=== PATIENT | female | born 1950 | race Caucasian/White ===

== ENCOUNTER 2020-11-16 12:50 | Inpatient (IN) | payer MEDICARE ==
[2020-11-16] MEDS ORDERED: ACETAMINOPHEN TAB 325 MG TAB PO STA (13:09)
[2020-11-16] MEDS ORDERED: IBUPROFEN 600 MG TAB PO STA (13:09)
--- NOTE | 2020-11-16 13:10 | ED ---
SOB HPI - General Chief Complaint: Shortness of Breath Stated Complaint: Covid+, PAUL Time Seen by Provider: 11/16/20 13:01 Source: patient, RN notes reviewed Mode of arrival: ambulatory - History of Present Illness Initial Comments: Patient is a 69-year-old female that presents to the emergency department with shortness of breath after testing positive for Covid on Tuesday. She notes that since then she's been unable to take a deep breath and is having shortness of breath. She denied any other symptoms at this point. She can emergency department to get further evaluation. She was in mild respiratory distress, take deep breaths while sitting up in bed during the exam interview. She denied any pain. She denied any chest pain headache nausea vomiting diarrhea constip ation fever fatigue chills. - Related Data Home Medications Medication Instructions Recorded Confirmed Albuterol Inhaler [Ventolin Hfa 2 puff INHALATION RT-QID PRN 11/16/20 11/16/20 Inhaler] Citalopram Hydrobromide [CeleXA] 10 mg PO HS 11/16/20 11/16/20 Levofloxacin [Levaquin] 500 mg PO DAILY 11/16/20 11/16/20 Tolterodine [Detrol] 2 mg PO HS 11/16/20 11/16/20 Allergies Allergy/AdvReac Type Severity Reaction Status Date / Time No Known Allergies Allergy Verified 11/16/20 14:14 Review of Systems ROS Statement: Those systems with pertinent positive or pertinent negative responses have been documented in the HPI. ROS Other: All systems not noted in ROS Statement are negative. Past Medical History Past Medical History: No Reported History History of Any Multi-Drug Resistant Organisms: None Reported Past Surgical History: Appendectomy, Hysterectomy Past Psychological History: No Psychological Hx Reported Smoking Status: Former smoker Past Alcohol Use History: None Reported Past Drug Use History: None Reported General Exam General appearance: alert, in no apparent distress Head exam: Present: atraumatic, normocephalic, normal inspection Eye exam: Present: normal appearance, PERRL, EOMI. Absent: scleral icterus, conjunctival injection, periorbital swelling Neck exam: Present: normal inspection. Absent: tenderness, meningismus, lymphadenopathy Respiratory exam: Present: normal lung sounds bilaterally, accessory muscle use (Minimal). Absent: respiratory distress, wheezes, rales, rhonchi, stridor Cardiovascular Exam: Present: regular rate, normal rhythm, normal heart sounds. Absent: systolic murmur, diastolic murmur, rubs, gallop, clicks GI/Abdominal exam: Present: soft, normal bowel sounds. Absent: distended, tenderness, guarding, rebound, rigid Extremities exam: Present: normal inspection, full ROM, normal capillary refill. Absent: tenderness, pedal edema, joint swelling, calf tenderness Neurological exam: Present: alert, oriented X3, CN II-XII intact Psychiatric exam: Present: normal affect, normal mood Skin exam: Present: warm, dry, intact, normal color. Absent: rash Course Vital Signs 11/16/20 11/16/20 12:55 14:08 Temperature 99.9 F H Pulse Rate 99 79 Respiratory 20 18 Rate Blood Pressure 121/59 117/60 O2 Sat by Pulse 86 L 93 L Oximetry Medical Decision Making - Medical Decision Making 69-year-old female tested positive for Covid on Tuesday with increased shortness of breath. Labs, 1 L normal saline, 2 L of oxygen via nasal cannula, chest x-ray, EKG, cardiac technologist, continuous pulse oximetry ordered. Tylenol 650 and Motrin 600 ordered for mild fever. Patient's oxygen saturation triage but 86% on room air, upon leaving room with 2 L via nasal cannula patient was satting at 94%. Case discussed with Dr. Landa and Dr. Perera, patient will be admitted inpatient. Dr. Pete was consult and will accept the admission. - Lab Data Result diagrams: 11/16/20 13:15 11/16/20 13:15 Lab Results 11/16/20 11/16/20 11/16/20 Range/Units 13:15 13:15 13:15 WBC 7.6 (3.8-10.6) k/uL RBC 3.88 (3.80-5.40) m/uL Hgb 12.9 (11.4-16.0) gm/dL Hct 37.1 (34.0-46.0) % MCV 95.5 (80.0-100.0) fL MCH 33.2 (25.0-35.0) pg MCHC 34.7 (31.0-37.0) g/dL RDW 11.7 (11.5-15.5) % Plt Count 246 (150-450) k/uL MPV 7.0 Neutrophils % 77 % Lymphocytes % 15 % Monocytes % 6 % Eosinophils % 1 % Basophils % 1 % Neutrophils # 5.8 (1.3-7.7) k/uL Lymphocytes # 1.1 (1.0-4.8) k/uL Monocytes # 0.5 (0-1.0) k/uL Eosinophils # 0.1 (0-0.7) k/uL Basophils # 0.1 (0-0.2) k/uL PT 10.1 (9.0-12.0) sec INR 0.9 (<1.2) APTT 26.7 (22.0-30.0) sec D-Dimer 0.99 H (<0.60) mg/L FEU Sodium 133 L (137-145) mmol/L Potassium 3.9 (3.5-5.1) mmol/L Chloride 98 (98-107) mmol/L Carbon Dioxide 25 (22-30) mmol/L Anion Gap 10 mmol/L BUN 12 (7-17) mg/dL Creatinine 0.65 (0.52-1.04) mg/dL Est GFR (CKD-EPI)AfAm >90 (>60 ml/min/1.73 sqM) Est GFR (CKD-EPI)NonAf >90 (>60 ml/min/1.73 sqM) Glucose 126 H (74-99) mg/dL Plasma Lactic Acid Rocco (0.7-2.0) mmol/L Calcium 8.6 (8.4-10.2) mg/dL Magnesium 1.7 (1.6-2.3) mg/dL Total Bilirubin 0.5 (0.2-1.3) mg/dL AST 35 (14-36) U/L ALT 21 (4-34) U/L Alkaline Phosphatase 73 (38-126) U/L Lactate Dehydrogenase 765 H (313-618) U/L C-Reactive Protein 14.0 H (<1.0) mg/dL Total Protein 6.9 (6.3-8.2) g/dL Albumin 3.7 (3.5-5.0) g/dL Influenza Type A (PCR) (Not Detectd) Influenza Type B (PCR) (Not Detectd) RSV (PCR) (Not Detectd) SARS-CoV-2 (PCR) (Not Detectd) 11/16/20 11/16/20 Range/Units 13:15 13:15 WBC (3.8-10.6) k/uL RBC (3.80-5.40) m/uL Hgb (11.4-16.0) gm/dL Hct (34.0-46.0) % MCV (80.0-100.0) fL MCH (25.0-35.0) pg MCHC (31.0-37.0) g/dL RDW (11.5-15.5) % Plt Count (150-450) k/uL MPV Neutrophils % % Lymphocytes % % Monocytes % % Eosinophils % % Basophils % % Neutrophils # (1.3-7.7) k/uL Lymphocytes # (1.0-4.8) k/uL Monocytes # (0-1.0) k/uL Eosinophils # (0-0.7) k/uL Basophils # (0-0.2) k/uL PT (9.0-12.0) sec INR (<1.2) APTT (22.0-30.0) sec D-Dimer (<0.60) mg/L FEU Sodium (137-145) mmol/L Potassium (3.5-5.1) mmol/L Chloride (98-107) mmol/L Carbon Dioxide (22-30) mmol/L Anion Gap mmol/L BUN (7-17) mg/dL Creatinine (0.52-1.04) mg/dL Est GFR (CKD-EPI)AfAm (>60 ml/min/1.73 sqM) Est GFR (CKD-EPI)NonAf (>60 ml/min/1.73 sqM) Glucose (74-99) mg/dL Plasma Lactic Acid Rocco 0.9 (0.7-2.0) mmol/L Calcium (8.4-10.2) mg/dL Magnesium (1.6-2.3) mg/dL Total Bilirubin (0.2-1.3) mg/dL AST (14-36) U/L ALT (4-34) U/L Alkaline Phosphatase (38-126) U/L Lactate Dehydrogenase (313-618) U/L C-Reactive Protein (<1.0) mg/dL Total Protein (6.3-8.2) g/dL Albumin (3.5-5.0) g/dL Influenza Type A (PCR) Not Detected (Not Detectd) Influenza Type B (PCR) Not Detected (Not Detectd) RSV (PCR) Not Detected (Not Detectd) SARS-CoV-2 (PCR) Detected A (Not Detectd) - EKG Data -: EKG Interpreted by Me EKG shows normal: sinus rhythm Rate: normal EKG Comments: Ventricular rate 89 bpm, NM interval 150 ms, QRS duration 74 ms, QT/QTC 350/425 ms, PRT axes 29/5/58. Normal sinus rhythm normal ECG. - Radiology Data Radiology results: report reviewed, image reviewed Chest x-ray patchy bilateral perihilar infiltrates. CT of the chest angiogram: No evidence of pulmonary embolism. Extensive bilateral pneumonia with bronchial adenopathy. Disposition Clinical Impression: Pneumonia due to COVID-19 virus Disposition: ADMITTED IP TO THIS HOSP Condition: Stable Is patient prescribed a controlled substance at d/c from ED?: No Referrals: Shalom Hernandez MD [Primary Care Provider] - 1-2 days Time of Disposition: 15:48
[2020-11-16 13:32] LABS: Basophils # (A) 0.1 k/uL (0-0.2); Basophils % (A) 1 %; Eosinophils # (A) 0.1 k/uL (0-0.7); Eosinophils % (A) 1 %; HCT 37.1 % (34.0-46.0); HGB 12.9 gm/dL (11.4-16.0); Lymphocytes # (A) 1.1 k/uL (1.0-4.8); Lymphocytes % (A) 15 %; MCH 33.2 pg (25.0-35.0); MCHC 34.7 g/dL (31.0-37.0); MCV 95.5 fL (80.0-100.0); Monocytes # (A) 0.5 k/uL (0-1.0); Monocytes % (A) 6 %; Neutrophils # (A) 5.8 k/uL (1.3-7.7); Neutrophils % (A) 77 %; Platelet Count 246 k/uL (150-450); RBC 3.88 m/uL (3.80-5.40); RDW 11.7 % (11.5-15.5); WBC 7.6 k/uL (3.8-10.6)
[2020-11-16 13:52] LABS: INR 0.9 (<1.2); Partial Thromboplastin Time 26.7 sec (22.0-30.0); Prothrombin Time 10.1 sec (9.0-12.0)
--- NOTE | 2020-11-16 13:52 | XR ---
EXAMINATION TYPE: XR chest 1V portable DATE OF EXAM: 11/16/2020 COMPARISON: NONE HISTORY: Cough TECHNIQUE: Single frontal view of the chest is obtained. FINDINGS: There are patchy bilateral perihilar infiltrates. No pleural effusion or pneumothorax. Hea rt size normal. Diffuse osteopenia. IMPRESSION: Patchy bilateral perihilar infiltrate.
[2020-11-16 13:54] LABS: ALT 21 U/L (4-34); AST 35 U/L (14-36); African American GFR (CKD) >90 (>60 ml/min/1.73 sqM); Albumin 3.7 g/dL (3.5-5.0); Alkaline Phosphatase 73 U/L (38-126); Anion Gap 10 mmol/L; Blood Urea Nitrogen 12 mg/dL (7-17); Calcium 8.6 mg/dL (8.4-10.2); Carbon Dioxide 25 mmol/L (22-30); Chloride 98 mmol/L (98-107); Glucose 126 mg/dL (74-99); LDH 765 U/L (313-618); Magnesium 1.7 mg/dL (1.6-2.3); Non-African American GFR(CKD) >90 (>60 ml/min/1.73 sqM); Potassium 3.9 mmol/L (3.5-5.1); Sodium 133 mmol/L (137-145); Total Bilirubin 0.5 mg/dL (0.2-1.3); Total Protein 6.9 g/dL (6.3-8.2)
[2020-11-16 14:00] LABS: D-Dimer 0.99 mg/L FEU (<0.60)
--- NOTE | 2020-11-16 15:30 | CT ---
EXAMINATION TYPE: CT chest angio for PE DATE OF EXAM: 11/16/2020 COMPARISON: None HISTORY: Elevated d-dimer. Shortness of breath. CT DLP: 378.9 mGycm Automated exposure control for dose reduction was used. CONTRAST: Performed with IV Contrast, patient injected with 100 mL of Isovue 370. There are 3-D post processed images. There is patchy peripheral extensive pulmonary interstitial and airspace infiltrates. Heart size is f airly normal. There is no pericardial effusion. There is no pleural effusion. There is normal contrast opacification of the pulmonary arteries. There are no filling defects. Thora cic aorta is intact. There is no aneurysm or dissection. There are bilateral multiple bronchial lymph nodes up to 1.5 cm. Bony thorax is intact. IMPRESSION: No evidence of pulmonary embolism. Extensive bilateral pneumonia with bronchial adenopathy.
[2020-11-16] MEDS ORDERED: NALOXONE 0.4 MG/ML 1 ML VIAL IV PRN (15:46)
[2020-11-16] MEDS ORDERED: DEXAMETHASONE SOD PHOSPHATE 10 MG/ML 1 ML VIAL IV STA (15:46)
[2020-11-16] MEDS: SODIUM CHLORIDE 0.9% 1,000 ML IV SCH (15:52)
[2020-11-16] MEDS ORDERED: ONDANSETRON 4 MG/2 ML VIAL IVP PRN ×2 (15:54→17:27)
[2020-11-16] MEDS ORDERED: ALBUTEROL HFA INHALER INHALATION PRN (17:27)
[2020-11-16] MEDS ORDERED: IBUPROFEN 400 MG TAB PO PRN (17:27)
[2020-11-16] MEDS ORDERED: HYDROcodone/APAP 5-325MG 1 EACH TAB PO PRN (17:27)
[2020-11-16] MEDS ORDERED: MORPHINE SULFATE 4 MG/ML SYRINGE IV PRN (17:27)
--- NOTE | 2020-11-16 17:49 | P.HPIM ---
History of Present Illness H&P Date: 11/16/20 Chief Complaint: shortness of breath Patient is a 69-year-old female with no significant past medical history who presented to the emergency department secondary to shortness of breath. She had been diagnosed with COVID-19 on 11/11. On arrival to the ER she was hypoxic at 86% on room air. Labs showed a mildly elevated d-dimer at 0.99, she subsequently underwent a CTA of the chest which showed no evidence of pulmonary embolism but did show extensive bilateral pulmonary infiltrates with reactive adenopathy. Her COVID-19 test was again positive. She was given a dose of Tylenol, Motrin, and Decadron area and she was admitted for further management. Patient seen and examined at bedside in the ER. She states that on Tuesday 11/07 she started having post nassal gtt, started coughing on 11/08. She went to see Dr. Hernandez on 11/10 and started on levaquin and medrol for bronchitis and her + COVID test came back 11/11. She started to have some difficulty getting in a deep breath over the last 4 days, she also reports rib pain when trying to breath, and shortness of breath. Poor appetitie. She is able to taste and smell. Stool has been watery but not frequent. No known COVID contacts, no hx of vaccine. Pertinent positives and negatives as discussed in HPI, a complete review of systems was performed and all other systems are negative. General: ill appearing, mod distress, appears at stated age Derm: warm, dry Head: atraumatic, normocephalic, symmetric Eyes: EOMI, no lid lag, anicteric sclera, pupils equal round reactive to light ENT: Nose and ears atraumatic, no thrush, no pharyngeal erythema Neck: No thyromegaly, no cervical lymphadenopathy, trachea midline, supple Mouth: no lip lesion, mucus membranes dry Cardiovascular: S1S2 reg, no murmur, positive posterior tibial pulse bilateral, no edema, capillary refill less than 2 seconds Lungs: course bs bilateral, no ronchi, no rales, no wheeze, no accessory muscle use Abdominal: soft, nontender to palpation, no guarding, no appreciable organomegaly, normal bowel sounds Ext: no gross muscle atrophy, muscle strength 5 out of 5 in all 4 extremities, no contractures Neuro: CN II-XI grossly intact, light touch intact all 4 extremities, finger to nose within normal limits, Psych: Alert, oriented, appropriate affect COVID-19 pneumonitis acute hypoxic respiratory failure - out of the window for remdesivir - if O2 requirement worsen consult pulm in AM -Decadron D # 1 -Vitamin C, vitamin D, zinc -Albuterol - Lovenox - pulm hygeine Costochonditiris due to above - motrin Overative bladder - detrol The patient is admitted with an anticipated greater than 2 midnight stay for evaluation of COVID with acute hypoxic respiratory fialure. 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 Past Medical History Additional Past Medical History / Comment(s): overactive bladder History of Any Multi-Drug Resistant Organisms: None Reported Past Surgical History: Appendectomy, Hysterectomy Past Psychological History: No Psychological Hx Reported Smoking Status: Never smoker Past Alcohol Use History: None Reported Past Drug Use History: None Reported - Past Family History Father Additional Family Medical History / Comment(s): cancer Mother Additional Family Medical History / Comment(s): heart disease Medications and Allergies Home Medications Medication Instructions Recorded Confirmed Type Albuterol Inhaler [Ventolin Hfa 2 puff INHALATION RT-QID PRN 11/16/20 11/16/20 History Inhaler] Citalopram Hydrobromide [CeleXA] 10 mg PO HS 11/16/20 11/16/20 History Levofloxacin [Levaquin] 500 mg PO DAILY 11/16/20 11/16/20 History Tolterodine [Detrol] 2 mg PO HS 11/16/20 11/16/20 History Allergies Allergy/AdvReac Type Severity Reaction Status Date / Time No Known Allergies Allergy Verified 11/16/20 14:14 Physical Exam Osteopathic Statement: *. No significant issues noted on an osteopathic structural exam other than those noted in the History and Physical/Consult. Vitals: Vital Signs Temp Pulse Resp BP Pulse Ox 11/16/20 14:08 79 18 117/60 93 L 11/16/20 12:55 99.9 F H 99 20 121/59 86 L Intake and Output 11/16/20 11/16/20 11/16/20 06:59 14:59 22:59 Other: Weight 88.904 kg Results CBC & Chem 7: 11/16/20 13:15 11/16/20 13:15 Labs: Abnormal Lab Results - Last 24 Hours (Table) 11/16/20 11/16/20 11/16/20 Range/Units 13:15 13:15 13:15 D-Dimer 0.99 H (<0.60) mg/L FEU Sodium 133 L (137-145) mmol/L Glucose 126 H (74-99) mg/dL Lactate Dehydrogenase 765 H (313-618) U/L C-Reactive Protein 14.0 H (<1.0) mg/dL SARS-CoV-2 (PCR) Detected A (Not Detectd)
[2020-11-16] MEDS: FAMOTIDINE 20 MG TAB PO SCH (18:45)
[2020-11-16] MEDS: ALBUTEROL HFA INHALER INHALATION SCH (20:22)
[2020-11-16] MEDS: OXYBUTYNIN XL 5 MG TAB.ER.24 PO SCH (20:53)
[2020-11-16] MEDS: CITALOPRAM HYDROBROMIDE 10 MG TAB PO SCH (20:53)
[2020-11-17] MEDS: ALBUTEROL HFA INHALER INHALATION SCH ×4 (03:12→21:19)
[2020-11-17] MEDS: FAMOTIDINE 20 MG TAB PO SCH (07:40)
[2020-11-17] MEDS: ASCORBIC ACID 500 MG TAB PO SCH (07:40)
[2020-11-17] MEDS: dexAMETHasone 2 MG TAB PO SCH (07:40)
[2020-11-17] MEDS: ENOXAPARIN 40 MG/0.4 ML SYRINGE SQ SCH (07:40)
[2020-11-17] MEDS: ZINC SULFATE 220 MG CAP PO SCH (07:40)
[2020-11-17] MEDS: CHOLECALCIFEROL 25 MCG (1000 IU) TABLET PO SCH (07:40)
[2020-11-17] MEDS ORDERED: ENOXAPARIN 40 MG/0.4 ML SYRINGE SQ SCH (09:00)
[2020-11-17 09:02] LABS: HCT 36.3 % (37.2-46.3); MCH 32.3 pg (27.0-32.0); MCHC 33.1 g/dL (32.0-37.0); MCV 97.6 fL (80.0-97.0); Mean Platelet Volume 9.9 fL (9.5-12.2); Platelet Count 282 X 10*3/uL (140-440); RBC 3.72 X 10*6/uL (4.10-5.20); RDW 11.9 % (11.5-14.5); WBC 6.75 X 10*3/uL (4.50-10.00)
[2020-11-17 09:25] LABS: Ferritin 492.5 ng/mL (10.0-291.0)
[2020-11-17 10:27] LABS: Phosphorus 3.6 mg/dL (2.4-5.1)
[2020-11-17 10:32] LABS: African American GFR (CKD) 114.5 (60.0-200.0); Albumin 4.1 g/dL (3.80-4.90); Albumin/Globulin Ratio 1.41 (1.60-3.17); Anion Gap 12.2 mmol/L (4.00-12.00); Calcium 8.6 mg/dL (8.7-10.3); Carbon Dioxide 22.8 mmol/L (21.6-31.8); Globulin 2.9 g/dL (1.6-3.3); Non-African American GFR(CKD) 98.8 (60.0-200.0); Potassium 4.3 mmol/L (3.5-5.5); Total Bilirubin 0.4 mg/dL (0.3-1.2)
[2020-11-17 10:34] LABS: C Reactive Protein 13.1 mg/dL (0.0-0.8)
[2020-11-17] MEDS ORDERED: PANTOPRAZOLE 40 MG/10 ML VIAL IVP ONE (10:57)
[2020-11-17] MEDS: ACETAMINOPHEN TAB 325 MG TAB PO PRN (12:14)
[2020-11-17] MEDS: SODIUM CHLORIDE 0.9% 1,000 ML IV SCH ×2 (13:31→17:36)
--- NOTE | 2020-11-17 18:49 | P.PN ---
Subjective Progress Note Date: 11/17/20 (Delayed charting seen and 0945) Principal diagnosis: Shortness of breath Patient is a 69-year-old female with no significant past medical history who presented to the emergency department secondary to shortness of breath. She had been diagnosed with COVID-19 on 11/11. On arrival to the ER she was hypoxic at 86% on room air. Labs showed a mildly elevated d-dimer at 0.99, she subsequently underwent a CTA of the chest which showed no evidence of pulmonary embolism but did show extensive bilateral pulmonary infiltrates with reactive adenopathy. Her COVID-19 test was again positive. She was given a dose of Tylenol, Motrin, and Decadron area and she was admitted for further management. Her O2 requirements increased to 4 L by the morning of 11/17. She continued to have some abdominal pain which she described as spasms. Patient seen and examined at bedside. She is still feeling very short of breath, weak, and tired. She is not feeling as though she could go home. She continues to complain of some abdominal pain. She was offered Tylenol does not want this, she does not think it is acid reflux. She does not think it is cardiac it feels like a fluttering. She feels as though she has a hyper taste and her appetite is not normal. General: Ill appearing, mild distress, appears at stated age Derm: warm, dry Head: atraumatic, normocephalic, symmetric Eyes: EOMI, no lid lag, anicteric sclera Mouth: no lip lesion, mucus membranes dry Cardiovascular: S1S2 reg, no murmur, positive posterior tibial pulse bilateral, Lungs: [Coarse breath sounds bilateral, 3 word conversational dyspnea, no accessory muscle use Abdominal: soft, nontender to palpation, no guarding, no appreciable organomegaly Ext: no gross muscle atrophy, no edema, no contractures Neuro: CN II-XI grossly intact, no focal neuro deficits Psych: Alert, oriented, appropriate affect COVID-19 pneumonitis acute hypoxic respiratory failure - out of the window for remdesivir - if O2 requirement worsen consult pulm -Decadron D # 2 -Vitamin C, vitamin D, zinc -Albuterol fixed and as needed - Lovenox - pulm hygeine Costochonditiris due to above - motrin Abdominal discomfort -Suspect GERD -IV PPI -Offered Flexeril and [place]. Patient declined. Overative bladder - detrol Hyponatremia, resolved DVT prophylaxis: Lovenox Discussed with: patient, nursing Anticipated discharge date: 3-[address]: home A total of 35 minutes was spent on the care of this complex patient more than 50% of the time was spent in counseling and care coordination. Objective - Vital Signs Vital signs: Vital Signs Temp 98 F 11/17/20 17:05 Pulse 62 11/17/20 17:05 Resp 16 11/17/20 17:05 BP 147/68 11/17/20 17:05 Pulse Ox 92 L 11/17/20 17:05 Intake & Output 11/16/20 11/17/20 11/17/20 18:59 06:59 18:59 Intake Total 836 Balance 836 Weight 88.904 kg 88.904 kg Intake: Intake, IV Titration 600 Amount Sodium Chloride 0.9% 1, 600 000 ml @ 75 mls/hr IV . [id number] [facility] Rx#:[id number] Oral 236 - Labs CBC & Chem 7: 11/17/20 05:34 11/17/20 05:34 Labs: Abnormal Lab Results - Last 24 Hours (Table) 11/16/20 11/16/20 11/17/20 Range/Units 13:15 13:15 05:34 RBC 3.72 L (4.10-5.20) X 10*6/uL Hct 36.3 L (37.2-46.3) % MCV 97.6 H (80.0-97.0) fL MCH 32.3 H (27.0-32.0) pg D-Dimer (<0.60) mg/L FEU Anion Gap (4.00-12.00) mmol/L Creatinine (0.6-1.5) mg/dL BUN/Creatinine Ratio (12.00-20.00) Ratio Glucose (70-110) mg/dL Calcium (8.7-10.3) mg/dL Ferritin 492.5 H (10.0-291.0) ng/mL Lactate Dehydrogenase (120-246) U/L C-Reactive Protein (0.0-0.8) mg/dL Albumin/Globulin Ratio (1.60-3.17) g/dL Procalcitonin 0.18 H (0.02-0.09) ng/mL 11/17/20 11/17/20 Range/Units 05:34 05:34 RBC (4.10-5.20) X 10*6/uL Hct (37.2-46.3) % MCV (80.0-97.0) fL MCH (27.0-32.0) pg D-Dimer 0.86 H (<0.60) mg/L FEU Anion Gap 12.20 H (4.00-12.00) mmol/L Creatinine 0.5 L (0.6-1.5) mg/dL BUN/Creatinine Ratio 24.00 H (12.00-20.00) Ratio Glucose 178 H (70-110) mg/dL Calcium 8.6 L (8.7-10.3) mg/dL Ferritin (10.0-291.0) ng/mL Lactate Dehydrogenase 356 H (120-246) U/L C-Reactive Protein 13.1 H (0.0-0.8) mg/dL Albumin/Globulin Ratio 1.41 L (1.60-3.17) g/dL Procalcitonin (0.02-0.09) ng/mL
[2020-11-17] MEDS: CITALOPRAM HYDROBROMIDE 10 MG TAB PO SCH (20:30)
[2020-11-17] MEDS: OXYBUTYNIN XL 5 MG TAB.ER.24 PO SCH (20:30)
[2020-11-17] MEDS: CYCLOBENZAPRINE 5 MG TAB PO PRN (20:33)
[2020-11-18] MEDS: ALBUTEROL HFA INHALER INHALATION SCH ×4 (02:25→20:15)
[2020-11-18] MEDS: ZINC SULFATE 220 MG CAP PO SCH (08:58)
[2020-11-18] MEDS: CHOLECALCIFEROL 25 MCG (1000 IU) TABLET PO SCH (08:58)
[2020-11-18] MEDS: FAMOTIDINE 20 MG TAB PO SCH (08:59)
[2020-11-18] MEDS: SODIUM CHLORIDE 0.9% 1,000 ML IV SCH ×2 (08:59→20:31)
[2020-11-18] MEDS: ASCORBIC ACID 500 MG TAB PO SCH (08:59)
[2020-11-18] MEDS: ENOXAPARIN 40 MG/0.4 ML SYRINGE SQ SCH (08:59)
[2020-11-18] MEDS: dexAMETHasone 2 MG TAB PO SCH (08:59)
[2020-11-18] MEDS: CYCLOBENZAPRINE 5 MG TAB PO PRN ×2 (09:02→20:31)
[2020-11-18 09:49] LABS: HCT 35.1 % (37.2-46.3); HGB 11.7 g/dL (12.0-15.0); MCH 32.7 pg (27.0-32.0); MCHC 33.3 g/dL (32.0-37.0); Mean Platelet Volume 9.8 fL (9.5-12.2); Platelet Count 293 X 10*3/uL (140-440); RBC 3.58 X 10*6/uL (4.10-5.20); RDW 11.9 % (11.5-14.5); WBC 11.07 X 10*3/uL (4.50-10.00)
[2020-11-18] MEDS ORDERED: TOCILIZUMAB IV ONE (11:26)
[2020-11-18] MEDS ORDERED: SODIUM CHLORIDE 0.9% IV ONE (11:26)
[2020-11-18 11:29] LABS: African American GFR (CKD) 114.5 (60.0-200.0); Albumin 3.7 g/dL (3.80-4.90); Albumin/Globulin Ratio 1.54 (1.60-3.17); Anion Gap 11.7 mmol/L (4.00-12.00); C Reactive Protein 6.1 mg/dL (0.0-0.8); Calcium 8.3 mg/dL (8.7-10.3); Carbon Dioxide 23.3 mmol/L (21.6-31.8); Globulin 2.4 g/dL (1.6-3.3); Non-African American GFR(CKD) 98.8 (60.0-200.0); Potassium 4.2 mmol/L (3.5-5.5); Total Bilirubin 0.3 mg/dL (0.2-1.2); Total Protein 6.1 g/dL (6.2-8.2)
--- NOTE | 2020-11-18 11:49 | ECHOF ---
Referral Reason:CHF. COVID. MEASUREMENTS -------- HEIGHT: 170.2 cm WEIGHT: 88.9 kg BP: 144/79 RVIDd: 3.5 cm (< 3.3) IVSd: 1.5 cm (0.6 - 1.1) LVIDd: 3.7 cm (3.9 - 5.3) LVPWd: 1.0 cm (0.6 - 1.1) IVSs: 1.8 cm LVIDs: 2.0 cm LVPWs: 1.7 cm LAESV Index (A-L): 16.13 ml/m MV E Mehdi: 0.86 m/s MV DecT: 152 ms MV A Mehdi: 0.71 m/s MV E/A Ratio: 1.21 RAP: 5.00 mmHg RVSP: 38.29 mmHg FINDINGS -------- Sinus rhythm. This was a technically difficult study with suboptimal views. The left ventricular size is normal. There is moderate concentric left ventricular hypertrophy. O verall left ventricular systolic function is normal with, an EF between 55 - 60 %. The right ventricle is mildly enlarged. Normal LA size by volume 22+/-6 ml/m2. The right atrium was not well visualized. 5.0mg of Lumason was utilized for enhancement of images Interatrial and interventricular septum intact. The aortic valve was not well visualized. There is no evidence of aortic regurgitation. There is no evidence of aortic stenosis. The mitral valve was not well visualized. Mild tricuspid regurgitation present. There is mild pulmonary hypertension. The right ventricular systolic pressure, as measured by Doppler, is 38.29mmHg. The pulmonic valve was not well visualized. There is no pulmonic regurgitation present. The aortic root size is normal. IVC Not well visulized. There is no pericardial effusion. CONCLUSIONS -------- 1. This was a technically difficult study with suboptimal views. 2. There is moderate concentric left ventricular hypertrophy. 3. Overall left ventricular systolic function is normal with, an EF between 55 - 60 %. 4. The right ventricle is mildly enlarged. 5. Normal LA size by volume 22+/-6 ml/m2. 6. The aortic valve was not well visualized. 7. The mitral valve was not well visualized. 8. Mild tricuspid regurgitation present. 9. There is mild pulmonary hypertension. STEM ROLLER OR CRUSHER OPERATOR: Sury Lorenzo RDCS
--- NOTE | 2020-11-18 14:46 | P.CNPUL ---
History of Present Illness Consult date: 11/18/20 Reason for consult: pneumonia Chief complaint: COVID-19 pneumonia History of present illness: There is a 69-year-old female patient with COVID-19 related pneumonia. The patient was already diagnosed having COVID-19 on 11/11/2018. The patient was symptomatic approximately 9 days prior to that. She came into the emergency department on 11/16/2020 and the patient was hospitalized with pneumonia. She was seen by the hospitalist group. She was started on steroids. She was not given Remdesivir as the patient was thought to be outside the window of treatment. Note that the patient was found to be hypoxic with a pulse of 76% on room air at time of admission. D-dimer was 0.99. CT angios gram showed acute breath and pulmonary infiltrates consistent with COVID-19 related pneumonia and her COVID-19 by PCR came back positive. She was initiated on 2 L of oxygen by nasal cannula. Subsequently, she decompensated and she is currently at 8 L per minute nasal cannula for that reason a pulmonary consultation was requested. She is reporting some increased work of breathing. She has a dry cough. No significant sputum production. No angina. No palpitation. No previous history of lung disease or disorder. No nausea. No vomiting. She is able to taste and smell. Her LDH level was 765 and is currently down to 411. The pro calcitonin level is down to 0.18. D-dimer is at 0.8. CBC showed some mild anemia with hemoglobin of 11.7. Otherwise white cell count was 11 and the platelet count was 293. Review of Systems Constitutional: Denies chills, Denies fever Eyes: denies as per HPI, denies blurred vision, denies bulging eye, denies decr eased vision, denies diplopia, denies discharge, denies dry eye, denies irritation, denies itching, denies pain, denies photophobia, denies loss of peripheral vision, denies loss of vision, denies tunnel vision/blind spots Ears: deny: decreased hearing, ear discharge, earache, tinnitus Ears, nose, mouth and throat: Reports as per HPI Breasts: absent: as per HPI, change in shape, gynecomastia, masses, nipple discharge, pain, skin changes, swelling Cardiovascular: Reports as per HPI, Reports decreased exercise tolerance, Reports dyspnea on exertion Respiratory: Reports dyspnea Gastrointestinal: Reports as per HPI Genitourinary: Reports as per HPI Menstruation: Reports as per HPI Musculoskeletal: Reports as per HPI Musculoskeletal: absent: ankle pain, ankle stiffness, ankle swelling, as per HPI, elbow pain, elbow stiffness, elbow swelling, foot pain, foot stiffness, foot swelling, hand pain, hand stiffness, hand swelling, hip pain, hip sti ffness, hip swelling, knee pain, knee stiffness, knee swelling, shoulder pain, shoulder stiffness, shoulder swelling, wrist pain, wrist stiffness, wrist swelling Integumentary: Reports as per HPI Neurological: Reports as per HPI Psychiatric: Reports as per HPI Endocrine: Reports as per HPI Hematologic/Lymphatic: Reports as per HPI Allergic/Immunologic: Reports as per HPI Past Medical History Past Medical History: No Reported History Additional Past Medical History / Comment(s): overactive bladder, colitis History of Any Multi-Drug Resistant Organisms: None Reported Past Surgical History: Appendectomy, Hysterectomy Past Anesthesia/Blood Transfusion Reactions: No Reported Reaction Past Psychological History: Depression Smoking Status: Never smoker Past Alcohol Use History: None Reported Past Drug Use History: None Reported - Past Family History Father Family Medical History: Cancer Additional Family Medical History / Comment(s): cancer Mother History Unknown: Yes Family Medical History: Coronary Artery Disease (CAD) Additional Family Medical History / Comment(s): heart disease Medications and Allergies Home Medications Medication Instructions Recorded Confirmed Type Albuterol Inhaler [Ventolin Hfa 2 puff INHALATION RT-QID PRN 11/16/20 11/16/20 History Inhaler] Citalopram Hydrobromide [CeleXA] 10 mg PO HS 11/16/20 11/16/20 History Levofloxacin [Levaquin] 500 mg PO DAILY 11/16/20 11/16/20 History Tolterodine [Detrol] 2 mg PO HS 11/16/20 11/16/20 History Allergies Allergy/AdvReac Type Severity Reaction Status Date / Time No Known Allergies Allergy Verified 11/16/20 14:14 Physical Exam Vitals: Vital Signs Temp Pulse Resp BP Pulse Ox 11/18/20 13:37 98.8 F 85 21 142/75 92 L 11/18/20 09:55 98.6 F 84 22 127/79 91 L 11/18/20 05:36 98.1 F 75 144/79 91 L 11/18/20 02:25 89 L 11/18/20 01:54 98.0 F 67 17 135/73 96 11/18/20 00:35 91 L 11/17/20 21:55 88 L 11/17/20 21:22 98.3 F 74 17 147/75 84 L 11/17/20 17:05 98 F 62 16 147/68 92 L Intake and Output 11/17/20 11/18/20 11/18/20 22:59 06:59 14:59 Intake Total 836 Balance 836 Intake: Intake, IV Titration 600 Amount Sodium Chloride 0.9% 1, 600 000 ml @ 75 mls/hr IV . [id number] FORMERLY [facility], 1928–1983 Rx#:[id number] Oral 236 Patient seen and examined at bedside. She is still feeling very short of breath, weak, and tired. She is not feeling as though she could go home. She continues to complain of some abdominal pain. She was offered Tylenol does not want this, she does not think it is acid reflux. She does not think it is cardiac it feels like a fluttering. She feels as though she has a hyper taste and her appetite is not normal. General: Ill appearing, mild distress, appears at stated age Examination of the skin revealed no evidence of significant rashes, suspicious appearing nevi or other concerning lesions. Head exam was generally normal. There was no scleral icterus or corneal arcus. Mucous membranes were moist. Neck was supple and without jugular venous distension, thyromegaly, or carotid bruits. Carotids were easily palpable bilaterally. There was no adenopathy. Mouth: no lip lesion, mucus membranes dry Cardiovascular: S1S2 reg, no murmur, positive posterior tibial pulse bilateral, Lungs: [Coarse breath sounds bilateral, 3 word conversational dyspnea, no acce ssory muscle use Abdominal: soft, nontender to palpation, no guarding, no appreciable organomegaly Ext: no gross muscle atrophy, no edema, no contractures Neuro: CN II-XI grossly intact, no focal neuro deficits Psych: Alert, oriented, appropriate affect Results - Laboratory Findings CBC and BMP: 11/18/20 06:00 11/18/20 06:00 PT/INR, D-dimer PT 10.1 sec (9.0-12.0) 11/16/20 13:15 INR 0.9 (<1.2) 11/16/20 13:15 D-Dimer 0.80 mg/L FEU (<0.60) H 11/18/20 06:00 Abnormal lab findings: Abnormal Labs 11/16/20 11/16/20 11/16/20 13:15 13:15 13:15 WBC RBC Hgb Hct MCV MCH D-Dimer 0.99 H Sodium 133 L Anion Gap Creatinine BUN/Creatinine Ratio Glucose 126 H Calcium Ferritin 492.5 H AST Lactate Dehydrogenase 765 H C-Reactive Protein 14.0 H Total Protein Albumin Albumin/Globulin Ratio Procalcitonin 0.18 H SARS-CoV-2 (PCR) 11/16/20 11/17/20 11/17/20 13:15 05:34 05:34 WBC RBC 3.72 L Hgb Hct 36.3 L MCV 97.6 H MCH 32.3 H D-Dimer 0.86 H Sodium Anion Gap Creatinine BUN/Creatinine Ratio Glucose Calcium Ferritin AST Lactate Dehydrogenase C-Reactive Protein Total Protein Albumin Albumin/Globulin Ratio Procalcitonin SARS-CoV-2 (PCR) Detected A 11/17/20 11/18/20 11/18/20 05:34 06:00 06:00 WBC 11.07 H RBC 3.58 L Hgb 11.7 L Hct 35.1 L MCV 98.0 H MCH 32.7 H D-Dimer 0.80 H Sodium Anion Gap 12.20 H Creatinine 0.5 L BUN/Creatinine Ratio 24.00 H Glucose 178 H Calcium 8.6 L Ferritin AST Lactate Dehydrogenase 356 H C-Reactive Protein 13.1 H Total Protein Albumin Albumin/Globulin Ratio 1.41 L Procalcitonin SARS-CoV-2 (PCR) 11/18/20 06:00 WBC RBC Hgb Hct MCV MCH D-Dimer Sodium Anion Gap Creatinine 0.5 L BUN/Creatinine Ratio 26.00 H Glucose Calcium 8.3 L Ferritin AST 37 H Lactate Dehydrogenase 411 H C-Reactive Protein 6.1 H Total Protein 6.1 L Albumin 3.70 L Albumin/Globulin Ratio 1.54 L Procalcitonin SARS-CoV-2 (PCR) - Diagnostic Findings Chest x-ray: image reviewed CT scan - chest: image reviewed Assessment and Plan Plan: 1 acute COVID-19 related pneumonia. The patient origin diagnosis was on 11/11/2020 and the patient was symptomatic approximately 9-10 days prior to that. Patient presented to the hospital because of worsening shortness of breath and hypoxemia. Initially she was on 2 L and currently she is up to 8 L of oxygen by nasal cannula to maintain a saturation above 90%. 2 acute hypoxic respiratory failure currently on 8 L 3 dyspnea and cough secondary to above 4 mild elevation of the LDH and CRP. 5 overactive bladder Plan Continue Decadron Not a candidate for Remdesivir May be a candidate for Tocilizumab should there be any further decompensation and oxygenation over the next 24 hours Continue Lovenox 40 mg subcu for DVT prophylaxis Vitamin C and vitamin E and zinc supplement IV fluids Resume all medications We'll continue to follow
--- NOTE | 2020-11-18 19:04 | P.PN ---
Subjective Progress Note Date: 11/18/20 (Delayed charting seen at approximately 10:15) Principal diagnosis: Shortness of breath Patient is a 69-year-old female with no significant past medical history who presented to the emergency department secondary to shortness of breath. She had been diagnosed with COVID-19 on 11/11. On arrival to the ER she was hypoxic at 86% on room air. Labs showed a mildly elevated d-dimer at 0.99, she subsequently underwent a CTA of the chest which showed no evidence of pulmonary embolism but did show extensive bilateral pulmonary infiltrates with reactive adenopathy. Her COVID-19 test was again positive. She was given a dose of Tylenol, Motrin, and Decadron area and she was admitted for further management. Her O2 requirements increased to 4 L by the morning of 11/17. She continued to have some abdominal pain which she described as spasms. On the morning of 11/18 she had continued shortness of breath. Patient seen and examined at bedside. Continue has some shortness of breath. Insistent that when she places the nasal cannula in her mouth and set up in her nose that breathing is easier. Denies any overt chest pain. Feeling very winded when she is up and walking. Feels cramping all over. General: Ill appearing, mild distress, appears at stated age Derm: warm, dry Head: atraumatic, normocephalic, symmetric Eyes: EOMI, no lid lag, anicteric sclera Mouth: no lip lesion, mucus membranes dry Cardiovascular: S1S2 reg, no murmur, positive posterior tibial pulse bilateral, Lungs: [Coarse breath sounds bilateral, 3 word conversational dyspnea, no accessory muscle use Abdominal: soft, nontender to palpation, no guarding, no appreciable organomegaly Ext: no gross muscle atrophy, no edema, no contractures Neuro: CN II-XI grossly intact, no focal neuro deficits Psych: Alert, oriented, appropriate affect COVID-19 pneumonitis acute hypoxic respiratory failure - out of the window for remdesivir -Pulmonary recommendations appreciated -Decadron D # 3 -Vitamin C, vitamin D, zinc -Albuterol scheduled and as needed - Lovenox - pulm hygeine Costochonditiris due to above - motrin Abdominal discomfort, improved -Suspect GERD -Status post 1 dose of PPI, continue with Pepcid -Offered Flexeril and Stuart. Patient declined. Overactive bladder - detrol Hyponatremia, resolved DVT prophylaxis: Lovenox Discussed with: patient, nursing Anticipated discharge date: 3-[address]: home A total of 35 minutes was spent on the care of this complex patient more than 50% of the time was spent in counseling and care coordination. Objective - Vital Signs Vital signs: Vital Signs Temp 98.1 F 11/18/20 17:34 Pulse 88 11/18/20 17:34 Resp 20 11/18/20 17:34 BP 135/72 11/18/20 17:34 Pulse Ox 90 L 11/18/20 17:34 Intake & Output 11/18/20 11/18/20 11/19/20 06:59 18:59 06:59 Other: # Voids 4 - Labs CBC & Chem 7: 11/18/20 06:00 11/18/20 06:00 Labs: Abnormal Lab Results - Last 24 Hours (Table) 11/18/20 11/18/20 11/18/20 Range/Units 06:00 06:00 06:00 WBC 11.07 H (4.50-10.00) X 10*3/uL RBC 3.58 L (4.10-5.20) X 10*6/uL Hgb 11.7 L (12.0-15.0) g/dL Hct 35.1 L (37.2-46.3) % MCV 98.0 H (80.0-97.0) fL MCH 32.7 H (27.0-32.0) pg D-Dimer 0.80 H (<0.60) mg/L FEU Creatinine 0.5 L (0.6-1.5) mg/dL BUN/Creatinine Ratio 26.00 H (12.00-20.00) Ratio Calcium 8.3 L (8.7-10.3) mg/dL AST 37 H (13-35) U/L Lactate Dehydrogenase 411 H (120-246) U/L C-Reactive Protein 6.1 H (0.0-0.8) mg/dL Total Protein 6.1 L (6.2-8.2) g/dL Albumin 3.70 L (3.80-4.90) g/dL Albumin/Globulin Ratio 1.54 L (1.60-3.17) g/dL
[2020-11-18] MEDS: OXYBUTYNIN XL 5 MG TAB.ER.24 PO SCH (20:31)
[2020-11-18] MEDS: CITALOPRAM HYDROBROMIDE 10 MG TAB PO SCH (20:31)
[2020-11-19] MEDS: ALPRAZolam 0.5 MG TAB PO PRN ×2 (07:33→21:05)
[2020-11-19] MEDS: ZINC SULFATE 220 MG CAP PO SCH (07:33)
[2020-11-19] MEDS: dexAMETHasone 2 MG TAB PO SCH (07:33)
[2020-11-19] MEDS: ASCORBIC ACID 500 MG TAB PO SCH (07:33)
[2020-11-19] MEDS: CHOLECALCIFEROL 25 MCG (1000 IU) TABLET PO SCH (07:33)
[2020-11-19] MEDS: FAMOTIDINE 20 MG TAB PO SCH (07:33)
[2020-11-19] MEDS: ENOXAPARIN 40 MG/0.4 ML SYRINGE SQ SCH (07:34)
[2020-11-19] MEDS: ALBUTEROL HFA INHALER INHALATION SCH ×3 (08:02→20:00)
[2020-11-19 10:09] LABS: HCT 35.3 % (37.2-46.3); HGB 11.7 g/dL (12.0-15.0); MCHC 33.1 g/dL (32.0-37.0); MCV 99.4 fL (80.0-97.0); Mean Platelet Volume 9.9 fL (9.5-12.2); Platelet Count 280 X 10*3/uL (140-440); RBC 3.55 X 10*6/uL (4.10-5.20); RDW 11.9 % (11.5-14.5); WBC 9.86 X 10*3/uL (4.50-10.00)
[2020-11-19 11:17] LABS: African American GFR (CKD) 107.8 (60.0-200.0); Albumin 3.8 g/dL (3.80-4.90); Albumin/Globulin Ratio 1.52 (1.60-3.17); Anion Gap 11.6 mmol/L (4.00-12.00); BUN/Creat Ratio 23.33 Ratio (12.00-20.00); Calcium 8.7 mg/dL (8.7-10.3); Carbon Dioxide 22.4 mmol/L (21.6-31.8); Globulin 2.5 g/dL (1.6-3.3); Potassium 4.3 mmol/L (3.5-5.5); Total Bilirubin 0.4 mg/dL (0.2-1.2); Total Protein 6.3 g/dL (6.2-8.2)
[2020-11-19] MEDS: SODIUM CHLORIDE 0.9% 1,000 ML IV SCH ×2 (11:45→22:35)
[2020-11-19] MEDS: guaiFENesin 600 MG TABLET.ER PO SCH ×2 (11:45→21:03)
--- NOTE | 2020-11-19 15:53 | P.PN ---
Subjective Progress Note Date: 11/19/20 There is a 69-year-old female patient with COVID-19 related pneumonia. The pat ient was already diagnosed having COVID-19 on 11/11/2018. The patient was symptomatic approximately 9 days prior to that. She came into the emergency department on 11/16/2020 and the patient was hospitalized with pneumonia. She was seen by the hospitalist group. She was started on steroids. She was not given Remdesivir as the patient was thought to be outside the window of treatment. Note that the patient was found to be hypoxic with a pulse of 76% on room air at time of admission. D-dimer was 0.99. CT angios gram showed acute breath and pulmonary infiltrates consistent with COVID-19 related pneumonia and her COVID-19 by PCR came back positive. She was initiated on 2 L of oxygen by nasal cannula. Subsequently, she decompensated and she is currently at 8 L per minute nasal cannula for that reason a pulmonary consultation was requested. She is reporting some increased work of breathing. She has a dry cough. No significant sputum production. No angina. No palpitation. No previous history of lung disease or disorder. No nausea. No vomiting. She is able to taste and smell. Her LDH level was 765 and is currently down to 411. The pro calcitonin level is down to 0.18. D-dimer is at 0.8. CBC showed some mild anemia with hemoglobin of 11.7. Otherwise white cell count was 11 and the platelet count was 293. 11/19/2020, seeing patient for a follow-up. The patient is doing well for now. She has no new complaints. She is currently on 6 L of oxygen by nasal cannula with pulse ox of 90%. She is currently on Decadron 6 mg on a daily basis and she's also on Lovenox 40 mg subcu for DVT prophylaxis. IV fluids are running at 75 mL an hour of normal saline. The patient has a d-dimer of 0.8. Her LDH level was a cold the heart was done and it showed preserved LV function and mild pulmonary hypertension. No other new complaints or issues for now. Objective - Vital Signs Vital signs: Vital Signs Temp 98.1 F 11/19/20 13:23 Pulse 106 H 11/19/20 13:23 Resp 19 11/19/20 13:23 BP 138/61 11/19/20 13:23 Pulse Ox 90 L 11/19/20 13:23 Intake & Output 11/18/20 11/19/20 11/19/20 18:59 06:59 18:59 Other: Voiding Method Toilet # Voids 4 1 - Exam Patient seen and examined at bedside. She is still feeling very short of jamin ath, weak, and tired. She is not feeling as though she could go home. She continues to complain of some abdominal pain. She was offered Tylenol does not want this, she does not think it is acid reflux. She does not think it is cardiac it feels like a fluttering. She feels as though she has a hyper taste and her appetite is not normal. General: Ill appearing, mild distress, appears at stated age Examination of the skin revealed no evidence of significant rashes, suspicious appearing nevi or other concerning lesions. Head exam was generally normal. There was no scleral icterus or corneal arcus. Mucous membranes were moist. Neck was supple and without jugular venous distension, thyromegaly, or carotid bruits. Carotids were easily palpable bilaterally. There was no adenopathy. Mouth: no lip lesion, mucus membranes dry Cardiovascular: S1S2 reg, no murmur, positive posterior tibial pulse bilateral, Lungs: [Coarse breath sounds bilateral, 3 word conversational dyspnea, no accessory muscle use Abdominal: soft, nontender to palpation, no guarding, no appreciable organomegaly Ext: no gross muscle atrophy, no edema, no contractures Neuro: CN II-XI grossly intact, no focal neuro deficits Psych: Alert, oriented, appropriate affect - Labs CBC & Chem 7: 11/19/20 05:56 11/19/20 05:56 Labs: Abnormal Lab Results - Last 24 Hours (Table) 11/19/20 11/19/20 Range/Units 05:56 05:56 RBC 3.55 L (4.10-5.20) X 10*6/uL Hgb 11.7 L (12.0-15.0) g/dL Hct 35.3 L (37.2-46.3) % MCV 99.4 H (80.0-97.0) fL MCH 33.0 H (27.0-32.0) pg BUN/Creatinine Ratio 23.33 H (12.00-20.00) Ratio Albumin/Globulin Ratio 1.52 L (1.60-3.17) g/dL Assessment and Plan Plan: 1 acute COVID-19 related pneumonia. The patient origin diagnosis was on 021 and the patient was symptomatic approximately 9-10 days prior to that. Patient presented to the hospital because of worsening shortness of breath and hypoxemia. Initially she was on 2 L and currently she was brought up to 8 L and transitional 6 L while on Decadron. Clinically she is feeling better. 2 acute hypoxic respiratory failure currently on 6 L of oxygen by nasal cannula 3 dyspnea and cough secondary to above 4 mild elevation of the LDH and CRP. 5 overactive bladder Plan Continue Decadron Not a candidate for Remdesivir May be a candidate for Tocilizumab should there be any further decompensation and oxygenation over the next 24 hours, as such we will monitor the patient's progression and oxygenation Continue Lovenox 40 mg subcu for DVT prophylaxis Vitamin C and vitamin E and zinc supplement IV fluids Resume all medications We'll continue to follow
--- NOTE | 2020-11-19 18:26 | P.PN ---
Subjective Progress Note Date: 11/19/20 (delayed charting seen at 1030) Principal diagnosis: Shortness of breath Patient is a 69-year-old female with no significant past medical history who presented to the emergency department secondary to shortness of breath. She had been diagnosed with COVID-19 on 11/11. On arrival to the ER she was hypoxic at 86% on room air. Labs showed a mildly elevated d-dimer at 0.99, she s ubsequently underwent a CTA of the chest which showed no evidence of pulmonary embolism but did show extensive bilateral pulmonary infiltrates with reactive adenopathy. Her COVID-19 test was again positive. She was given a dose of Tylenol, Motrin, and Decadron area and she was admitted for further management. Her O2 requirements increased to 4 L by the morning of 11/17. She continued to have some abdominal pain which she described as spasms. On the morning of 11/18 she had continued shortness of breath. She had some improvement in the Patient seen and examined at bedside. Continue has some shortness of breath. Insistent that when she places the nasal cannula in her mouth and set up in her nose that breathing is easier. Denies any overt chest pain. Feeling very winded when she is up and walking. Feels cramping all over. General: Ill appearing, mild distress, appears at stated age Derm: warm, dry Head: atraumatic, normocephalic, symmetric Eyes: EOMI, no lid lag, anicteric sclera Mouth: no lip lesion, mucus membranes dry Cardiovascular: S1S2 reg, no murmur, positive posterior tibial pulse bilateral, Lungs: Coarse breath sounds bilateral, no conversational dyspnea, no accessory muscle use Abdominal: soft, nontender to palpation, no guarding, no appreciable organomegaly Ext: no gross muscle atrophy, no edema, no contractures Neuro: CN II-XI grossly intact, no focal neuro deficits Psych: Alert, oriented, appropriate affect COVID-19 pneumonitis acute hypoxic respiratory failure - out of the window for remdesivir -Pulmonary recommendations appreciated -Decadron D # 4 -Vitamin C, vitamin D, zinc -Albuterol scheduled and as needed - Lovenox - pulm hygeine Costochonditiris due to above - motrin Abdominal discomfort, improved -Suspect GERD -Status post 1 dose of PPI, continue with Pepcid -Offered Flexeril and Welches. Patient declined. Overactive bladder - detrol Hyponatremia, resolved DVT prophylaxis: Lovenox Discussed with: patient, nursing Anticipated discharge date: 2-[address]: home A total of 25 minutes was spent on the care of this complex patient more than 50% of the time was spent in counseling and care coordination. Objective - Vital Signs Vital signs: Vital Signs Temp 97.5 F L 11/19/20 17:44 Pulse 51 L 11/19/20 17:44 Resp 16 11/19/20 17:44 BP 137/77 11/19/20 17:44 Pulse Ox 91 L 11/19/20 17:44 Intake & Output 11/18/20 11/19/20 11/19/20 18:59 06:59 18:59 Other: Voiding Method Toilet # Voids 4 1 - Labs CBC & Chem 7: 11/19/20 05:56 11/19/20 05:56 Labs: Abnormal Lab Results - Last 24 Hours (Table) 11/19/20 11/19/20 Range/Units 05:56 05:56 RBC 3.55 L (4.10-5.20) X 10*6/uL Hgb 11.7 L (12.0-15.0) g/dL Hct 35.3 L (37.2-46.3) % MCV 99.4 H (80.0-97.0) fL MCH 33.0 H (27.0-32.0) pg BUN/Creatinine Ratio 23.33 H (12.00-20.00) Ratio Albumin/Globulin Ratio 1.52 L (1.60-3.17) g/dL
[2020-11-19] MEDS: CITALOPRAM HYDROBROMIDE 10 MG TAB PO SCH (21:03)
[2020-11-19] MEDS: OXYBUTYNIN XL 5 MG TAB.ER.24 PO SCH (21:03)
[2020-11-19] MEDS: ACETAMINOPHEN TAB 325 MG TAB PO PRN (21:05)
[2020-11-20] MEDS: FAMOTIDINE 20 MG TAB PO SCH (07:55)
[2020-11-20] MEDS: ALPRAZolam 0.5 MG TAB PO PRN ×2 (07:55→20:01)
[2020-11-20] MEDS: CHOLECALCIFEROL 25 MCG (1000 IU) TABLET PO SCH (07:55)
[2020-11-20] MEDS: ASCORBIC ACID 500 MG TAB PO SCH (07:55)
[2020-11-20] MEDS: ZINC SULFATE 220 MG CAP PO SCH (07:55)
[2020-11-20] MEDS: guaiFENesin 600 MG TABLET.ER PO SCH ×2 (07:55→20:00)
[2020-11-20] MEDS: dexAMETHasone 2 MG TAB PO SCH (07:56)
[2020-11-20] MEDS: ENOXAPARIN 40 MG/0.4 ML SYRINGE SQ SCH (07:56)
[2020-11-20] MEDS: ALBUTEROL HFA INHALER INHALATION SCH ×3 (08:23→20:57)
--- NOTE | 2020-11-20 10:46 | XR ---
EXAMINATION TYPE: XR chest 1V portable DATE OF EXAM: 11/20/2020 CLINICAL HISTORY: Difficulty breathing progress study. TECHNIQUE: Single AP portable upright view of the chest is obtained. COMPARISON: Chest x-ray and CTA chest from 4 days earlier FINDINGS: Bilateral multifocal and confluent opacities slightly more prominent. Cardiac silhouette s ize stable and within normal limits. Osseous structures are intact IMPRESSION: Worsening bilateral multifocal and confluent opacities consistent with covid-19 infection progression.
[2020-11-20 10:51] LABS: HCT 38.3 % (37.2-46.3); HGB 12.5 g/dL (12.0-15.0); MCH 32.3 pg (27.0-32.0); MCHC 32.6 g/dL (32.0-37.0); Mean Platelet Volume 9.8 fL (9.5-12.2); Platelet Count 354 X 10*3/uL (140-440); RBC 3.87 X 10*6/uL (4.10-5.20); RDW 11.8 % (11.5-14.5); WBC 12.28 X 10*3/uL (4.50-10.00)
[2020-11-20 11:11] LABS: African American GFR (CKD) 107.8 (60.0-200.0); Albumin 3.9 g/dL (3.80-4.90); Albumin/Globulin Ratio 1.44 (1.60-3.17); Anion Gap 11.2 mmol/L (4.00-12.00); BUN/Creat Ratio 26.67 Ratio (12.00-20.00); Calcium 8.9 mg/dL (8.7-10.3); Carbon Dioxide 24.8 mmol/L (21.6-31.8); Globulin 2.7 g/dL (1.6-3.3); Potassium 4.5 mmol/L (3.5-5.5); Total Bilirubin 0.5 mg/dL (0.2-1.2); Total Protein 6.6 g/dL (6.2-8.2)
[2020-11-20] MEDS: SODIUM CHLORIDE 0.9% 1,000 ML IV SCH (12:42)
[2020-11-20] MEDS ORDERED: TOCILIZUMAB 720 MG in SODIUM CHLORIDE 0.9% 64 ML IV ONE (13:00)
--- NOTE | 2020-11-20 15:24 | P.PN ---
Subjective Progress Note Date: 11/20/20 (delayed charting seen at 1030) Principal diagnosis: Shortness of breath Patient is a 69-year-old female with no significant past medical history who presented to the emergency department secondary to shortness of breath. She had been diagnosed with COVID-19 on 11/11. On arrival to the ER she was hypoxic at 86% on room air. Labs showed a mildly elevated d-dimer at 0.99, she s ubsequently underwent a CTA of the chest which showed no evidence of pulmonary embolism but did show extensive bilateral pulmonary infiltrates with reactive adenopathy. Her COVID-19 test was again positive. She was given a dose of Tylenol, Motrin, and Decadron area and she was admitted for further management. Her O2 requirements increased to 4 L by the morning of 11/17. She continued to have some abdominal pain which she described as spasms. On the morning of 11/18 she had continued shortness of breath. She had some improvement in her abdominal quivering. Patient seen and examined at bedside. She reports some shortness of breath, she feels better after taking Xanax, she denies any nausea or vomiting. She is still just overall not feeling well and having some muscle cramping. General: Ill appearing, mild distress, appears at stated age Derm: warm, dry Head: atraumatic, normocephalic, symmetric Eyes: EOMI, no lid lag, anicteric sclera Mouth: no lip lesion, mucus membranes dry Cardiovascular: S1S2 reg, no murmur, positive posterior tibial pulse bilateral, Lungs: Coarse breath sounds bilateral, no conversational dyspnea, no accessory muscle use Abdominal: soft, nontender to palpation, no guarding, no appreciable organomegaly Ext: no gross muscle atrophy, no edema, no contractures Neuro: CN II-XI grossly intact, no focal neuro deficits Psych: Alert, oriented, appropriate affect COVID-19 pneumonitis acute hypoxic respiratory failure - D/W pulm: Toci - out of the window for remdesivir -Pulmonary recommendations appreciated -Decadron D #6 -Vitamin C, vitamin D, zinc -Albuterol scheduled and as needed - Lovenox - pulm hygeine Costochonditiris due to above - motrin Abdominal discomfort, improved -Suspect GERD -Status post 1 dose of PPI, continue with Pepcid -Offered Flexeril and [place]. Patient declined. Overactive bladder - detrol Hyponatremia, resolved DVT prophylaxis: Lovenox Discussed with: patient, nursing Anticipated discharge date: 2-[address]: home A total of 25 minutes was spent on the care of this complex patient more than 50% of the time was spent in counseling and care coordination. Objective - Vital Signs Vital signs: Vital Signs Temp 98.5 F 11/20/20 14:00 Pulse 87 11/20/20 14:00 Resp 18 11/20/20 14:00 BP 143/75 11/20/20 14:00 Pulse Ox 95 11/20/20 14:00 Intake & Output 11/19/20 11/20/20 11/20/20 18:59 06:59 18:59 Intake Total 236 Balance 236 Intake: Oral 236 Other: Voiding Method Toilet Toilet Toilet Bedside Commode # Voids 1 - Labs CBC & Chem 7: 11/20/20 06:54 11/20/20 06:54 Labs: Abnormal Lab Results - Last 24 Hours (Table) 11/20/20 11/20/20 Range/Units 06:54 06:54 WBC 12.28 H (4.50-10.00) X 10*3/uL RBC 3.87 L (4.10-5.20) X 10*6/uL MCV 99.0 H (80.0-97.0) fL MCH 32.3 H (27.0-32.0) pg BUN/Creatinine Ratio 26.67 H (12.00-20.00) Ratio AST 38 H (13-35) U/L Albumin/Globulin Ratio 1.44 L (1.60-3.17) g/dL
--- NOTE | 2020-11-20 15:38 | P.PN ---
Subjective Progress Note Date: 11/20/20 Principal diagnosis: Acute Covid related pneumonia There is a 69-year-old female patient with COVID-19 related pneumonia. The patient was already diagnosed having COVID-19 on 11/11/2018. The patient was symptomatic approximately 9 days prior to that. She came into the emergency department on 11/16/2020 and the patient was hospitalized with pneumonia. She was seen by the hospitalist group. She was started on steroids. She was not given Remdesivir as the patient was thought to be outside the window of treatment. Note that the patient was found to be hypoxic with a pulse of 76% on room air at time of admission. D-dimer was 0.99. CT angios gram showed acute breath and pulmonary infiltrates consistent with COVID-19 related pneumonia and her COVID-19 by PCR came back positive. She was initiated on 2 L of oxygen by nasal cannula. Subsequently, she decompensated and she is currently at 8 L per minute nasal cannula for that reason a pulmonary consultation was requested. She is reporting some increased work of breathing. She has a dry cough. No significant sputum production. No angina. No palpitation. No previous history of lung disease or disorder. No nausea. No vomiting. She is able to taste and smell. Her LDH level was 765 and is currently down to 411. The pro calcitonin level is down to 0.18. D-dimer is at 0.8. CBC showed some mild anemia with hemoglobin of 11.7. Otherwise white cell count was 11 and the platelet count was 293. 11/19/2020, seeing patient for a follow-up. The patient is doing well for now. She has no new complaints. She is currently on 6 L of oxygen by nasal cannula with pulse ox of 90%. She is currently on Decadron 6 mg on a daily basis and she's also on Lovenox 40 mg subcu for DVT prophylaxis. IV fluids are running at 75 mL an hour of normal saline. The patient has a d-dimer of 0.8. Her LDH level was a cold the heart was done and it showed preserved LV function and mild pulmonary hypertension. No other new complaints or issues for now. On 11/20/2020 patient seen in follow-up on medical surgical floor. Overnight her oxygen demand has increased, and patient was desaturating into the low 70s with ambulation, and would take a long time to recover, she was placed on 15 L high flow and 100% nonrebreather mask, her pulse ox right now is 90-95%, she seems to breathing comfortably, she is sitting in the recliner, she has been ambulating to the bathroom earlier, however now she is using the bedside commode, she is afebrile, blood pressures are stable, she had no fevers overnight. She continues on Decadron 6 mg daily, and she is on prophylactic dose of Lovenox. Was outside the window for Remdesivir. Today's chest x-ray shows worsening bilateral multifocal and confluent opacities consistent with COVID-19 progression Objective - Vital Signs Vital signs: Vital Signs Temp 98.5 F 11/20/20 14:00 Pulse 87 11/20/20 14:00 Resp 18 11/20/20 14:00 BP 143/75 11/20/20 14:00 Pulse Ox 95 11/20/20 14:00 Intake & Output 11/19/20 11/20/20 11/20/20 18:59 06:59 18:59 Intake Total 236 Balance 236 Intake: Oral 236 Other: Voiding Method Toilet Toilet Toilet Bedside Commode # Voids 1 - Exam GENERAL EXAM: Alert, very pleasant, 69-year-old white female, sitting up in the recliner, short of breath, she is on 15 L high flow oxygen in the 100% nonrebreather mask with a pulse ox of 90-95% comfortable in no apparent distress. HEAD: Normocephalic/atraumatic. EYES: Normal reaction of pupils, equal size. Conjunctiva pink, sclera white. NOSE: Clear with pink turbinates. THROAT: No erythema or exudates. NECK: No masses, no JVD, no thyroid enlargement, no adenopathy. CHEST: No chest wall deformity. Symmetrical expansion. LUNGS: Equal air entry with no crackles, wheeze, rhonchi or dullness. CVS: Regular rate and rhythm, normal S1 and S2, no gallops, no murmurs, no rubs ABDOMEN: Soft, nontender. No hepatosplenomegaly, normal bowel sounds, no guarding or rigidity. EXTREMITIES: No clubbing, no edema, no cyanosis, 2+ pulses and upper and lower extremities. MUSCULOSKELETAL: Muscle strength and tone normal. SPINE: No scoliosis or deformity SKIN: No rashes CENTRAL NERVOUS SYSTEM: Alert and oriented -3. No focal deficits, tone is normal in all 4 extremities. PSYCHIATRIC: Alert and oriented -3. Appropriate affect. Intact judgment and insight. - Labs CBC & Chem 7: 11/20/20 06:54 11/20/20 06:54 Labs: Abnormal Lab Results - Last 24 Hours (Table) 11/20/20 11/20/20 Range/Units 06:54 06:54 WBC 12.28 H (4.50-10.00) X 10*3/uL RBC 3.87 L (4.10-5.20) X 10*6/uL MCV 99.0 H (80.0-97.0) fL MCH 32.3 H (27.0-32.0) pg BUN/Creatinine Ratio 26.67 H (12.00-20.00) Ratio AST 38 H (13-35) U/L Albumin/Globulin Ratio 1.44 L (1.60-3.17) g/dL Assessment and Plan Plan: Assessment: 1 acute COVID-19 related pneumonia. The patient origin diagnosis was on 11/11/2020 and the patient was symptomatic approximately 9-10 days prior to that. Patient presented to the hospital because of worsening shortness of breath and hypoxemia. Initially she was on 2 L and currently she was brought up to 8 L and transitional 6 L while on Decadron. On 11/20/2020 patient's oxygen and has increased to 15 L high flow 100% nonrebreather 2 acute hypoxic respiratory failure currently on 6 L of oxygen by nasal cannula 3 dyspnea and cough secondary to above 4 mild elevation of the LDH and CRP. 5 overactive bladder Plan: We will give the patient 1 dose of Tocilizumab Continue Decadron Continue Lovenox Today's chest x-ray has been reviewed There has been progression in patient's oxygen demand We'll continue to follow If she continues to worsen may consider moving the patient to the intensive care unit I performed a history & physical examination of the patient and discussed their management with my nurse practitioner, Amber Mayfield. I reviewed the nurse practitioner's note and agree with the documented findings and plan of care. Lung sounds are positive for diminished breath sounds. The findings and the impression was discussed with the patient. I attest to the documentation by the nurse practitioner. Time with Patient: Less than 30
[2020-11-20] MEDS: OXYBUTYNIN XL 5 MG TAB.ER.24 PO SCH (20:00)
[2020-11-20] MEDS: CITALOPRAM HYDROBROMIDE 10 MG TAB PO SCH (20:00)
[2020-11-21] MEDS: SODIUM CHLORIDE 0.9% 1,000 ML IV SCH ×2 (04:22→18:15)
[2020-11-21] MEDS: ALBUTEROL HFA INHALER INHALATION SCH ×3 (08:41→19:52)
[2020-11-21] MEDS: dexAMETHasone 2 MG TAB PO SCH (09:02)
[2020-11-21] MEDS: CHOLECALCIFEROL 25 MCG (1000 IU) TABLET PO SCH (09:02)
[2020-11-21] MEDS: ASCORBIC ACID 500 MG TAB PO SCH (09:02)
[2020-11-21] MEDS: ENOXAPARIN 40 MG/0.4 ML SYRINGE SQ SCH ×2 (09:02→21:44)
[2020-11-21] MEDS: ZINC SULFATE 220 MG CAP PO SCH (09:02)
[2020-11-21] MEDS: FAMOTIDINE 20 MG TAB PO SCH (09:03)
[2020-11-21] MEDS: guaiFENesin 600 MG TABLET.ER PO SCH ×2 (09:03→21:46)
[2020-11-21 09:44] LABS: ALT 34 U/L (4-34); AST 37 U/L (14-36); African American GFR (CKD) >90 (>60 ml/min/1.73 sqM); Albumin 3.4 g/dL (3.5-5.0); Albumin/Globulin Ratio 1.1; Alkaline Phosphatase 72 U/L (38-126); Anion Gap 9 mmol/L; Blood Urea Nitrogen 15 mg/dL (7-17); Calcium 9.1 mg/dL (8.4-10.2); Carbon Dioxide 26 mmol/L (22-30); Chloride 105 mmol/L (98-107); Globulin 3.2 g/dL; Glucose 84 mg/dL (74-99); LDH 1574 U/L (313-618); Non-African American GFR(CKD) >90 (>60 ml/min/1.73 sqM); Potassium 4.6 mmol/L (3.5-5.1); Sodium 140 mmol/L (137-145); Total Bilirubin 0.4 mg/dL (0.2-1.3); Total Protein 6.6 g/dL (6.3-8.2)
[2020-11-21 09:45] LABS: HCT 37.6 % (34.0-46.0); HGB 12.6 gm/dL (11.4-16.0); MCH 32.7 pg (25.0-35.0); MCHC 33.6 g/dL (31.0-37.0); MCV 97.1 fL (80.0-100.0); Mean Platelet Volume 8.4; Platelet Count 362 k/uL (150-450); RBC 3.87 m/uL (3.80-5.40); RDW 11.9 % (11.5-15.5); WBC 9.7 k/uL (3.8-10.6)
[2020-11-21 10:06] LABS: C Reactive Protein 14.9 mg/dL (<1.0)
[2020-11-21 11:11] LABS: Glucose,Whole Blood 97 mg/dL (75-99)
[2020-11-21] MEDS ORDERED: LORazepam 2 MG/ML INJ IV PRN (11:29)
--- NOTE | 2020-11-21 11:42 | P.PN ---
Subjective Progress Note Date: 11/21/20 Principal diagnosis: Acute Covid related pneumonia There is a 69-year-old female patient with COVID-19 related pneumonia. The patient was already diagnosed having COVID-19 on 11/11/2018. The patient was symptomatic approximately 9 days prior to that. She came into the emergency department on 11/16/2020 and the patient was hospitalized with pneumonia. She was seen by the hospitalist group. She was started on steroids. She was not given Remdesivir as the patient was thought to be outside the window of treatment. Note that the patient was found to be hypoxic with a pulse of 76% on room air at time of admission. D-dimer was 0.99. CT angios gram showed acute breath and pulmonary infiltrates consistent with COVID-19 related pneumonia and her COVID-19 by PCR came back positive. She was initiated on 2 L of oxygen by nasal cannula. Subsequently, she decompensated and she is currently at 8 L per minute nasal cannula for that reason a pulmonary consultation was requested. She is reporting some increased work of breathing. She has a dry cough. No significant sputum production. No angina. No palpitation. No previous history of lung disease or disorder. No nausea. No vomiting. She is able to taste and smell. Her LDH level was 765 and is currently down to 411. The pro calcitonin level is down to 0.18. D-dimer is at 0.8. CBC showed some mild anemia with hemoglobin of 11.7. Otherwise white cell count was 11 and the platelet count was 293. 11/19/2020, seeing patient for a follow-up. The patient is doing well for now. She has no new complaints. She is currently on 6 L of oxygen by nasal cannula with pulse ox of 90%. She is currently on Decadron 6 mg on a daily basis and she's also on Lovenox 40 mg subcu for DVT prophylaxis. IV fluids are running at 75 mL an hour of normal saline. The patient has a d-dimer of 0.8. Her LDH level was a cold the heart was done and it showed preserved LV function and mild pulmonary hypertension. No other new complaints or issues for now. On 11/20/2020 patient seen in follow-up on medical surgical floor. Overnight her oxygen demand has increased, and patient was desaturating into the low 70s with ambulation, and would take a long time to recover, she was placed on 15 L high flow and 100% nonrebreather mask, her pulse ox right now is 90-95%, she seems to breathing comfortably, she is sitting in the recliner, she has been ambulating to the bathroom earlier, however now she is using the bedside commode, she is afebrile, blood pressures are stable, she had no fevers overnight. She continues on Decadron 6 mg daily, and she is on prophylactic dose of Lovenox. Was outside the window for Remdesivir. Today's chest x-ray shows worsening bilateral multifocal and confluent opacities consistent with COVID-19 progression On 11/21/2020 patient seen in intensive care unit, patient was transferred to the intensive care unit this morning with worsening hypoxia and dyspnea, she is currently on BiPAP support with pressures of 14/6 and FiO2 of 100% and her pulse ox is 84% on those settings. Chest x-ray is pending, overnight her oxygenation continued to get worse, but 15 L high flow nasal cannula and nonrebreather mask, and her pulse ox was going into the low 70's. Patient is awake and alert, she is oriented 3, she is anxious, but fairly compliant with the BiPAP support. She has received a dose of Xanax which will be switched to IV Ativan. Denies any chest discomfort, she is tachypneic, her respiratory rate ranging from 17 to mid 20s and sent time 30 times per minute. She is afebrile, hemodynamically she is stable, she is in sinus mechanism. His labs have been reviewed, CBC is within normal limits, d-dimer has increased significantly and is up at 13.18 on today's labs, electrolytes were within normal limits, B1 is 15 creatinine 0.48. Has been an increase in her LDH which is up at 1574, and CRP is currently at 14.9. He remains on Decadron 6 mg daily, she status post Tocilizumab infusion of 800 mg. She was on prophylactic dose of Lovenox which we will increase to 40 mg twice daily. Objective - Vital Signs Vital signs: Vital Signs Temp 97.6 F 11/21/20 05:23 Pulse 85 11/21/20 10:19 Resp 15 11/21/20 10:28 BP 154/89 11/21/20 10:20 Pulse Ox 78 L 11/21/20 10:28 Intake & Output 11/20/20 11/21/20 11/21/20 18:59 06:59 18:59 Weight 88.904 kg Other: Voiding Method Toilet Bedside Commode # Voids 3 - Exam GENERAL EXAM: Alert, very pleasant, 69-year-old white female, patient has been transferred to the intensive care unit, currently on BiPAP support with pressures of 14/6 and FiO2 of 100%, satting 94%, tachypneic, with a rate ranging from 17-30 times per minute HEAD: Normocephalic/atraumatic. EYES: Normal reaction of pupils, equal size. Conjunctiva pink, sclera white. NOSE: Clear with pink turbinates. THROAT: No erythema or exudates. NECK: No masses, no JVD, no thyroid enlargement, no adenopathy. CHEST: No chest wall deformity. Symmetrical expansion. LUNGS: Equal air entry with no crackles, wheeze, rhonchi or dullness. CVS: Regular rate and rhythm, normal S1 and S2, no gallops, no murmurs, no rubs ABDOMEN: Soft, nontender. No hepatosplenomegaly, normal bowel sounds, no guarding or rigidity. EXTREMITIES: No clubbing, no edema, no cyanosis, 2+ pulses and upper and lower extremities. MUSCULOSKELETAL: Muscle strength and tone normal. SPINE: No scoliosis or deformity SKIN: No rashes CENTRAL NERVOUS SYSTEM: Alert and oriented -3. No focal deficits, tone is normal in all 4 extremities. PSYCHIATRIC: Alert and oriented -3. Appropriate affect. Intact judgment and insight. - Labs CBC & Chem 7: 11/21/20 07:42 11/21/20 07:42 Labs: Abnormal Lab Results - Last 24 Hours (Table) 11/21/20 11/21/20 Range/Units 07:42 07:42 D-Dimer 13.18 H (<0.60) mg/L FEU Creatinine 0.48 L (0.52-1.04) mg/dL AST 37 H (14-36) U/L Lactate Dehydrogenase 1574 H (313-618) U/L C-Reactive Protein 14.9 H (<1.0) mg/dL Albumin 3.4 L (3.5-5.0) g/dL Assessment and Plan Plan: Assessment: 1 acute COVID-19 related pneumonia. The patient origin diagnosis was on 11/11 and the patient was symptomatic approximately 9-10 days prior to that. Patient presented to the hospital because of worsening shortness of breath and hypoxemia. Initially she was on 2 L and currently she was brought up to 8 L and transitional 6 L while on Decadron. On 11/20/2020 patient's oxygen and has increased to 15 L high flow 100% nonrebreather. patient's hypoxia and dyspnea progressed and patient was transferred to the intensive care unit on 11/21/2020 and placed on BiPAP support currently 14/6 and FiO2 of 100%. She is status post Tocilizumab 800 mg on 11/20/2020 2 acute hypoxic respiratory failure, progressed, patient failed 100% nonrebreather mask and 15 L high flow and is currently on BiPAP support 3 dyspnea and cough secondary to above 4 mild elevation of the LDH and CRP. 5 overactive bladder Plan: Patient has been transferred to the intensive care unit Tolerating BiPAP support so far Increase Decadron to 6 mg twice daily Increase Lovenox to 40 mg twice daily D-dimer on a daily basis Lower extremity Dopplers to rule out possibility of DVT Stat chest x-ray has been ordered and pending Daily labs inflammatory markers Continue to closely follow her clinical course in the intensive care unit We'll discuss her condition with her Patient is agreeable to intubation if need be, however wants no CPR I performed a history & physical examination of the patient and discussed their management with my nurse practitioner, Amber Mayfield. I reviewed the nurse practitioner's note and agree with the documented findings and plan of care. Lung sounds are positive for diminished breath sounds. The findings and the impression was discussed with the patient. I attest to the documentation by the nurse practitioner. Time with Patient: Greater than 30
--- NOTE | 2020-11-21 12:49 | XR ---
EXAMINATION TYPE: XR chest 1V portable DATE OF EXAM: 11/21/2020 COMPARISON: 11/20/2020 INDICATION: Covid TECHNIQUE: Single frontal view of the chest is obtained. FINDINGS: The heart size is normal. The pulmonary vasculature is normal. Diffuse scattered infiltrates are present. Findings are similar to prior study. Findings can be estrellita tible with atypical pneumonia IMPRESSION: 1. Few scattered stable infiltrates can be compatible with atypical pneumonia
--- NOTE | 2020-11-21 14:53 | P.PN ---
Subjective Progress Note Date: 11/21/20 (delayed charting seen at 1130) Principal diagnosis: Shortness of breath Patient is a 69-year-old female with no significant past medical history who presented to the emergency department secondary to shortness of breath. She had been diagnosed with COVID-19 on 11/11. On arrival to the ER she was hypoxic at 86% on room air. Labs showed a mildly elevated d-dimer at 0.99, she s ubsequently underwent a CTA of the chest which showed no evidence of pulmonary embolism but did show extensive bilateral pulmonary infiltrates with reactive adenopathy. Her COVID-19 test was again positive. She was given a dose of Tylenol, Motrin, and Decadron area and she was admitted for further management. Her O2 requirements increased to 4 L by the morning of 11/17. She continued to have some abdominal pain which she described as spasms. On the morning of 11/18 she had continued shortness of breath. She had some improvement in her abdominal quivering. On the morning of 11/20 her oxygen requirement went up to 15 L nonrebreather she was given a dose of Toci. On the morning of 11/21 her breathing again worsened and she was transferred to the ICU and BiPAP was initiated. Patient seen and examined at bedside. She reports some shortness of breath, she feels better after taking Xanax, she denies any nausea or vomiting. She is still just overall not feeling well and having some muscle cramping. General: Ill appearing, mild distress, appears at stated age Derm: warm, dry Head: atraumatic, normocephalic, symmetric Eyes: EOMI, no lid lag, anicteric sclera Mouth: no lip lesion, mucus membranes dry Cardiovascular: S1S2 reg, no murmur, positive posterior tibial pulse bilateral, Lungs: Coarse breath sounds bilateral, no conversational dyspnea, no accessory muscle use Abdominal: soft, nontender to palpation, no guarding, no appreciable organomegaly Ext: no gross muscle atrophy, no edema, no contractures Neuro: CN II-XI grossly intact, no focal neuro deficits Psych: Alert, oriented, appropriate affect COVID-19 pneumonitis acute hypoxic respiratory failure - D/W pulm: Toci - out of the window for remdesivir -Pulmonary recommendations appreciated -Decadron D #6 -Vitamin C, vitamin D, zinc -Albuterol scheduled and as needed - Lovenox - pulm hygeine Costochonditiris due to above - motrin Abdominal discomfort, improved -Suspect GERD -Status post 1 dose of PPI, continue with Pepcid -Offered Flexeril and [place]. Patient declined. Overactive bladder - detrol Hyponatremia, resolved DVT prophylaxis: Lovenox Discussed with: patient, nursing Anticipated discharge date: 2-[address]: home A total of 25 minutes was spent on the care of this complex patient more than 50% of the time was spent in counseling and care coordination. Objective - Vital Signs Vital signs: Vital Signs Temp 98.0 F 11/21/20 12:13 Pulse 61 11/21/20 14:00 Resp 36 H 11/21/20 14:00 BP 139/71 11/21/20 14:00 Pulse Ox 92 L 11/21/20 14:00 Intake & Output 11/20/20 11/21/20 11/21/20 18:59 06:59 18:59 Intake Total 225 Output Total 500 Balance -275 Weight 88.904 kg Intake: Intake, IV Titration 225 Amount Sodium Chloride 0.9% 1, 225 000 ml @ 75 mls/hr IV . [id number] DAVON Rx#:[id number] Output: Urine 500 Other: Voiding Method Toilet Bedside Commode Bedside Commode # Voids 3 - Labs CBC & Chem 7: 11/21/20 07:42 11/21/20 07:42 Labs: Abnormal Lab Results - Last 24 Hours (Table) 11/21/20 11/21/20 Range/Units 07:42 07:42 D-Dimer 13.18 H (<0.60) mg/L FEU Creatinine 0.48 L (0.52-1.04) mg/dL AST 37 H (14-36) U/L Lactate Dehydrogenase 1574 H (313-618) U/L C-Reactive Protein 14.9 H (<1.0) mg/dL Albumin 3.4 L (3.5-5.0) g/dL
[2020-11-21] MEDS: CITALOPRAM HYDROBROMIDE 10 MG TAB PO SCH (21:45)
[2020-11-21] MEDS: DEXAMETHASONE SOD PHOSPHATE 10 MG/ML 1 ML VIAL IV SCH (21:45)
[2020-11-21] MEDS: OXYBUTYNIN XL 5 MG TAB.ER.24 PO SCH (21:45)
[2020-11-22 03:55] LABS: Basophils % (A) 0 %; Eosinophils % (A) 0 %; HCT 36.7 % (34.0-46.0); HGB 12.7 gm/dL (11.4-16.0); Lymphocytes # (A) 0.8 k/uL (1.0-4.8); Lymphocytes % (A) 7 %; MCH 33.3 pg (25.0-35.0); MCHC 34.5 g/dL (31.0-37.0); MCV 96.5 fL (80.0-100.0); Mean Platelet Volume 7.1; Monocytes # (A) 0.2 k/uL (0-1.0); Monocytes % (A) 2 %; Neutrophils # (A) 10.5 k/uL (1.3-7.7); Neutrophils % (A) 90 %; Platelet Count 330 k/uL (150-450); RDW 11.9 % (11.5-15.5); WBC 11.6 k/uL (3.8-10.6)
[2020-11-22 04:06] LABS: ALT 35 U/L (4-34); AST 42 U/L (14-36); African American GFR (CKD) >90 (>60 ml/min/1.73 sqM); Albumin 3.3 g/dL (3.5-5.0); Alkaline Phosphatase 78 U/L (38-126); Anion Gap 9 mmol/L; Blood Urea Nitrogen 17 mg/dL (7-17); Calcium 8.9 mg/dL (8.4-10.2); Carbon Dioxide 26 mmol/L (22-30); Chloride 104 mmol/L (98-107); Glucose 121 mg/dL (74-99); LDH 2072 U/L (313-618); Non-African American GFR(CKD) >90 (>60 ml/min/1.73 sqM); Potassium 4.6 mmol/L (3.5-5.1); Sodium 139 mmol/L (137-145); Total Bilirubin 0.5 mg/dL (0.2-1.3); Total Protein 6.6 g/dL (6.3-8.2)
[2020-11-22 04:48] LABS: C Reactive Protein 6.4 mg/dL (<1.0)
[2020-11-22] MEDS: SODIUM CHLORIDE 0.9% 1,000 ML IV SCH ×2 (06:18→17:34)
[2020-11-22] MEDS: ALBUTEROL HFA INHALER INHALATION SCH ×3 (07:33→21:19)
--- NOTE | 2020-11-22 08:34 | P.PN ---
Subjective Progress Note Date: 11/22/20 There is a 69-year-old female patient with COVID-19 related pneumonia. The pat ient was already diagnosed having COVID-19 on 11/11/2018. The patient was symptomatic approximately 9 days prior to that. She came into the emergency department on 11/16/2020 and the patient was hospitalized with pneumonia. She was seen by the hospitalist group. She was started on steroids. She was not given Remdesivir as the patient was thought to be outside the window of treatment. Note that the patient was found to be hypoxic with a pulse of 76% on room air at time of admission. D-dimer was 0.99. CT angios gram showed acute breath and pulmonary infiltrates consistent with COVID-19 related pneumonia and her COVID-19 by PCR came back positive. She was initiated on 2 L of oxygen by nasal cannula. Subsequently, she decompensated and she is currently at 8 L per minute nasal cannula for that reason a pulmonary consultation was requested. She is reporting some increased work of breathing. She has a dry cough. No significant sputum production. No angina. No palpitation. No previous history of lung disease or disorder. No nausea. No vomiting. She is able to taste and smell. Her LDH level was 765 and is currently down to 411. The pro calcitonin level is down to 0.18. D-dimer is at 0.8. CBC showed some mild anemia with hemoglobin of 11.7. Otherwise white cell count was 11 and the platelet count was 293. 11/19/2020, seeing patient for a follow-up. The patient is doing well for now. She has no new complaints. She is currently on 6 L of oxygen by nasal cannula with pulse ox of 90%. She is currently on Decadron 6 mg on a daily basis and she's also on Lovenox 40 mg subcu for DVT prophylaxis. IV fluids are running at 75 mL an hour of normal saline. The patient has a d-dimer of 0.8. Her LDH level was a cold the heart was done and it showed preserved LV function and mild pulmonary hypertension. No other new complaints or issues for now. On 11/20/2020 patient seen in follow-up on medical surgical floor. Overnight her oxygen demand has increased, and patient was desaturating into the low 70s with ambulation, and would take a long time to recover, she was placed on 15 L high flow and 100% nonrebreather mask, her pulse ox right now is 90-95%, she seems to breathing comfortably, she is sitting in the recliner, she has been ambulating to the bathroom earlier, however now she is using the bedside commode, she is afebrile, blood pressures are stable, she had no fevers overnight. She continues on Decadron 6 mg daily, and she is on prophylactic d ose of Lovenox. Was outside the window for Remdesivir. Today's chest x-ray shows worsening bilateral multifocal and confluent opacities consistent with COVID-19 progression On 11/21/2020 patient seen in intensive care unit, patient was transferred to the intensive care unit this morning with worsening hypoxia and dyspnea, she is currently on BiPAP support with pressures of 14/6 and FiO2 of 100% and her pulse ox is 84% on those settings. Chest x-ray is pending, overnight her oxygenation continued to get worse, but 15 L high flow nasal cannula and nonrebreather mask, and her pulse ox was going into the low 70's. Patient is awake and alert, she is oriented 3, she is anxious, but fairly compliant with the BiPAP support. She has received a dose of Xanax which will be switched to IV Ativan. Denies any chest discomfort, she is tachypneic, her respiratory rate ranging from 17 to mid 20s and sent time 30 times per minute. She is afebrile, hemodynamically she is stable, she is in sinus mechanism. His labs have been reviewed, CBC is within normal limits, d-dimer has increased significantly and is up at 13.18 on today's labs, electrolytes were within normal limits, B1 is 15 creatinine 0.48. Has been an increase in her LDH which is up at 1574, and CRP is currently at 14.9. He remains on Decadron 6 mg daily, she status post Tocilizumab infusion of 800 mg. She was on prophylactic dose of Lovenox which we will increase to 40 mg twice daily. 11/22/2020, the patient remains in the intensive care unit. Overnight, she stayed on the BiPAP at a pressure of 14/6 cm of water with an FiO2 of 100%. Her pulse ox throughout the night was 80 is in the low 80s sometimes. Earlier this morning, the patient wanted to eat. We switched her to a high flow with oxygen at 60 L and 100% on a beta facemasks. Her current pulse ox is around 70%. She is conscious and awake and she is still communicating. She is a bit anxious and she is aching Ativan for anxiety. Meanwhile, she remains on Decadron dose was increased up to 60 mg IV twice a day. She remains on Lovenox 40 mg subcu twice a day for DVT prophylaxis. In terms of her chest x-ray, the patient has bilateral pulmonary infiltrates and as stated earlier, her condition is progressive and she has developed worsening in pulmonary infiltrates in lung bases bilaterally more so in the lung peripheries. Her inflammatory markers t rosalba includes a d-dimer of 25.3, LDH level of 2072, CRP level of 6.4 and the rest of the blood work and electrolytes are all within normal limits. The white cell count is 11.6 with a hemoglobin of 12.7. the patient length. The patient told me that in terms of her advanced directives, she is agreeable to intubation. Nevertheless, she doesn't want any CPR or defibrillation or any other form of resuscitation should she develop any form of cardiac pulmonary arrest. Objective - Vital Signs Vital signs: Vital Signs Temp 98.6 F 11/22/20 04:00 Pulse 56 L 11/22/20 07:00 Resp 28 H 11/22/20 07:00 BP 143/77 11/22/20 07:00 Pulse Ox 93 L 11/22/20 07:00 Intake & Output 11/21/20 11/22/20 11/22/20 18:59 06:59 18:59 Intake Total 525 900 75 Output Total 850 1325 Balance -325 -425 75 Weight 88.904 kg 88.3 kg Intake: IV 825 75 Sodium Chloride 0.9% 1, 825 75 000 ml @ 75 mls/hr IV . [id number] DAVON Rx#:[id number] Intake, IV Titration 525 75 Amount Sodium Chloride 0.9% 1, 525 75 000 ml @ 75 mls/hr IV . [id number] DAVON Rx#:[id number] Output: Urine 850 1325 Other: Voiding Method Bedside Commode External Catheter - Exam Patient seen and examined at bedside. She is still feeling very short of breath, weak, and tired. Nevertheless, she is able to tolerate the high flow oxygen at 6 L and the 100% nonrebreather facemask that was given to her this morning. Overnight, the patient was on a BiPAP. She is able to speak short sentences. She is not using accessory muscles of breathing. General: Ill appearing, mild distress, appears at stated age Examination of the skin revealed no evidence of significant rashes, suspicious appearing nevi or other concerning lesions. Head exam was generally normal. There was no scleral icterus or corneal arcus. Mucous membranes were moist. Neck was supple and without jugular venous distension, thyromegaly, or carotid bruits. Carotids were easily palpable bilaterally. There was no adenopathy. Mouth: no lip lesion, mucus membranes dry Cardiovascular: S1S2 reg, no murmur, positive posterior tibial pulse bilateral, Lungs: [Coarse breath sounds bilateral, 3 word conversational dyspnea, no accessory muscle use Abdominal: soft, nontender to palpation, no guarding, no appreciable organomegaly Ext: no gross muscle atrophy, no edema, no contractures Neuro: CN II-XI grossly intact, no focal neuro deficits Psych: Alert, oriented, appropriate affect - Labs CBC & Chem 7: 11/22/20 03:12 11/22/20 03:12 Labs: Abnormal Lab Results - Last 24 Hours (Table) 11/21/20 11/21/20 11/22/20 Range/Units 07:42 07:42 03:12 WBC (3.8-10.6) k/uL Neutrophils # (1.3-7.7) k/uL Lymphocytes # (1.0-4.8) k/uL D-Dimer 13.18 H 25.38 H (<0.60) mg/L FEU Creatinine 0.48 L (0.52-1.04) mg/dL Glucose (74-99) mg/dL AST 37 H (14-36) U/L ALT (4-34) U/L Lactate Dehydrogenase 1574 H (313-618) U/L C-Reactive Protein 14.9 H (<1.0) mg/dL Albumin 3.4 L (3.5-5.0) g/dL 11/22/20 11/22/20 Range/Units 03:12 03:12 WBC 11.6 H (3.8-10.6) k/uL Neutrophils # 10.5 H (1.3-7.7) k/uL Lymphocytes # 0.8 L (1.0-4.8) k/uL D-Dimer (<0.60) mg/L FEU Creatinine 0.46 L (0.52-1.04) mg/dL Glucose 121 H (74-99) mg/dL AST 42 H (14-36) U/L ALT 35 H (4-34) U/L Lactate Dehydrogenase 2072 H (313-618) U/L C-Reactive Protein 6.4 H (<1.0) mg/dL Albumin 3.3 L (3.5-5.0) g/dL Assessment and Plan Plan: 1 acute COVID-19 related pneumonia. The patient origin diagnosis was on 11/11/2020 and the patient was symptomatic approximately 9-10 days prior to that. Patient presented to the hospital because of worsening shortness of breath and hypoxemia. Initially she was on 2 L and currently she was brought up to 8 L and and subsequently the patient decompensated, brought up to the intensive care unit, placed on high flow oxygen, and later on transition to a BiPAP noninvasive positive pressure ventilator. She was on BiPAP throughout the night. Currently she is back on high flow oxygen at 6 L with an FiO2 of 90% and she is also 100% on a beta facemask. She is on Decadron 6 mg IV every 12 hours. She is pulse oxing in the mid 80s. Inflammatory markers were noted. The patient is on Lovenox 40 mg subcu every 12 hours. D-dimer is quite elevated and it's reasonable to do a Doppler of the lower extremity to rule out any underlying DVTs. 2 acute hypoxic respiratory failure related to above 3 dyspnea and cough secondary to above 4 mild elevation of the LDH and CRP. The patient also has a significantly elevated D dimers 5 overactive bladder Plan Continue Decadron 6 mg IV every 12 hours Not a candidate for Remdesivir Tocilizumab due to progressive hypoxemia and decompensation Continue Lovenox 40 mg every 12 hours Monitor d-dimer and check a Doppler of the lower extremity Allow some soft diet while she is on 100% nonrebreather facemask and a high flow oxygen Vitamin C and vitamin E and zinc supplement IV fluids 0.9 NSS @75 We'll continue to follow Condition is critical. High risk for developing respiratory failure requiring intubation mechanical ventilation. I updated her daughter and I contacted over the phone. We are going to continue to follow this patient. ICU. We'll consider intubation if her condition decompensated. This is a critically care evaluation. More than 30 minutes critical care time. Appropriate phone calls were done to her [id number] and her symptoms or the and her daughter lives locally and [place]. Time with Patient: Greater than 30
--- NOTE | 2020-11-22 08:41 | XR ---
EXAMINATION TYPE: XR chest 1V portable DATE OF EXAM: 11/22/2020 COMPARISON: 11/21/2020 INDICATION: COVID TECHNIQUE: Single frontal view of the chest is obtained. FINDINGS: The heart size is normal. The pulmonary vasculature is normal. Bilateral mid and lower lung field infiltrates are present. Findings could be compatible with atypica l pneumonia. Findings may be similar or slightly worsened compared to prior study. IMPRESSION: 1. Similar to mildly worsening bibasilar infiltrates. Continued follow-up is recommended.
--- NOTE | 2020-11-22 09:54 | US ---
EXAMINATION TYPE: US venous doppler duplex LE BI DATE OF EXAM: 11/22/2020 9:18 AM COMPARISON: NONE CLINICAL HISTORY: Elevated d dimer. SIDE PERFORMED: Bilateral TECHNIQUE: The lower extremity deep venous system is examined utilizing real time linear array sonog cassie with graded compression, doppler sonography and color-flow sonography. VESSELS IMAGED: Common Femoral Vein Deep Femoral Vein Greater Saphenous Vein * Femoral Vein Popliteal Vein Small Saphenous Vein * Proximal Calf Veins (* superficial vessels) Right Leg: Negative for DVT Left Leg: Negative for DVT IMPRESSION: 1. Bilateral lower extremity ultrasound negative for deep venous thrombosis.
[2020-11-22] MEDS: DEXAMETHASONE SOD PHOSPHATE 10 MG/ML 1 ML VIAL IV SCH ×2 (09:57→21:38)
[2020-11-22] MEDS: ENOXAPARIN 40 MG/0.4 ML SYRINGE SQ SCH ×2 (09:57→21:37)
[2020-11-22] MEDS: PANTOPRAZOLE 40 MG/10 ML VIAL IVP SCH (09:57)
[2020-11-22] MEDS: guaiFENesin 600 MG TABLET.ER PO SCH ×2 (10:01→21:37)
[2020-11-22] MEDS: ASCORBIC ACID 500 MG TAB PO SCH (10:01)
[2020-11-22] MEDS: CHOLECALCIFEROL 25 MCG (1000 IU) TABLET PO SCH (10:01)
[2020-11-22] MEDS: ZINC SULFATE 220 MG CAP PO SCH (10:01)
--- NOTE | 2020-11-22 10:59 | P.PN ---
Subjective Progress Note Date: 11/22/20 Patient is doing fairly well today. She was on BiPAP when I saw her. Nursing staff informed me that she desatted to quickly when BiPAP was removed this morning. Patient is feeling fairly well otherwise. She does not have any complaints. Objective - Vital Signs Vital signs: Vital Signs Temp 98.6 F 11/22/20 04:00 Pulse 60 11/22/20 10:00 Resp 36 H 11/22/20 10:00 BP 128/62 11/22/20 10:00 Pulse Ox 93 L 11/22/20 10:00 Intake & Output 11/21/20 11/22/20 11/22/20 18:59 06:59 18:59 Intake Total 525 900 300 Output Total 850 1325 Balance -325 -425 300 Weight 88.904 kg 88.3 kg Intake: IV 825 300 Sodium Chloride 0.9% 1, 825 300 000 ml @ 75 mls/hr IV . [id number] DAVON Rx#:[id number] Intake, IV Titration 525 75 Amount Sodium Chloride 0.9% 1, 525 75 000 ml @ 75 mls/hr IV . [id number] DAVON Rx#:[id number] Output: Urine 850 1325 Other: Voiding Method Bedside Commode External Catheter - Exam General: The patient is awake and alert, in no distress Eye: there is normal conjunctiva bilaterally. Neck: The neck is supple, there is no JVD. Cardiovascular: Normal S1-S2, no S3-S4, no murmurs. Respiratory: Lungs with BiPAP sounds Gastrointestinal: Abdomen is soft, nontender Musculoskeletal: There is no pedal edema. Neurological:. Speech is normal. Skin: Skin is warm and dry - Labs CBC & Chem 7: 11/22/20 03:12 11/22/20 03:12 Labs: Abnormal Lab Results - Last 24 Hours (Table) 11/22/20 11/22/20 11/22/20 Range/Units 03:12 03:12 03:12 WBC 11.6 H (3.8-10.6) k/uL Neutrophils # 10.5 H (1.3-7.7) k/uL Lymphocytes # 0.8 L (1.0-4.8) k/uL D-Dimer 25.38 H (<0.60) mg/L FEU Creatinine 0.46 L (0.52-1.04) mg/dL Glucose 121 H (74-99) mg/dL AST 42 H (14-36) U/L ALT 35 H (4-34) U/L Lactate Dehydrogenase 2072 H (313-618) U/L C-Reactive Protein 6.4 H (<1.0) mg/dL Albumin 3.3 L (3.5-5.0) g/dL Assessment and Plan Assessment: Patient is a 69-year-old female with no significant past medical history who presented to the emergency department secondary to shortness of breath. She had been diagnosed with COVID-19 on 11/11. On arrival to the ER she was hypoxic at 86% on room air. Labs showed a mildly elevated d-dimer at 0.99, she subsequently underwent a CTA of the chest which showed no evidence of pulmonary embolism but did show extensive bilateral pulmonary infiltrates with reactive adenopathy. Her COVID-19 test was again positive. She was admitted for further management. Her O2 requirements increased throughout her hospital stay and currently is in the ICU. COVID-19 pneumonitis acute hypoxic respiratory failure currently on BiPAP - Toci given 11/20 - out of the window for remdesivir -Pulmonary recommendations appreciated -Decadron D #8, increased dose on 11/21 -Vitamin C, vitamin D, zinc -Albuterol scheduled and as needed - Lovenox - pulm hygeine Costochonditiris due to above - motrin Overactive bladder - detrol Hyponatremia, resolved CODE STATUS: No CPR, yes to elective intubation if needed DVT prophylaxis: Lovenox Discussed with: patient, nursing Anticipated discharge date: undetermined Anticipated discharge place: pending clinical course A total of 35 minutes was spent on the care of this complex patient more than 50% of the time was spent in counseling and care coordination.
[2020-11-22] MEDS: OXYBUTYNIN XL 5 MG TAB.ER.24 PO SCH (21:37)
[2020-11-22] MEDS: CITALOPRAM HYDROBROMIDE 10 MG TAB PO SCH (21:37)
[2020-11-23 04:18] LABS: Basophils % (A) 0 %; Eosinophils # (A) 0.1 k/uL (0-0.7); Eosinophils % (A) 1 %; HCT 38.2 % (34.0-46.0); HGB 13.1 gm/dL (11.4-16.0); Lymphocytes # (A) 0.7 k/uL (1.0-4.8); Lymphocytes % (A) 5 %; MCH 32.9 pg (25.0-35.0); MCHC 34.3 g/dL (31.0-37.0); MCV 95.7 fL (80.0-100.0); Mean Platelet Volume 7.5; Monocytes # (A) 0.3 k/uL (0-1.0); Monocytes % (A) 3 %; Neutrophils # (A) 10.9 k/uL (1.3-7.7); Neutrophils % (A) 90 %; Platelet Count 334 k/uL (150-450); RBC 3.99 m/uL (3.80-5.40); RDW 12.1 % (11.5-15.5); WBC 12.1 k/uL (3.8-10.6)
[2020-11-23 04:33] LABS: Potassium 4.7 mmol/L (3.5-5.1)
[2020-11-23 04:36] LABS: African American GFR (CKD) >90 (>60 ml/min/1.73 sqM); Anion Gap 7 mmol/L; Blood Urea Nitrogen 17 mg/dL (7-17); C Reactive Protein 3.4 mg/dL (<1.0); Calcium 9.1 mg/dL (8.4-10.2); Carbon Dioxide 26 mmol/L (22-30); Chloride 102 mmol/L (98-107); Glucose 117 mg/dL (74-99); Non-African American GFR(CKD) >90 (>60 ml/min/1.73 sqM); Sodium 135 mmol/L (137-145)
[2020-11-23 04:40] LABS: LDH 2128 U/L (313-618)
[2020-11-23] MEDS: ALBUTEROL HFA INHALER INHALATION SCH ×3 (07:50→20:31)
--- NOTE | 2020-11-23 07:56 | XR ---
EXAMINATION TYPE: XR chest 1V portable DATE OF EXAM: 11/23/2020 COMPARISON: 11/22/2020 INDICATION: Covid TECHNIQUE: Single frontal view of the chest is obtained. FINDINGS: The heart size is normal. The pulmonary vasculature is normal. Diffuse bilateral lung infiltrates are present greater at the lung bases. Findings can be compatible with atypical pneumonia. IMPRESSION: 1. Diffuse increased lung markings can be compatible with atypical pneumonia.
[2020-11-23] MEDS: PANTOPRAZOLE 40 MG/10 ML VIAL IVP SCH (08:17)
[2020-11-23] MEDS: guaiFENesin 600 MG TABLET.ER PO SCH ×2 (08:18→21:33)
[2020-11-23] MEDS: CHOLECALCIFEROL 25 MCG (1000 IU) TABLET PO SCH (08:18)
[2020-11-23] MEDS: DEXAMETHASONE SOD PHOSPHATE 10 MG/ML 1 ML VIAL IV SCH ×2 (08:18→21:33)
[2020-11-23] MEDS: ZINC SULFATE 220 MG CAP PO SCH (08:18)
[2020-11-23] MEDS: ASCORBIC ACID 500 MG TAB PO SCH (08:18)
[2020-11-23] MEDS: ENOXAPARIN 40 MG/0.4 ML SYRINGE SQ SCH ×2 (08:18→21:33)
[2020-11-23] MEDS: SODIUM CHLORIDE 0.9% 1,000 ML IV SCH (08:18)
--- NOTE | 2020-11-23 09:23 | P.PN ---
Subjective Progress Note Date: 11/23/20 There is a 69-year-old female patient with COVID-19 related pneumonia. The pat ient was already diagnosed having COVID-19 on 11/11/2018. The patient was symptomatic approximately 9 days prior to that. She came into the emergency department on 11/16/2020 and the patient was hospitalized with pneumonia. She was seen by the hospitalist group. She was started on steroids. She was not given Remdesivir as the patient was thought to be outside the window of treatment. Note that the patient was found to be hypoxic with a pulse of 76% on room air at time of admission. D-dimer was 0.99. CT angios gram showed acute breath and pulmonary infiltrates consistent with COVID-19 related pneumonia and her COVID-19 by PCR came back positive. She was initiated on 2 L of oxygen by nasal cannula. Subsequently, she decompensated and she is currently at 8 L per minute nasal cannula for that reason a pulmonary consultation was requested. She is reporting some increased work of breathing. She has a dry cough. No significant sputum production. No angina. No palpitation. No previous history of lung disease or disorder. No nausea. No vomiting. She is able to taste and smell. Her LDH level was 765 and is currently down to 411. The pro calcitonin level is down to 0.18. D-dimer is at 0.8. CBC showed some mild anemia with hemoglobin of 11.7. Otherwise white cell count was 11 and the platelet count was 293. 11/19/2020, seeing patient for a follow-up. The patient is doing well for now. She has no new complaints. She is currently on 6 L of oxygen by nasal cannula with pulse ox of 90%. She is currently on Decadron 6 mg on a daily basis and she's also on Lovenox 40 mg subcu for DVT prophylaxis. IV fluids are running at 75 mL an hour of normal saline. The patient has a d-dimer of 0.8. Her LDH level was a cold the heart was done and it showed preserved LV function and mild pulmonary hypertension. No other new complaints or issues for now. On 11/20/2020 patient seen in follow-up on medical surgical floor. Overnight her oxygen demand has increased, and patient was desaturating into the low 70s with ambulation, and would take a long time to recover, she was placed on 15 L high flow and 100% nonrebreather mask, her pulse ox right now is 90-95%, she seems to breathing comfortably, she is sitting in the recliner, she has been ambulating to the bathroom earlier, however now she is using the bedside commode, she is afebrile, blood pressures are stable, she had no fevers overnight. She continues on Decadron 6 mg daily, and she is on prophylactic d ose of Lovenox. Was outside the window for Remdesivir. Today's chest x-ray shows worsening bilateral multifocal and confluent opacities consistent with COVID-19 progression On 11/21/2020 patient seen in intensive care unit, patient was transferred to the intensive care unit this morning with worsening hypoxia and dyspnea, she is currently on BiPAP support with pressures of 14/6 and FiO2 of 100% and her pulse ox is 84% on those settings. Chest x-ray is pending, overnight her oxygenation continued to get worse, but 15 L high flow nasal cannula and nonrebreather mask, and her pulse ox was going into the low 70's. Patient is awake and alert, she is oriented 3, she is anxious, but fairly compliant with the BiPAP support. She has received a dose of Xanax which will be switched to IV Ativan. Denies any chest discomfort, she is tachypneic, her respiratory rate ranging from 17 to mid 20s and sent time 30 times per minute. She is afebrile, hemodynamically she is stable, she is in sinus mechanism. His labs have been reviewed, CBC is within normal limits, d-dimer has increased significantly and is up at 13.18 on today's labs, electrolytes were within normal limits, B1 is 15 creatinine 0.48. Has been an increase in her LDH which is up at 1574, and CRP is currently at 14.9. He remains on Decadron 6 mg daily, she status post Tocilizumab infusion of 800 mg. She was on prophylactic dose of Lovenox which we will increase to 40 mg twice daily. 11/22/2020, the patient remains in the intensive care unit. Overnight, she stayed on the BiPAP at a pressure of 14/6 cm of water with an FiO2 of 100%. Her pulse ox throughout the night was 80 is in the low 80s sometimes. Earlier this morning, the patient wanted to eat. We switched her to a high flow with oxygen at 60 L and 100% on a beta facemasks. Her current pulse ox is around 70%. She is conscious and awake and she is still communicating. She is a bit anxious and she is aching Ativan for anxiety. Meanwhile, she remains on Decadron dose was increased up to 6 mg IV twice a day. She remains on Lovenox 40 mg subcu twice a day for DVT prophylaxis. In terms of her chest x-ray, the patient has bilateral pulmonary infiltrates and as stated earlier, her condition is progressive and she has developed worsening in pulmonary infiltrates in lung bases bilaterally more so in the lung peripheries. Her inflammatory markers today includes a d- dimer of 25.3, LDH level of 2072, CRP level of 6.4 and the rest of the blood work and electrolytes are all within normal limits. The white cell count is 11.6 with a hemoglobin of 12.7. the patient length. The patient told me that in terms of her advanced directives, she is agreeable to intubation. Nevertheless, she doesn't want any CPR or defibrillation or any other form of resuscitation should she develop any form of cardiac pulmonary arrest. 11/23/2020, the patient remains in the intensive care unit, BiPAP dependent and unable to wean. Note that we tried her on high flow oxygen yesterday and she was on 60 L with an FiO2 of 90% with 100% nonrebreather. Within a few minutes, she decompensated she became more short of breath and hypoxic and as such the child was aborted and the patient was placed back on BiPAP and currently she is on a BiPAP pressure of 14/6 cm of water with an FiO2 of 100%. Pulse ox pulse ox is around 91-92%. She seems to be quite comfortable on a BiPAP. Current rate is around 28. She is able to generate adequate tidal volumes. Main complaint remains some irritation on her nose from the BiPAP Chest x-ray from today, diffuse pulmonary infiltrates probably slightly worse on the right. The infectious inflammatory markers show a d-dimer of 24.3 and the patient has an LDH level of 2128 and a CRP level of 3.4. The patient remains on Decadron 6 mg IV every 12 hours. The patient is also on Lovenox 40 mg subcutaneous every 12 hours. Doppler of the lower extremities was conducted and they were negative. She is awake, she is communicating. She can eat and drink limited amounts while being given brief periods off the BiPAP. The blood work from today shows a white cell count of 12 with a hemoglobin of 15.1. She continues to have lymphopenia. Sodium is 135. BUN is at 17 with a creatinine of 0.5. Fluid balance over the past 24 hours has been in the order of -750 mL. As mentioned earlier, she is agreeing for intubation. She does not want any CPR or defibrillation in the event if her condition decompensated so she wasn't a cardiopulmonary arrest. Otherwise, the family has been updated. I contacted the daughter and I gave her a detailed explanation of what is happening with her and had a high risk of progression requiring intubation mechanical ventilation and the daughter clearly understands Objective - Vital Signs Vital signs: Vital Signs Temp 98.2 F 11/23/20 08:00 Pulse 91 11/23/20 09:00 Resp 29 H 11/23/20 09:00 BP 139/70 11/23/20 09:00 Pulse Ox 88 L 11/23/20 09:00 Intake & Output 11/22/20 11/23/20 11/23/20 18:59 06:59 18:59 Intake Total 900 650 300 Output Total 1000 201 Balance -100 449 300 Weight 87.5 kg Intake: IV 900 650 150 Sodium Chloride 0.9% 1, 500 150 000 ml @ 50 mls/hr IV . Q20H [facility] Rx#:[id number] Sodium Chloride 0.9% 1, 900 150 000 ml @ 75 mls/hr IV . [id number] [facility] Rx#:[id number] Oral 150 Output: Urine 1000 200 Urine/Stool Mix 1 Other: Voiding Method External Catheter External Catheter External Catheter # Voids 1 # Bowel Movements 1 2 - Exam Patient seen and examined at bedside. The patient reports limited improvement in her overall respiratory status compared to yesterday. Remains BiPAP dependent at a pressure of 14/6 cm of water and FiO2 is currently is at 100%. Occasionally, she gets to Especially when General: Ill appearing, mild distress, appears at stated age Examination of the skin revealed no evidence of significant rashes, suspicious appearing nevi or other concerning lesions. Head exam was generally normal. There was no scleral icterus or corneal arcus. Mucous membranes were moist. Neck was supple and without jugular venous distension, thyromegaly, or carotid bruits. Carotids were easily palpable bilaterally. There was no adenopathy. Mouth: no lip lesion, mucus membranes dry Cardiovascular: S1S2 reg, no murmur, positive posterior tibial pulse bilateral, Lungs: [Coarse breath sounds bilateral, 3 word conversational dyspnea, no accessory muscle use Abdominal: soft, nontender to palpation, no guarding, no appreciable organomegaly Ext: no gross muscle atrophy, no edema, no contractures Neuro: CN II-XI grossly intact, no focal neuro deficits Psych: Alert, oriented, appropriate affect - Labs CBC & Chem 7: 11/23/20 03:41 11/23/20 03:41 Labs: Abnormal Lab Results - Last 24 Hours (Table) 11/23/20 11/23/20 11/23/20 Range/Units 03:41 03:41 03:41 WBC 12.1 H (3.8-10.6) k/uL Neutrophils # 10.9 H (1.3-7.7) k/uL Lymphocytes # 0.7 L (1.0-4.8) k/uL D-Dimer 24.39 H (<0.60) mg/L FEU Sodium 135 L (137-145) mmol/L Glucose 117 H (74-99) mg/dL Lactate Dehydrogenase 2128 H (313-618) U/L C-Reactive Protein 3.4 H (<1.0) mg/dL Assessment and Plan Plan: 1 acute COVID-19 related pneumonia. The patient origin diagnosis was on 11/11/2020 and the patient was symptomatic approximately 9-10 days prior to that. Patient presented to the hospital because of worsening shortness of breath and hypoxemia. The patient's condition progressed and oxygenation got worse, the patient got transferred to the intensive care unit and the patient has been treated with BiPAP at a pressure of 14/6 cm of water with an FiO2 of 100%. An attempt to put that on high flow oxygen yesterday failed as the patient became short of breath and hypoxic. As such, she was placed back on a BiPAP at a pressure of 14/6 and her current pulse ox is around 93% and she could be potentially weaned down on her FiO2. Otherwise, she is hemodynamically stable. Her chest x-ray findings are probably slightly worse and there is worsening infiltration of the right lower lobe. She remains on Decadron. She remains on Lovenox. She has associated immunosuppression with Actemra 2 acute hypoxic respiratory failure related to above 3 dyspnea and cough secondary to above 4 mild elevation of the LDH and CRP. The patient also has a significantly elevated D dimers, the Lovenox 40 mg subcu every 12 hours 5 overactive bladder Plan Continue Decadron 6 mg IV every 12 hours Not a candidate for Remdesivir Tocilizumab was administered Continue Lovenox 40 mg every 12 hours Monitor d-dimer and check a Doppler of the lower extremity Vitamin C and vitamin E and zinc supplement IV fluids 0.9 NSS @50 Plan insertion by interventional radiology and this could be done tomorrow We'll continue to follow Condition is critical. High risk for developing respiratory failure requiring intubation mechanical ventilation. I updated her daughter and I contacted over the phone. We are going to continue to follow this patient. ICU. We'll consider intubation if her condition decompensated. This is a critically care evaluation. More than 30 minutes critical care time. Appropriate phone calls were done to her [id number] her daughter lives locally and [place]. Family is updated on her condition. Time with Patient: Greater than 30
--- NOTE | 2020-11-23 10:54 | P.PN ---
Subjective Progress Note Date: 11/23/20 Patient is still on BiPAP today. Nursing staff informed me that she is desats into the 70s when taken off of BiPAP. Patient appeared in good spirits. She reports feeling better compared to yesterday. No acute events overnight. Objective - Vital Signs Vital signs: Vital Signs Temp 98.2 F 11/23/20 08:00 Pulse 71 11/23/20 10:00 Resp 26 H 11/23/20 10:00 BP 142/58 11/23/20 10:00 Pulse Ox 91 L 11/23/20 10:00 Intake & Output 11/22/20 11/23/20 11/23/20 18:59 06:59 18:59 Intake Total 900 650 350 Output Total 1000 201 Balance -100 449 350 Weight 87.5 kg Intake: IV 900 650 200 Sodium Chloride 0.9% 1, 500 200 000 ml @ 50 mls/hr IV . Q20H [facility] Rx#:[id number] Sodium Chloride 0.9% 1, 900 150 000 ml @ 75 mls/hr IV . [id number] [facility] Rx#:[id number] Oral 150 Output: Urine 1000 200 Urine/Stool Mix 1 Other: Voiding Method External Catheter External Catheter External Catheter # Voids 1 # Bowel Movements 1 2 2 - Exam General: The patient is awake and alert, in no distress Eye: there is normal conjunctiva bilaterally. Neck: The neck is supple, there is no JVD. Cardiovascular: Normal S1-S2, no S3-S4, no murmurs. Respiratory: Lungs with BiPAP sounds Gastrointestinal: Abdomen is soft, nontender Musculoskeletal: There is no pedal edema. Neurological:. Speech is normal. Skin: Skin is warm and dry - Labs CBC & Chem 7: 11/23/20 03:41 11/23/20 03:41 Labs: Abnormal Lab Results - Last 24 Hours (Table) 11/23/20 11/23/20 11/23/20 Range/Units 03:41 03:41 03:41 WBC 12.1 H (3.8-10.6) k/uL Neutrophils # 10.9 H (1.3-7.7) k/uL Lymphocytes # 0.7 L (1.0-4.8) k/uL D-Dimer 24.39 H (<0.60) mg/L FEU Sodium 135 L (137-145) mmol/L Glucose 117 H (74-99) mg/dL Lactate Dehydrogenase 2128 H (313-618) U/L C-Reactive Protein 3.4 H (<1.0) mg/dL Assessment and Plan Assessment: Patient is a 69-year-old female with no significant past medical history who presented to the emergency department secondary to shortness of breath. She had been diagnosed with COVID-19 on 11/11. On arrival to the ER she was hypoxic at 86% on room air. Labs showed a mildly elevated d-dimer at 0.99, she subsequently underwent a CTA of the chest which showed no evidence of pulmonary embolism but did show extensive bilateral pulmonary infiltrates with reactive adenopathy. Her COVID-19 test was again positive. She was admitted for further management. Her O2 requirements increased throughout her hospital stay and currently is in the ICU. COVID-19 pneumonitis acute hypoxic respiratory failure currently on BiPAP managed by sales data analyst - Toci given 11/20 - out of the window for remdesivir -Pulmonary recommendations appreciated -Decadron D #9, increased dose on 11/21 -Vitamin C, vitamin D, zinc -Albuterol scheduled and as needed - Lovenox - pulm hygeine Costochonditiris due to above - motrin Overactive bladder - detrol Hyponatremia, resolved CODE STATUS: No CPR, yes to elective intubation if needed DVT prophylaxis: Lovenox Discussed with: patient, nursing Anticipated discharge date: undetermined Anticipated discharge place: pending clinical course A total of 35 minutes was spent on the care of this complex patient more than 50% of the time was spent in counseling and care coordination.
[2020-11-23] MEDS: OXYBUTYNIN XL 5 MG TAB.ER.24 PO SCH (21:33)
[2020-11-23] MEDS: CITALOPRAM HYDROBROMIDE 10 MG TAB PO SCH (21:33)
[2020-11-23] MEDS: ACETAMINOPHEN TAB 325 MG TAB PO PRN (21:36)
[2020-11-24 03:43] LABS: Basophils % (A) 0 %; Eosinophils # (A) 0.1 k/uL (0-0.7); Eosinophils % (A) 1 %; HCT 39.1 % (34.0-46.0); HGB 13.5 gm/dL (11.4-16.0); Lymphocytes # (A) 0.8 k/uL (1.0-4.8); Lymphocytes % (A) 6 %; MCHC 34.5 g/dL (31.0-37.0); MCV 95.8 fL (80.0-100.0); Mean Platelet Volume 7.2; Monocytes # (A) 0.3 k/uL (0-1.0); Monocytes % (A) 2 %; Neutrophils # (A) 12.9 k/uL (1.3-7.7); Neutrophils % (A) 91 %; Platelet Count 292 k/uL (150-450); RBC 4.08 m/uL (3.80-5.40); RDW 12.1 % (11.5-15.5); WBC 14.1 k/uL (3.8-10.6)
[2020-11-24 03:58] LABS: African American GFR (CKD) >90 (>60 ml/min/1.73 sqM); Anion Gap 5 mmol/L; Blood Urea Nitrogen 20 mg/dL (7-17); Calcium 9.2 mg/dL (8.4-10.2); Carbon Dioxide 32 mmol/L (22-30); Chloride 100 mmol/L (98-107); Glucose 132 mg/dL (74-99); Non-African American GFR(CKD) >90 (>60 ml/min/1.73 sqM); Potassium 5.4 mmol/L (3.5-5.1); Sodium 137 mmol/L (137-145)
[2020-11-24 04:06] LABS: LDH 2437 U/L (313-618)
[2020-11-24] MEDS: ALBUTEROL HFA INHALER INHALATION SCH ×3 (07:15→19:25)
--- NOTE | 2020-11-24 07:18 | XR ---
EXAMINATION TYPE: XR chest 1V portable DATE OF EXAM: 11/24/2020 COMPARISON: 11/23/2020 HISTORY: Cough TECHNIQUE: Single frontal view of the chest is obtained. FINDINGS: Bilateral airspace disease noted. Heart size stable. There is no pneumothorax. Osseous str uctures stable. IMPRESSION: Stable bilateral airspace disease.
[2020-11-24] MEDS: SODIUM CHLORIDE 0.9% 1,000 ML IV SCH (08:36)
[2020-11-24] MEDS: ASCORBIC ACID 500 MG TAB PO SCH (08:37)
[2020-11-24] MEDS: PANTOPRAZOLE 40 MG/10 ML VIAL IVP SCH (08:37)
[2020-11-24] MEDS: CHOLECALCIFEROL 25 MCG (1000 IU) TABLET PO SCH (08:37)
[2020-11-24] MEDS: DEXAMETHASONE SOD PHOSPHATE 10 MG/ML 1 ML VIAL IV SCH ×2 (08:38→20:28)
[2020-11-24] MEDS: guaiFENesin 600 MG TABLET.ER PO SCH ×2 (08:38→20:28)
[2020-11-24] MEDS: ENOXAPARIN 40 MG/0.4 ML SYRINGE SQ SCH ×2 (08:38→20:28)
[2020-11-24] MEDS: ZINC SULFATE 220 MG CAP PO SCH (08:38)
[2020-11-24] MEDS ORDERED: LIDOCAINE 1% INJ 10MG/ML (20 ML MDV) SQ ONE (10:52)
--- NOTE | 2020-11-24 11:12 | P.PN ---
Subjective Progress Note Date: 11/24/20 Principal diagnosis: Acute hypoxic respiratory failure secondary to acute COVID-19 pneumonia There is a 69-year-old female patient with COVID-19 related pneumonia. The patient was already diagnosed having COVID-19 on 11/11/2018. The patient was symptomatic approximately 9 days prior to that. She came into the emergency department on 11/16/2020 and the patient was hospitalized with pneumonia. She was seen by the hospitalist group. She was started on steroids. She was not given Remdesivir as the patient was thought to be outside the window of treatment. Note that the patient was found to be hypoxic with a pulse of 76% on room air at time of admission. D-dimer was 0.99. CT angios gram showed acute breath and pulmonary infiltrates consistent with COVID-19 related pneumonia and her COVID-19 by PCR came back positive. She was initiated on 2 L of oxygen by nasal cannula. Subsequently, she decompensated and she is currently at 8 L per minute nasal cannula for that reason a pulmonary consultation was requested. She is reporting some increased work of breathing. She has a dry cough. No significant sputum production. No angina. No palpitation. No previous history of lung disease or disorder. No nausea. No vomiting. She is able to taste and smell. Her LDH level was 765 and is currently down to 411. The pro calcitonin level is down to 0.18. D-dimer is at 0.8. CBC showed some mild anemia with hemoglobin of 11.7. Otherwise white cell count was 11 and the platelet count was 293. 11/19/2020, seeing patient for a follow-up. The patient is doing well for now. She has no new complaints. She is currently on 6 L of oxygen by nasal cannula with pulse ox of 90%. She is currently on Decadron 6 mg on a daily basis and she's also on Lovenox 40 mg subcu for DVT prophylaxis. IV fluids are running at 75 mL an hour of normal saline. The patient has a d-dimer of 0.8. Her LDH level was a cold the heart was done and it showed preserved LV function and mild pulmonary hypertension. No other new complaints or issues for now. On 11/20/2020 patient seen in follow-up on medical surgical floor. Overnight her oxygen demand has increased, and patient was desaturating into the low 70s with ambulation, and would take a long time to recover, she was placed on 15 L high flow and 100% nonrebreather mask, her pulse ox right now is 90-95%, she seems to breathing comfortably, she is sitting in the recliner, she has been ambulating to the bathroom earlier, however now she is using the bedside commode, she is afebrile, blood pressures are stable, she had no fevers overnight. She continues on Decadron 6 mg daily, and she is on prophylactic dose of Lovenox. Was outside the window for Remdesivir. Today's chest x-ray shows worsening bilateral multifocal and confluent opacities consistent with COVID-19 progression On 11/21/2020 patient seen in intensive care unit, patient was transferred to the intensive care unit this morning with worsening hypoxia and dyspnea, she is currently on BiPAP support with pressures of 14/6 and FiO2 of 100% and her pulse ox is 84% on those settings. Chest x-ray is pending, overnight her oxygenation continued to get worse, but 15 L high flow nasal cannula and nonrebreather mask, and her pulse ox was going into the low 70's. Patient is awake and alert, she is oriented 3, she is anxious, but fairly compliant with the BiPAP support. She has received a dose of Xanax which will be switched to IV Ativan. Denies any chest discomfort, she is tachypneic, her respiratory rate ranging from 17 to mid 20s and sent time 30 times per minute. She is afebrile, hemodynamically she is stable, she is in sinus mechanism. His labs have been reviewed, CBC is within normal limits, d-dimer has increased significantly and is up at 13.18 on today's labs, electrolytes were within normal limits, B1 is 15 creatinine 0.48. Has been an increase in her LDH which is up at 1574, and CRP is currently at 14.9. He remains on Decadron 6 mg daily, she status post Tocilizumab infusion of 800 mg. She was on prophylactic dose of Lovenox which we will increase to 40 mg twice daily. 11/22/2020, the patient remains in the intensive care unit. Overnight, she stayed on the BiPAP at a pressure of 14/6 cm of water with an FiO2 of 100%. Her pulse ox throughout the night was 80 is in the low 80s sometimes. Earlier this morning, the patient wanted to eat. We switched her to a high flow with oxygen at 60 L and 100% on a beta facemasks. Her current pulse ox is around 70%. She is conscious and awake and she is still communicating. She is a bit anxious and she is aching Ativan for anxiety. Meanwhile, she remains on Decadron dose was increased up to 6 mg IV twice a day. She remains on Lovenox 40 mg subcu twice a day for DVT prophylaxis. In terms of her chest x-ray, the patient has bilateral pulmonary infiltrates and as stated earlier, her condition is progressive and she has developed worsening in pulmonary infiltrates in lung bases bilaterally more so in the lung peripheries. Her inflammatory markers today includes a d- dimer of 25.3, LDH level of 2072, CRP level of 6.4 and the rest of the blood work and electrolytes are all within normal limits. The white cell count is 11.6 with a hemoglobin of 12.7. the patient length. The patient told me that in terms of her advanced directives, she is agreeable to intubation. Nevertheless, she doesn't want any CPR or defibrillation or any other form of resuscitation should she develop any form of cardiac pulmonary arrest. 11/23/2020, the patient remains in the intensive care unit, BiPAP dependent and unable to wean. Note that we tried her on high flow oxygen yesterday and she was on 60 L with an FiO2 of 90% with 100% nonrebreather. Within a few minutes, she decompensated she became more short of breath and hypoxic and as such the child was aborted and the patient was placed back on BiPAP and currently she is on a BiPAP pressure of 14/6 cm of water with an FiO2 of 100%. Pulse ox pulse ox is around 91-92%. She seems to be quite comfortable on a BiPAP. Current rate is around 28. She is able to generate adequate tidal volumes. Main complaint remains some irritation on her nose from the BiPAP Chest x-ray from today, diffuse pulmonary infiltrates probably slightly worse on the right. The infectious inflammatory markers show a d-dimer of 24.3 and the patient has an LDH level of 2128 and a CRP level of 3.4. The patient remains on Decadron 6 mg IV every 12 hours. The patient is also on Lovenox 40 mg subcutaneous every 12 hours. Doppler of the lower extremities was conducted and they were negative. She is awake, she is communicating. She can eat and drink limited amounts while being given brief periods off the BiPAP. The blood work from today shows a white cell count of 12 with a hemoglobin of 15.1. She continues to have l ymphopenia. Sodium is 135. BUN is at 17 with a creatinine of 0.5. Fluid balance over the past 24 hours has been in the order of -750 mL. As mentioned earlier, she is agreeing for intubation. She does not want any CPR or defibrillation in the event if her condition decompensated so she wasn't a cardiopulmonary arrest. Otherwise, the family has been updated. I contacted the daughter and I gave her a detailed explanation of what is happening with her and had a high risk of progression requiring intubation mechanical ventilation and the daughter clearly understands Reevaluated today on 11/24/2020, patient remains in the ICU, remains on BiPAP, she is on IPAP of 14 and EPAP of 6,100% FiO2. O2 saturations are marginal. Had a chance to discuss the issue of ventilatory support and mechanical ventilation with the patient, and she clearly stated to me that she would not want to be on life support, patient clearly told me that she would like to be made comfort care condition requires intubation and mechanical ventilation. Hence her CODE STATUS was changed to DO NOT RESUSCITATE CODE STATUS, and I recommended that we continue BiPAP for now, and give patient airvo trials with high flow oxygen when she is eating. Patient has been here now for almost 8 days, and she is not making any major signs of recovery. Chest x-ray continues to show bilateral patchy infiltrates. CBC today is relatively normal except for WBC count of 14.1. Electrolytes are relatively normal except for slightly elevated potassium of 5.4 d-dimer is on the rise it is 23.2. Renal functioning is normal. C-louann ctive protein is 2 and her LDH is on the rise presently 2437 patient remains on Lovenox at 40 mg subcu twice a day, Decadron 6 mg IV push twice a day. She is also on the multivitamins. IV fluid is at 50 mL per hour in the form of 0.9 normal saline Objective - Vital Signs Vital signs: Vital Signs Temp 98.5 F 11/24/20 08:00 Pulse 104 H 11/24/20 10:00 Resp 39 H 11/24/20 10:00 BP 124/65 11/24/20 10:00 Pulse Ox 88 L 11/24/20 10:00 Intake & Output 11/23/20 11/24/20 11/24/20 18:59 06:59 18:59 Intake Total 750 600 200 Output Total 1050 925 500 Balance -300 -325 -300 Weight 86.5 kg Intake: IV 600 600 200 Sodium Chloride 0.9% 1, 600 600 200 000 ml @ 50 mls/hr IV . Q20H [facility] Rx#:[id number] Oral 150 Output: Urine 1050 925 500 Other: Voiding Method External Catheter External Catheter External Catheter # Voids 100 # Bowel Movements 2 1 - Exam General: Revealed a 69-year-old female on BiPAP, in mild respiratory distress. skin: No evidence of rashes. Head: Atraumatic, normocephalic. EENT: PERRLA, EOMI, nonicteric, no neck masses, dry mucous membranes. Neck: supple no neck masses no JVD no stridor.. Mouth: mucus membranes dry Cardiovascular: Normal S1 and S2, no S3 gallop, no murmur Lungs: Coarse crackles and rhonchi noted bilaterally. No use of accessory muscles, symmetrical chest expansion. Ext: No clubbing edema or cyanosis Neuro: Alert and oriented 3 no gross focal deficit. Psych: Normal mood, affect and normal mental status examination. Musculoskeletal: No deformities no limitations in range of motion. - Labs CBC & Chem 7: 11/24/20 03:04 11/24/20 03:04 Labs: Abnormal Lab Results - Last 24 Hours (Table) 11/24/20 11/24/20 11/24/20 Range/Units 03:04 03:04 03:04 WBC 14.1 H (3.8-10.6) k/uL Neutrophils # 12.9 H (1.3-7.7) k/uL Lymphocytes # 0.8 L (1.0-4.8) k/uL D-Dimer 23.20 H (<0.60) mg/L FEU Potassium 5.4 H (3.5-5.1) mmol/L Carbon Dioxide 32 H (22-30) mmol/L BUN 20 H (7-17) mg/dL Glucose 132 H (74-99) mg/dL Lactate Dehydrogenase 2437 H (313-618) U/L C-Reactive Protein 2.0 H (<1.0) mg/dL Assessment and Plan Assessment: Impression: Acute hypoxic respiratory failure secondary to acute COVID-19 pneumonia, originally diagnosed on 11/11, remains on BiPAP, patient is requesting DO NOT RESUSCITATE CODE STATUS, and definitely no intubation and mechanical ventilation. Elevated inflammatory markers secondary to above. History of overactive bladder. Recommendation: Continue BiPAP. She is presently on IPAP of 14 and EPAP of 6 FiO2 of 100%. Continue Decadron 6 mg IV push twice a day. Patient was out of the window for REM Patient received TOCI Continue Lovenox twice a day 40 mg subcu, patient does have elevated d-dimer. Continue vitamin supplements. Continue IV fluid 0.9 at 50 mL per hour. PICC line to be inserted by interventional radiology. Change CODE STATUS to DO NOT RESUSCITATE upon her request. Update family on her overall clinical status. Prognosis is definitely poor and guarded. Critical care time is over 30 minutes. Time with Patient: Greater than 30
--- NOTE | 2020-11-24 11:22 | XR ---
EXAMINATION TYPE: XR chest 1V portable DATE OF EXAM: 11/24/2020 HISTORY: Shortness of breath. COMPARISON: 11/24/2020 TECHNIQUE: Single view of the chest is submitted. FINDINGS: Diffuse airspace infiltrates are redemonstrated and demonstrate interval progression. Left-sided PICC line demonstrates its distal tip overlying the SVC. No evidence for pneumothorax. The heart is stable. Hilar and mediastinal structures are within normal limits. Degenerative changes are seen of the dorsal spine. IMPRESSION: 1. Diffuse airspace infiltrates are redemonstrated and demonstrate interval progression.
[2020-11-24 11:46] LABS: Glucose,Whole Blood 130 mg/dL (75-99)
[2020-11-24] MEDS: INSULIN ASPART (NovoLOG) 100 UNIT/ML VIAL SQ SCH ×3 (12:01→20:28)
[2020-11-24 13:08] LABS: Albumin 3.5 g/dL (3.5-5.0); Phosphorus 3.7 mg/dL (2.5-4.5)
[2020-11-24 13:09] LABS: Ionized Calcium 4.9 mg/dL (4.5-5.3)
[2020-11-24] MEDS ORDERED: MVI, ADULT NO.4 WITH VIT K 10 ML, TRACE (CONC-1ML/DOSE) 1 ML, SODIUM CHLORIDE 4MEQ/ML V... IV SCH ×7 (14:00)
--- NOTE | 2020-11-24 14:45 | IR ---
EXAMINATION TYPE: IR cvc insert >=5 years DATE OF EXAM: 11/24/2020 COMPARISON: NONE HISTORY: Needs long-term intravenous access for total parenteral nutrition FINDINGS: Maximal barrier technique was utilized. Hand hygiene obtained with soap and water and alco hol-based hand rub. The skin overlying the left basilic vein was localized with ultrasound and noted to be compressible and patent by ultrasound. An ultrasound image was obtained and [facility]. Sterile technique utilized with the ultrasound machine. The skin overlying was prepped an d draped and Lidocaine used for local anesthesia. A skin ying was made with a scalpel. Access was g ained to the vein under direct ultrasound guidance with a 21-gauge needle and a 0.018 inch wire was a dvanced. Access site was dilated with a peel-away sheath and the catheter tailored to length. Margot ter advanced centrally and a post procedure chest x-ray verified placement with tip at the superior v walter cava. Catheter was fixed to the skin and a sterile dressing placed. Hemostasis achieved and the catheter was aspirated and flushed with sterile saline. The patient remained in stable condition. IMPRESSION: STATUS POST ULTRASOUND GUIDED PICC LINE PLACEMENT, READY FOR USE. THIS PROCEDURE WAS PER FORMED BY THE UNDERSIGNED.
--- NOTE | 2020-11-24 15:04 | P.PN ---
Subjective Progress Note Date: 11/24/20 Patient is still on BiPAP this morning. Nursing staff informed me that she is still the setting when taken off of BiPAP. Dietitian is working on starting TPN. Patient isn't a good spirits. She is complaining of productive cough with yellowish and occasionally greenish sputum. Objective - Vital Signs Vital signs: Vital Signs Temp 98.3 F 11/24/20 12:00 Pulse 70 11/24/20 14:00 Resp 28 H 11/24/20 14:00 BP 145/63 11/24/20 14:00 Pulse Ox 86 L 11/24/20 14:00 Intake & Output 11/23/20 11/24/20 11/24/20 18:59 06:59 18:59 Intake Total 750 600 400 Output Total 1050 925 900 Balance -300 -325 -500 Weight 86.5 kg 86.5 kg Intake: IV 600 600 400 Sodium Chloride 0.9% 1, 600 600 400 000 ml @ 50 mls/hr IV . Q20H [facility] Rx#:[id number] Oral 150 Output: Urine 1050 925 900 Other: Voiding Method External Catheter External Catheter External Catheter # Voids 100 # Bowel Movements 2 1 - Exam General: The patient is awake and alert, in no distress Eye: there is normal conjunctiva bilaterally. Neck: The neck is supple, there is no JVD. Cardiovascular: Normal S1-S2, no S3-S4, no murmurs. Respiratory: Lungs with BiPAP sounds Gastrointestinal: Abdomen is soft, nontender Musculoskeletal: There is no pedal edema. Neurological:. Speech is normal. Skin: Skin is warm and dry - Labs CBC & Chem 7: 11/24/20 03:04 11/24/20 03:04 Labs: Abnormal Lab Results - Last 24 Hours (Table) 11/24/20 11/24/20 11/24/20 Range/Units 03:04 03:04 03:04 WBC 14.1 H (3.8-10.6) k/uL Neutrophils # 12.9 H (1.3-7.7) k/uL Lymphocytes # 0.8 L (1.0-4.8) k/uL D-Dimer 23.20 H (<0.60) mg/L FEU Potassium 5.4 H (3.5-5.1) mmol/L Carbon Dioxide 32 H (22-30) mmol/L BUN 20 H (7-17) mg/dL Glucose 132 H (74-99) mg/dL POC Glucose (mg/dL) (75-99) mg/dL Lactate Dehydrogenase 2437 H (313-618) U/L C-Reactive Protein 2.0 H (<1.0) mg/dL Triglycerides (<150) mg/dL 11/24/20 11/24/20 Range/Units 11:44 12:14 WBC (3.8-10.6) k/uL Neutrophils # (1.3-7.7) k/uL Lymphocytes # (1.0-4.8) k/uL D-Dimer (<0.60) mg/L FEU Potassium (3.5-5.1) mmol/L Carbon Dioxide (22-30) mmol/L BUN (7-17) mg/dL Glucose (74-99) mg/dL POC Glucose (mg/dL) 130 H (75-99) mg/dL Lactate Dehydrogenase (313-618) U/L C-Reactive Protein (<1.0) mg/dL Triglycerides 410 H (<150) mg/dL Assessment and Plan Assessment: Patient is a 69-year-old female with no significant past medical history who presented to the emergency department secondary to shortness of breath. She had been diagnosed with COVID-19 on 11/11. On arrival to the ER she was hypoxic at 86% on room air. Labs showed a mildly elevated d-dimer at 0.99, she subsequently underwent a CTA of the chest which showed no evidence of pulmonary embolism but did show extensive bilateral pulmonary infiltrates with reactive adenopathy. Her COVID-19 test was again positive. She was admitted for further management. Her O2 requirements increased throughout her hospital stay and currently is in the ICU. COVID-19 pneumonitis acute hypoxic respiratory failure currently on BiPAP managed by account manager trainee - Toci given 11/20 - out of the window for remdesivir -Pulmonary recommendations appreciated -Decadron D #10, increased dose on 11/21 -Vitamin C, vitamin D, zinc -Albuterol scheduled and as needed - Lovenox - pulm hygeine -Send sputum for culture. If pro-calcitonin elevated I would start antibiotic to treat for possible underlying pneumonia Costochonditiris due to above - motrin Overactive bladder - detrol Hyponatremia, resolved CODE STATUS: No CPR, yes to elective intubation if needed DVT prophylaxis: Lovenox Discussed with: patient, nursing Anticipated discharge date: undetermined Anticipated discharge place: pending clinical course A total of 35 minutes was spent on the care of this complex patient more than 50% of the time was spent in counseling and care coordination.
[2020-11-24 17:50] LABS: Glucose,Whole Blood 187 mg/dL (75-99)
[2020-11-24 20:15] LABS: Glucose,Whole Blood 148 mg/dL (75-99)
[2020-11-24] MEDS: OXYBUTYNIN XL 5 MG TAB.ER.24 PO SCH (20:28)
[2020-11-24] MEDS: CITALOPRAM HYDROBROMIDE 10 MG TAB PO SCH (20:29)
[2020-11-25 03:55] LABS: Basophils % (A) 0 %; Eosinophils # (A) 0.1 k/uL (0-0.7); Eosinophils % (A) 1 %; HCT 38.6 % (34.0-46.0); HGB 13.3 gm/dL (11.4-16.0); Lymphocytes # (A) 0.9 k/uL (1.0-4.8); Lymphocytes % (A) 5 %; MCH 33.2 pg (25.0-35.0); MCHC 34.4 g/dL (31.0-37.0); MCV 96.4 fL (80.0-100.0); Monocytes # (A) 0.4 k/uL (0-1.0); Monocytes % (A) 2 %; Neutrophils # (A) 15.6 k/uL (1.3-7.7); Neutrophils % (A) 91 %; Platelet Count 305 k/uL (150-450); RBC 4.01 m/uL (3.80-5.40); RDW 12.3 % (11.5-15.5); WBC 17.1 k/uL (3.8-10.6)
[2020-11-25 04:06] LABS: African American GFR (CKD) >90 (>60 ml/min/1.73 sqM); Anion Gap 7 mmol/L; Blood Urea Nitrogen 22 mg/dL (7-17); Carbon Dioxide 27 mmol/L (22-30); Chloride 101 mmol/L (98-107); Glucose 136 mg/dL (74-99); Magnesium 2.1 mg/dL (1.6-2.3); Non-African American GFR(CKD) >90 (>60 ml/min/1.73 sqM); Potassium 4.6 mmol/L (3.5-5.1); Sodium 135 mmol/L (137-145)
[2020-11-25 04:07] LABS: ALT 77 U/L (4-34); AST 67 U/L (14-36); African American GFR (CKD) >90 (>60 ml/min/1.73 sqM); Albumin 3.3 g/dL (3.5-5.0); Alkaline Phosphatase 97 U/L (38-126); Anion Gap 6 mmol/L; Blood Urea Nitrogen 21 mg/dL (7-17); C Reactive Protein 1.4 mg/dL (<1.0); Calcium 8.9 mg/dL (8.4-10.2); Carbon Dioxide 27 mmol/L (22-30); Chloride 101 mmol/L (98-107); Creatine Kinase 20 U/L (30-135); Glucose 134 mg/dL (74-99); Non-African American GFR(CKD) >90 (>60 ml/min/1.73 sqM); Phosphorus 3.8 mg/dL (2.5-4.5); Potassium 4.6 mmol/L (3.5-5.1); Sodium 134 mmol/L (137-145); Total Bilirubin 0.4 mg/dL (0.2-1.3); Total Protein 6.1 g/dL (6.3-8.2)
[2020-11-25 04:13] LABS: LDH 2588 U/L (313-618)
[2020-11-25 06:19] LABS: Glucose,Whole Blood 138 mg/dL (75-99)
[2020-11-25] MEDS: INSULIN ASPART (NovoLOG) 100 UNIT/ML VIAL SQ SCH ×4 (06:31→21:29)
--- NOTE | 2020-11-25 07:07 | XR ---
EXAMINATION TYPE: XR chest 1V portable DATE OF EXAM: 11/25/2020 COMPARISON: 11/24/2020 HISTORY: Shortness of breath TECHNIQUE: Single frontal view of the chest is obtained. FINDINGS: Diffuse bilateral airspace disease with tiny effusion stable. Heart size stable. PICC line again noted. No pneumothorax. IMPRESSION: Stable diffuse bilateral airspace disease. Correlate for CHF versus diffuse pneumonia.
[2020-11-25] MEDS: ALBUTEROL HFA INHALER INHALATION SCH ×3 (08:29→19:47)
[2020-11-25] MEDS: DEXAMETHASONE SOD PHOSPHATE 10 MG/ML 1 ML VIAL IV SCH ×2 (09:05→21:29)
[2020-11-25] MEDS: PANTOPRAZOLE 40 MG/10 ML VIAL IVP SCH (09:05)
[2020-11-25] MEDS: ZINC SULFATE 220 MG CAP PO SCH (09:06)
[2020-11-25] MEDS: ASCORBIC ACID 500 MG TAB PO SCH (09:06)
[2020-11-25] MEDS: ENOXAPARIN 40 MG/0.4 ML SYRINGE SQ SCH ×2 (09:06→21:29)
[2020-11-25] MEDS: guaiFENesin 600 MG TABLET.ER PO SCH ×2 (09:06→21:29)
[2020-11-25] MEDS: CHOLECALCIFEROL 25 MCG (1000 IU) TABLET PO SCH (09:06)
[2020-11-25] MEDS: SODIUM CHLORIDE 0.9% 1,000 ML IV SCH ×2 (09:07→18:30)
[2020-11-25 10:15] LABS: Ferritin 713.5 ng/mL (10.0-291.0)
--- NOTE | 2020-11-25 10:15 | P.PN ---
Subjective Progress Note Date: 11/25/20 Patient was awake and alert this morning. She was eating breakfast. She was taken off of BiPAP for her to eat. O2 sats at the time of my evaluation around 85%. Patient denies significant shortness of breath. She said that she is feeling better compared to yesterday. No acute events overnight reported by nursing staff. Objective - Vital Signs Vital signs: Vital Signs Temp 98.9 F 11/25/20 08:00 Pulse 91 11/25/20 10:00 Resp 17 11/25/20 10:00 BP 143/73 11/25/20 10:00 Pulse Ox 87 L 11/25/20 10:00 Intake & Output 11/24/20 11/25/20 11/25/20 18:59 06:59 18:59 Intake Total 1920 960 240 Output Total 1100 900 0 Balance 820 60 240 Weight 86.5 kg 87.3 kg Intake: IV 600 930 240 Mvi, Adult No.4 with Vit 330 90 K 10 ml Trace (Conc-1Ml/ Dose) 1 ml Sodium Chloride 4Meq/ml Vial 24 meq Magnesium Sulfate gm 0.5 gm Calcium Gluconate 1 gm Sodium Phosphate 9 mmol In Amino Acid 5%- D15w 1,000 ml @ 30 mls/hr IV .Q24H [facility] Rx#: [id number] Sodium Chloride 0.9% 1, 600 600 150 000 ml @ 50 mls/hr IV . Q20H [facility] Rx#:[id number] Intake, IV Titration 120 30 Amount Mvi, Adult No.4 with Vit 120 30 K 10 ml Trace (Conc-1Ml/ Dose) 1 ml Sodium Chloride 4Meq/ml Vial 24 meq Magnesium Sulfate gm 0.5 gm Calcium Gluconate 1 gm Sodium Phosphate 9 mmol In Amino Acid 5%- D15w 1,000 ml @ 30 mls/hr IV .Q24H [facility] Rx#: [id number] Oral 1200 Output: Urine 1100 900 0 Other: Voiding Method External Catheter External Catheter # Voids 1 0 # Bowel Movements 1 1 - Exam General: The patient is awake and alert, in no distress Eye: there is normal conjunctiva bilaterally. Neck: The neck is supple, there is no JVD. Cardiovascular: Normal S1-S2, no S3-S4, no murmurs. Respiratory: Lungs clear to auscultation bilaterally Gastrointestinal: Abdomen is soft, nontender Musculoskeletal: There is no pedal edema. Neurological:. Speech is normal. Skin: Skin is warm and dry - Labs CBC & Chem 7: 11/25/20 02:59 11/25/20 02:59 Labs: Abnormal Lab Results - Last 24 Hours (Table) 11/24/20 11/24/20 11/24/20 Range/Units 11:44 12:14 17:49 WBC (3.8-10.6) k/uL Neutrophils # (1.3-7.7) k/uL Lymphocytes # (1.0-4.8) k/uL Sodium (137-145) mmol/L BUN (7-17) mg/dL Creatinine (0.52-1.04) mg/dL Glucose (74-99) mg/dL POC Glucose (mg/dL) 130 H 187 H (75-99) mg/dL AST (14-36) U/L ALT (4-34) U/L Lactate Dehydrogenase (313-618) U/L Creatine Kinase (30-135) U/L C-Reactive Protein (<1.0) mg/dL Total Protein (6.3-8.2) g/dL Albumin (3.5-5.0) g/dL Triglycerides 410 H (<150) mg/dL 11/24/20 11/25/20 11/25/20 Range/Units 20:14 02:59 02:59 WBC (3.8-10.6) k/uL Neutrophils # (1.3-7.7) k/uL Lymphocytes # (1.0-4.8) k/uL Sodium 135 L 134 L (137-145) mmol/L BUN 22 H 21 H (7-17) mg/dL Creatinine 0.46 L 0.46 L (0.52-1.04) mg/dL Glucose 136 H 134 H (74-99) mg/dL POC Glucose (mg/dL) 148 H (75-99) mg/dL AST 67 H (14-36) U/L ALT 77 H (4-34) U/L Lactate Dehydrogenase 2588 H (313-618) U/L Creatine Kinase 20 L (30-135) U/L C-Reactive Protein 1.4 H (<1.0) mg/dL Total Protein 6.1 L (6.3-8.2) g/dL Albumin 3.3 L (3.5-5.0) g/dL Triglycerides (<150) mg/dL 11/25/20 11/25/20 Range/Units 02:59 06:18 WBC 17.1 H (3.8-10.6) k/uL Neutrophils # 15.6 H (1.3-7.7) k/uL Lymphocytes # 0.9 L (1.0-4.8) k/uL Sodium (137-145) mmol/L BUN (7-17) mg/dL Creatinine (0.52-1.04) mg/dL Glucose (74-99) mg/dL POC Glucose (mg/dL) 138 H (75-99) mg/dL AST (14-36) U/L ALT (4-34) U/L Lactate Dehydrogenase (313-618) U/L Creatine Kinase (30-135) U/L C-Reactive Protein (<1.0) mg/dL Total Protein (6.3-8.2) g/dL Albumin (3.5-5.0) g/dL Triglycerides (<150) mg/dL Microbiology - Last 24 Hours (Table) 11/24/20 13:00 Gram Stain - Preliminary Sputum Sputum Culture - Preliminary Assessment and Plan Assessment: Patient is a 69-year-old female with no significant past medical history who presented to the emergency department secondary to shortness of breath. She had been diagnosed with COVID-19 on 11/11. On arrival to the ER she was hypoxic at 86% on room air. Labs showed a mildly elevated d-dimer at 0.99, she subsequently underwent a CTA of the chest which showed no evidence of pulmonary embolism but did show extensive bilateral pulmonary infiltrates with reactive adenopathy. Her COVID-19 test was again positive. She was admitted for further management. Her O2 requirements increased throughout her hospital stay and currently is in the ICU. COVID-19 pneumonitis acute hypoxic respiratory failure currently on BiPAP managed by gas engine operator generators - Toci given 11/20 - out of the window for remdesivir -Pulmonary recommendations appreciated -Decadron D #11, increased dose on 11/21 -Pro calcitonin within normal range -Vitamin C, vitamin D, zinc -Albuterol scheduled and as needed - Lovenox - pulm hygeine -Sputum culture pending -We will obtain BNP to rule out component of CHF Costochonditiris due to above - motrin Overactive bladder - detrol Hyponatremia, resolved CODE STATUS: No CPR, yes to elective intubation if needed DVT prophylaxis: Lovenox Discussed with: patient, nursing Anticipated discharge date: undetermined Anticipated discharge place: pending clinical course A total of 35 minutes was spent on the care of this complex patient more than 50% of the time was spent in counseling and care coordination.
[2020-11-25 11:37] LABS: Glucose,Whole Blood 162 mg/dL (75-99)
--- NOTE | 2020-11-25 12:05 | P.PN ---
Subjective Progress Note Date: 11/25/20 Principal diagnosis: Acute hypoxic respiratory failure secondary to acute COVID-19 pneumonia There is a 69-year-old female patient with COVID-19 related pneumonia. The patient was already diagnosed having COVID-19 on 11/11/2018. The patient was symptomatic approximately 9 days prior to that. She came into the emergency department on 11/16/2020 and the patient was hospitalized with pneumonia. She was seen by the hospitalist group. She was started on steroids. She was not given Remdesivir as the patient was thought to be outside the window of treatment. Note that the patient was found to be hypoxic with a pulse of 76% on room air at time of admission. D-dimer was 0.99. CT angios gram showed acute breath and pulmonary infiltrates consistent with COVID-19 related pneumonia and her COVID-19 by PCR came back positive. She was initiated on 2 L of oxygen by nasal cannula. Subsequently, she decompensated and she is currently at 8 L per minute nasal cannula for that reason a pulmonary consultation was requested. She is reporting some increased work of breathing. She has a dry cough. No significant sputum production. No angina. No palpitation. No previous history of lung disease or disorder. No nausea. No vomiting. She is able to taste and smell. Her LDH level was 765 and is currently down to 411. The pro calcitonin level is down to 0.18. D-dimer is at 0.8. CBC showed some mild anemia with hemoglobin of 11.7. Otherwise white cell count was 11 and the platelet count was 293. 11/19/2020, seeing patient for a follow-up. The patient is doing well for now. She has no new complaints. She is currently on 6 L of oxygen by nasal cannula with pulse ox of 90%. She is currently on Decadron 6 mg on a daily basis and she's also on Lovenox 40 mg subcu for DVT prophylaxis. IV fluids are running at 75 mL an hour of normal saline. The patient has a d-dimer of 0.8. Her LDH level was a cold the heart was done and it showed preserved LV function and mild pulmonary hypertension. No other new complaints or issues for now. On 11/20/2020 patient seen in follow-up on medical surgical floor. Overnight her oxygen demand has increased, and patient was desaturating into the low 70s with ambulation, and would take a long time to recover, she was placed on 15 L high flow and 100% nonrebreather mask, her pulse ox right now is 90-95%, she seems to breathing comfortably, she is sitting in the recliner, she has been ambulating to the bathroom earlier, however now she is using the bedside commode, she is afebrile, blood pressures are stable, she had no fevers overnight. She continues on Decadron 6 mg daily, and she is on prophylactic dose of Lovenox. Was outside the window for Remdesivir. Today's chest x-ray shows worsening bilateral multifocal and confluent opacities consistent with COVID-19 progression On 11/21/2020 patient seen in intensive care unit, patient was transferred to the intensive care unit this morning with worsening hypoxia and dyspnea, she is currently on BiPAP support with pressures of 14/6 and FiO2 of 100% and her pulse ox is 84% on those settings. Chest x-ray is pending, overnight her oxygenation continued to get worse, but 15 L high flow nasal cannula and nonrebreather mask, and her pulse ox was going into the low 70's. Patient is awake and alert, she is oriented 3, she is anxious, but fairly compliant with the BiPAP support. She has received a dose of Xanax which will be switched to IV Ativan. Denies any chest discomfort, she is tachypneic, her respiratory rate ranging from 17 to mid 20s and sent time 30 times per minute. She is afebrile, hemodynamically she is stable, she is in sinus mechanism. His labs have been reviewed, CBC is within normal limits, d-dimer has increased significantly and is up at 13.18 on today's labs, electrolytes were within normal limits, B1 is 15 creatinine 0.48. Has been an increase in her LDH which is up at 1574, and CRP is currently at 14.9. He remains on Decadron 6 mg daily, she status post Tocilizumab infusion of 800 mg. She was on prophylactic dose of Lovenox which we will increase to 40 mg twice daily. 11/22/2020, the patient remains in the intensive care unit. Overnight, she stayed on the BiPAP at a pressure of 14/6 cm of water with an FiO2 of 100%. Her pulse ox throughout the night was 80 is in the low 80s sometimes. Earlier this morning, the patient wanted to eat. We switched her to a high flow with oxygen at 60 L and 100% on a beta facemasks. Her current pulse ox is around 70%. She is conscious and awake and she is still communicating. She is a bit anxious and she is aching Ativan for anxiety. Meanwhile, she remains on Decadron dose was increased up to 6 mg IV twice a day. She remains on Lovenox 40 mg subcu twice a day for DVT prophylaxis. In terms of her chest x-ray, the patient has bilateral pulmonary infiltrates and as stated earlier, her condition is progressive and she has developed worsening in pulmonary infiltrates in lung bases bilaterally more so in the lung peripheries. Her inflammatory markers today includes a d- dimer of 25.3, LDH level of 2072, CRP level of 6.4 and the rest of the blood work and electrolytes are all within normal limits. The white cell count is 11.6 with a hemoglobin of 12.7. the patient length. The patient told me that in terms of her advanced directives, she is agreeable to intubation. Nevertheless, she doesn't want any CPR or defibrillation or any other form of resuscitation should she develop any form of cardiac pulmonary arrest. 11/23/2020, the patient remains in the intensive care unit, BiPAP dependent and unable to wean. Note that we tried her on high flow oxygen yesterday and she was on 60 L with an FiO2 of 90% with 100% nonrebreather. Within a few minutes, she decompensated she became more short of breath and hypoxic and as such the child was aborted and the patient was placed back on BiPAP and currently she is on a BiPAP pressure of 14/6 cm of water with an FiO2 of 100%. Pulse ox pulse ox is around 91-92%. She seems to be quite comfortable on a BiPAP. Current rate is around 28. She is able to generate adequate tidal volumes. Main complaint remains some irritation on her nose from the BiPAP Chest x-ray from today, diffuse pulmonary infiltrates probably slightly worse on the right. The infectious inflammatory markers show a d-dimer of 24.3 and the patient has an LDH level of 2128 and a CRP level of 3.4. The patient remains on Decadron 6 mg IV every 12 hours. The patient is also on Lovenox 40 mg subcutaneous every 12 hours. Doppler of the lower extremities was conducted and they were negative. She is awake, she is communicating. She can eat and drink limited amounts while being given brief periods off the BiPAP. The blood work from today shows a white cell count of 12 with a hemoglobin of 15.1. She continues to have l ymphopenia. Sodium is 135. BUN is at 17 with a creatinine of 0.5. Fluid balance over the past 24 hours has been in the order of -750 mL. As mentioned earlier, she is agreeing for intubation. She does not want any CPR or defibrillation in the event if her condition decompensated so she wasn't a cardiopulmonary arrest. Otherwise, the family has been updated. I contacted the daughter and I gave her a detailed explanation of what is happening with her and had a high risk of progression requiring intubation mechanical ventilation and the daughter clearly understands Reevaluated today on 11/24/2020, patient remains in the ICU, remains on BiPAP, she is on IPAP of 14 and EPAP of 6,100% FiO2. O2 saturations are marginal. Had a chance to discuss the issue of ventilatory support and mechanical ventilation with the patient, and she clearly stated to me that she would not want to be on life support, patient clearly told me that she would like to be made comfort care condition requires intubation and mechanical ventilation. Hence her CODE STATUS was changed to DO NOT RESUSCITATE CODE STATUS, and I recommended that we continue BiPAP for now, and give patient airvo trials with high flow oxygen when she is eating. Patient has been here now for almost 8 days, and she is not making any major signs of recovery. Chest x-ray continues to show bilateral patchy infiltrates. CBC today is relatively normal except for WBC count of 14.1. Electrolytes are relatively normal except for slightly elevated potassium of 5.4 d-dimer is on the rise it is 23.2. Renal functioning is normal. C-louann ctive protein is 2 and her LDH is on the rise presently 2437 patient remains on Lovenox at 40 mg subcu twice a day, Decadron 6 mg IV push twice a day. She is also on the multivitamins. IV fluid is at 50 mL per hour in the form of 0.9 normal saline Reevaluated today on 11/25/2020, remains in the ICU, he is presently on high flow airvo FiO2 90% and 60 L flow. She is also on a nonrebreather mask 100%, and her O2 saturation is in the 80s. Patient states that she is feeling better today compared to yesterday, breathing easier, but she is marginal at best. Patient clearly stated to me again that she would never want to be on life support and no mechanical ventilation. If she requires to be on life support, the patient prefers to go to comfort care measures. She remains on TPN and her IV fluids at 50 mL per hour. Chest x-ray no significant change continues to show bilateral infiltrates consistent with COVID-19 pneumonia. Last night the patient was placed on BiPAP 29/12. And she slept well with it WBC count today is 17.1 hemoglobin is 13.3 Electrolytesenc normal renal profile is normal LDH remains high at 2588 and C-reactive protein is 1.4, in other words the patient is showing worsening numbers and worsening chest x-ray, but surprisingly clinically the patient tells me that she is feeling better. Objective - Vital Signs Vital signs: Vital Signs Temp 98.9 F 11/25/20 08:00 Pulse 91 11/25/20 10:00 Resp 17 11/25/20 10:00 BP 143/73 11/25/20 10:00 Pulse Ox 87 L 11/25/20 10:00 Intake & Output 11/24/20 11/25/20 11/25/20 18:59 06:59 18:59 Intake Total 1920 960 320 Output Total 1100 900 0 Balance 820 60 320 Weight 86.5 kg 87.3 kg Intake: IV 600 930 320 Mvi, Adult No.4 with Vit 330 120 K 10 ml Trace (Conc-1Ml/ Dose) 1 ml Sodium Chloride 4Meq/ml Vial 24 meq Magnesium Sulfate gm 0.5 gm Calcium Gluconate 1 gm Sodium Phosphate 9 mmol In Amino Acid 5%- D15w 1,000 ml @ 30 mls/hr IV .Q24H [facility] Rx#: [id number] Sodium Chloride 0.9% 1, 600 600 200 000 ml @ 50 mls/hr IV . Q20H [facility] Rx#:[id number] Intake, IV Titration 120 30 Amount Mvi, Adult No.4 with Vit 120 30 K 10 ml Trace (Conc-1Ml/ Dose) 1 ml Sodium Chloride 4Meq/ml Vial 24 meq Magnesium Sulfate gm 0.5 gm Calcium Gluconate 1 gm Sodium Phosphate 9 mmol In Amino Acid 5%- D15w 1,000 ml @ 30 mls/hr IV .Q24H [facility] Rx#: [id number] Oral 1200 Output: Urine 1100 900 0 Other: Voiding Method External Catheter External Catheter External Catheter # Voids 1 0 # Bowel Movements 1 1 - Exam General: Revealed a 69-year-old female high flow oxygen as noted earlier.airvo and nonrebreather mask skin: No evidence of rashes. Head: Atraumatic, normocephalic. EENT: PERRLA, EOMI, nonicteric, no neck masses, dry mucous membranes. Neck: supple no neck masses no JVD no stridor.. Mouth: mucus membranes dry Cardiovascular: Normal S1 and S2, no S3 gallop, no murmur Lungs: Coarse crackles and rhonchi noted bilaterally. No use of accessory muscles, symmetrical chest expansion. Ext: No clubbing edema or cyanosis Neuro: Alert and oriented 3 no gross focal deficit. Psych: Normal mood, affect and normal mental status examination. Musculoskeletal: No deformities no limitations in range of motion. - Labs CBC & Chem 7: 11/25/20 02:59 11/25/20 02:59 Labs: Abnormal Lab Results - Last 24 Hours (Table) 11/24/20 11/24/20 11/24/20 Range/Units 12:14 17:49 20:14 WBC (3.8-10.6) k/uL Neutrophils # (1.3-7.7) k/uL Lymphocytes # (1.0-4.8) k/uL Sodium (137-145) mmol/L BUN (7-17) mg/dL Creatinine (0.52-1.04) mg/dL Glucose (74-99) mg/dL POC Glucose (mg/dL) 187 H 148 H (75-99) mg/dL Ferritin (10.0-291.0) ng/mL AST (14-36) U/L ALT (4-34) U/L Lactate Dehydrogenase (313-618) U/L Creatine Kinase (30-135) U/L C-Reactive Protein (<1.0) mg/dL Total Protein (6.3-8.2) g/dL Albumin (3.5-5.0) g/dL Triglycerides 410 H (<150) mg/dL 11/25/20 11/25/20 11/25/20 Range/Units 02:59 02:59 02:59 WBC 17.1 H (3.8-10.6) k/uL Neutrophils # 15.6 H (1.3-7.7) k/uL Lymphocytes # 0.9 L (1.0-4.8) k/uL Sodium 135 L 134 L (137-145) mmol/L BUN 22 H 21 H (7-17) mg/dL Creatinine 0.46 L 0.46 L (0.52-1.04) mg/dL Glucose 136 H 134 H (74-99) mg/dL POC Glucose (mg/dL) (75-99) mg/dL Ferritin 713.5 H (10.0-291.0) ng/mL AST 67 H (14-36) U/L ALT 77 H (4-34) U/L Lactate Dehydrogenase 2588 H (313-618) U/L Creatine Kinase 20 L (30-135) U/L C-Reactive Protein 1.4 H (<1.0) mg/dL Total Protein 6.1 L (6.3-8.2) g/dL Albumin 3.3 L (3.5-5.0) g/dL Triglycerides (<150) mg/dL 11/25/20 11/25/20 Range/Units 06:18 11:35 WBC (3.8-10.6) k/uL Neutrophils # (1.3-7.7) k/uL Lymphocytes # (1.0-4.8) k/uL Sodium (137-145) mmol/L BUN (7-17) mg/dL Creatinine (0.52-1.04) mg/dL Glucose (74-99) mg/dL POC Glucose (mg/dL) 138 H 162 H (75-99) mg/dL Ferritin (10.0-291.0) ng/mL AST (14-36) U/L ALT (4-34) U/L Lactate Dehydrogenase (313-618) U/L Creatine Kinase (30-135) U/L C-Reactive Protein (<1.0) mg/dL Total Protein (6.3-8.2) g/dL Albumin (3.5-5.0) g/dL Triglycerides (<150) mg/dL Microbiology - Last 24 Hours (Table) 11/24/20 13:00 Gram Stain - Preliminary Sputum Sputum Culture - Preliminary Assessment and Plan Assessment: Impression: Acute hypoxic respiratory failure secondary to acute COVID-19 pneumonia, originally diagnosed on 11/11, patient is still requiring significant amount of oxygen and high flow via airvo, and at night she is on BiPAP. Elevated inflammatory markers secondary to above. History of overactive bladder. Recommendation: Continue present supportive care measures patient is maximized on oxygen short of placing the patient on mechanical ventilation, and she is definitely against the idea of life support. Continue Decadron 6 mg IV push twice a day. Patient was out of the window for REM Patient received TOCI Continue Lovenox twice a day 40 mg subcu, patient does have elevated d-dimer. Continue vitamin supplements. Continue IV fluid 0.9 at 50 mL per hour. Patient has a PICC line at present. Change CODE STATUS to DO NOT RESUSCITATE upon her request. Prognosis is definitely poor and guarded. Critical care time is over 30 minutes. Time with Patient: Greater than 30
[2020-11-25] MEDS ORDERED: [UNRECOGNIZED DRUG - MIXTURE] IV SCH ×7 (14:00)
[2020-11-25 17:34] LABS: Glucose,Whole Blood 125 mg/dL (75-99)
[2020-11-25 21:10] LABS: Glucose,Whole Blood 169 mg/dL (75-99)
[2020-11-25] MEDS: OXYBUTYNIN XL 5 MG TAB.ER.24 PO SCH (21:29)
[2020-11-25] MEDS: CITALOPRAM HYDROBROMIDE 10 MG TAB PO SCH (21:29)
[2020-11-25] MEDS: [UNRECOGNIZED DRUG - MIXTURE] IV SCH ×7 (23:33)
[2020-11-26 05:45] LABS: Basophils # (A) 0.1 k/uL (0-0.2); Basophils % (A) 0 %; Eosinophils # (A) 0.2 k/uL (0-0.7); Eosinophils % (A) 1 %; HCT 40.4 % (34.0-46.0); HGB 13.8 gm/dL (11.4-16.0); Lymphocytes % (A) 4 %; MCHC 34.2 g/dL (31.0-37.0); MCV 96.3 fL (80.0-100.0); Mean Platelet Volume 7.9; Monocytes # (A) 0.4 k/uL (0-1.0); Monocytes % (A) 2 %; Neutrophils # (A) 21.8 k/uL (1.3-7.7); Neutrophils % (A) 92 %; Platelet Count 291 k/uL (150-450); RDW 12.3 % (11.5-15.5); WBC 23.6 k/uL (3.8-10.6)
[2020-11-26 06:27] LABS: African American GFR (CKD) >90 (>60 ml/min/1.73 sqM); Anion Gap 3 mmol/L; Blood Urea Nitrogen 21 mg/dL (7-17); Calcium 8.7 mg/dL (8.4-10.2); Carbon Dioxide 31 mmol/L (22-30); Chloride 102 mmol/L (98-107); Glucose 146 mg/dL (74-99); Non-African American GFR(CKD) >90 (>60 ml/min/1.73 sqM); Phosphorus 3.3 mg/dL (2.5-4.5); Potassium 4.2 mmol/L (3.5-5.1); Sodium 136 mmol/L (137-145)
[2020-11-26 06:40] LABS: Glucose,Whole Blood 171 mg/dL (75-99)
[2020-11-26] MEDS: INSULIN ASPART (NovoLOG) 100 UNIT/ML VIAL SQ SCH ×4 (06:43→21:43)
[2020-11-26] MEDS: ALBUTEROL HFA INHALER INHALATION SCH ×3 (07:22→20:11)
--- NOTE | 2020-11-26 07:28 | XR ---
EXAMINATION TYPE: XR chest 1V portable DATE OF EXAM: 11/26/2020 HISTORY: Shortness of breath. COMPARISON: 11/25/2020 TECHNIQUE: Single view of the chest is submitted. FINDINGS: Demonstrated are scattered senescent parenchymal change. Patchy infiltrates throughout both lung espana persists without significant change. The heart is stable. Hilar and mediastinal structures are within normal limits. Degenerative changes are seen of the dorsal spine. IMPRESSION: 1. Stable chest.
--- NOTE | 2020-11-26 09:06 | P.PN ---
Subjective Progress Note Date: 11/26/20 Patient was trying to eat some breakfast this morning when I saw her. She is currently on AirVo and a nonrebreather. O2 sat around 86%. She said that she is feeling comfortable. Denies significant shortness of breath. No acute events overnight reported to me by nursing staff. Objective - Vital Signs Vital signs: Vital Signs Temp 98.2 F 11/26/20 04:00 Pulse 72 11/26/20 07:00 Resp 26 H 11/26/20 07:00 BP 141/78 11/26/20 07:00 Pulse Ox 90 L 11/26/20 07:00 Intake & Output 11/25/20 11/26/20 11/26/20 18:59 06:59 18:59 Intake Total 1040 1500 Output Total 650 900 Balance 390 600 Weight 87.4 kg Intake: IV 1040 1500 Mvi, Adult No.4 with Vit 390 900 K 10 ml Trace (Conc-1Ml/ Dose) 1 ml Sodium Chloride 4Meq/ml Vial 24 meq Magnesium Sulfate gm 0.5 gm Calcium Gluconate 1 gm Sodium Phosphate 9 mmol In Amino Acid 5%- D15w 1,000 ml @ 30 mls/hr IV .Q24H [facility] Rx#: [id number] Sodium Chloride 0.9% 1, 650 600 000 ml @ 50 mls/hr IV . Q20H [facility] Rx#:[id number] Output: Urine 650 900 Other: Voiding Method External Catheter External Catheter # Voids 0 1 # Bowel Movements 1 - Exam General: The patient is awake and alert, in no distress Eye: there is normal conjunctiva bilaterally. Neck: The neck is supple, there is no JVD. Cardiovascular: Normal S1-S2, no S3-S4, no murmurs. Respiratory: Lungs clear to auscultation bilaterally Gastrointestinal: Abdomen is soft, nontender Musculoskeletal: There is no pedal edema. Neurological:. Speech is normal. Skin: Skin is warm and dry - Labs CBC & Chem 7: 11/26/20 05:15 11/26/20 05:15 Labs: Abnormal Lab Results - Last 24 Hours (Table) 11/25/20 11/25/20 11/25/20 Range/Units 02:59 11:35 17:33 WBC (3.8-10.6) k/uL Neutrophils # (1.3-7.7) k/uL D-Dimer (<0.60) mg/L FEU Sodium (137-145) mmol/L Carbon Dioxide (22-30) mmol/L BUN (7-17) mg/dL Creatinine (0.52-1.04) mg/dL Glucose (74-99) mg/dL POC Glucose (mg/dL) 162 H 125 H (75-99) mg/dL Ferritin 713.5 H (10.0-291.0) ng/mL Triglycerides (<150) mg/dL 11/25/20 11/26/20 11/26/20 Range/Units 21:09 05:15 05:15 WBC (3.8-10.6) k/uL Neutrophils # (1.3-7.7) k/uL D-Dimer 19.08 H (<0.60) mg/L FEU Sodium 136 L (137-145) mmol/L Carbon Dioxide 31 H (22-30) mmol/L BUN 21 H (7-17) mg/dL Creatinine 0.48 L (0.52-1.04) mg/dL Glucose 146 H (74-99) mg/dL POC Glucose (mg/dL) 169 H (75-99) mg/dL Ferritin (10.0-291.0) ng/mL Triglycerides (<150) mg/dL 11/26/20 11/26/20 11/26/20 Range/Units 05:15 05:15 06:38 WBC 23.6 H (3.8-10.6) k/uL Neutrophils # 21.8 H (1.3-7.7) k/uL D-Dimer (<0.60) mg/L FEU Sodium (137-145) mmol/L Carbon Dioxide (22-30) mmol/L BUN (7-17) mg/dL Creatinine (0.52-1.04) mg/dL Glucose (74-99) mg/dL POC Glucose (mg/dL) 171 H (75-99) mg/dL Ferritin (10.0-291.0) ng/mL Triglycerides 356 H (<150) mg/dL Assessment and Plan Assessment: Patient is a 69-year-old female with no significant past medical history who presented to the emergency department secondary to shortness of breath. She had been diagnosed with COVID-19 on 11/11. On arrival to the ER she was hypoxic at 86% on room air. Labs showed a mildly elevated d-dimer at 0.99, she subsequently underwent a CTA of the chest which showed no evidence of pulmonary embolism but did show extensive bilateral pulmonary infiltrates with reactive adenopathy. Her COVID-19 test was again positive. She was admitted for further management. Her O2 requirements increased throughout her hospital stay and currently is in the ICU. COVID-19 pneumonitis acute hypoxic respiratory failure currently on BiPAP managed by valve machine operator - Toci given 11/20 - out of the window for remdesivir -Pulmonary recommendations appreciated -Decadron D #12, increased dose on 11/21 -Pro calcitonin and BNP within normal range -Vitamin C, vitamin D, zinc -Albuterol scheduled and as needed - Lovenox - pulm hygeine -Sputum culture pending Costochonditiris due to above - motrin Overactive bladder - detrol Hyponatremia, resolved Today, I reviewed her medication list and lab work results. Patient is getting TPN in addition to oral feed as tolerated. Registered dietitian following closely. Continue ICU care. Prognosis is guarded CODE STATUS: Discussed with patient by valve machine operator. Patient is DO NOT RESUSCITATE/DO NOT INTUBATE DVT prophylaxis: Lovenox Discussed with: patient, nursing Anticipated discharge date: undetermined Anticipated discharge place: pending clinical course A total of 35 minutes was spent on the care of this complex patient more than 50% of the time was spent in counseling and care coordination.
[2020-11-26] MEDS: PIPERACILLIN-TAZOBACTAM 3.375 GM in SODIUM CHLORIDE 0.9% 100 ML IVPB SCH ×3 (09:22→23:24)
[2020-11-26] MEDS: ENOXAPARIN 40 MG/0.4 ML SYRINGE SQ SCH ×2 (09:22→21:28)
[2020-11-26] MEDS: ASCORBIC ACID 500 MG TAB PO SCH (09:23)
[2020-11-26] MEDS: guaiFENesin 600 MG TABLET.ER PO SCH ×2 (09:23→21:15)
[2020-11-26] MEDS: ZINC SULFATE 220 MG CAP PO SCH (09:23)
[2020-11-26] MEDS: PANTOPRAZOLE 40 MG/10 ML VIAL IVP SCH (09:23)
[2020-11-26] MEDS: CHOLECALCIFEROL 25 MCG (1000 IU) TABLET PO SCH (09:23)
[2020-11-26] MEDS: methylPREDNISolone SOD SUCCI 125 MG/2 ML VIAL IV SCH ×4 (09:23→23:24)
[2020-11-26] MEDS: MORPHINE SULFATE 2 MG/ML SYRINGE IV PRN ×3 (11:01→21:17)
[2020-11-26 12:14] LABS: Glucose,Whole Blood 177 mg/dL (75-99)
[2020-11-26] MEDS: [UNRECOGNIZED DRUG - OTHER] IV SCH ×21 (12:16→22:11)
[2020-11-26] MEDS: CALCIUM GLUCONATE IV SCH ×21 (12:16→22:11)
[2020-11-26] MEDS: SODIUM CHLORIDE IV SCH ×21 (12:16→22:11)
[2020-11-26] MEDS: [UNRECOGNIZED DRUG - MIXTURE] IV SCH ×7 (12:27)
--- NOTE | 2020-11-26 13:39 | P.PN ---
Subjective Progress Note Date: 11/26/20 Principal diagnosis: Acute hypoxic respiratory failure secondary to acute COVID-19 pneumonia There is a 69-year-old female patient with COVID-19 related pneumonia. The patient was already diagnosed having COVID-19 on 11/11/2018. The patient was symptomatic approximately 9 days prior to that. She came into the emergency department on 11/16/2020 and the patient was hospitalized with pneumonia. She was seen by the hospitalist group. She was started on steroids. She was not given Remdesivir as the patient was thought to be outside the window of treatment. Note that the patient was found to be hypoxic with a pulse of 76% on room air at time of admission. D-dimer was 0.99. CT angios gram showed acute breath and pulmonary infiltrates consistent with COVID-19 related pneumonia and her COVID-19 by PCR came back positive. She was initiated on 2 L of oxygen by nasal cannula. Subsequently, she decompensated and she is currently at 8 L per minute nasal cannula for that reason a pulmonary consultation was requested. She is reporting some increased work of breathing. She has a dry cough. No significant sputum production. No angina. No palpitation. No previous history of lung disease or disorder. No nausea. No vomiting. She is able to taste and smell. Her LDH level was 765 and is currently down to 411. The pro calcitonin level is down to 0.18. D-dimer is at 0.8. CBC showed some mild anemia with hemoglobin of 11.7. Otherwise white cell count was 11 and the platelet count was 293. 11/19/2020, seeing patient for a follow-up. The patient is doing well for now. She has no new complaints. She is currently on 6 L of oxygen by nasal cannula with pulse ox of 90%. She is currently on Decadron 6 mg on a daily basis and she's also on Lovenox 40 mg subcu for DVT prophylaxis. IV fluids are running at 75 mL an hour of normal saline. The patient has a d-dimer of 0.8. Her LDH level was a cold the heart was done and it showed preserved LV function and mild pulmonary hypertension. No other new complaints or issues for now. On 11/20/2020 patient seen in follow-up on medical surgical floor. Overnight her oxygen demand has increased, and patient was desaturating into the low 70s with ambulation, and would take a long time to recover, she was placed on 15 L high flow and 100% nonrebreather mask, her pulse ox right now is 90-95%, she seems to breathing comfortably, she is sitting in the recliner, she has been ambulating to the bathroom earlier, however now she is using the bedside commode, she is afebrile, blood pressures are stable, she had no fevers overnight. She continues on Decadron 6 mg daily, and she is on prophylactic dose of Lovenox. Was outside the window for Remdesivir. Today's chest x-ray shows worsening bilateral multifocal and confluent opacities consistent with COVID-19 progression On 11/21/2020 patient seen in intensive care unit, patient was transferred to the intensive care unit this morning with worsening hypoxia and dyspnea, she is currently on BiPAP support with pressures of 14/6 and FiO2 of 100% and her pulse ox is 84% on those settings. Chest x-ray is pending, overnight her oxygenation continued to get worse, but 15 L high flow nasal cannula and nonrebreather mask, and her pulse ox was going into the low 70's. Patient is awake and alert, she is oriented 3, she is anxious, but fairly compliant with the BiPAP support. She has received a dose of Xanax which will be switched to IV Ativan. Denies any chest discomfort, she is tachypneic, her respiratory rate ranging from 17 to mid 20s and sent time 30 times per minute. She is afebrile, hemodynamically she is stable, she is in sinus mechanism. His labs have been reviewed, CBC is within normal limits, d-dimer has increased significantly and is up at 13.18 on today's labs, electrolytes were within normal limits, B1 is 15 creatinine 0.48. Has been an increase in her LDH which is up at 1574, and CRP is currently at 14.9. He remains on Decadron 6 mg daily, she status post Tocilizumab infusion of 800 mg. She was on prophylactic dose of Lovenox which we will increase to 40 mg twice daily. 11/22/2020, the patient remains in the intensive care unit. Overnight, she stayed on the BiPAP at a pressure of 14/6 cm of water with an FiO2 of 100%. Her pulse ox throughout the night was 80 is in the low 80s sometimes. Earlier this morning, the patient wanted to eat. We switched her to a high flow with oxygen at 60 L and 100% on a beta facemasks. Her current pulse ox is around 70%. She is conscious and awake and she is still communicating. She is a bit anxious and she is aching Ativan for anxiety. Meanwhile, she remains on Decadron dose was increased up to 6 mg IV twice a day. She remains on Lovenox 40 mg subcu twice a day for DVT prophylaxis. In terms of her chest x-ray, the patient has bilateral pulmonary infiltrates and as stated earlier, her condition is progressive and she has developed worsening in pulmonary infiltrates in lung bases bilaterally more so in the lung peripheries. Her inflammatory markers today includes a d- dimer of 25.3, LDH level of 2072, CRP level of 6.4 and the rest of the blood work and electrolytes are all within normal limits. The white cell count is 11.6 with a hemoglobin of 12.7. the patient length. The patient told me that in terms of her advanced directives, she is agreeable to intubation. Nevertheless, she doesn't want any CPR or defibrillation or any other form of resuscitation should she develop any form of cardiac pulmonary arrest. 11/23/2020, the patient remains in the intensive care unit, BiPAP dependent and unable to wean. Note that we tried her on high flow oxygen yesterday and she was on 60 L with an FiO2 of 90% with 100% nonrebreather. Within a few minutes, she decompensated she became more short of breath and hypoxic and as such the child was aborted and the patient was placed back on BiPAP and currently she is on a BiPAP pressure of 14/6 cm of water with an FiO2 of 100%. Pulse ox pulse ox is around 91-92%. She seems to be quite comfortable on a BiPAP. Current rate is around 28. She is able to generate adequate tidal volumes. Main complaint remains some irritation on her nose from the BiPAP Chest x-ray from today, diffuse pulmonary infiltrates probably slightly worse on the right. The infectious inflammatory markers show a d-dimer of 24.3 and the patient has an LDH level of 2128 and a CRP level of 3.4. The patient remains on Decadron 6 mg IV every 12 hours. The patient is also on Lovenox 40 mg subcutaneous every 12 hours. Doppler of the lower extremities was conducted and they were negative. She is awake, she is communicating. She can eat and drink limited amounts while being given brief periods off the BiPAP. The blood work from today shows a white cell count of 12 with a hemoglobin of 15.1. She continues to have l ymphopenia. Sodium is 135. BUN is at 17 with a creatinine of 0.5. Fluid balance over the past 24 hours has been in the order of -750 mL. As mentioned earlier, she is agreeing for intubation. She does not want any CPR or defibrillation in the event if her condition decompensated so she wasn't a cardiopulmonary arrest. Otherwise, the family has been updated. I contacted the daughter and I gave her a detailed explanation of what is happening with her and had a high risk of progression requiring intubation mechanical ventilation and the daughter clearly understands Reevaluated today on 11/24/2020, patient remains in the ICU, remains on BiPAP, she is on IPAP of 14 and EPAP of 6,100% FiO2. O2 saturations are marginal. Had a chance to discuss the issue of ventilatory support and mechanical ventilation with the patient, and she clearly stated to me that she would not want to be on life support, patient clearly told me that she would like to be made comfort care condition requires intubation and mechanical ventilation. Hence her CODE STATUS was changed to DO NOT RESUSCITATE CODE STATUS, and I recommended that we continue BiPAP for now, and give patient airvo trials with high flow oxygen when she is eating. Patient has been here now for almost 8 days, and she is not making any major signs of recovery. Chest x-ray continues to show bilateral patchy infiltrates. CBC today is relatively normal except for WBC count of 14.1. Electrolytes are relatively normal except for slightly elevated potassium of 5.4 d-dimer is on the rise it is 23.2. Renal functioning is normal. C-louann ctive protein is 2 and her LDH is on the rise presently 2437 patient remains on Lovenox at 40 mg subcu twice a day, Decadron 6 mg IV push twice a day. She is also on the multivitamins. IV fluid is at 50 mL per hour in the form of 0.9 normal saline Reevaluated today on 11/25/2020, remains in the ICU, he is presently on high flow airvo FiO2 90% and 60 L flow. She is also on a nonrebreather mask 100%, and her O2 saturation is in the 80s. Patient states that she is feeling better today compared to yesterday, breathing easier, but she is marginal at best. Patient clearly stated to me again that she would never want to be on life support and no mechanical ventilation. If she requires to be on life support, the patient prefers to go to comfort care measures. She remains on TPN and her IV fluids at 50 mL per hour. Chest x-ray no significant change continues to show bilateral infiltrates consistent with COVID-19 pneumonia. Last night the patient was placed on BiPAP 29/12. And she slept well with it WBC count today is 17.1 hemoglobin is 13.3 Electrolytesenc normal renal profile is normal LDH remains high at 2588 and C-reactive protein is 1.4, in other words the patient is showing worsening numbers and worsening chest x-ray, but surprisingly clinically the patient tells me that she is feeling better. Patient was reevaluated today on 11/26/2020, remains in the ICU, remains on Airvo at 60 L flow and 90% FiO2 as well as on 100 percent nonrebreather mask O2 saturations are in the high 80s and low 90s. Patient tells me that she is feeling better although clinically she is about the same. I don't see much of a change clinically. Chest x-ray continues to show bilateral infiltrates. Patient remains on IV fluid at 50 mL per hour, she is also on TPN, and today I have switched her to Solu-Medrol. And I added Zosyn empirically although her pro Alfredo level was not elevated. However considering the findings on the chest x-ray, I'm empirically covering the patient for presumptive underlying bacterial pneumonia. Patient did have leukocytosis and that is more reason to s tart antibiotics empirically. WBC count is up to 23.6 hemoglobin is 13.8 Electrolytesenc normal renal profile is normal Objective - Vital Signs Vital signs: Vital Signs Temp 98.6 F 11/26/20 12:00 Pulse 89 11/26/20 12:00 Resp 31 H 11/26/20 12:00 BP 202/94 11/26/20 12:00 Pulse Ox 87 L 11/26/20 12:00 Intake & Output 11/25/20 11/26/20 11/26/20 18:59 06:59 18:59 Intake Total 1040 1500 660 Output Total 650 900 399 Balance 390 600 261 Weight 87.4 kg Intake: IV 1040 1500 560 Mvi, Adult No.4 with Vit 390 900 360 K 10 ml Trace (Conc-1Ml/ Dose) 1 ml Sodium Chloride 4Meq/ml Vial 24 meq Magnesium Sulfate gm 0.5 gm Calcium Gluconate 1 gm Sodium Phosphate 9 mmol In Amino Acid 5%- D15w 1,000 ml @ 30 mls/hr IV .Q24H DAVON Rx#: [id number] Sodium Chloride 0.9% 1, 650 600 200 000 ml @ 50 mls/hr IV . Q20H DAVON Rx#:[id number] Intake, IV Titration 100 Amount Piperacillin-Tazobactam 3 100 .375 gm In Sodium Chloride 0.9% 100 ml @ 25 mls/hr IVPB Q8HR DAVON Rx# :[id number] Output: Urine 650 900 399 Other: Voiding Method External Catheter External Catheter External Catheter # Voids 0 1 # Bowel Movements 1 1 - Exam General: Revealed a 69-year-old female high flow oxygen as noted earlier.airvo and nonrebreather mask skin: No evidence of rashes. Head: Atraumatic, normocephalic. EENT: PERRLA, EOMI, nonicteric, no neck masses, dry mucous membranes. Neck: supple no neck masses no JVD no stridor.. Mouth: mucus membranes dry Cardiovascular: Normal S1 and S2, no S3 gallop, no murmur Lungs: Coarse crackles and rhonchi noted bilaterally. No use of accessory muscles, symmetrical chest expansion. Ext: No clubbing edema or cyanosis Neuro: Alert and oriented 3 no gross focal deficit. Psych: Normal mood, affect and normal mental status examination. Musculoskeletal: No deformities no limitations in range of motion. - Labs CBC & Chem 7: 11/26/20 05:15 11/26/20 05:15 Labs: Abnormal Lab Results - Last 24 Hours (Table) 11/25/20 11/25/20 11/26/20 Range/Units 17:33 21:09 05:15 WBC (3.8-10.6) k/uL Neutrophils # (1.3-7.7) k/uL D-Dimer (<0.60) mg/L FEU Sodium 136 L (137-145) mmol/L Carbon Dioxide 31 H (22-30) mmol/L BUN 21 H (7-17) mg/dL Creatinine 0.48 L (0.52-1.04) mg/dL Glucose 146 H (74-99) mg/dL POC Glucose (mg/dL) 125 H 169 H (75-99) mg/dL Triglycerides (<150) mg/dL 11/26/20 11/26/20 11/26/20 Range/Units 05:15 05:15 05:15 WBC 23.6 H (3.8-10.6) k/uL Neutrophils # 21.8 H (1.3-7.7) k/uL D-Dimer 19.08 H (<0.60) mg/L FEU Sodium (137-145) mmol/L Carbon Dioxide (22-30) mmol/L BUN (7-17) mg/dL Creatinine (0.52-1.04) mg/dL Glucose (74-99) mg/dL POC Glucose (mg/dL) (75-99) mg/dL Triglycerides 356 H (<150) mg/dL 11/26/20 11/26/20 Range/Units 06:38 12:13 WBC (3.8-10.6) k/uL Neutrophils # (1.3-7.7) k/uL D-Dimer (<0.60) mg/L FEU Sodium (137-145) mmol/L Carbon Dioxide (22-30) mmol/L BUN (7-17) mg/dL Creatinine (0.52-1.04) mg/dL Glucose (74-99) mg/dL POC Glucose (mg/dL) 171 H 177 H (75-99) mg/dL Triglycerides (<150) mg/dL Microbiology - Last 24 Hours (Table) 11/24/20 13:00 Gram Stain - Final Sputum Sputum Culture - Final Assessment and Plan Assessment: Impression: Acute hypoxic respiratory failure secondary to acute COVID-19 pneumonia, originally diagnosed on 11/11, no policy change clerk the last few days. Elevated inflammatory markers secondary to above. History of overactive bladder. Recommendation: Continue present supportive care measures titrate oxygen accordingly Change Decadron to Solu-Medrol. Start patient on Zofran/empirically. Patient was out of the window for REM Patient received TOCI Continue Lovenox twice a day 40 mg subcu, patient does have elevated d-dimer. Continue vitamin supplements. Continue IV fluid 0.9 at 50 mL per hour. Continue TPN since her oral intake is minimal. Continue DO NOT RESUSCITATE CODE STATUS. Prognosis is definitely poor and guarded. We'll continue to follow Time with Patient: Less than 30
[2020-11-26] MEDS: SODIUM CHLORIDE 0.9% 1,000 ML IV SCH (16:50)
[2020-11-26 17:48] LABS: Glucose,Whole Blood 206 mg/dL (75-99)
[2020-11-26] MEDS: FAT EMULSION 20% 250 ML in EMPTY BAG 1 BAG IV SCH (18:12)
[2020-11-26] MEDS: OXYBUTYNIN XL 5 MG TAB.ER.24 PO SCH (21:15)
[2020-11-26] MEDS: CITALOPRAM HYDROBROMIDE 10 MG TAB PO SCH (21:15)
[2020-11-26 21:47] LABS: Glucose,Whole Blood 244 mg/dL (75-99)
[2020-11-27] MEDS: MORPHINE SULFATE 2 MG/ML SYRINGE IV PRN ×5 (03:05→22:56)
[2020-11-27 04:13] LABS: Basophils # (A) 0.1 k/uL (0-0.2); Basophils % (A) 0 %; Eosinophils # (A) 0.2 k/uL (0-0.7); Eosinophils % (A) 1 %; HCT 38.8 % (34.0-46.0); HGB 13.7 gm/dL (11.4-16.0); Lymphocytes # (A) 0.9 k/uL (1.0-4.8); Lymphocytes % (A) 3 %; MCH 34.1 pg (25.0-35.0); MCHC 35.2 g/dL (31.0-37.0); MCV 96.9 fL (80.0-100.0); Mean Platelet Volume 7.9; Monocytes # (A) 0.8 k/uL (0-1.0); Monocytes % (A) 2 %; Neutrophils # (A) 29.6 k/uL (1.3-7.7); Neutrophils % (A) 94 %; Platelet Count 233 k/uL (150-450); RDW 12.5 % (11.5-15.5); WBC 31.7 k/uL (3.8-10.6)
[2020-11-27 04:46] LABS: ALT 62 U/L (4-34); AST 50 U/L (14-36); African American GFR (CKD) >90 (>60 ml/min/1.73 sqM); Albumin 3.1 g/dL (3.5-5.0); Alkaline Phosphatase 130 U/L (38-126); Anion Gap 6 mmol/L; Blood Urea Nitrogen 20 mg/dL (7-17); Calcium 8.8 mg/dL (8.4-10.2); Carbon Dioxide 27 mmol/L (22-30); Chloride 103 mmol/L (98-107); Creatine Kinase 44 U/L (30-135); Glucose 221 mg/dL (74-99); Non-African American GFR(CKD) >90 (>60 ml/min/1.73 sqM); Phosphorus 2.9 mg/dL (2.5-4.5); Potassium 4.1 mmol/L (3.5-5.1); Sodium 136 mmol/L (137-145); Total Bilirubin 0.4 mg/dL (0.2-1.3); Total Protein 5.8 g/dL (6.3-8.2)
[2020-11-27 05:24] LABS: LDH 3343 U/L (313-618)
[2020-11-27] MEDS: methylPREDNISolone SOD SUCCI 125 MG/2 ML VIAL IV SCH ×3 (05:35→18:16)
[2020-11-27 06:34] LABS: Glucose,Whole Blood 225 mg/dL (75-99)
[2020-11-27] MEDS: INSULIN ASPART (NovoLOG) 100 UNIT/ML VIAL SQ SCH ×4 (06:52→21:44)
[2020-11-27] MEDS: ALBUTEROL HFA INHALER INHALATION SCH ×3 (07:35→20:12)
[2020-11-27] MEDS: PANTOPRAZOLE 40 MG/10 ML VIAL IVP SCH (08:16)
[2020-11-27] MEDS: PIPERACILLIN-TAZOBACTAM 3.375 GM in SODIUM CHLORIDE 0.9% 100 ML IVPB SCH ×2 (08:16→16:39)
[2020-11-27] MEDS: ENOXAPARIN 40 MG/0.4 ML SYRINGE SQ SCH ×2 (08:16→21:44)
[2020-11-27] MEDS: ASCORBIC ACID 500 MG TAB PO SCH (08:18)
[2020-11-27] MEDS: guaiFENesin 600 MG TABLET.ER PO SCH ×2 (08:18→21:44)
[2020-11-27] MEDS: CHOLECALCIFEROL 25 MCG (1000 IU) TABLET PO SCH (08:18)
[2020-11-27] MEDS: ZINC SULFATE 220 MG CAP PO SCH (08:18)
[2020-11-27] MEDS: [UNRECOGNIZED DRUG - OTHER] IV SCH ×8 (10:59)
[2020-11-27] MEDS: CALCIUM GLUCONATE IV SCH ×8 (10:59)
[2020-11-27] MEDS: SODIUM CHLORIDE IV SCH ×8 (10:59)
[2020-11-27 11:45] LABS: Glucose,Whole Blood 238 mg/dL (75-99)
[2020-11-27] MEDS: SODIUM CHLORIDE 0.9% 1,000 ML IV SCH (12:09)
--- NOTE | 2020-11-27 12:50 | P.PN ---
Subjective Progress Note Date: 11/27/20 Principal diagnosis: Acute hypoxic respiratory failure secondary to acute COVID-19 pneumonia There is a 69-year-old female patient with COVID-19 related pneumonia. The patient was already diagnosed having COVID-19 on 11/11/2018. The patient was symptomatic approximately 9 days prior to that. She came into the emergency department on 11/16/2020 and the patient was hospitalized with pneumonia. She was seen by the hospitalist group. She was started on steroids. She was not given Remdesivir as the patient was thought to be outside the window of treatment. Note that the patient was found to be hypoxic with a pulse of 76% on room air at time of admission. D-dimer was 0.99. CT angios gram showed acute breath and pulmonary infiltrates consistent with COVID-19 related pneumonia and her COVID-19 by PCR came back positive. She was initiated on 2 L of oxygen by nasal cannula. Subsequently, she decompensated and she is currently at 8 L per minute nasal cannula for that reason a pulmonary consultation was requested. She is reporting some increased work of breathing. She has a dry cough. No significant sputum production. No angina. No palpitation. No previous history of lung disease or disorder. No nausea. No vomiting. She is able to taste and smell. Her LDH level was 765 and is currently down to 411. The pro calcitonin level is down to 0.18. D-dimer is at 0.8. CBC showed some mild anemia with hemoglobin of 11.7. Otherwise white cell count was 11 and the platelet count was 293. 11/19/2020, seeing patient for a follow-up. The patient is doing well for now. She has no new complaints. She is currently on 6 L of oxygen by nasal cannula with pulse ox of 90%. She is currently on Decadron 6 mg on a daily basis and she's also on Lovenox 40 mg subcu for DVT prophylaxis. IV fluids are running at 75 mL an hour of normal saline. The patient has a d-dimer of 0.8. Her LDH level was a cold the heart was done and it showed preserved LV function and mild pulmonary hypertension. No other new complaints or issues for now. On 11/20/2020 patient seen in follow-up on medical surgical floor. Overnight her oxygen demand has increased, and patient was desaturating into the low 70s with ambulation, and would take a long time to recover, she was placed on 15 L high flow and 100% nonrebreather mask, her pulse ox right now is 90-95%, she seems to breathing comfortably, she is sitting in the recliner, she has been ambulating to the bathroom earlier, however now she is using the bedside commode, she is afebrile, blood pressures are stable, she had no fevers overnight. She continues on Decadron 6 mg daily, and she is on prophylactic dose of Lovenox. Was outside the window for Remdesivir. Today's chest x-ray shows worsening bilateral multifocal and confluent opacities consistent with COVID-19 progression On 11/21/2020 patient seen in intensive care unit, patient was transferred to the intensive care unit this morning with worsening hypoxia and dyspnea, she is currently on BiPAP support with pressures of 14/6 and FiO2 of 100% and her pulse ox is 84% on those settings. Chest x-ray is pending, overnight her oxygenation continued to get worse, but 15 L high flow nasal cannula and nonrebreather mask, and her pulse ox was going into the low 70's. Patient is awake and alert, she is oriented 3, she is anxious, but fairly compliant with the BiPAP support. She has received a dose of Xanax which will be switched to IV Ativan. Denies any chest discomfort, she is tachypneic, her respiratory rate ranging from 17 to mid 20s and sent time 30 times per minute. She is afebrile, hemodynamically she is stable, she is in sinus mechanism. His labs have been reviewed, CBC is within normal limits, d-dimer has increased significantly and is up at 13.18 on today's labs, electrolytes were within normal limits, B1 is 15 creatinine 0.48. Has been an increase in her LDH which is up at 1574, and CRP is currently at 14.9. He remains on Decadron 6 mg daily, she status post Tocilizumab infusion of 800 mg. She was on prophylactic dose of Lovenox which we will increase to 40 mg twice daily. 11/22/2020, the patient remains in the intensive care unit. Overnight, she stayed on the BiPAP at a pressure of 14/6 cm of water with an FiO2 of 100%. Her pulse ox throughout the night was 80 is in the low 80s sometimes. Earlier this morning, the patient wanted to eat. We switched her to a high flow with oxygen at 60 L and 100% on a beta facemasks. Her current pulse ox is around 70%. She is conscious and awake and she is still communicating. She is a bit anxious and she is aching Ativan for anxiety. Meanwhile, she remains on Decadron dose was increased up to 6 mg IV twice a day. She remains on Lovenox 40 mg subcu twice a day for DVT prophylaxis. In terms of her chest x-ray, the patient has bilateral pulmonary infiltrates and as stated earlier, her condition is progressive and she has developed worsening in pulmonary infiltrates in lung bases bilaterally more so in the lung peripheries. Her inflammatory markers today includes a d- dimer of 25.3, LDH level of 2072, CRP level of 6.4 and the rest of the blood work and electrolytes are all within normal limits. The white cell count is 11.6 with a hemoglobin of 12.7. the patient length. The patient told me that in terms of her advanced directives, she is agreeable to intubation. Nevertheless, she doesn't want any CPR or defibrillation or any other form of resuscitation should she develop any form of cardiac pulmonary arrest. 11/23/2020, the patient remains in the intensive care unit, BiPAP dependent and unable to wean. Note that we tried her on high flow oxygen yesterday and she was on 60 L with an FiO2 of 90% with 100% nonrebreather. Within a few minutes, she decompensated she became more short of breath and hypoxic and as such the child was aborted and the patient was placed back on BiPAP and currently she is on a BiPAP pressure of 14/6 cm of water with an FiO2 of 100%. Pulse ox pulse ox is around 91-92%. She seems to be quite comfortable on a BiPAP. Current rate is around 28. She is able to generate adequate tidal volumes. Main complaint remains some irritation on her nose from the BiPAP Chest x-ray from today, diffuse pulmonary infiltrates probably slightly worse on the right. The infectious inflammatory markers show a d-dimer of 24.3 and the patient has an LDH level of 2128 and a CRP level of 3.4. The patient remains on Decadron 6 mg IV every 12 hours. The patient is also on Lovenox 40 mg subcutaneous every 12 hours. Doppler of the lower extremities was conducted and they were negative. She is awake, she is communicating. She can eat and drink limited amounts while being given brief periods off the BiPAP. The blood work from today shows a white cell count of 12 with a hemoglobin of 15.1. She continues to have l ymphopenia. Sodium is 135. BUN is at 17 with a creatinine of 0.5. Fluid balance over the past 24 hours has been in the order of -750 mL. As mentioned earlier, she is agreeing for intubation. She does not want any CPR or defibrillation in the event if her condition decompensated so she wasn't a cardiopulmonary arrest. Otherwise, the family has been updated. I contacted the daughter and I gave her a detailed explanation of what is happening with her and had a high risk of progression requiring intubation mechanical ventilation and the daughter clearly understands Reevaluated today on 11/24/2020, patient remains in the ICU, remains on BiPAP, she is on IPAP of 14 and EPAP of 6,100% FiO2. O2 saturations are marginal. Had a chance to discuss the issue of ventilatory support and mechanical ventilation with the patient, and she clearly stated to me that she would not want to be on life support, patient clearly told me that she would like to be made comfort care condition requires intubation and mechanical ventilation. Hence her CODE STATUS was changed to DO NOT RESUSCITATE CODE STATUS, and I recommended that we continue BiPAP for now, and give patient airvo trials with high flow oxygen when she is eating. Patient has been here now for almost 8 days, and she is not making any major signs of recovery. Chest x-ray continues to show bilateral patchy infiltrates. CBC today is relatively normal except for WBC count of 14.1. Electrolytes are relatively normal except for slightly elevated potassium of 5.4 d-dimer is on the rise it is 23.2. Renal functioning is normal. C-louann ctive protein is 2 and her LDH is on the rise presently 2437 patient remains on Lovenox at 40 mg subcu twice a day, Decadron 6 mg IV push twice a day. She is also on the multivitamins. IV fluid is at 50 mL per hour in the form of 0.9 normal saline Reevaluated today on 11/25/2020, remains in the ICU, he is presently on high flow airvo FiO2 90% and 60 L flow. She is also on a nonrebreather mask 100%, and her O2 saturation is in the 80s. Patient states that she is feeling better today compared to yesterday, breathing easier, but she is marginal at best. Patient clearly stated to me again that she would never want to be on life support and no mechanical ventilation. If she requires to be on life support, the patient prefers to go to comfort care measures. She remains on TPN and her IV fluids at 50 mL per hour. Chest x-ray no significant change continues to show bilateral infiltrates consistent with COVID-19 pneumonia. Last night the patient was placed on BiPAP 29/12. And she slept well with it WBC count today is 17.1 hemoglobin is 13.3 Electrolytesenc normal renal profile is normal LDH remains high at 2588 and C-reactive protein is 1.4, in other words the patient is showing worsening numbers and worsening chest x-ray, but surprisingly clinically the patient tells me that she is feeling better. Patient was reevaluated today on 11/26/2020, remains in the ICU, remains on Airvo at 60 L flow and 90% FiO2 as well as on 100 percent nonrebreather mask O2 saturations are in the high 80s and low 90s. Patient tells me that she is feeling better although clinically she is about the same. I don't see much of a change clinically. Chest x-ray continues to show bilateral infiltrates. Patient remains on IV fluid at 50 mL per hour, she is also on TPN, and today I have switched her to Solu-Medrol. And I added Zosyn empirically although her pro Alfredo level was not elevated. However considering the findings on the chest x-ray, I'm empirically covering the patient for presumptive underlying bacterial pneumonia. Patient did have leukocytosis and that is more reason to s tart antibiotics empirically. WBC count is up to 23.6 hemoglobin is 13.8 Electrolytesenc normal renal profile is normal Patient was reevaluated today on 11/27/2020, remains in the ICU, not much of the changed since yesterday. Remains on BiPAP and intermittently on high flow oxygen using AIRVO and high FiO2. O2 saturations remained marginal in the high 80s clinically the patient tells me that she is feeling about the same and may be a bit better. Concerned that today she has significant leukocytosis, could be related to her Solu-Medrol, however considering the patient is marginal I recommended empiric antibiotics in the form of Zosyn. Patient is still receiving TPN, minimal oral intake noted. CODE STATUS remains DO NOT RESUSCITATE. All labs today were reviewed. CBC count is 31.7 hemoglobin is 13.7 her electrolytes are normal renal profile is normal, LDH is rising up to 3343 and C-reactive protein is 1. Objective - Vital Signs Vital signs: Vital Signs Temp 98.8 F 11/27/20 12:00 Pulse 104 H 11/27/20 12:00 Resp 30 H 11/27/20 12:00 BP 169/81 11/27/20 12:00 Pulse Ox 83 L 11/27/20 12:00 Intake & Output 11/26/20 11/27/20 11/27/20 18:59 06:59 18:59 Intake Total 1740 2069 490 Output Total 1393 750 475 Balance 347 1319 15 Weight 87.4 kg 84.4 kg Intake: IV 910 550 400 Mvi, Adult No.4 with Vit 360 K 10 ml Trace (Conc-1Ml/ Dose) 1 ml Sodium Chloride 4Meq/ml Vial 24 meq Magnesium Sulfate gm 0.5 gm Calcium Gluconate 1 gm Sodium Phosphate 9 mmol In Amino Acid 5%- D15w 1,000 ml @ 30 mls/hr IV .Q24H [facility] Rx#: [id number] Piperacillin-Tazobactam 3 100 .375 gm In Sodium Chloride 0.9% 100 ml @ 25 mls/hr IVPB Q8HR [facility] Rx# :[id number] Sodium Chloride 0.9% 1, 550 550 300 000 ml @ 50 mls/hr IV . Q20H [facility] Rx#:[id number] Intake, IV Titration 830 1279 90 Amount Calcium Gluconate 1 gm 630 990 90 Sodium Chloride 4Meq/ml Vial 36 meq Magnesium Sulfate gm 0.5 gm Sodium Phosphate 9 mmol Mvi, Adult No.4 with Vit K 10 ml Trace (Conc-1Ml/Dose) 1 ml In Amino Acid 5%- D15w 1,000 ml @ 90 mls/hr IV .BY DURATION [facility] Rx#: [id number] Fat Emulsion 20% 250 ml 189 In Empty Bag 1 bag @ 21 mls/hr IV [id number] [facility] Rx#:[id number] Piperacillin-Tazobactam 3 200 100 .375 gm In Sodium Chloride 0.9% 100 ml @ 25 mls/hr IVPB Q8HR [facility] Rx# :[id number] Oral 240 Output: Urine 1393 750 475 Other: Voiding Method Indwelling Catheter Indwelling Catheter # Bowel Movements 1 - Exam General: Revealed a 69-year-old female , on BiPAP this morning. The percent FiO2 IPAP of 12 and EPAP of 6 skin: No evidence of rashes. Head: Atraumatic, normocephalic. EENT: PERRLA, EOMI, nonicteric, no neck masses, dry mucous membranes. Neck: supple no neck masses no JVD no stridor.. Mouth: mucus membranes dry Cardiovascular: Normal S1 and S2, no S3 gallop, no murmur Lungs: Coarse crackles and rhonchi noted bilaterally. No use of accessory muscles, symmetrical chest expansion. Ext: No clubbing edema or cyanosis Neuro: Alert and oriented 3 no gross focal deficit. Psych: Normal mood, affect and normal mental status examination. Musculoskeletal: No deformities no limitations in range of motion. - Labs CBC & Chem 7: 11/27/20 03:57 11/27/20 03:57 Labs: Abnormal Lab Results - Last 24 Hours (Table) 11/26/20 11/26/20 11/27/20 Range/Units 17:47 21:35 03:57 WBC (3.8-10.6) k/uL Neutrophils # (1.3-7.7) k/uL Lymphocytes # (1.0-4.8) k/uL Fibrinogen (200-500) mg/dL Sodium 136 L (137-145) mmol/L BUN 20 H (7-17) mg/dL Creatinine 0.45 L (0.52-1.04) mg/dL Glucose 221 H (74-99) mg/dL POC Glucose (mg/dL) 206 H 244 H (75-99) mg/dL AST 50 H (14-36) U/L ALT 62 H (4-34) U/L Alkaline Phosphatase 130 H (38-126) U/L Lactate Dehydrogenase 3343 H (313-618) U/L C-Reactive Protein 1.0 H (<1.0) mg/dL Total Protein 5.8 L (6.3-8.2) g/dL Albumin 3.1 L (3.5-5.0) g/dL 11/27/20 11/27/20 11/27/20 Range/Units 03:57 03:57 06:33 WBC 31.7 H (3.8-10.6) k/uL Neutrophils # 29.6 H (1.3-7.7) k/uL Lymphocytes # 0.9 L (1.0-4.8) k/uL Fibrinogen 120 L (200-500) mg/dL Sodium (137-145) mmol/L BUN (7-17) mg/dL Creatinine (0.52-1.04) mg/dL Glucose (74-99) mg/dL POC Glucose (mg/dL) 225 H (75-99) mg/dL AST (14-36) U/L ALT (4-34) U/L Alkaline Phosphatase (38-126) U/L Lactate Dehydrogenase (313-618) U/L C-Reactive Protein (<1.0) mg/dL Total Protein (6.3-8.2) g/dL Albumin (3.5-5.0) g/dL 11/27/20 Range/Units 11:44 WBC (3.8-10.6) k/uL Neutrophils # (1.3-7.7) k/uL Lymphocytes # (1.0-4.8) k/uL Fibrinogen (200-500) mg/dL Sodium (137-145) mmol/L BUN (7-17) mg/dL Creatinine (0.52-1.04) mg/dL Glucose (74-99) mg/dL POC Glucose (mg/dL) 238 H (75-99) mg/dL AST (14-36) U/L ALT (4-34) U/L Alkaline Phosphatase (38-126) U/L Lactate Dehydrogenase (313-618) U/L C-Reactive Protein (<1.0) mg/dL Total Protein (6.3-8.2) g/dL Albumin (3.5-5.0) g/dL Microbiology - Last 24 Hours (Table) 11/24/20 13:00 Gram Stain - Final Sputum Sputum Culture - Final Assessment and Plan Assessment: Impression: Acute hypoxic respiratory failure secondary to acute COVID-19 pneumonia, originally diagnosed on 11/11, overall the patient is about the same. And her clinical status is marginal at best. Elevated inflammatory markers secondary to above. History of overactive bladder. Recommendation: Continue present supportive care measures titrate oxygen accordingly Continue Solu-Medrol. Continue Zosyn Patient was out of the window for REM Patient received TOCI Continue Lovenox twice a day 40 mg subcu Continue vitamin supplements. Continue IV fluid 0.9 at 50 mL per hour. Continue TPN since her oral intake is minimal. Continue DO NOT RESUSCITATE CODE STATUS. Prognosis is definitely poor and guarded. We'll continue to follow Time with Patient: Less than 30
--- NOTE | 2020-11-27 13:17 | P.PN ---
Subjective Progress Note Date: 11/27/20 Patient is doing fairly well today. O2 sats is around 85-87%. She is estimating between BiPAP and a nonrebreather throughout the day. She denies significant shortness of breath. Objective - Vital Signs Vital signs: Vital Signs Temp 98.8 F 11/27/20 12:00 Pulse 107 H 11/27/20 13:00 Resp 34 H 11/27/20 13:00 BP 160/69 11/27/20 13:00 Pulse Ox 81 L 11/27/20 13:00 Intake & Output 11/26/20 11/27/20 11/27/20 18:59 06:59 18:59 Intake Total 1740 2069 490 Output Total 1393 750 475 Balance 347 1319 15 Weight 87.4 kg 84.4 kg Intake: IV 910 550 400 Mvi, Adult No.4 with Vit 360 K 10 ml Trace (Conc-1Ml/ Dose) 1 ml Sodium Chloride 4Meq/ml Vial 24 meq Magnesium Sulfate gm 0.5 gm Calcium Gluconate 1 gm Sodium Phosphate 9 mmol In Amino Acid 5%- D15w 1,000 ml @ 30 mls/hr IV .Q24H [facility] Rx#: [id number] Piperacillin-Tazobactam 3 100 .375 gm In Sodium Chloride 0.9% 100 ml @ 25 mls/hr IVPB Q8HR [facility] Rx# :[id number] Sodium Chloride 0.9% 1, 550 550 300 000 ml @ 50 mls/hr IV . Q20H [facility] Rx#:[id number] Intake, IV Titration 830 1279 90 Amount Calcium Gluconate 1 gm 630 990 90 Sodium Chloride 4Meq/ml Vial 36 meq Magnesium Sulfate gm 0.5 gm Sodium Phosphate 9 mmol Mvi, Adult No.4 with Vit K 10 ml Trace (Conc-1Ml/Dose) 1 ml In Amino Acid 5%- D15w 1,000 ml @ 90 mls/hr IV .BY DURATION [facility] Rx#: [id number] Fat Emulsion 20% 250 ml 189 In Empty Bag 1 bag @ 21 mls/hr IV [id number] [facility] Rx#:[id number] Piperacillin-Tazobactam 3 200 100 .375 gm In Sodium Chloride 0.9% 100 ml @ 25 mls/hr IVPB Q8HR [facility] Rx# :[id number] Oral 240 Output: Urine 1393 750 475 Other: Voiding Method Indwelling Catheter Indwelling Catheter # Bowel Movements 1 - Exam General: The patient is awake and alert, in no distress Eye: there is normal conjunctiva bilaterally. Neck: The neck is supple, there is no JVD. Cardiovascular: Normal S1-S2, no S3-S4, no murmurs. Respiratory: Lungs clear to auscultation bilaterally Gastrointestinal: Abdomen is soft, nontender Musculoskeletal: There is no pedal edema. Neurological:. Speech is normal. Skin: Skin is warm and dry - Labs CBC & Chem 7: 11/27/20 03:57 11/27/20 03:57 Labs: Abnormal Lab Results - Last 24 Hours (Table) 11/26/20 11/26/20 11/27/20 Range/Units 17:47 21:35 03:57 WBC (3.8-10.6) k/uL Neutrophils # (1.3-7.7) k/uL Lymphocytes # (1.0-4.8) k/uL Fibrinogen (200-500) mg/dL Sodium 136 L (137-145) mmol/L BUN 20 H (7-17) mg/dL Creatinine 0.45 L (0.52-1.04) mg/dL Glucose 221 H (74-99) mg/dL POC Glucose (mg/dL) 206 H 244 H (75-99) mg/dL AST 50 H (14-36) U/L ALT 62 H (4-34) U/L Alkaline Phosphatase 130 H (38-126) U/L Lactate Dehydrogenase 3343 H (313-618) U/L C-Reactive Protein 1.0 H (<1.0) mg/dL Total Protein 5.8 L (6.3-8.2) g/dL Albumin 3.1 L (3.5-5.0) g/dL 11/27/20 11/27/20 11/27/20 Range/Units 03:57 03:57 06:33 WBC 31.7 H (3.8-10.6) k/uL Neutrophils # 29.6 H (1.3-7.7) k/uL Lymphocytes # 0.9 L (1.0-4.8) k/uL Fibrinogen 120 L (200-500) mg/dL Sodium (137-145) mmol/L BUN (7-17) mg/dL Creatinine (0.52-1.04) mg/dL Glucose (74-99) mg/dL POC Glucose (mg/dL) 225 H (75-99) mg/dL AST (14-36) U/L ALT (4-34) U/L Alkaline Phosphatase (38-126) U/L Lactate Dehydrogenase (313-618) U/L C-Reactive Protein (<1.0) mg/dL Total Protein (6.3-8.2) g/dL Albumin (3.5-5.0) g/dL 11/27/20 Range/Units 11:44 WBC (3.8-10.6) k/uL Neutrophils # (1.3-7.7) k/uL Lymphocytes # (1.0-4.8) k/uL Fibrinogen (200-500) mg/dL Sodium (137-145) mmol/L BUN (7-17) mg/dL Creatinine (0.52-1.04) mg/dL Glucose (74-99) mg/dL POC Glucose (mg/dL) 238 H (75-99) mg/dL AST (14-36) U/L ALT (4-34) U/L Alkaline Phosphatase (38-126) U/L Lactate Dehydrogenase (313-618) U/L C-Reactive Protein (<1.0) mg/dL Total Protein (6.3-8.2) g/dL Albumin (3.5-5.0) g/dL Microbiology - Last 24 Hours (Table) 11/24/20 13:00 Gram Stain - Final Sputum Sputum Culture - Final Assessment and Plan Assessment: Patient is a 69-year-old female with no significant past medical history who presented to the emergency department secondary to shortness of breath. She had been diagnosed with COVID-19 on 11/11. On arrival to the ER she was hypoxic at 86% on room air. Labs showed a mildly elevated d-dimer at 0.99, she subsequently underwent a CTA of the chest which showed no evidence of pulmonary embolism but did show extensive bilateral pulmonary infiltrates with reactive adenopathy. Her COVID-19 test was again positive. She was admitted for further management. Her O2 requirements increased throughout her hospital stay and currently is in the ICU. COVID-19 pneumonitis acute hypoxic respiratory failure currently on BiPAP managed by fishing vessel captain - Toci given 5/6 - out of the window for remdesivir -Pulmonary recommendations appreciated -Decadron D #12, and switched to IV Solu-Medrol day #2 -Started on empiric antibiotic treatment with IV Zosyn day #2 -Pro calcitonin and BNP within normal range -Vitamin C, vitamin D, zinc -Albuterol scheduled and as needed - Lovenox - pulm hygeine -Sputum culture pending Costochonditiris due to above - motrin Overactive bladder - detrol Hyponatremia, resolved Today, I reviewed her medication list and lab work results. Patient is getting TPN in addition to oral feed as tolerated. Registered dietitian following closely. Continue ICU care. Prognosis is guarded CODE STATUS: Discussed with patient by fishing vessel captain. Patient is DO NOT RESUSCITATE/DO NOT INTUBATE DVT prophylaxis: Barbaranox Discussed with: patient, nursing Anticipated discharge date: undetermined Anticipated discharge place: pending clinical course A total of 35 minutes was spent on the care of this complex patient more than 50% of the time was spent in counseling and care coordination.
[2020-11-27 13:35] LABS: Ferritin 762.7 ng/mL (10.0-291.0)
[2020-11-27 18:16] LABS: Glucose,Whole Blood 174 mg/dL (75-99)
[2020-11-27 21:42] LABS: Glucose,Whole Blood 185 mg/dL (75-99)
[2020-11-27] MEDS: OXYBUTYNIN XL 5 MG TAB.ER.24 PO SCH ×2 (21:44→21:48)
[2020-11-27] MEDS: CITALOPRAM HYDROBROMIDE 10 MG TAB PO SCH (21:44)
[2020-11-28] MEDS: PIPERACILLIN-TAZOBACTAM 3.375 GM in SODIUM CHLORIDE 0.9% 100 ML IVPB SCH ×4 (00:55→23:07)
[2020-11-28] MEDS: methylPREDNISolone SOD SUCCI 125 MG/2 ML VIAL IV SCH ×5 (00:55→23:07)
[2020-11-28] MEDS: [UNRECOGNIZED DRUG - OTHER] IV SCH ×25 (01:00→16:12)
[2020-11-28] MEDS: CALCIUM GLUCONATE IV SCH ×25 (01:00→16:12)
[2020-11-28] MEDS: SODIUM CHLORIDE IV SCH ×25 (01:00→16:12)
[2020-11-28 05:25] LABS: HCT 38.3 % (34.0-46.0); HGB 13.4 gm/dL (11.4-16.0); MCH 33.8 pg (25.0-35.0); MCV 96.5 fL (80.0-100.0); Mean Platelet Volume 8.3; Platelet Count 222 k/uL (150-450); RBC 3.97 m/uL (3.80-5.40); RDW 12.5 % (11.5-15.5); WBC 33.8 k/uL (3.8-10.6)
[2020-11-28 05:30] LABS: African American GFR (CKD) >90 (>60 ml/min/1.73 sqM); Anion Gap 6 mmol/L; Blood Urea Nitrogen 24 mg/dL (7-17); Calcium 8.7 mg/dL (8.4-10.2); Carbon Dioxide 27 mmol/L (22-30); Chloride 104 mmol/L (98-107); Glucose 183 mg/dL (74-99); Non-African American GFR(CKD) >90 (>60 ml/min/1.73 sqM); Phosphorus 3.1 mg/dL (2.5-4.5); Sodium 137 mmol/L (137-145)
[2020-11-28 07:04] LABS: Glucose,Whole Blood 209 mg/dL (75-99)
[2020-11-28] MEDS: MORPHINE SULFATE 2 MG/ML SYRINGE IV PRN ×4 (07:07→20:37)
[2020-11-28] MEDS: INSULIN ASPART (NovoLOG) 100 UNIT/ML VIAL SQ SCH ×4 (07:08→23:07)
[2020-11-28] MEDS: SODIUM CHLORIDE 0.9% 1,000 ML IV SCH (07:11)
[2020-11-28] MEDS: ALBUTEROL HFA INHALER INHALATION SCH ×3 (07:35→19:11)
[2020-11-28] MEDS: ASCORBIC ACID 500 MG TAB PO SCH (08:28)
[2020-11-28] MEDS: PANTOPRAZOLE 40 MG/10 ML VIAL IVP SCH (08:28)
[2020-11-28] MEDS: ZINC SULFATE 220 MG CAP PO SCH (08:28)
[2020-11-28] MEDS: CHOLECALCIFEROL 25 MCG (1000 IU) TABLET PO SCH (08:28)
[2020-11-28] MEDS: guaiFENesin 600 MG TABLET.ER PO SCH ×2 (08:28→23:07)
[2020-11-28] MEDS: ENOXAPARIN 40 MG/0.4 ML SYRINGE SQ SCH ×2 (08:28→23:06)
--- NOTE | 2020-11-28 11:10 | P.PN ---
Subjective Progress Note Date: 11/28/20 Patient is doing about the same compared to yesterday. She was on BiPAP when I saw her. She is still alternating between BiPAP and AirVO plus nonrebreather occasionally. Objective - Vital Signs Vital signs: Vital Signs Temp 98.2 F 11/28/20 08:00 Pulse 105 H 11/28/20 10:00 Resp 28 H 11/28/20 10:00 BP 152/69 11/28/20 10:00 Pulse Ox 88 L 11/28/20 10:00 Intake & Output 11/27/20 11/28/20 11/28/20 18:59 06:59 18:59 Intake Total 890 550 425 Output Total 915 850 225 Balance -25 -300 200 Weight 89.1 kg 89.1 kg Intake: IV 800 550 275 Piperacillin-Tazobactam 3 200 100 75 .375 gm In Sodium Chloride 0.9% 100 ml @ 25 mls/hr IVPB Q8HR [facility] Rx# :[id number] Sodium Chloride 0.9% 1, 600 450 200 000 ml @ 50 mls/hr IV . Q20H [facility] Rx#:[id number] Intake, IV Titration 90 Amount Calcium Gluconate 1 gm 90 Sodium Chloride 4Meq/ml Vial 36 meq Magnesium Sulfate gm 0.5 gm Sodium Phosphate 9 mmol Mvi, Adult No.4 with Vit K 10 ml Trace (Conc-1Ml/Dose) 1 ml In Amino Acid 5%- D15w 1,000 ml @ 90 mls/hr IV .BY DURATION [facility] Rx#: [id number] Oral 150 Output: Urine 915 850 225 Other: Voiding Method Indwelling Catheter Indwelling Catheter Indwelling Catheter - Exam General: The patient is awake and alert, in no distress Eye: there is normal conjunctiva bilaterally. Neck: The neck is supple, there is no JVD. Cardiovascular: Normal S1-S2, no S3-S4, no murmurs. Respiratory: Lungs clear to auscultation bilaterally Gastrointestinal: Abdomen is soft, nontender Musculoskeletal: There is no pedal edema. Neurological:. Speech is normal. Skin: Skin is warm and dry - Labs CBC & Chem 7: 11/28/20 04:40 11/28/20 04:40 Labs: Abnormal Lab Results - Last 24 Hours (Table) 11/27/20 11/27/20 11/27/20 Range/Units 03:57 11:44 18:15 WBC (3.8-10.6) k/uL BUN (7-17) mg/dL Creatinine (0.52-1.04) mg/dL Glucose (74-99) mg/dL POC Glucose (mg/dL) 238 H 174 H (75-99) mg/dL Ferritin 762.7 H (10.0-291.0) ng/mL 11/27/20 11/28/20 11/28/20 Range/Units 21:40 04:40 04:40 WBC 33.8 H (3.8-10.6) k/uL BUN 24 H (7-17) mg/dL Creatinine 0.42 L (0.52-1.04) mg/dL Glucose 183 H (74-99) mg/dL POC Glucose (mg/dL) 185 H (75-99) mg/dL Ferritin (10.0-291.0) ng/mL 11/28/20 Range/Units 07:02 WBC (3.8-10.6) k/uL BUN (7-17) mg/dL Creatinine (0.52-1.04) mg/dL Glucose (74-99) mg/dL POC Glucose (mg/dL) 209 H (75-99) mg/dL Ferritin (10.0-291.0) ng/mL Assessment and Plan Assessment: Patient is a 69-year-old female with no significant past medical history who presented to the emergency department secondary to shortness of breath. She had been diagnosed with COVID-19 on 11/11. On arrival to the ER she was hypoxic at 86% on room air. Labs showed a mildly elevated d-dimer at 0.99, she subsequently underwent a CTA of the chest which showed no evidence of pulmonary embolism but did show extensive bilateral pulmonary infiltrates with reactive adenopathy. Her COVID-19 test was again positive. She was admitted for further management. Her O2 requirements increased throughout her hospital stay and currently is in the ICU. COVID-19 pneumonitis acute hypoxic respiratory failure currently on BiPAP managed by job lithographer - Toci given 5/6 - out of the window for remdesivir -Pulmonary recommendations appreciated -Decadron D #12, and switched to IV Solu-Medrol day #3, managed by pulmonology -Started on empiric antibiotic treatment with IV Zosyn day #3 -Pro calcitonin and BNP within normal range -Vitamin C, vitamin D, zinc -Albuterol scheduled and as needed - Lovenox - pulm hygeine -Sputum culture with no significant growth Costochonditiris due to above - motrin Overactive bladder - detrol Hyponatremia, resolved Today, I reviewed her medication list and lab work results. Patient is getting TPN in addition to oral feed as tolerated. Registered dietitian following closely. Continue ICU care. Prognosis is guarded CODE STATUS: Discussed with patient by job lithographer. Patient is DO NOT RESUSCITATE/DO NOT INTUBATE DVT prophylaxis: Lovenox Discussed with: patient, nursing Anticipated discharge date: undetermined Anticipated discharge place: pending clinical course A total of 35 minutes was spent on the care of this complex patient more than 50% of the time was spent in counseling and care coordination.
[2020-11-28 12:05] LABS: Glucose,Whole Blood 237 mg/dL (75-99)
--- NOTE | 2020-11-28 13:42 | P.PN ---
Subjective Progress Note Date: 11/28/20 Principal diagnosis: Acute hypoxic respiratory failure secondary to acute COVID-19 pneumonia There is a 69-year-old female patient with COVID-19 related pneumonia. The patient was already diagnosed having COVID-19 on 11/11/2018. The patient was symptomatic approximately 9 days prior to that. She came into the emergency department on 11/16/2020 and the patient was hospitalized with pneumonia. She was seen by the hospitalist group. She was started on steroids. She was not given Remdesivir as the patient was thought to be outside the window of treatment. Note that the patient was found to be hypoxic with a pulse of 76% on room air at time of admission. D-dimer was 0.99. CT angios gram showed acute breath and pulmonary infiltrates consistent with COVID-19 related pneumonia and her COVID-19 by PCR came back positive. She was initiated on 2 L of oxygen by nasal cannula. Subsequently, she decompensated and she is currently at 8 L per minute nasal cannula for that reason a pulmonary consultation was requested. She is reporting some increased work of breathing. She has a dry cough. No significant sputum production. No angina. No palpitation. No previous history of lung disease or disorder. No nausea. No vomiting. She is able to taste and smell. Her LDH level was 765 and is currently down to 411. The pro calcitonin level is down to 0.18. D-dimer is at 0.8. CBC showed some mild anemia with hemoglobin of 11.7. Otherwise white cell count was 11 and the platelet count was 293. 11/19/2020, seeing patient for a follow-up. The patient is doing well for now. She has no new complaints. She is currently on 6 L of oxygen by nasal cannula with pulse ox of 90%. She is currently on Decadron 6 mg on a daily basis and she's also on Lovenox 40 mg subcu for DVT prophylaxis. IV fluids are running at 75 mL an hour of normal saline. The patient has a d-dimer of 0.8. Her LDH level was a cold the heart was done and it showed preserved LV function and mild pulmonary hypertension. No other new complaints or issues for now. On 11/20/2020 patient seen in follow-up on medical surgical floor. Overnight her oxygen demand has increased, and patient was desaturating into the low 70s with ambulation, and would take a long time to recover, she was placed on 15 L high flow and 100% nonrebreather mask, her pulse ox right now is 90-95%, she seems to breathing comfortably, she is sitting in the recliner, she has been ambulating to the bathroom earlier, however now she is using the bedside commode, she is afebrile, blood pressures are stable, she had no fevers overnight. She continues on Decadron 6 mg daily, and she is on prophylactic dose of Lovenox. Was outside the window for Remdesivir. Today's chest x-ray shows worsening bilateral multifocal and confluent opacities consistent with COVID-19 progression On 11/21/2020 patient seen in intensive care unit, patient was transferred to the intensive care unit this morning with worsening hypoxia and dyspnea, she is currently on BiPAP support with pressures of 14/6 and FiO2 of 100% and her pulse ox is 84% on those settings. Chest x-ray is pending, overnight her oxygenation continued to get worse, but 15 L high flow nasal cannula and nonrebreather mask, and her pulse ox was going into the low 70's. Patient is awake and alert, she is oriented 3, she is anxious, but fairly compliant with the BiPAP support. She has received a dose of Xanax which will be switched to IV Ativan. Denies any chest discomfort, she is tachypneic, her respiratory rate ranging from 17 to mid 20s and sent time 30 times per minute. She is afebrile, hemodynamically she is stable, she is in sinus mechanism. His labs have been reviewed, CBC is within normal limits, d-dimer has increased significantly and is up at 13.18 on today's labs, electrolytes were within normal limits, B1 is 15 creatinine 0.48. Has been an increase in her LDH which is up at 1574, and CRP is currently at 14.9. He remains on Decadron 6 mg daily, she status post Tocilizumab infusion of 800 mg. She was on prophylactic dose of Lovenox which we will increase to 40 mg twice daily. 11/22/2020, the patient remains in the intensive care unit. Overnight, she stayed on the BiPAP at a pressure of 14/6 cm of water with an FiO2 of 100%. Her pulse ox throughout the night was 80 is in the low 80s sometimes. Earlier this morning, the patient wanted to eat. We switched her to a high flow with oxygen at 60 L and 100% on a beta facemasks. Her current pulse ox is around 70%. She is conscious and awake and she is still communicating. She is a bit anxious and she is aching Ativan for anxiety. Meanwhile, she remains on Decadron dose was increased up to 6 mg IV twice a day. She remains on Lovenox 40 mg subcu twice a day for DVT prophylaxis. In terms of her chest x-ray, the patient has bilateral pulmonary infiltrates and as stated earlier, her condition is progressive and she has developed worsening in pulmonary infiltrates in lung bases bilaterally more so in the lung peripheries. Her inflammatory markers today includes a d- dimer of 25.3, LDH level of 2072, CRP level of 6.4 and the rest of the blood work and electrolytes are all within normal limits. The white cell count is 11.6 with a hemoglobin of 12.7. the patient length. The patient told me that in terms of her advanced directives, she is agreeable to intubation. Nevertheless, she doesn't want any CPR or defibrillation or any other form of resuscitation should she develop any form of cardiac pulmonary arrest. 11/23/2020, the patient remains in the intensive care unit, BiPAP dependent and unable to wean. Note that we tried her on high flow oxygen yesterday and she was on 60 L with an FiO2 of 90% with 100% nonrebreather. Within a few minutes, she decompensated she became more short of breath and hypoxic and as such the child was aborted and the patient was placed back on BiPAP and currently she is on a BiPAP pressure of 14/6 cm of water with an FiO2 of 100%. Pulse ox pulse ox is around 91-92%. She seems to be quite comfortable on a BiPAP. Current rate is around 28. She is able to generate adequate tidal volumes. Main complaint remains some irritation on her nose from the BiPAP Chest x-ray from today, diffuse pulmonary infiltrates probably slightly worse on the right. The infectious inflammatory markers show a d-dimer of 24.3 and the patient has an LDH level of 2128 and a CRP level of 3.4. The patient remains on Decadron 6 mg IV every 12 hours. The patient is also on Lovenox 40 mg subcutaneous every 12 hours. Doppler of the lower extremities was conducted and they were negative. She is awake, she is communicating. She can eat and drink limited amounts while being given brief periods off the BiPAP. The blood work from today shows a white cell count of 12 with a hemoglobin of 15.1. She continues to have l ymphopenia. Sodium is 135. BUN is at 17 with a creatinine of 0.5. Fluid balance over the past 24 hours has been in the order of -750 mL. As mentioned earlier, she is agreeing for intubation. She does not want any CPR or defibrillation in the event if her condition decompensated so she wasn't a cardiopulmonary arrest. Otherwise, the family has been updated. I contacted the daughter and I gave her a detailed explanation of what is happening with her and had a high risk of progression requiring intubation mechanical ventilation and the daughter clearly understands Reevaluated today on 11/24/2020, patient remains in the ICU, remains on BiPAP, she is on IPAP of 14 and EPAP of 6,100% FiO2. O2 saturations are marginal. Had a chance to discuss the issue of ventilatory support and mechanical ventilation with the patient, and she clearly stated to me that she would not want to be on life support, patient clearly told me that she would like to be made comfort care condition requires intubation and mechanical ventilation. Hence her CODE STATUS was changed to DO NOT RESUSCITATE CODE STATUS, and I recommended that we continue BiPAP for now, and give patient airvo trials with high flow oxygen when she is eating. Patient has been here now for almost 8 days, and she is not making any major signs of recovery. Chest x-ray continues to show bilateral patchy infiltrates. CBC today is relatively normal except for WBC count of 14.1. Electrolytes are relatively normal except for slightly elevated potassium of 5.4 d-dimer is on the rise it is 23.2. Renal functioning is normal. C-louann ctive protein is 2 and her LDH is on the rise presently 2437 patient remains on Lovenox at 40 mg subcu twice a day, Decadron 6 mg IV push twice a day. She is also on the multivitamins. IV fluid is at 50 mL per hour in the form of 0.9 normal saline Reevaluated today on 11/25/2020, remains in the ICU, he is presently on high flow airvo FiO2 90% and 60 L flow. She is also on a nonrebreather mask 100%, and her O2 saturation is in the 80s. Patient states that she is feeling better today compared to yesterday, breathing easier, but she is marginal at best. Patient clearly stated to me again that she would never want to be on life support and no mechanical ventilation. If she requires to be on life support, the patient prefers to go to comfort care measures. She remains on TPN and her IV fluids at 50 mL per hour. Chest x-ray no significant change continues to show bilateral infiltrates consistent with COVID-19 pneumonia. Last night the patient was placed on BiPAP 29/12. And she slept well with it WBC count today is 17.1 hemoglobin is 13.3 Electrolytesenc normal renal profile is normal LDH remains high at 2588 and C-reactive protein is 1.4, in other words the patient is showing worsening numbers and worsening chest x-ray, but surprisingly clinically the patient tells me that she is feeling better. Patient was reevaluated today on 11/26/2020, remains in the ICU, remains on Airvo at 60 L flow and 90% FiO2 as well as on 100 percent nonrebreather mask O2 saturations are in the high 80s and low 90s. Patient tells me that she is feeling better although clinically she is about the same. I don't see much of a change clinically. Chest x-ray continues to show bilateral infiltrates. Patient remains on IV fluid at 50 mL per hour, she is also on TPN, and today I have switched her to Solu-Medrol. And I added Zosyn empirically although her pro Alfredo level was not elevated. However considering the findings on the chest x-ray, I'm empirically covering the patient for presumptive underlying bacterial pneumonia. Patient did have leukocytosis and that is more reason to s tart antibiotics empirically. WBC count is up to 23.6 hemoglobin is 13.8 Electrolytesenc normal renal profile is normal Patient was reevaluated today on 11/27/2020, remains in the ICU, not much of the changed since yesterday. Remains on BiPAP and intermittently on high flow oxygen using AIRVO and high FiO2. O2 saturations remained marginal in the high 80s clinically the patient tells me that she is feeling about the same and may be a bit better. Concerned that today she has significant leukocytosis, could be related to her Solu-Medrol, however considering the patient is marginal I recommended empiric antibiotics in the form of Zosyn. Patient is still receiving TPN, minimal oral intake noted. CODE STATUS remains DO NOT RESUSCITATE. All labs today were reviewed. CBC count is 31.7 hemoglobin is 13.7 her electrolytes are normal renal profile is normal, LDH is rising up to 3343 and C-reactive protein is 1. Patient was reevaluated today on 11/28/2020, remains in the ICU, remains on high FiO2 of 100%, she is on BiPAP 29/12. O2 saturation is marginal in the high 80s and at times low 90s. Clinically the patient is about the same, I don't believe the patient is making much of a clinical improvement and at least she is not worsening. Remains on TPN at 90 mL per hour. Remains on IV fluid to KVO. Remains on the COVID-19. Continues to have leukocytosis with WBC of 33.8. Electrolytesenc are normal renal profile is normal, remains on Zosyn empirically, no specific blood cultures to address. Objective - Vital Signs Vital signs: Vital Signs Temp 98.2 F 11/28/20 12:00 Pulse 86 11/28/20 13:00 Resp 29 H 11/28/20 13:00 BP 175/85 11/28/20 13:00 Pulse Ox 89 L 11/28/20 13:00 Intake & Output 11/27/20 11/28/20 11/28/20 18:59 06:59 18:59 Intake Total 890 550 575 Output Total 915 850 375 Balance -25 -300 200 Weight 89.1 kg 89.1 kg Intake: IV 800 550 425 Piperacillin-Tazobactam 3 200 100 75 .375 gm In Sodium Chloride 0.9% 100 ml @ 25 mls/hr IVPB Q8HR [facility] Rx# :[id number] Sodium Chloride 0.9% 1, 600 450 350 000 ml @ 50 mls/hr IV . Q20H [facility] Rx#:[id number] Intake, IV Titration 90 Amount Calcium Gluconate 1 gm 90 Sodium Chloride 4Meq/ml Vial 36 meq Magnesium Sulfate gm 0.5 gm Sodium Phosphate 9 mmol Mvi, Adult No.4 with Vit K 10 ml Trace (Conc-1Ml/Dose) 1 ml In Amino Acid 5%- D15w 1,000 ml @ 90 mls/hr IV .BY DURATION [facility] Rx#: [id number] Oral 150 Output: Urine 915 850 375 Other: Voiding Method Indwelling Catheter Indwelling Catheter Indwelling Catheter - Exam General: Revealed a 69-year-old female , on BiPAP this morning. 29/12 and FiO2 of 100%. skin: No evidence of rashes. Head: Atraumatic, normocephalic. EENT: PERRLA, EOMI, nonicteric, no neck masses, dry mucous membranes. Neck: supple no neck masses no JVD no stridor.. Mouth: mucus membranes are moist. No rashes no thrush. Cardiovascular: Normal S1 and S2, no S3 gallop, no murmur Lungs: Coarse crackles and rhonchi noted bilaterally.Symmetrical chest expansion bilaterally. Ext: No clubbing edema or cyanosis Neuro: Alert and oriented 3 no gross focal deficit. Psych: Normal mood, affect and normal mental status examination. Musculoskeletal: No deformities no limitations in range of motion. - Labs CBC & Chem 7: 11/28/20 04:40 11/28/20 04:40 Labs: Abnormal Lab Results - Last 24 Hours (Table) 11/27/20 11/27/20 11/28/20 Range/Units 18:15 21:40 04:40 WBC (3.8-10.6) k/uL BUN 24 H (7-17) mg/dL Creatinine 0.42 L (0.52-1.04) mg/dL Glucose 183 H (74-99) mg/dL POC Glucose (mg/dL) 174 H 185 H (75-99) mg/dL 11/28/20 11/28/20 11/28/20 Range/Units 04:40 07:02 12:03 WBC 33.8 H (3.8-10.6) k/uL BUN (7-17) mg/dL Creatinine (0.52-1.04) mg/dL Glucose (74-99) mg/dL POC Glucose (mg/dL) 209 H 237 H (75-99) mg/dL Assessment and Plan Assessment: Impression: Acute hypoxic respiratory failure secondary to acute COVID-19 pneumonia, originally diagnosed on 11/11, there is no clinical worsening and no clinical improvement noted. Elevated inflammatory markers secondary to above. History of overactive bladder. Reactive leukocytosis, most likely secondary to steroids/Solu-Medrol. Recommendation: Continue present supportive care measures titrate oxygen accordingly Continue Solu-Medrol. Continue Zosyn Patient was out of the window for REM Patient received TOCI Continue Lovenox twice a day 40 mg subcu Continue vitamin supplements. Continue IV fluid 0.9 at 50 mL per hour. Continue TPN since her oral intake is minimal. DO NOT RESUSCITATE CODE STATUS. Prognosis is definitely poor and guarded. We will likely transfer the patient out of the ICU to a regular medical floor today. We'll continue to follow Time with Patient: Less than 30
[2020-11-28 17:24] LABS: Glucose,Whole Blood 191 mg/dL (75-99)
[2020-11-28] MEDS: FAT EMULSION 20% 250 ML in EMPTY BAG 1 BAG IV SCH (17:35)
[2020-11-28 23:00] LABS: Glucose,Whole Blood 201 mg/dL (75-99)
[2020-11-28] MEDS: OXYBUTYNIN XL 5 MG TAB.ER.24 PO SCH (23:07)
[2020-11-28] MEDS: CITALOPRAM HYDROBROMIDE 10 MG TAB PO SCH (23:07)
[2020-11-29] MEDS: SODIUM CHLORIDE IV SCH ×27 (00:58→23:23)
[2020-11-29] MEDS: MORPHINE SULFATE 2 MG/ML SYRINGE IV PRN ×6 (00:58→19:24)
[2020-11-29] MEDS: CALCIUM GLUCONATE IV SCH ×27 (00:58→23:23)
[2020-11-29] MEDS: [UNRECOGNIZED DRUG - OTHER] IV SCH ×27 (00:58→23:23)
[2020-11-29 05:42] LABS: African American GFR (CKD) >90 (>60 ml/min/1.73 sqM); Anion Gap 7 mmol/L; Blood Urea Nitrogen 19 mg/dL (7-17); Calcium 8.3 mg/dL (8.4-10.2); Carbon Dioxide 26 mmol/L (22-30); Chloride 105 mmol/L (98-107); Glucose 194 mg/dL (74-99); Magnesium 2.1 mg/dL (1.6-2.3); Non-African American GFR(CKD) >90 (>60 ml/min/1.73 sqM); Phosphorus 2.9 mg/dL (2.5-4.5); Potassium 3.8 mmol/L (3.5-5.1); Sodium 138 mmol/L (137-145)
[2020-11-29 06:30] LABS: Glucose,Whole Blood 228 mg/dL (75-99)
[2020-11-29] MEDS: methylPREDNISolone SOD SUCCI 125 MG/2 ML VIAL IV SCH ×4 (06:44→23:24)
[2020-11-29] MEDS: INSULIN ASPART (NovoLOG) 100 UNIT/ML VIAL SQ SCH ×4 (06:44→21:02)
--- NOTE | 2020-11-29 07:19 | XR ---
EXAMINATION TYPE: XR chest 1V portable DATE OF EXAM: 11/29/2020 COMPARISON: 11/26/2020 HISTORY: Shortness of breath TECHNIQUE: Single frontal view of the chest is obtained. FINDINGS: Diffuse interstitial pattern with basilar infiltrates and small effusion. Heart size stabl e. PICC line stable. No pneumothorax. IMPRESSION: Stable diffuse bilateral infiltrates with pleural effusion correlate for diffuse pneumon ia versus CHF.
[2020-11-29] MEDS: ALBUTEROL HFA INHALER INHALATION SCH ×3 (07:34→20:41)
[2020-11-29] MEDS ORDERED: Potassium Replacement Protocol 1 EACH MISC MISCELLANE PRN (08:27)
[2020-11-29] MEDS ORDERED: POTASSIUM CHLORIDE ER 20 MEQ TAB.ER PO SCH (09:00)
[2020-11-29] MEDS: PIPERACILLIN-TAZOBACTAM 3.375 GM in SODIUM CHLORIDE 0.9% 100 ML IVPB SCH ×3 (10:00→23:24)
[2020-11-29] MEDS: ASCORBIC ACID 500 MG TAB PO SCH (10:03)
[2020-11-29] MEDS: guaiFENesin 600 MG TABLET.ER PO SCH ×2 (10:03→21:02)
[2020-11-29] MEDS: ENOXAPARIN 40 MG/0.4 ML SYRINGE SQ SCH ×2 (10:04→21:02)
[2020-11-29] MEDS: ZINC SULFATE 220 MG CAP PO SCH (10:04)
[2020-11-29] MEDS: CHOLECALCIFEROL 25 MCG (1000 IU) TABLET PO SCH (10:04)
[2020-11-29] MEDS: PANTOPRAZOLE 40 MG/10 ML VIAL IVP SCH (10:04)
--- NOTE | 2020-11-29 11:08 | P.PN ---
Subjective Progress Note Date: 11/29/20 Principal diagnosis: Acute hypoxic respiratory failure secondary to acute COVID-19 pneumonia There is a 69-year-old female patient with COVID-19 related pneumonia. The patient was already diagnosed having COVID-19 on 11/11/2018. The patient was symptomatic approximately 9 days prior to that. She came into the emergency department on 11/16/2020 and the patient was hospitalized with pneumonia. She was seen by the hospitalist group. She was started on steroids. She was not given Remdesivir as the patient was thought to be outside the window of treatment. Note that the patient was found to be hypoxic with a pulse of 76% on room air at time of admission. D-dimer was 0.99. CT angios gram showed acute breath and pulmonary infiltrates consistent with COVID-19 related pneumonia and her COVID-19 by PCR came back positive. She was initiated on 2 L of oxygen by nasal cannula. Subsequently, she decompensated and she is currently at 8 L per minute nasal cannula for that reason a pulmonary consultation was requested. She is reporting some increased work of breathing. She has a dry cough. No significant sputum production. No angina. No palpitation. No previous history of lung disease or disorder. No nausea. No vomiting. She is able to taste and smell. Her LDH level was 765 and is currently down to 411. The pro calcitonin level is down to 0.18. D-dimer is at 0.8. CBC showed some mild anemia with hemoglobin of 11.7. Otherwise white cell count was 11 and the platelet count was 293. 11/19/2020, seeing patient for a follow-up. The patient is doing well for now. She has no new complaints. She is currently on 6 L of oxygen by nasal cannula with pulse ox of 90%. She is currently on Decadron 6 mg on a daily basis and she's also on Lovenox 40 mg subcu for DVT prophylaxis. IV fluids are running at 75 mL an hour of normal saline. The patient has a d-dimer of 0.8. Her LDH level was a cold the heart was done and it showed preserved LV function and mild pulmonary hypertension. No other new complaints or issues for now. On 11/20/2020 patient seen in follow-up on medical surgical floor. Overnight her oxygen demand has increased, and patient was desaturating into the low 70s with ambulation, and would take a long time to recover, she was placed on 15 L high flow and 100% nonrebreather mask, her pulse ox right now is 90-95%, she seems to breathing comfortably, she is sitting in the recliner, she has been ambulating to the bathroom earlier, however now she is using the bedside commode, she is afebrile, blood pressures are stable, she had no fevers overnight. She continues on Decadron 6 mg daily, and she is on prophylactic dose of Lovenox. Was outside the window for Remdesivir. Today's chest x-ray shows worsening bilateral multifocal and confluent opacities consistent with COVID-19 progression On 11/21/2020 patient seen in intensive care unit, patient was transferred to the intensive care unit this morning with worsening hypoxia and dyspnea, she is currently on BiPAP support with pressures of 14/6 and FiO2 of 100% and her pulse ox is 84% on those settings. Chest x-ray is pending, overnight her oxygenation continued to get worse, but 15 L high flow nasal cannula and nonrebreather mask, and her pulse ox was going into the low 70's. Patient is awake and alert, she is oriented 3, she is anxious, but fairly compliant with the BiPAP support. She has received a dose of Xanax which will be switched to IV Ativan. Denies any chest discomfort, she is tachypneic, her respiratory rate ranging from 17 to mid 20s and sent time 30 times per minute. She is afebrile, hemodynamically she is stable, she is in sinus mechanism. His labs have been reviewed, CBC is within normal limits, d-dimer has increased significantly and is up at 13.18 on today's labs, electrolytes were within normal limits, B1 is 15 creatinine 0.48. Has been an increase in her LDH which is up at 1574, and CRP is currently at 14.9. He remains on Decadron 6 mg daily, she status post Tocilizumab infusion of 800 mg. She was on prophylactic dose of Lovenox which we will increase to 40 mg twice daily. 11/22/2020, the patient remains in the intensive care unit. Overnight, she stayed on the BiPAP at a pressure of 14/6 cm of water with an FiO2 of 100%. Her pulse ox throughout the night was 80 is in the low 80s sometimes. Earlier this morning, the patient wanted to eat. We switched her to a high flow with oxygen at 60 L and 100% on a beta facemasks. Her current pulse ox is around 70%. She is conscious and awake and she is still communicating. She is a bit anxious and she is aching Ativan for anxiety. Meanwhile, she remains on Decadron dose was increased up to 6 mg IV twice a day. She remains on Lovenox 40 mg subcu twice a day for DVT prophylaxis. In terms of her chest x-ray, the patient has bilateral pulmonary infiltrates and as stated earlier, her condition is progressive and she has developed worsening in pulmonary infiltrates in lung bases bilaterally more so in the lung peripheries. Her inflammatory markers today includes a d- dimer of 25.3, LDH level of 2072, CRP level of 6.4 and the rest of the blood work and electrolytes are all within normal limits. The white cell count is 11.6 with a hemoglobin of 12.7. the patient length. The patient told me that in terms of her advanced directives, she is agreeable to intubation. Nevertheless, she doesn't want any CPR or defibrillation or any other form of resuscitation should she develop any form of cardiac pulmonary arrest. 11/23/2020, the patient remains in the intensive care unit, BiPAP dependent and unable to wean. Note that we tried her on high flow oxygen yesterday and she was on 60 L with an FiO2 of 90% with 100% nonrebreather. Within a few minutes, she decompensated she became more short of breath and hypoxic and as such the child was aborted and the patient was placed back on BiPAP and currently she is on a BiPAP pressure of 14/6 cm of water with an FiO2 of 100%. Pulse ox pulse ox is around 91-92%. She seems to be quite comfortable on a BiPAP. Current rate is around 28. She is able to generate adequate tidal volumes. Main complaint remains some irritation on her nose from the BiPAP Chest x-ray from today, diffuse pulmonary infiltrates probably slightly worse on the right. The infectious inflammatory markers show a d-dimer of 24.3 and the patient has an LDH level of 2128 and a CRP level of 3.4. The patient remains on Decadron 6 mg IV every 12 hours. The patient is also on Lovenox 40 mg subcutaneous every 12 hours. Doppler of the lower extremities was conducted and they were negative. She is awake, she is communicating. She can eat and drink limited amounts while being given brief periods off the BiPAP. The blood work from today shows a white cell count of 12 with a hemoglobin of 15.1. She continues to have l ymphopenia. Sodium is 135. BUN is at 17 with a creatinine of 0.5. Fluid balance over the past 24 hours has been in the order of -750 mL. As mentioned earlier, she is agreeing for intubation. She does not want any CPR or defibrillation in the event if her condition decompensated so she wasn't a cardiopulmonary arrest. Otherwise, the family has been updated. I contacted the daughter and I gave her a detailed explanation of what is happening with her and had a high risk of progression requiring intubation mechanical ventilation and the daughter clearly understands Reevaluated today on 11/24/2020, patient remains in the ICU, remains on BiPAP, she is on IPAP of 14 and EPAP of 6,100% FiO2. O2 saturations are marginal. Had a chance to discuss the issue of ventilatory support and mechanical ventilation with the patient, and she clearly stated to me that she would not want to be on life support, patient clearly told me that she would like to be made comfort care condition requires intubation and mechanical ventilation. Hence her CODE STATUS was changed to DO NOT RESUSCITATE CODE STATUS, and I recommended that we continue BiPAP for now, and give patient airvo trials with high flow oxygen when she is eating. Patient has been here now for almost 8 days, and she is not making any major signs of recovery. Chest x-ray continues to show bilateral patchy infiltrates. CBC today is relatively normal except for WBC count of 14.1. Electrolytes are relatively normal except for slightly elevated potassium of 5.4 d-dimer is on the rise it is 23.2. Renal functioning is normal. C-louann ctive protein is 2 and her LDH is on the rise presently 2437 patient remains on Lovenox at 40 mg subcu twice a day, Decadron 6 mg IV push twice a day. She is also on the multivitamins. IV fluid is at 50 mL per hour in the form of 0.9 normal saline Reevaluated today on 11/25/2020, remains in the ICU, he is presently on high flow airvo FiO2 90% and 60 L flow. She is also on a nonrebreather mask 100%, and her O2 saturation is in the 80s. Patient states that she is feeling better today compared to yesterday, breathing easier, but she is marginal at best. Patient clearly stated to me again that she would never want to be on life support and no mechanical ventilation. If she requires to be on life support, the patient prefers to go to comfort care measures. She remains on TPN and her IV fluids at 50 mL per hour. Chest x-ray no significant change continues to show bilateral infiltrates consistent with COVID-19 pneumonia. Last night the patient was placed on BiPAP 29/12. And she slept well with it WBC count today is 17.1 hemoglobin is 13.3 Electrolytesenc normal renal profile is normal LDH remains high at 2588 and C-reactive protein is 1.4, in other words the patient is showing worsening numbers and worsening chest x-ray, but surprisingly clinically the patient tells me that she is feeling better. Patient was reevaluated today on 11/26/2020, remains in the ICU, remains on Airvo at 60 L flow and 90% FiO2 as well as on 100 percent nonrebreather mask O2 saturations are in the high 80s and low 90s. Patient tells me that she is feeling better although clinically she is about the same. I don't see much of a change clinically. Chest x-ray continues to show bilateral infiltrates. Patient remains on IV fluid at 50 mL per hour, she is also on TPN, and today I have switched her to Solu-Medrol. And I added Zosyn empirically although her pro Alfredo level was not elevated. However considering the findings on the chest x-ray, I'm empirically covering the patient for presumptive underlying bacterial pneumonia. Patient did have leukocytosis and that is more reason to s tart antibiotics empirically. WBC count is up to 23.6 hemoglobin is 13.8 Electrolytesenc normal renal profile is normal Patient was reevaluated today on 11/27/2020, remains in the ICU, not much of the changed since yesterday. Remains on BiPAP and intermittently on high flow oxygen using AIRVO and high FiO2. O2 saturations remained marginal in the high 80s clinically the patient tells me that she is feeling about the same and may be a bit better. Concerned that today she has significant leukocytosis, could be related to her Solu-Medrol, however considering the patient is marginal I recommended empiric antibiotics in the form of Zosyn. Patient is still receiving TPN, minimal oral intake noted. CODE STATUS remains DO NOT RESUSCITATE. All labs today were reviewed. CBC count is 31.7 hemoglobin is 13.7 her electrolytes are normal renal profile is normal, LDH is rising up to 3343 and C-reactive protein is 1. Patient was reevaluated today on 11/28/2020, remains in the ICU, remains on high FiO2 of 100%, she is on BiPAP 29/12. O2 saturation is marginal in the high 80s and at times low 90s. Clinically the patient is about the same, I don't believe the patient is making much of a clinical improvement and at least she is not worsening. Remains on TPN at 90 mL per hour. Remains on IV fluid to KVO. Remains on the COVID-19. Continues to have leukocytosis with WBC of 33.8. Electrolytesenc are normal renal profile is normal, remains on Zosyn empirically, no specific blood cultures to address. Patient was reevaluated today on 11/29/2020, remains in the ICU, remains on BiPAP with IPAP of 14 and EPAP of 600% FiO2. Overall the patient is about the same, no major changes over the last 24 hours. Remains on IV Solu-Medrol, Lovenox 40 mg twice a day remains on Zosyn empirically. Remains on TPN and IV fluid at 50 ML per hour. Patient tells me that she feeling slightly better, but overall she is about the same. He desaturates with any activity. Chest x-ray continues to show bilateral interstitial infiltrates, slightly improved/minimal improvement if any. WBC count remains high at 53.8. Lites are normal renal profile is normal d-dimer is coming down to 19.8, it was in the mid 20s in the last few days Objective - Vital Signs Vital signs: Vital Signs Temp 98.1 F 11/29/20 00:00 Pulse 87 11/29/20 07:00 Resp 22 11/29/20 07:00 BP 152/132 11/29/20 07:00 Pulse Ox 88 L 11/29/20 07:00 Intake & Output 11/28/20 11/29/20 11/29/20 18:59 06:59 18:59 Intake Total 900 1415 Output Total 775 1190 Balance 125 225 Weight 89.1 kg 88.5 kg Intake: IV 750 1175 Piperacillin-Tazobactam 3 150 125 .375 gm In Sodium Chloride 0.9% 100 ml @ 25 mls/hr IVPB Q8HR [facility] Rx# :[id number] Sodium Chloride 0.9% 1, 600 1050 000 ml @ 50 mls/hr IV . Q20H [facility] Rx#:[id number] Oral 150 240 Output: Urine 775 1190 Other: Voiding Method Indwelling Catheter Indwelling Catheter - Exam General: Revealed a 69-year-old female , on BiPAP this morning. 14/6 and FiO2 of 100%. O2 saturation is in the high 80s. skin: No evidence of rashes. Head: Atraumatic, normocephalic. EENT: PERRLA, EOMI, nonicteric, no neck masses, dry mucous membranes. Neck: supple no neck masses no JVD no stridor.. Mouth: mucus membranes are moist. No rashes no thrush. Cardiovascular: Normal S1 and S2, no S3 gallop, no murmur Lungs: Coarse crackles and rhonchi noted bilaterally.Symmetrical chest expansion bilaterally. Ext: No clubbing edema or cyanosis Neuro: Alert and oriented 3 no gross focal deficit. Psych: Normal mood, affect and normal mental status examination. Musculoskeletal: No deformities no limitations in range of motion. - Labs CBC & Chem 7: 11/28/20 04:40 11/29/20 05:00 Labs: Abnormal Lab Results - Last 24 Hours (Table) 11/28/20 11/28/20 11/28/20 Range/Units 12:03 17:23 22:58 BUN (7-17) mg/dL Creatinine (0.52-1.04) mg/dL Glucose (74-99) mg/dL POC Glucose (mg/dL) 237 H 191 H 201 H (75-99) mg/dL Calcium (8.4-10.2) mg/dL 11/29/20 11/29/20 Range/Units 05:00 06:29 BUN 19 H (7-17) mg/dL Creatinine 0.41 L (0.52-1.04) mg/dL Glucose 194 H (74-99) mg/dL POC Glucose (mg/dL) 228 H (75-99) mg/dL Calcium 8.3 L (8.4-10.2) mg/dL Assessment and Plan Assessment: Impression: Acute hypoxic respiratory failure secondary to acute COVID-19 pneumonia, originally diagnosed on 11/11, there is no clinical worsening and no clinical improvement noted. Elevated inflammatory markers secondary to above. History of overactive bladder. Reactive leukocytosis, most likely secondary to steroids/Solu-Medrol. Recommendation: Continue present supportive care measures titrate oxygen accordingly Continue Solu-Medrol. Continue Zosyn Patient was out of the window for REM Patient received TOCI Continue Lovenox twice a day 40 mg subcu Continue vitamin supplements. Continue IV fluid Continue TPN since her oral intake is minimal. DO NOT RESUSCITATE CODE STATUS. Will transfer the patient to a regular medical floor today, patient is even considering comfort care measures about this will be decided upon in the next couple of days. Prognosis is obviously poor and guarded. Time with Patient: Less than 30
[2020-11-29 11:54] LABS: Glucose,Whole Blood 199 mg/dL (75-99)
[2020-11-29] MEDS ORDERED: hydrALAZINE HCL 20 MG/ML 1 ML VIAL IVP STA (12:06)
--- NOTE | 2020-11-29 12:08 | P.PN ---
Subjective Progress Note Date: 11/29/20 Patient's overall condition is not changed compared to yesterday. She informed me that she is feeling better when she get the IV morphine as it's helping with her dyspnea and requesting the morphine to be more frequent than every 4 hours. Nursing staff informed me that patient blood pressure is been running high Objective - Vital Signs Vital signs: Vital Signs Temp 98.1 F 11/29/20 00:00 Pulse 87 11/29/20 07:00 Resp 22 11/29/20 07:00 BP 152/132 11/29/20 07:00 Pulse Ox 88 L 11/29/20 07:00 Intake & Output 11/28/20 11/29/20 11/29/20 18:59 06:59 18:59 Intake Total 900 1415 Output Total 775 1190 Balance 125 225 Weight 89.1 kg 88.5 kg Intake: IV 750 1175 Piperacillin-Tazobactam 3 150 125 .375 gm In Sodium Chloride 0.9% 100 ml @ 25 mls/hr IVPB Q8HR [facility] Rx# :[id number] Sodium Chloride 0.9% 1, 600 1050 000 ml @ 50 mls/hr IV . Q20H [facility] Rx#:[id number] Oral 150 240 Output: Urine 775 1190 Other: Voiding Method Indwelling Catheter Indwelling Catheter - Exam General: The patient is awake and alert, in no distress Eye: there is normal conjunctiva bilaterally. Neck: The neck is supple, there is no JVD. Cardiovascular: Normal S1-S2, no S3-S4, no murmurs. Respiratory: Lungs clear to auscultation bilaterally Gastrointestinal: Abdomen is soft, nontender Musculoskeletal: There is no pedal edema. Neurological:. Speech is normal. Skin: Skin is warm and dry - Labs CBC & Chem 7: 11/28/20 04:40 11/29/20 05:00 Labs: Abnormal Lab Results - Last 24 Hours (Table) 11/28/20 11/28/20 11/29/20 Range/Units 17:23 22:58 05:00 BUN 19 H (7-17) mg/dL Creatinine 0.41 L (0.52-1.04) mg/dL Glucose 194 H (74-99) mg/dL POC Glucose (mg/dL) 191 H 201 H (75-99) mg/dL Calcium 8.3 L (8.4-10.2) mg/dL 11/29/20 11/29/20 Range/Units 06:29 11:53 BUN (7-17) mg/dL Creatinine (0.52-1.04) mg/dL Glucose (74-99) mg/dL POC Glucose (mg/dL) 228 H 199 H (75-99) mg/dL Calcium (8.4-10.2) mg/dL Assessment and Plan Assessment: Patient is a 69-year-old female with no significant past medical history who presented to the emergency department secondary to shortness of breath. She had been diagnosed with COVID-19 on 11/11. On arrival to the ER she was hypoxic at 86% on room air. Labs showed a mildly elevated d-dimer at 0.99, she subsequently underwent a CTA of the chest which showed no evidence of pulmonary embolism but did show extensive bilateral pulmonary infiltrates with reactive adenopathy. Her COVID-19 test was again positive. She was admitted for further management. Her O2 requirements increased throughout her hospital stay and currently is in the ICU. COVID-19 pneumonitis acute hypoxic respiratory failure currently on BiPAP managed by urology physician assistant - Toci given 5/6 - out of the window for remdesivir -Pulmonary recommendations appreciated -Decadron D #12, and switched to IV Solu-Medrol day #4, managed by pulmonology -Started on empiric antibiotic treatment with IV Zosyn day #4 -Pro calcitonin and BNP within normal range -Vitamin C, vitamin D, zinc -Albuterol scheduled and as needed - Lovenox - pulm hygeine -Sputum culture with no significant growth Uncontrolled blood pressure -Start Norvasc 2.5 mg daily -1 time IV hydralazine 5 mg ordered now Costochonditiris due to above - motrin Overactive bladder - detrol Hyponatremia, resolved Today, I reviewed her medication list and lab work results. Patient is getting TPN in addition to oral feed as tolerated. Registered dietitian following closely. Continue ICU care. Prognosis is guarded CODE STATUS: Discussed with patient by urology physician assistant. Patient is DO NOT RESUSCITA TE/DO NOT INTUBATE DVT prophylaxis: Lovenox Discussed with: patient, nursing Anticipated discharge date: undetermined Anticipated discharge place: pending clinical course A total of 35 minutes was spent on the care of this complex patient more than 50% of the time was spent in counseling and care coordination.
[2020-11-29] MEDS: amLODIPine 2.5 MG TAB PO SCH (15:03)
[2020-11-29 16:33] LABS: Glucose,Whole Blood 236 mg/dL (75-99)
[2020-11-29] MEDS: ALPRAZolam 0.25 MG TAB PO PRN (17:25)
[2020-11-29 20:11] LABS: Glucose,Whole Blood 297 mg/dL (75-99)
[2020-11-29] MEDS ORDERED: LORazepam 2 MG/ML INJ IV STA (21:25)
[2020-11-29] MEDS: CITALOPRAM HYDROBROMIDE 10 MG TAB PO SCH (21:43)
[2020-11-30 00:28] LABS: Glucose,Whole Blood 314 mg/dL (75-99)
[2020-11-30] MEDS: MORPHINE SULFATE 2 MG/ML SYRINGE IV PRN ×7 (01:32→23:57)
[2020-11-30] MEDS: methylPREDNISolone SOD SUCCI 125 MG/2 ML VIAL IV SCH ×2 (05:46→11:55)
[2020-11-30 06:55] LABS: Glucose,Whole Blood 255 mg/dL (75-99)
[2020-11-30] MEDS: ENOXAPARIN 40 MG/0.4 ML SYRINGE SQ SCH ×2 (07:36→20:53)
[2020-11-30] MEDS: PIPERACILLIN-TAZOBACTAM 3.375 GM in SODIUM CHLORIDE 0.9% 100 ML IVPB SCH ×3 (07:36→23:57)
[2020-11-30] MEDS: INSULIN ASPART (NovoLOG) 100 UNIT/ML VIAL SQ SCH ×4 (07:37→20:52)
[2020-11-30] MEDS: CHOLECALCIFEROL 25 MCG (1000 IU) TABLET PO SCH (07:37)
[2020-11-30] MEDS: PANTOPRAZOLE 40 MG/10 ML VIAL IVP SCH (07:37)
[2020-11-30] MEDS: ALPRAZolam 0.25 MG TAB PO PRN ×2 (07:37→19:38)
[2020-11-30] MEDS: ASCORBIC ACID 500 MG TAB PO SCH (07:37)
[2020-11-30] MEDS: guaiFENesin 600 MG TABLET.ER PO SCH ×2 (07:37→20:52)
[2020-11-30] MEDS: amLODIPine 2.5 MG TAB PO SCH (07:37)
[2020-11-30] MEDS: ZINC SULFATE 220 MG CAP PO SCH (07:37)
[2020-11-30 07:45] LABS: HGB 14.8 gm/dL (11.4-16.0); MCH 33.5 pg (25.0-35.0); MCHC 33.7 g/dL (31.0-37.0); MCV 99.1 fL (80.0-100.0); Mean Platelet Volume 8.4; Platelet Count 218 k/uL (150-450); RBC 4.44 m/uL (3.80-5.40); RDW 12.9 % (11.5-15.5); WBC 49.3 k/uL (3.8-10.6)
[2020-11-30 07:49] LABS: African American GFR (CKD) >90 (>60 ml/min/1.73 sqM); Anion Gap 12 mmol/L; Blood Urea Nitrogen 24 mg/dL (7-17); Carbon Dioxide 22 mmol/L (22-30); Chloride 104 mmol/L (98-107); Glucose 235 mg/dL (74-99); Non-African American GFR(CKD) >90 (>60 ml/min/1.73 sqM); Phosphorus 3.2 mg/dL (2.5-4.5); Potassium 4.3 mmol/L (3.5-5.1); Sodium 138 mmol/L (137-145)
[2020-11-30] MEDS: ALBUTEROL HFA INHALER INHALATION SCH ×3 (07:58→20:59)
[2020-11-30 11:46] LABS: Glucose,Whole Blood 196 mg/dL (75-99)
[2020-11-30] MEDS: [UNRECOGNIZED DRUG - OTHER] IV SCH ×18 (11:53→23:38)
[2020-11-30] MEDS: SODIUM CHLORIDE IV SCH ×18 (11:53→23:38)
[2020-11-30] MEDS: CALCIUM GLUCONATE IV SCH ×18 (11:53→23:38)
--- NOTE | 2020-11-30 14:43 | P.PN ---
Subjective Progress Note Date: 11/30/20 Principal diagnosis: There is a 69-year-old female patient with COVID-19 related pneumonia. The patient was already diagnosed having COVID-19 on 11/11/2018. The patient was symptomatic approximately 9 days prior to that. She came into the emergency department on 11/16/2020 and the patient was hospitalized with pneumonia. She was seen by the hospitalist group. She was started on steroids. She was not given Remdesivir as the patient was thought to be outside the window of treatment. Note that the patient was found to be hypoxic with a pulse of 76% on room air at time of admission. D-dimer was 0.99. CT angios gram showed acute breath and pulmonary infiltrates consistent with COVID-19 related pneumonia and her COVID-19 by PCR came back positive. She was initiated on 2 L of oxygen by nasal cannula. Subsequently, she decompensated and she is currently at 8 L per minute nasal cannula for that reason a pulmonary consultation was requested. She is reporting some increased work of breathing. She has a dry cough. No significant sputum production. No angina. No palpitation. No previous history of lung disease or disorder. No nausea. No vomiting. She is able to taste and smell. Her LDH level was 765 and is currently down to 411. The pro calcitonin level is down to 0.18. D-dimer is at 0.8. CBC showed some mild anemia with hemoglobin of 11.7. Otherwise white cell count was 11 and the platelet count was 293. 11/19/2020, seeing patient for a follow-up. The patient is doing well for now. She has no new complaints. She is currently on 6 L of oxygen by nasal cannula with pulse ox of 90%. She is currently on Decadron 6 mg on a daily basis and she's also on Lovenox 40 mg subcu for DVT prophylaxis. IV fluids are running at 75 mL an hour of normal saline. The patient has a d-dimer of 0.8. Her LDH level was a cold the heart was done and it showed preserved LV function and mild pulmonary hypertension. No other new complaints or issues for now. On 11/20/2020 patient seen in follow-up on medical surgical floor. Overnight her oxygen demand has increased, and patient was desaturating into the low 70s with ambulation, and would take a long time to recover, she was placed on 15 L high flow and 100% nonrebreather mask, her pulse ox right now is 90-95%, she seems to breathing comfortably, she is sitting in the recliner, she has been amb ulating to the bathroom earlier, however now she is using the bedside commode, she is afebrile, blood pressures are stable, she had no fevers overnight. She continues on Decadron 6 mg daily, and she is on prophylactic dose of Lovenox. Was outside the window for Remdesivir. Today's chest x-ray shows worsening bilateral multifocal and confluent opacities consistent with COVID-19 progression On 11/21/2020 patient seen in intensive care unit, patient was transferred to the intensive care unit this morning with worsening hypoxia and dyspnea, she is currently on BiPAP support with pressures of 14/6 and FiO2 of 100% and her pulse ox is 84% on those settings. Chest x-ray is pending, overnight her oxygenation continued to get worse, but 15 L high flow nasal cannula and nonrebreather mask, and her pulse ox was going into the low 70's. Patient is awake and alert, she is oriented 3, she is anxious, but fairly compliant with the BiPAP support. She has received a dose of Xanax which will be switched to IV Ativan. Denies any chest discomfort, she is tachypneic, her respiratory rate ranging from 17 to mid 20s and sent time 30 times per minute. She is afebrile, hemodynamically she is stable, she is in sinus mechanism. His labs have been reviewed, CBC is within normal limits, d-dimer has increased significantly and is up at 13.18 on today's labs, electrolytes were within normal limits, B1 is 15 creatinine 0.48. Has been an increase in her LDH which is up at 1574, and CRP is currently at 14.9. He remains on Decadron 6 mg daily, she status post Tocilizumab infusion of 800 mg. She was on prophylactic dose of Lovenox which we will increase to 40 mg twice daily. 11/22/2020, the patient remains in the intensive care unit. Overnight, she stayed on the BiPAP at a pressure of 14/6 cm of water with an FiO2 of 100%. Her pulse ox throughout the night was 80 is in the low 80s sometimes. Earlier this morning, the patient wanted to eat. We switched her to a high flow with oxygen at 60 L and 100% on a beta facemasks. Her current pulse ox is around 70%. She is conscious and awake and she is still communicating. She is a bit anxious and she is aching Ativan for anxiety. Meanwhile, she remains on Decadron dose was increased up to 6 mg IV twice a day. She remains on Lovenox 40 mg subcu twice a day for DVT prophylaxis. In terms of her chest x-ray, the patient has bilateral pulmonary infiltrates and as stated earlier, her condition is progressive and she has developed worsening in pulmonary infiltrates in lung bases bilaterally more so in the lung peripheries. Her inflammatory markers today includes a d- dimer of 25.3, LDH level of 2072, CRP level of 6.4 and the rest of the blood work and electrolytes are all within normal limits. The white cell count is 11.6 with a hemoglobin of 12.7. the patient length. The patient told me that in terms of her advanced directives, she is agreeable to intubation. Nevertheless, she doesn't want any CPR or defibrillation or any other form of resuscitation should she develop any form of cardiac pulmonary arrest. 11/23/2020, the patient remains in the intensive care unit, BiPAP dependent and unable to wean. Note that we tried her on high flow oxygen yesterday and she was on 60 L with an FiO2 of 90% with 100% nonrebreather. Within a few minutes, she decompensated she became more short of breath and hypoxic and as such the child was aborted and the patient was placed back on BiPAP and currently she is on a BiPAP pressure of 14/6 cm of water with an FiO2 of 100%. Pulse ox pulse ox is around 91-92%. She seems to be quite comfortable on a BiPAP. Current rate is around 28. She is able to generate adequate tidal volumes. Main complaint remains some irritation on her nose from the BiPAP Chest x-ray from today, diffuse pulmonary infiltrates probably slightly worse on the right. The infectious inflammatory markers show a d-dimer of 24.3 and the patient has an LDH level of 2128 and a CRP level of 3.4. The patient remains on Decadron 6 mg IV every 12 hours. The patient is also on Lovenox 40 mg subcutaneous every 12 hours. Doppler of the lower extremities was conducted and they were negative. She is awake, she is communicating. She can eat and drink limited amounts while being given brief periods off the BiPAP. The blood work from today shows a white cell count of 12 with a hemoglobin of 15.1. She continues to have lymphopenia. Sodium is 135. BUN is at 17 with a creatinine of 0.5. Fluid balance over the past 24 hours has been in the order of -750 mL. As mentioned earlier, she is agreeing for intubation. She does not want any CPR or defibrillation in the event if her condition decompensated so she wasn't a cardiopulmonary arrest. Otherwise, the family has been updated. I contacted the daughter and I gave her a detailed explanation of what is happening with her and had a high risk of progression requiring intubation mechanical ventilation and the daughter clearly understands Reevaluated today on 11/24/2020, patient remains in the ICU, remains on BiPAP, she is on IPAP of 14 and EPAP of 6,100% FiO2. O2 saturations are marginal. Had a chance to discuss the issue of ventilatory support and mechanical ventilation with the patient, and she clearly stated to me that she would not want to be on life support, patient clearly told me that she would like to be made comfort c are condition requires intubation and mechanical ventilation. Hence her CODE STATUS was changed to DO NOT RESUSCITATE CODE STATUS, and I recommended that we continue BiPAP for now, and give patient airvo trials with high flow oxygen when she is eating. Patient has been here now for almost 8 days, and she is not making any major signs of recovery. Chest x-ray continues to show bilateral patchy infiltrates. CBC today is relatively normal except for WBC count of 14.1. Electrolytes are relatively normal except for slightly elevated potassium of 5.4 d-dimer is on the rise it is 23.2. Renal functioning is normal. C- reactive protein is 2 and her LDH is on the rise presently 2437 patient remains on Lovenox at 40 mg subcu twice a day, Decadron 6 mg IV push twice a day. She is also on the multivitamins. IV fluid is at 50 mL per hour in the form of 0.9 normal saline Reevaluated today on 11/25/2020, remains in the ICU, he is presently on high flow airvo FiO2 90% and 60 L flow. She is also on a nonrebreather mask 100%, and her O2 saturation is in the 80s. Patient states that she is feeling better today compared to yesterday, breathing easier, but she is marginal at best. Patient clearly stated to me again that she would never want to be on life support and no mechanical ventilation. If she requires to be on life support, the patient prefers to go to comfort care measures. She remains on TPN and her IV fluids at 50 mL per hour. Chest x-ray no significant change continues to show bilateral infiltrates consistent with COVID-19 pneumonia. Last night the patient was placed on BiPAP 29/12. And she slept well with it WBC count today is 17.1 hemoglobin is 13.3 Electrolytesenc normal renal profile is normal LDH remains high at 2588 and C-reactive protein is 1.4, in other words the patient is showing worsening numbers and worsening chest x-ray, but surprisingly clinically the patient tells me that she is feeling better. Patient was reevaluated today on 11/26/2020, remains in the ICU, remains on Airvo at 60 L flow and 90% FiO2 as well as on 100 percent nonrebreather mask O2 saturations are in the high 80s and low 90s. Patient tells me that she is feeling better although clinically she is about the same. I don't see much of a change clinically. Chest x-ray continues to show bilateral infiltrates. Patient remains on IV fluid at 50 mL per hour, she is also on TPN, and today I have switched her to Solu-Medrol. And I added Zosyn empirically although her pro Alfredo level was not elevated. However considering the findings on the chest x-ray, I'm empirically covering the patient for presumptive underlying bacterial pneumonia. Patient did have leukocytosis and that is more reason to start antibiotics empirically. WBC count is up to 23.6 hemoglobin is 13.8 Electrolytesenc normal renal profile is normal Patient was reevaluated today on 11/27/2020, remains in the ICU, not much of the changed since yesterday. Remains on BiPAP and intermittently on high flow oxygen using AIRVO and high FiO2. O2 saturations remained marginal in the high 80s clinically the patient tells me that she is feeling about the same and may be a bit better. Concerned that today she has significant leukocytosis, could be related to her Solu-Medrol, however considering the patient is marginal I recommended empiric antibiotics in the form of Zosyn. Patient is still receiving TPN, minimal oral intake noted. CODE STATUS remains DO NOT RESUSCITATE. All labs today were reviewed. CBC count is 31.7 hemoglobin is 13.7 her electrolytes are normal renal profile is normal, LDH is rising up to 3343 and C-reactive protein is 1. Patient was reevaluated today on 11/28/2020, remains in the ICU, remains on high FiO2 of 100%, she is on BiPAP 14/6. O2 saturation is marginal in the high 80s and at times low 90s. Clinically the patient is about the same, I don't believe the patient is making much of a clinical improvement and at least she is not worsening. Remains on TPN at 90 mL per hour. Remains on IV fluid to KVO. Remains on the COVID-19. Continues to have leukocytosis with WBC of 33.8. Electrolytesenc are normal renal profile is normal, remains on Zosyn empirically , no specific blood cultures to address. Patient was reevaluated today on 11/29/2020, remains in the ICU, remains on BiPAP with IPAP of 14 and EPAP of 600% FiO2. Overall the patient is about the same, no major changes over the last 24 hours. Remains on IV Solu-Medrol, Lovenox 40 mg twice a day remains on Zosyn empirically. Remains on TPN and IV fluid at 50 ML per hour. Patient tells me that she feeling slightly better, but overall she is about the same. He desaturates with any activity. Chest x-ray continues to show bilateral interstitial infiltrates, slightly improved/minimal improvement if any. WBC count remains high at 53.8. Lites are normal renal profile is normal d-dimer is coming down to 19.8, it was in the mid 20s in the last few days. The patient is seen today 11/30/2020 in follow-up on the regular medical floor. She is currently sitting up in bed. Remains awake and alert. She has been slow to progress. She is still on BiPAP 14/6 in the 100% FiO2 to maintain O2 sat uration is currently at 80%. She is afebrile. Mainly BiPAP dependent. Being nourished with TPN. White count 49.3. Hemoglobin 14.8. Sodium 1:30. Potassium 4.3. Creatinine 0.48. She remains on echo dilators, Decadron, Lovenox 40 mg twice a day, vitamin supplements. Antibiotics in the form of Zosyn. Objective - Vital Signs Vital signs: Vital Signs Temp 98.0 F 11/30/20 10:00 Pulse 98 11/30/20 10:00 Resp 22 11/30/20 10:00 BP 161/84 11/30/20 10:00 Pulse Ox 80 L 11/30/20 10:00 Intake & Output 11/29/20 11/30/20 11/30/20 18:59 06:59 18:59 Intake Total 600 50 Output Total 1550 725 Balance -950 -675 Intake: IV 600 Calcium Gluconate 1 gm 450 Sodium Chloride 4Meq/ml Vial 48 meq Magnesium Sulfate gm 0.5 gm Potassium Chloride 10 meq Sodium Phosphate 15 mmol Mvi, Adult No.4 with Vit K 10 ml Trace (Conc-1Ml/ Dose) 1 ml In Amino Acid 5%-D15w 1,000 ml @ 90 mls /hr IV .BY DURATION DAVON Rx#:[id number] Piperacillin-Tazobactam 3 100 .375 gm In Sodium Chloride 0.9% 100 ml @ 25 mls/hr IVPB Q8HR [facility]ON Rx# :[id number] Sodium Chloride 0.9% 1, 50 000 ml @ 50 mls/hr IV . Q20H DAVON Rx#:[id number] Oral 50 Output: Urine 1550 725 Coude 1200 725 Other: Voiding Method Indwelling Catheter Indwelling Catheter - Exam General: Revealed a very pleasant 69-year-old female , on BiPAP, 14/6 and FiO2 of 100% with O2 saturation at 80%. skin: No evidence of rashes. Head: Atraumatic, normocephalic. EENT: PERRLA, EOMI, nonicteric, no neck masses, dry mucous membranes. Neck: supple no neck masses no JVD no stridor.. Mouth: mucus membranes are moist. No rashes no thrush. Cardiovascular: Normal S1 and S2, no S3 gallop, no murmur Lungs: Coarse crackles and rhonchi noted bilaterally.Symmetrical chest expansion bilaterally. Ext: No clubbing edema or cyanosis Neuro: Alert and oriented 3 no gross focal deficit. Psych: Normal mood, affect and normal mental status examination. Musculoskeletal: No deformities no limitations in range of motion. - Labs CBC & Chem 7: 11/30/20 06:44 11/30/20 07:10 Labs: Abnormal Lab Results - Last 24 Hours (Table) 11/29/20 11/29/20 11/30/20 Range/Units 16:31 20:09 00:25 WBC (3.8-10.6) k/uL BUN (7-17) mg/dL Creatinine (0.52-1.04) mg/dL Glucose (74-99) mg/dL POC Glucose (mg/dL) 236 H 297 H 314 H (75-99) mg/dL 11/30/20 11/30/20 11/30/20 Range/Units 06:44 06:54 07:10 WBC 49.3 H (3.8-10.6) k/uL BUN 24 H (7-17) mg/dL Creatinine 0.48 L (0.52-1.04) mg/dL Glucose 235 H (74-99) mg/dL POC Glucose (mg/dL) 255 H (75-99) mg/dL 11/30/20 Range/Units 11:43 WBC (3.8-10.6) k/uL BUN (7-17) mg/dL Creatinine (0.52-1.04) mg/dL Glucose (74-99) mg/dL POC Glucose (mg/dL) 196 H (75-99) mg/dL Assessment and Plan Assessment: 1 Acute hypoxic respiratory failure secondary to acute COVID-19 pneumonia, originally diagnosed on 11/11, there is no clinical worsening and no clinical improvement noted. 2 Elevated inflammatory markers secondary to above. 3 History of overactive bladder. 4 Reactive leukocytosis, most likely secondary to steroids/Solu-Medrol. Plan: The patient was seen and evaluated by Dr. Kenyon Remains BiPAP dependent Prognosis is poor DO NOT RESUSCITATE/DO NOT INTUBATE CODE STATUS We'll change IV Solu-Medrol to Decadron due to elevated white count Continue Zosyn for now Titrate the FiO2 as tolerated Continue TPN for nutritional support We will continue to follow I, the cosigning physician, performed a history & physical examination of the patient. Lungs sounds bilateral scattered rhonchi, coarse crackles in the bases. Maintaining O2 saturations 80% and 100% FiO2 via the BiPAP 29/12.. I discussed the assessment and plan of care with my nurse practitioner, Mary Carmen Carr. I attest to the above note as dictated by her.
--- NOTE | 2020-11-30 15:16 | P.PN ---
Subjective Progress Note Date: 11/30/20 Patient's overall condition is not changed compared to yesterday. She is still on BiPAP. Her WBC count increased significantly overnight. No fevers or chills. Objective - Vital Signs Vital signs: Vital Signs Temp 97.7 F 11/30/20 14:00 Pulse 126 H 11/30/20 14:00 Resp 22 11/30/20 14:00 BP 164/79 11/30/20 14:00 Pulse Ox 80 L 11/30/20 14:00 Intake & Output 11/29/20 11/30/20 11/30/20 18:59 06:59 18:59 Intake Total 600 50 Output Total 1550 725 Balance -950 -675 Intake: IV 600 Calcium Gluconate 1 gm 450 Sodium Chloride 4Meq/ml Vial 48 meq Magnesium Sulfate gm 0.5 gm Potassium Chloride 10 meq Sodium Phosphate 15 mmol Mvi, Adult No.4 with Vit K 10 ml Trace (Conc-1Ml/ Dose) 1 ml In Amino Acid 5%-D15w 1,000 ml @ 90 mls /hr IV .BY DURATION DAVON Rx#:[id number] Piperacillin-Tazobactam 3 100 .375 gm In Sodium Chloride 0.9% 100 ml @ 25 mls/hr IVPB Q8HR [facility]ON Rx# :[id number] Sodium Chloride 0.9% 1, 50 000 ml @ 50 mls/hr IV . Q20H [facility]ON Rx#:[id number] Oral 50 Output: Urine 1550 725 Coude 1200 725 Other: Voiding Method Indwelling Catheter Indwelling Catheter - Exam General: The patient is awake and alert, in no distress Eye: there is normal conjunctiva bilaterally. Neck: The neck is supple, there is no JVD. Cardiovascular: Normal S1-S2, no S3-S4, no murmurs. Respiratory: Lungs clear to auscultation bilaterally with BiPAP sounds Gastrointestinal: Abdomen is soft, nontender Musculoskeletal: There is no pedal edema. Neurological:. Speech is normal. Skin: Skin is warm and dry - Labs CBC & Chem 7: 11/30/20 06:44 11/30/20 07:10 Labs: Abnormal Lab Results - Last 24 Hours (Table) 11/29/20 11/29/20 11/30/20 Range/Units 16:31 20:09 00:25 WBC (3.8-10.6) k/uL BUN (7-17) mg/dL Creatinine (0.52-1.04) mg/dL Glucose (74-99) mg/dL POC Glucose (mg/dL) 236 H 297 H 314 H (75-99) mg/dL 11/30/20 11/30/20 11/30/20 Range/Units 06:44 06:54 07:10 WBC 49.3 H (3.8-10.6) k/uL BUN 24 H (7-17) mg/dL Creatinine 0.48 L (0.52-1.04) mg/dL Glucose 235 H (74-99) mg/dL POC Glucose (mg/dL) 255 H (75-99) mg/dL 11/30/20 Range/Units 11:43 WBC (3.8-10.6) k/uL BUN (7-17) mg/dL Creatinine (0.52-1.04) mg/dL Glucose (74-99) mg/dL POC Glucose (mg/dL) 196 H (75-99) mg/dL Assessment and Plan Assessment: Patient is a 69-year-old female with no significant past medical history who presented to the emergency department secondary to shortness of breath. She had been diagnosed with COVID-19 on 11/11. On arrival to the ER she was hypoxic at 86% on room air. Labs showed a mildly elevated d-dimer at 0.99, she sub sequently underwent a CTA of the chest which showed no evidence of pulmonary embolism but did show extensive bilateral pulmonary infiltrates with reactive adenopathy. Her COVID-19 test was again positive. She was admitted for further management. Her O2 requirements increased throughout her hospital stay and currently is in the ICU. COVID-19 pneumonitis acute hypoxic respiratory failure currently on BiPAP managed by provider relations consultant - Toci given 5/6 - out of the window for remdesivir -Pulmonary recommendations appreciated -Decadron D #12, and switched to IV Solu-Medrol day #5, managed by pulmonology -Started on empiric antibiotic treatment with IV Zosyn day #5 -Pro calcitonin and BNP within normal range -Vitamin C, vitamin D, zinc -Albuterol scheduled and as needed - Lovenox - pulm hygeine -Sputum culture with no significant growth Uncontrolled blood pressure -Started Norvasc 2.5 mg daily -Blood pressure better controlled. We will continue to monitor closely. Steroid-induced leukocytosis Costochonditiris due to above - motrin Overactive bladder - detrol Hyponatremia, resolved Today, I reviewed her medication list and lab work results. Patient is getting TPN in addition to oral feed as tolerated. Registered dietitian following closely. Continue ICU care. Prognosis is guarded CODE STATUS: Discussed with patient by provider relations consultant. Patient is DO NOT RESUSCITATE/DO NOT INTUBATE DVT prophylaxis: Lovenox Discussed with: patient, nursing Anticipated discharge date: undetermined Anticipated discharge place: pending clinical course A total of 35 minutes was spent on the care of this complex patient more than 50% of the time was spent in counseling and care coordination.
[2020-11-30] MEDS: DEXAMETHASONE SOD PHOSPHATE 4 MG/ML 1 ML VIAL IV SCH ×2 (15:46→23:57)
[2020-11-30 16:28] LABS: Glucose,Whole Blood 264 mg/dL (75-99)
[2020-11-30 20:16] LABS: Glucose,Whole Blood 253 mg/dL (75-99)
[2020-11-30] MEDS: CITALOPRAM HYDROBROMIDE 10 MG TAB PO SCH (20:52)
[2020-12-01] MEDS: MORPHINE SULFATE 2 MG/ML SYRINGE IV PRN ×8 (03:04→23:07)
[2020-12-01 07:46] LABS: Glucose,Whole Blood 215 mg/dL (75-99)
[2020-12-01] MEDS: INSULIN ASPART (NovoLOG) 100 UNIT/ML VIAL SQ SCH ×4 (08:08→21:16)
[2020-12-01] MEDS: DEXAMETHASONE SOD PHOSPHATE 4 MG/ML 1 ML VIAL IV SCH (08:10)
[2020-12-01] MEDS: PANTOPRAZOLE 40 MG/10 ML VIAL IVP SCH (08:10)
[2020-12-01] MEDS: PIPERACILLIN-TAZOBACTAM 3.375 GM in SODIUM CHLORIDE 0.9% 100 ML IVPB SCH (08:10)
[2020-12-01] MEDS: ENOXAPARIN 40 MG/0.4 ML SYRINGE SQ SCH ×2 (08:10→20:11)
[2020-12-01] MEDS: CHOLECALCIFEROL 25 MCG (1000 IU) TABLET PO SCH (08:11)
[2020-12-01] MEDS: amLODIPine 2.5 MG TAB PO SCH (08:11)
[2020-12-01] MEDS: guaiFENesin 600 MG TABLET.ER PO SCH ×2 (08:11→20:11)
[2020-12-01] MEDS: ZINC SULFATE 220 MG CAP PO SCH (08:11)
[2020-12-01] MEDS: ASCORBIC ACID 500 MG TAB PO SCH (08:11)
[2020-12-01] MEDS: ALPRAZolam 0.25 MG TAB PO PRN ×2 (08:11→21:16)
[2020-12-01 08:18] LABS: Basophils # (A) 0.1 k/uL (0-0.2); Basophils % (A) 0 %; Eosinophils # (A) 0.1 k/uL (0-0.7); Eosinophils % (A) 0 %; HCT 43.2 % (34.0-46.0); HGB 13.8 gm/dL (11.4-16.0); Lymphocytes # (A) 1.1 k/uL (1.0-4.8); Lymphocytes % (A) 3 %; MCH 31.8 pg (25.0-35.0); MCV 99.3 fL (80.0-100.0); Mean Platelet Volume 9.3; Monocytes # (A) 1.3 k/uL (0-1.0); Monocytes % (A) 4 %; Neutrophils # (A) 32.4 k/uL (1.3-7.7); Neutrophils % (A) 92 %; Platelet Count 195 k/uL (150-450); RBC 4.35 m/uL (3.80-5.40); RDW 13.4 % (11.5-15.5); WBC 35.2 k/uL (3.8-10.6)
[2020-12-01] MEDS: ALBUTEROL HFA INHALER INHALATION SCH ×3 (08:30→19:04)
[2020-12-01 08:32] LABS: Ionized Calcium 5.4 mg/dL (4.5-5.3)
[2020-12-01 08:51] LABS: African American GFR (CKD) >90 (>60 ml/min/1.73 sqM); Anion Gap 7 mmol/L; Blood Urea Nitrogen 25 mg/dL (7-17); Calcium 8.8 mg/dL (8.4-10.2); Carbon Dioxide 27 mmol/L (22-30); Chloride 102 mmol/L (98-107); Glucose 216 mg/dL (74-99); Magnesium 2.3 mg/dL (1.6-2.3); Non-African American GFR(CKD) >90 (>60 ml/min/1.73 sqM); Phosphorus 3.2 mg/dL (2.5-4.5); Potassium 4.6 mmol/L (3.5-5.1); Sodium 136 mmol/L (137-145)
--- NOTE | 2020-12-01 09:42 | P.PN ---
Subjective Progress Note Date: 12/01/20 Patient is doing about the same compared to yesterday. She is still tachypneic and requiring 100% FiO2 on BiPAP. Patient told me that she is having significant relief with IV morphine. She has been getting IV morphine every 3 hours for worsening shortness of breath. Objective - Vital Signs Vital signs: Vital Signs Temp 98.5 F 12/01/20 05:28 Pulse 100 12/01/20 05:28 Resp 24 12/01/20 05:28 BP 181/83 12/01/20 05:28 Pulse Ox 83 L 12/01/20 05:28 Intake & Output 11/30/20 12/01/20 12/01/20 18:59 06:59 18:59 Output Total 1000 1100 Balance -1000 -1100 Output: Urine 1000 1100 Other: Voiding Method Indwelling Catheter Indwelling Catheter - Exam General: The patient is awake and alert, in no distress Eye: there is normal conjunctiva bilaterally. Neck: The neck is supple, there is no JVD. Cardiovascular: Normal S1-S2, no S3-S4, no murmurs. Respiratory: Lungs clear to auscultation bilaterally with BiPAP sounds Gastrointestinal: Abdomen is soft, nontender Musculoskeletal: There is no pedal edema. Neurological:. Speech is normal. Skin: Skin is warm and dry - Labs CBC & Chem 7: 12/01/20 07:10 12/01/20 07:31 Labs: Abnormal Lab Results - Last 24 Hours (Table) 11/30/20 11/30/20 11/30/20 Range/Units 11:43 16:24 20:14 WBC (3.8-10.6) k/uL Neutrophils # (1.3-7.7) k/uL Monocytes # (0-1.0) k/uL Sodium (137-145) mmol/L BUN (7-17) mg/dL Creatinine (0.52-1.04) mg/dL Glucose (74-99) mg/dL POC Glucose (mg/dL) 196 H 264 H 253 H (75-99) mg/dL Ionized Calcium Nichelle (4.5-5.3) mg/dL 12/01/20 12/01/20 12/01/20 Range/Units 07:10 07:13 07:31 WBC 35.2 H (3.8-10.6) k/uL Neutrophils # 32.4 H (1.3-7.7) k/uL Monocytes # 1.3 H (0-1.0) k/uL Sodium 136 L (137-145) mmol/L BUN 25 H (7-17) mg/dL Creatinine 0.39 L (0.52-1.04) mg/dL Glucose 216 H (74-99) mg/dL POC Glucose (mg/dL) 215 H (75-99) mg/dL Ionized Calcium Nichelle 5.4 H (4.5-5.3) mg/dL Assessment and Plan Assessment: Patient is a 69-year-old female with no significant past medical history who presented to the emergency department secondary to shortness of breath. She had been diagnosed with COVID-19 on 11/11. On arrival to the ER she was hypoxic at 86% on room air. Labs showed a mildly elevated d-dimer at 0.99, she subsequently underwent a CTA of the chest which showed no evidence of pulmonary embolism but did show extensive bilateral pulmonary infiltrates with reactive adenopathy. Her COVID-19 test was again positive. She was admitted for further management. Her O2 requirements increased throughout her hospital stay and currently is in the ICU. COVID-19 pneumonitis acute hypoxic respiratory failure currently on BiPAP managed by diet kitchen cook - Toci given 5/6 - out of the window for remdesivir -Pulmonary recommendations appreciated -Decadron D #12, and switched to IV Solu-Medrol day #5, switch back to Decadron day #1 managed by pulmonology -Started on empiric antibiotic treatment with IV Zosyn day #6 -Pro calcitonin and BNP within normal range -Vitamin C, vitamin D, zinc -Albuterol scheduled and as needed - Lovenox - pulm hygeine -Sputum culture with no significant growth -I would add morphine extended release 15 mg daily to help with symptoms of dyspnea and tachypnea Uncontrolled blood pressure -Started Norvasc 2.5 mg daily -Blood pressure better controlled. We will continue to monitor closely. Steroid-induced leukocytosis Costochonditiris due to above - motrin Overactive bladder - detrol Hyponatremia, resolved Today, I reviewed her medication list and lab work results. Patient is getting TPN in addition to oral feed as tolerated. Registered dietitian following closely. Continue ICU care. Prognosis is guarded CODE STATUS: Discussed with patient by diet kitchen cook. Patient is DO NOT RESUSCITATE/DO NOT INTUBATE DVT prophylaxis: Lovenox Discussed with: patient, nursing Anticipated discharge date: undetermined Anticipated discharge place: pending clinical course A total of 35 minutes was spent on the care of this complex patient more than 50% of the time was spent in counseling and care coordination.
[2020-12-01 12:04] LABS: Glucose,Whole Blood 206 mg/dL (75-99)
[2020-12-01] MEDS: MORPHINE SULFATE ER 15 MG TABLET PO SCH (13:04)
[2020-12-01] MEDS: [UNRECOGNIZED DRUG - MIXTURE] IV SCH ×24 (13:05→22:27)
--- NOTE | 2020-12-01 15:13 | P.PN ---
Subjective Progress Note Date: 12/01/20 Principal diagnosis: Acute Covid related pneumonia There is a 69-year-old female patient with COVID-19 related pneumonia. The patient was already diagnosed having COVID-19 on 11/11/2018. The patient was symptomatic approximately 9 days prior to that. She came into the emergency department on 11/16/2020 and the patient was hospitalized with pneumonia. She was seen by the hospitalist group. She was started on steroids. She was not given Remdesivir as the patient was thought to be outside the window of treatment. Note that the patient was found to be hypoxic with a pulse of 76% on room air at time of admission. D-dimer was 0.99. CT angios gram showed acute breath and pulmonary infiltrates consistent with COVID-19 related pneumonia and her COVID-19 by PCR came back positive. She was initiated on 2 L of oxygen by nasal cannula. Subsequently, she decompensated and she is currently at 8 L per minute nasal cannula for that reason a pulmonary consultation was requested. She is reporting some increased work of breathing. She has a dry cough. No significant sputum production. No angina. No palpitation. No previous history of lung disease or disorder. No nausea. No vomiting. She is able to taste and smell. Her LDH level was 765 and is currently down to 411. The pro calcitonin level is down to 0.18. D-dimer is at 0.8. CBC showed some mild anemia with hemoglobin of 11.7. Otherwise white cell count was 11 and the platelet count was 293. 11/19/2020, seeing patient for a follow-up. The patient is doing well for now. She has no new complaints. She is currently on 6 L of oxygen by nasal cannula with pulse ox of 90%. She is currently on Decadron 6 mg on a daily basis and she's also on Lovenox 40 mg subcu for DVT prophylaxis. IV fluids are running at 75 mL an hour of normal saline. The patient has a d-dimer of 0.8. Her LDH level was a cold the heart was done and it showed preserved LV function and mild pulmonary hypertension. No other new complaints or issues for now. On 11/20/2020 patient seen in follow-up on medical surgical floor. Overnight her oxygen demand has increased, and patient was desaturating into the low 70s with ambulation, and would take a long time to recover, she was placed on 15 L high flow and 100% nonrebreather mask, her pulse ox right now is 90-95%, she seems to breathing comfortably, she is sitting in the recliner, she has been ambulating to the bathroom earlier, however now she is using the bedside commode, she is afebrile, blood pressures are stable, she had no fevers overnight. She continues on Decadron 6 mg daily, and she is on prophylactic dose of Lovenox. Was outside the window for Remdesivir. Today's chest x-ray shows worsening bilateral multifocal and confluent opacities consistent with COVID-19 progression On 11/21/2020 patient seen in intensive care unit, patient was transferred to the intensive care unit this morning with worsening hypoxia and dyspnea, she is currently on BiPAP support with pressures of 14/6 and FiO2 of 100% and her pulse ox is 84% on those settings. Chest x-ray is pending, overnight her oxygenation continued to get worse, but 15 L high flow nasal cannula and nonrebreather mask, and her pulse ox was going into the low 70's. Patient is awake and alert, she is oriented 3, she is anxious, but fairly compliant with the BiPAP support. She has received a dose of Xanax which will be switched to IV Ativan. Denies any chest discomfort, she is tachypneic, her respiratory rate ranging from 17 to mid 20s and sent time 30 times per minute. She is afebrile, hemodynamically she is stable, she is in sinus mechanism. His labs have been reviewed, CBC is within normal limits, d-dimer has increased significantly and is up at 13.18 on today's labs, electrolytes were within normal limits, B1 is 15 creatinine 0.48. Has been an increase in her LDH which is up at 1574, and CRP is currently at 14.9. He remains on Decadron 6 mg daily, she status post Tocilizumab infusion of 800 mg. She was on prophylactic dose of Lovenox which we will increase to 40 mg twice daily. On the 12/01/2020 patient seen in follow-up in intensive care unit. She is still on BiPAP support with pressures of 14/6, and FiO2 of 100%, and she is satting about 83-84%, she is very BiPAP dependent, she rapidly desaturate when removed off BiPAP support even for very brief amount of time. She is afebrile, her breathing is labored with any exertion with any conversation and at rest. She has been unable to come off the BiPAP support to sustain her oral lesions ration, and for that reason she was started on TPN. She was only able to take in some sips of water, her last chest x-ray from 11/29/2020 shows stable diffuse bilateral infiltrates with pleural effusion. Today's labs reviewed showing white blood cell count of 35.2, down trended, her hemoglobin is 13.8, electrolytes were unremarkable, B1 is 25 and creatinine 0.39. Patient has had no recent set of inflammatory markers. He has been on IV Decadron 4 mg every 6 hours, she has been on Lovenox 40 mg twice daily Objective - Vital Signs Vital signs: Vital Signs Temp 98.8 F 12/01/20 10:39 Pulse 108 H 12/01/20 11:01 Resp 22 12/01/20 11:01 BP 188/84 12/01/20 10:39 Pulse Ox 84 L 12/01/20 10:39 Intake & Output 11/30/20 12/01/20 12/01/20 18:59 06:59 18:59 Output Total 1000 1100 Balance -1000 -1100 Weight 88.5 kg Output: Urine 1000 1100 Other: Voiding Method Indwelling Catheter Indwelling Catheter Indwelling Catheter - Exam GENERAL EXAM: Alert, very pleasant, 69-year-old white female, patient has been transferred to the intensive care unit, currently on BiPAP support with pressures of 14/6 and FiO2 of 100%, satting 84%, tachypneic, with a rate ranging from 17-30 times per minute HEAD: Normocephalic/atraumatic. EYES: Normal reaction of pupils, equal size. Conjunctiva pink, sclera white. NOSE: Clear with pink turbinates. THROAT: No erythema or exudates. NECK: No masses, no JVD, no thyroid enlargement, no adenopathy. CHEST: No chest wall deformity. Symmetrical expansion. LUNGS: Equal air entry with no crackles, wheeze, rhonchi or dullness. CVS: Regular rate and rhythm, normal S1 and S2, no gallops, no murmurs, no rubs ABDOMEN: Soft, nontender. No hepatosplenomegaly, normal bowel sounds, no guarding or rigidity. EXTREMITIES: No clubbing, no edema, no cyanosis, 2+ pulses and upper and lower extremities. MUSCULOSKELETAL: Muscle strength and tone normal. SPINE: No scoliosis or deformity SKIN: No rashes CENTRAL NERVOUS SYSTEM: Alert and oriented -3. No focal deficits, tone is normal in all 4 extremities. PSYCHIATRIC: Alert and oriented -3. Appropriate affect. Intact judgment and insight. - Labs CBC & Chem 7: 12/01/20 07:10 12/01/20 07:31 Labs: Abnormal Lab Results - Last 24 Hours (Table) 11/30/20 11/30/20 12/01/20 Range/Units 16:24 20:14 07:10 WBC 35.2 H (3.8-10.6) k/uL Neutrophils # 32.4 H (1.3-7.7) k/uL Monocytes # 1.3 H (0-1.0) k/uL Sodium (137-145) mmol/L BUN (7-17) mg/dL Creatinine (0.52-1.04) mg/dL Glucose (74-99) mg/dL POC Glucose (mg/dL) 264 H 253 H (75-99) mg/dL Ionized Calcium Nichelle (4.5-5.3) mg/dL 12/01/20 12/01/20 12/01/20 Range/Units 07:13 07:31 12:01 WBC (3.8-10.6) k/uL Neutrophils # (1.3-7.7) k/uL Monocytes # (0-1.0) k/uL Sodium 136 L (137-145) mmol/L BUN 25 H (7-17) mg/dL Creatinine 0.39 L (0.52-1.04) mg/dL Glucose 216 H (74-99) mg/dL POC Glucose (mg/dL) 215 H 206 H (75-99) mg/dL Ionized Calcium Nichelle 5.4 H (4.5-5.3) mg/dL Assessment and Plan Plan: Assessment: 1 acute COVID-19 related pneumonia. The patient origin diagnosis was on 11/11 and the patient was symptomatic approximately 9-10 days prior to that. Patient presented to the hospital because of worsening shortness of breath and hypoxemia. Initially she was on 2 L and currently she was brought up to 8 L and transitional 6 L while on Decadron. On 11/20/2020 patient's oxygen and has increased to 15 L high flow 100% nonrebreather. patient's hypoxia and dyspnea progressed and patient was transferred to the intensive care unit on 11/21/2020 and placed on BiPAP support currently 14/6 and FiO2 of 100%. She is status post Tocilizumab 800 mg on 11/20/2020 2 acute hypoxic respiratory failure, progressed, patient failed 100% nonrebreather mask and 15 L high flow and is currently on BiPAP support 3 dyspnea and cough secondary to above 4 mild elevation of the LDH and CRP. 5 overactive bladder Plan: Continue supportive treatment Patient remains BiPAP dependent Continue TPN for nutritional support Switch Decadron to IV Solu-Medrol 60 g every 6 hours Obtain follow-up d-dimer, and inflammatory markers Overall prognosis is poor and guarded We'll continue to follow I performed a history & physical examination of the patient and discussed their management with my nurse practitioner, Amber Mayfield. I reviewed the nurse practitioner's note and agree with the documented findings and plan of care. Lung sounds are positive for diminished breath sounds. The findings and the impression was discussed with the patient. I attest to the documentation by the nurse practitioner. Time with Patient: Less than 30
[2020-12-01] MEDS: methylPREDNISolone SOD SUCCI 125 MG/2 ML VIAL IV SCH ×2 (17:03→23:07)
[2020-12-01 17:15] LABS: Glucose,Whole Blood 186 mg/dL (75-99)
[2020-12-01] MEDS: FAT EMULSION 20% 250 ML in EMPTY BAG 1 BAG IV SCH (19:11)
[2020-12-01] MEDS: CITALOPRAM HYDROBROMIDE 10 MG TAB PO SCH (20:11)
[2020-12-01 21:14] LABS: Glucose,Whole Blood 202 mg/dL (75-99)
[2020-12-02] MEDS: MORPHINE SULFATE 2 MG/ML SYRINGE IV PRN ×7 (02:22→22:05)
[2020-12-02] MEDS: ALPRAZolam 0.25 MG TAB PO PRN ×2 (04:07→13:06)
[2020-12-02] MEDS: methylPREDNISolone SOD SUCCI 125 MG/2 ML VIAL IV SCH ×4 (05:47→23:36)
[2020-12-02 06:52] LABS: Glucose,Whole Blood 249 mg/dL (75-99)
[2020-12-02 07:16] LABS: African American GFR (CKD) >90 (>60 ml/min/1.73 sqM); Anion Gap 7 mmol/L; Blood Urea Nitrogen 23 mg/dL (7-17); C Reactive Protein 0.6 mg/dL (<1.0); Calcium 8.4 mg/dL (8.4-10.2); Carbon Dioxide 27 mmol/L (22-30); Chloride 100 mmol/L (98-107); Glucose 251 mg/dL (74-99); Non-African American GFR(CKD) >90 (>60 ml/min/1.73 sqM); Phosphorus 3.3 mg/dL (2.5-4.5); Potassium 4.4 mmol/L (3.5-5.1); Sodium 134 mmol/L (137-145)
[2020-12-02 07:21] LABS: LDH 4246 U/L (313-618)
[2020-12-02] MEDS: guaiFENesin 600 MG TABLET.ER PO SCH ×2 (08:49→19:56)
[2020-12-02] MEDS: ASCORBIC ACID 500 MG TAB PO SCH (08:49)
[2020-12-02] MEDS: CHOLECALCIFEROL 25 MCG (1000 IU) TABLET PO SCH (08:49)
[2020-12-02] MEDS: amLODIPine 2.5 MG TAB PO SCH (08:49)
[2020-12-02] MEDS: MORPHINE SULFATE ER 15 MG TABLET PO SCH (08:50)
[2020-12-02] MEDS: ZINC SULFATE 220 MG CAP PO SCH (08:50)
[2020-12-02] MEDS: INSULIN ASPART (NovoLOG) 100 UNIT/ML VIAL SQ SCH ×4 (08:50→21:06)
[2020-12-02] MEDS: ENOXAPARIN 40 MG/0.4 ML SYRINGE SQ SCH ×2 (08:54→19:56)
[2020-12-02] MEDS: PANTOPRAZOLE 40 MG/10 ML VIAL IVP SCH (08:54)
[2020-12-02] MEDS: ALBUTEROL HFA INHALER INHALATION SCH ×3 (08:57→21:20)
--- NOTE | 2020-12-02 10:11 | P.PN ---
Subjective Progress Note Date: 12/02/20 Patient is feeling about the same today. She told me that her dyspnea did not improve his long-acting morphine that I started her on. She is feeling more relief with IV morphine. She is currently on BiPAP with 100% FiO2. She is satting in the mid 80s. I tried to take her off of the BiPAP and put her on 15 L high flow nonrebreather to alleviate the pressure on her face caused by the mask that patient's O2 site dropped quickly and she was more dyspneic so BiPAP was placed back on. Objective - Vital Signs Vital signs: Vital Signs Temp 98.2 F 12/02/20 05:26 Pulse 86 12/02/20 05:26 Resp 24 12/02/20 05:26 BP 128/83 12/02/20 05:26 Pulse Ox 85 L 12/02/20 05:26 Intake & Output 12/01/20 12/02/20 12/02/20 18:59 06:59 18:59 Intake Total 843 Output Total 1200 Balance -357 Weight 88.5 kg Intake: Intake, IV Titration 843 Amount Sodium Chloride 4Meq/ml 843 Vial 72 meq Magnesium Sulfate gm 0.5 gm Sodium Phosphate 15 mmol Potassium Acetate 10 meq In Amino Acid 5%-D15w 1, 000 ml @ 90 mls/hr IV .BY DURATION FORMERLY [facility], 1928–1983 Rx#: [id number] Output: Urine 1200 Other: Voiding Method Indwelling Catheter Indwelling Catheter - Exam General: The patient is awake and alert, in no distress Eye: there is normal conjunctiva bilaterally. Neck: The neck is supple, there is no JVD. Cardiovascular: Normal S1-S2, no S3-S4, no murmurs. Respiratory: Lungs clear to auscultation bilaterally with BiPAP sounds Gastrointestinal: Abdomen is soft, nontender Musculoskeletal: There is no pedal edema. Neurological:. Speech is normal. Skin: Skin is warm and dry - Labs CBC & Chem 7: 12/01/20 07:10 12/02/20 06:45 Labs: Abnormal Lab Results - Last 24 Hours (Table) 12/01/20 12/01/20 12/01/20 Range/Units 12:01 17:07 21:13 D-Dimer (<0.60) mg/L FEU Sodium (137-145) mmol/L BUN (7-17) mg/dL Creatinine (0.52-1.04) mg/dL Glucose (74-99) mg/dL POC Glucose (mg/dL) 206 H 186 H 202 H (75-99) mg/dL Magnesium (1.6-2.3) mg/dL Lactate Dehydrogenase (313-618) U/L 12/02/20 12/02/20 12/02/20 Range/Units 06:45 06:45 06:45 D-Dimer 7.18 H (<0.60) mg/L FEU Sodium 134 L (137-145) mmol/L BUN 23 H (7-17) mg/dL Creatinine 0.35 L (0.52-1.04) mg/dL Glucose 251 H (74-99) mg/dL POC Glucose (mg/dL) (75-99) mg/dL Magnesium 2.4 H (1.6-2.3) mg/dL Lactate Dehydrogenase 4246 H (313-618) U/L 12/02/20 Range/Units 06:50 D-Dimer (<0.60) mg/L FEU Sodium (137-145) mmol/L BUN (7-17) mg/dL Creatinine (0.52-1.04) mg/dL Glucose (74-99) mg/dL POC Glucose (mg/dL) 249 H (75-99) mg/dL Magnesium (1.6-2.3) mg/dL Lactate Dehydrogenase (313-618) U/L Assessment and Plan Assessment: Patient is a 69-year-old female with no significant past medical history who presented to the emergency department secondary to shortness of breath. She had been diagnosed with COVID-19 on 11/11. On arrival to the ER she was hypoxic at 86% on room air. Labs showed a mildly elevated d-dimer at 0.99, she subsequently underwent a CTA of the chest which showed no evidence of pulmonary embolism but did show extensive bilateral pulmonary infiltrates with reactive adenopathy. Her COVID-19 test was again positive. She was admitted for further management. Her O2 requirements increased throughout her hospital stay and currently is in the ICU. COVID-19 pneumonitis acute hypoxic respiratory failure currently on BiPAP managed by subgrade tester - Toci given 5/6 - out of the window for remdesivir -Pulmonary recommendations appreciated -Decadron D #12, and switched to IV Solu-Medrol day #5, switch back to Decadron day #1, and today switched back to IV Solu-Medrol managed by pulmonology -Started on empiric antibiotic treatment with IV Zosyn finished 7 days course -Pro calcitonin and BNP within normal range -Vitamin C, vitamin D, zinc -Albuterol scheduled and as needed - Lovenox - pulm hygeine -Sputum culture with no significant growth -I added morphine extended release 15 mg daily to help with symptoms of dyspnea and tachypnea. Patient is also getting IV morphine as needed for the same reason Uncontrolled blood pressure -Started Norvasc 2.5 mg daily -Blood pressure better controlled. We will continue to monitor closely. Steroid-induced leukocytosis Costochonditiris due to above - motrin Overactive bladder Hyponatremia, resolved Today, I reviewed her medication list and lab work results. Patient is getting TPN in addition to oral feed as tolerated. Registered dietitian following closely. Prognosis is guarded CODE STATUS: Discussed with patient by subgrade tester during this admission. Patient is DO NOT RESUSCITATE/DO NOT INTUBATE DVT prophylaxis: Lovenox Discussed with: patient, nursing Anticipated discharge date: undetermined Anticipated discharge place: pending clinical course A total of 35 minutes was spent on the care of this complex patient more than 50 % of the time was spent in counseling and care coordination.
[2020-12-02] MEDS: [UNRECOGNIZED DRUG - MIXTURE] IV SCH ×14 (10:28→19:57)
--- NOTE | 2020-12-02 10:34 | XR ---
EXAMINATION TYPE: XR chest 1V portable DATE OF EXAM: 12/02/2020 COMPARISON: 11/29/2020 HISTORY: Covid TECHNIQUE: Single frontal view of the chest is obtained. FINDINGS: Left PICC line with its tip at the distal SVC. Heart size is mildly prominent. Diffuse int erstitial pattern with bibasilar airspace opacities and small effusions. No pneumothorax. IMPRESSION: 1. Stable diffuse bilateral infiltrates with pleural effusions. This is slightly increased since prio r exam. Correlation for pneumonia versus CHF. .
[2020-12-02 11:32] LABS: Glucose,Whole Blood 240 mg/dL (75-99)
--- NOTE | 2020-12-02 13:16 | P.PN ---
Subjective Progress Note Date: 12/02/20 Principal diagnosis: Acute Covid related pneumonia There is a 69-year-old female patient with COVID-19 related pneumonia. The patient was already diagnosed having COVID-19 on 11/11/2018. The patient was symptomatic approximately 9 days prior to that. She came into the emergency department on 11/16/2020 and the patient was hospitalized with pneumonia. She was seen by the hospitalist group. She was started on steroids. She was not given Remdesivir as the patient was thought to be outside the window of treatment. Note that the patient was found to be hypoxic with a pulse of 76% on room air at time of admission. D-dimer was 0.99. CT angios gram showed acute breath and pulmonary infiltrates consistent with COVID-19 related pneumonia and her COVID-19 by PCR came back positive. She was initiated on 2 L of oxygen by nasal cannula. Subsequently, she decompensated and she is currently at 8 L per minute nasal cannula for that reason a pulmonary consultation was requested. She is reporting some increased work of breathing. She has a dry cough. No significant sputum production. No angina. No palpitation. No previous history of lung disease or disorder. No nausea. No vomiting. She is able to taste and smell. Her LDH level was 765 and is currently down to 411. The pro calcitonin level is down to 0.18. D-dimer is at 0.8. CBC showed some mild anemia with hemoglobin of 11.7. Otherwise white cell count was 11 and the platelet count was 293. 11/19/2020, seeing patient for a follow-up. The patient is doing well for now. She has no new complaints. She is currently on 6 L of oxygen by nasal cannula with pulse ox of 90%. She is currently on Decadron 6 mg on a daily basis and she's also on Lovenox 40 mg subcu for DVT prophylaxis. IV fluids are running at 75 mL an hour of normal saline. The patient has a d-dimer of 0.8. Her LDH level was a cold the heart was done and it showed preserved LV function and mild pulmonary hypertension. No other new complaints or issues for now. On 11/20/2020 patient seen in follow-up on medical surgical floor. Overnight her oxygen demand has increased, and patient was desaturating into the low 70s with ambulation, and would take a long time to recover, she was placed on 15 L high flow and 100% nonrebreather mask, her pulse ox right now is 90-95%, she seems to breathing comfortably, she is sitting in the recliner, she has been ambulating to the bathroom earlier, however now she is using the bedside commode, she is afebrile, blood pressures are stable, she had no fevers overnight. She continues on Decadron 6 mg daily, and she is on prophylactic dose of Lovenox. Was outside the window for Remdesivir. Today's chest x-ray shows worsening bilateral multifocal and confluent opacities consistent with COVID-19 progression On 11/21/2020 patient seen in intensive care unit, patient was transferred to the intensive care unit this morning with worsening hypoxia and dyspnea, she is currently on BiPAP support with pressures of 14/6 and FiO2 of 100% and her pulse ox is 84% on those settings. Chest x-ray is pending, overnight her oxygenation continued to get worse, but 15 L high flow nasal cannula and nonrebreather mask, and her pulse ox was going into the low 70's. Patient is awake and alert, she is oriented 3, she is anxious, but fairly compliant with the BiPAP support. She has received a dose of Xanax which will be switched to IV Ativan. Denies any chest discomfort, she is tachypneic, her respiratory rate ranging from 17 to mid 20s and sent time 30 times per minute. She is afebrile, hemodynamically she is stable, she is in sinus mechanism. His labs have been reviewed, CBC is within normal limits, d-dimer has increased significantly and is up at 13.18 on today's labs, electrolytes were within normal limits, B1 is 15 creatinine 0.48. Has been an increase in her LDH which is up at 1574, and CRP is currently at 14.9. He remains on Decadron 6 mg daily, she status post Tocilizumab infusion of 800 mg. She was on prophylactic dose of Lovenox which we will increase to 40 mg twice daily. On the 12/01/2020 patient seen in follow-up in intensive care unit. She is still on BiPAP support with pressures of 14/6, and FiO2 of 100%, and she is satting about 83-84%, she is very BiPAP dependent, she rapidly desaturate when removed off BiPAP support even for very brief amount of time. She is afebrile, her breathing is labored with any exertion with any conversation and at rest. She has been unable to come off the BiPAP support to sustain her oral lesions ration, and for that reason she was started on TPN. She was only able to take in some sips of water, her last chest x-ray from 11/29/2020 shows stable diffuse bilateral infiltrates with pleural effusion. Today's labs reviewed showing white blood cell count of 35.2, down trended, her hemoglobin is 13.8, electrolytes were unremarkable, B1 is 25 and creatinine 0.39. Patient has had no recent set of inflammatory markers. He has been on IV Decadron 4 mg every 6 hours, she has been on Lovenox 40 mg twice daily On 12/02/2020 patient seen in follow-up on medical surgical floor, we didn't like the patient and she is currently sleeping, she has remained BiPAP dependent for the most part, and she still on BiPAP and settings are 14/6, and FiO2 of 100%, she is pulse ox is 82-85%. Patient is afebrile, at times is tachycardic, and patient has been very short of breath and saturating quite rapidly even for short periods of time when the BiPAP was removed. Today's chest x-ray has been reviewed suggesting fluid overload, diffuse bilateral infiltrates and pleural effusions. Patient remains on high-dose IV steroids 60 mg daily 6 hours, she is on intermediate dose of Lovenox a milligram twice daily, and she is on TPN for nutritional support. Objective - Vital Signs Vital signs: Vital Signs Temp 97.8 F 12/02/20 10:00 Pulse 116 H 12/02/20 10:00 Resp 24 12/02/20 10:00 BP 182/99 12/02/20 10:00 Pulse Ox 82 L 12/02/20 10:00 Intake & Output 12/01/20 12/02/20 12/02/20 18:59 06:59 18:59 Intake Total 843 Output Total 1200 Balance -357 Weight 88.5 kg Intake: Intake, IV Titration 843 Amount Sodium Chloride 4Meq/ml 843 Vial 72 meq Magnesium Sulfate gm 0.5 gm Sodium Phosphate 15 mmol Potassium Acetate 10 meq In Amino Acid 5%-D15w 1, 000 ml @ 90 mls/hr IV .BY DURATION [facility] Rx#: [id number] Output: Urine 1200 Other: Voiding Method Indwelling Catheter Indwelling Catheter - Exam GENERAL EXAM: Alert, very pleasant, 69-year-old white female, patient has been transferred to the intensive care unit, currently on BiPAP support with pressures of 14/6 and FiO2 of 100%, satting 84%, tachypneic, with a rate ranging from 17-30 times per minute HEAD: Normocephalic/atraumatic. EYES: Normal reaction of pupils, equal size. Conjunctiva pink, sclera white. NOSE: Clear with pink turbinates. THROAT: No erythema or exudates. NECK: No masses, no JVD, no thyroid enlargement, no adenopathy. CHEST: No chest wall deformity. Symmetrical expansion. LUNGS: Equal air entry with no crackles, wheeze, rhonchi or dullness. CVS: Regular rate and rhythm, normal S1 and S2, no gallops, no murmurs, no rubs ABDOMEN: Soft, nontender. No hepatosplenomegaly, normal bowel sounds, no guarding or rigidity. EXTREMITIES: No clubbing, no edema, no cyanosis, 2+ pulses and upper and lower extremities. MUSCULOSKELETAL: Muscle strength and tone normal. SPINE: No scoliosis or deformity SKIN: No rashes CENTRAL NERVOUS SYSTEM: Alert and oriented -3. No focal deficits, tone is normal in all 4 extremities. PSYCHIATRIC: Alert and oriented -3. Appropriate affect. Intact judgment and insight. - Labs CBC & Chem 7: 12/01/20 07:10 12/02/20 06:45 Labs: Abnormal Lab Results - Last 24 Hours (Table) 12/01/20 12/01/20 12/02/20 Range/Units 17:07 21:13 06:45 D-Dimer (<0.60) mg/L FEU Sodium 134 L (137-145) mmol/L BUN 23 H (7-17) mg/dL Creatinine 0.35 L (0.52-1.04) mg/dL Glucose 251 H (74-99) mg/dL POC Glucose (mg/dL) 186 H 202 H (75-99) mg/dL Magnesium (1.6-2.3) mg/dL Lactate Dehydrogenase 4246 H (313-618) U/L 12/02/20 12/02/20 12/02/20 Range/Units 06:45 06:45 06:50 D-Dimer 7.18 H (<0.60) mg/L FEU Sodium (137-145) mmol/L BUN (7-17) mg/dL Creatinine (0.52-1.04) mg/dL Glucose (74-99) mg/dL POC Glucose (mg/dL) 249 H (75-99) mg/dL Magnesium 2.4 H (1.6-2.3) mg/dL Lactate Dehydrogenase (313-618) U/L 12/02/20 Range/Units 11:31 D-Dimer (<0.60) mg/L FEU Sodium (137-145) mmol/L BUN (7-17) mg/dL Creatinine (0.52-1.04) mg/dL Glucose (74-99) mg/dL POC Glucose (mg/dL) 240 H (75-99) mg/dL Magnesium (1.6-2.3) mg/dL Lactate Dehydrogenase (313-618) U/L Assessment and Plan Plan: Assessment: 1 acute COVID-19 related pneumonia. The patient origin diagnosis was on 11/11/2020 and the patient was symptomatic approximately 9-10 days prior to that. Patient presented to the hospital because of worsening shortness of breath and hypoxemia. Initially she was on 2 L and currently she was brought up to 8 L and transitional 6 L while on Decadron. On 11/20/2020 patient's oxygen and has increased to 15 L high flow 100% nonrebreather. patient's hypoxia and dyspnea progressed and patient was transferred to the intensive care unit on 11/21/2020 and placed on BiPAP support currently 14/6 and FiO2 of 100%. She is status post Tocilizumab 800 mg on 11/20/2020 2 acute hypoxic respiratory failure, progressed, patient failed 100% nonrebreather mask and 15 L high flow and is currently on BiPAP support 3 dyspnea and cough secondary to above 4 mild elevation of the LDH and CRP. 5 overactive bladder Plan: Continue BIPAP support Today's chest x-ray shows possibility of fluid overload We'll start the patient on was given a dose of IV Lasix Continue Solu-Medrol 60 mg every 6 hours Continue current dose Lovenox Follow-up d-dimer and inflammatory markers and chest x-ray tomorrow Prognosis is very poor and guarded We'll continue supportive treatment Patient elected to be DO NOT RESUSCITATE and do not place on mechanical ventilator Continue to closely follow I performed a history & physical examination of the patient and discussed their management with my nurse practitioner, Amber Mayfield. I reviewed the nurse practitioner's note and agree with the documented findings and plan of care. Laurence ng sounds are positive for diminished breath sounds. The findings and the impression was discussed with the patient. I attest to the documentation by the nurse practitioner. Time with Patient: Less than 30
[2020-12-02] MEDS: FUROSEMIDE 10 MG/ML 4 ML VIAL IV SCH (16:12)
[2020-12-02 17:10] LABS: Glucose,Whole Blood 270 mg/dL (75-99)
[2020-12-02] MEDS: CITALOPRAM HYDROBROMIDE 10 MG TAB PO SCH (19:56)
[2020-12-02 20:09] LABS: Glucose,Whole Blood 280 mg/dL (75-99)
[2020-12-03] MEDS: MORPHINE SULFATE 2 MG/ML SYRINGE IV PRN ×10 (00:43→23:03)
[2020-12-03] MEDS: methylPREDNISolone SOD SUCCI 125 MG/2 ML VIAL IV SCH ×4 (05:17→23:02)
[2020-12-03] MEDS: ALPRAZolam 0.5 MG TAB PO PRN ×2 (05:17→15:27)
[2020-12-03 07:08] LABS: Glucose,Whole Blood 252 mg/dL (75-99)
[2020-12-03] MEDS: INSULIN ASPART (NovoLOG) 100 UNIT/ML VIAL SQ SCH ×4 (07:48→20:55)
[2020-12-03] MEDS: PANTOPRAZOLE 40 MG/10 ML VIAL IVP SCH (07:49)
[2020-12-03] MEDS: ENOXAPARIN 40 MG/0.4 ML SYRINGE SQ SCH ×2 (07:49→20:01)
[2020-12-03] MEDS: guaiFENesin 600 MG TABLET.ER PO SCH ×2 (07:50→20:01)
[2020-12-03] MEDS: FUROSEMIDE 10 MG/ML 4 ML VIAL IV SCH ×2 (07:50→20:01)
[2020-12-03] MEDS: MORPHINE SULFATE ER 15 MG TABLET PO SCH (07:50)
[2020-12-03] MEDS: amLODIPine 2.5 MG TAB PO SCH (08:03)
[2020-12-03] MEDS: ASCORBIC ACID 500 MG TAB PO SCH (08:03)
[2020-12-03] MEDS: CHOLECALCIFEROL 25 MCG (1000 IU) TABLET PO SCH (08:03)
[2020-12-03] MEDS: ZINC SULFATE 220 MG CAP PO SCH (08:03)
[2020-12-03 08:06] LABS: ALT 66 U/L (4-34); African American GFR (CKD) >90 (>60 ml/min/1.73 sqM); Albumin 3.5 g/dL (3.5-5.0); Albumin/Globulin Ratio 1.4; Anion Gap 7 mmol/L; Blood Urea Nitrogen 28 mg/dL (7-17); Calcium 8.2 mg/dL (8.4-10.2); Carbon Dioxide 28 mmol/L (22-30); Chloride 101 mmol/L (98-107); Globulin 2.5 g/dL; Glucose 249 mg/dL (74-99); Non-African American GFR(CKD) >90 (>60 ml/min/1.73 sqM); Sodium 136 mmol/L (137-145); Total Bilirubin 1.1 mg/dL (0.2-1.3)
[2020-12-03 08:08] LABS: Magnesium 2.3 mg/dL (1.6-2.3); Phosphorus 3.4 mg/dL (2.5-4.5); Potassium 4.6 mmol/L (3.5-5.1)
[2020-12-03 08:09] LABS: AST 59 U/L (14-36); Alkaline Phosphatase 148 U/L (38-126)
[2020-12-03 08:14] LABS: Ionized Calcium 4.5 mg/dL (4.5-5.3)
[2020-12-03] MEDS: [UNRECOGNIZED DRUG - MIXTURE] IV SCH ×14 (08:40→20:00)
--- NOTE | 2020-12-03 08:49 | XR ---
EXAMINATION TYPE: XR chest 1V portable DATE OF EXAM: 12/03/2020 COMPARISON: 12/02/2020 HISTORY: Covid TECHNIQUE: Single frontal view of the chest is obtained. FINDINGS: Left PICC line with its tip at the distal SVC. Heart size is mildly prominent. Diffuse int erstitial pattern with bibasilar airspace opacities has mildly decreased. Tiny pleural effusions. No pneumothorax. IMPRESSION: Mildly decreased diffuse bilateral infiltrates with tiny pleural effusions. Mild cardiomegaly is sta ble. .
[2020-12-03] MEDS: ALBUTEROL HFA INHALER INHALATION SCH ×3 (08:53→20:40)
[2020-12-03 11:06] LABS: Glucose,Whole Blood 367 mg/dL (75-99)
[2020-12-03 12:19] LABS: HCT 43.4 % (34.0-46.0); HGB 13.5 gm/dL (11.4-16.0); MCH 31.6 pg (25.0-35.0); MCHC 31.2 g/dL (31.0-37.0); MCV 101.5 fL (80.0-100.0); Macrocytosis Slight; Mean Platelet Volume 9.2; Platelet Count 244 k/uL (150-450); RBC 4.28 m/uL (3.80-5.40); RDW 14.1 % (11.5-15.5); WBC 42.4 k/uL (3.8-10.6)
--- NOTE | 2020-12-03 13:41 | P.PN ---
Subjective Progress Note Date: 12/03/20 Principal diagnosis: Acute Covid related pneumonia There is a 69-year-old female patient with COVID-19 related pneumonia. The patient was already diagnosed having COVID-19 on 11/11/2018. The patient was symptomatic approximately 9 days prior to that. She came into the emergency department on 11/16/2020 and the patient was hospitalized with pneumonia. She was seen by the hospitalist group. She was started on steroids. She was not given Remdesivir as the patient was thought to be outside the window of treatment. Note that the patient was found to be hypoxic with a pulse of 76% on room air at time of admission. D-dimer was 0.99. CT angios gram showed acute breath and pulmonary infiltrates consistent with COVID-19 related pneumonia and her COVID-19 by PCR came back positive. She was initiated on 2 L of oxygen by nasal cannula. Subsequently, she decompensated and she is currently at 8 L per minute nasal cannula for that reason a pulmonary consultation was requested. She is reporting some increased work of breathing. She has a dry cough. No significant sputum production. No angina. No palpitation. No previous history of lung disease or disorder. No nausea. No vomiting. She is able to taste and smell. Her LDH level was 765 and is currently down to 411. The pro calcitonin level is down to 0.18. D-dimer is at 0.8. CBC showed some mild anemia with hemoglobin of 11.7. Otherwise white cell count was 11 and the platelet count was 293. 11/19/2020, seeing patient for a follow-up. The patient is doing well for now. She has no new complaints. She is currently on 6 L of oxygen by nasal cannula with pulse ox of 90%. She is currently on Decadron 6 mg on a daily basis and she's also on Lovenox 40 mg subcu for DVT prophylaxis. IV fluids are running at 75 mL an hour of normal saline. The patient has a d-dimer of 0.8. Her LDH level was a cold the heart was done and it showed preserved LV function and mild pulmonary hypertension. No other new complaints or issues for now. On 11/20/2020 patient seen in follow-up on medical surgical floor. Overnight her oxygen demand has increased, and patient was desaturating into the low 70s with ambulation, and would take a long time to recover, she was placed on 15 L high flow and 100% nonrebreather mask, her pulse ox right now is 90-95%, she seems to breathing comfortably, she is sitting in the recliner, she has been ambulating to the bathroom earlier, however now she is using the bedside commode, she is afebrile, blood pressures are stable, she had no fevers overnight. She continues on Decadron 6 mg daily, and she is on prophylactic dose of Lovenox. Was outside the window for Remdesivir. Today's chest x-ray shows worsening bilateral multifocal and confluent opacities consistent with COVID-19 progression On 11/21/2020 patient seen in intensive care unit, patient was transferred to the intensive care unit this morning with worsening hypoxia and dyspnea, she is currently on BiPAP support with pressures of 14/6 and FiO2 of 100% and her pulse ox is 84% on those settings. Chest x-ray is pending, overnight her oxygenation continued to get worse, but 15 L high flow nasal cannula and nonrebreather mask, and her pulse ox was going into the low 70's. Patient is awake and alert, she is oriented 3, she is anxious, but fairly compliant with the BiPAP support. She has received a dose of Xanax which will be switched to IV Ativan. Denies any chest discomfort, she is tachypneic, her respiratory rate ranging from 17 to mid 20s and sent time 30 times per minute. She is afebrile, hemodynamically she is stable, she is in sinus mechanism. His labs have been reviewed, CBC is within normal limits, d-dimer has increased significantly and is up at 13.18 on today's labs, electrolytes were within normal limits, B1 is 15 creatinine 0.48. Has been an increase in her LDH which is up at 1574, and CRP is currently at 14.9. He remains on Decadron 6 mg daily, she status post Tocilizumab infusion of 800 mg. She was on prophylactic dose of Lovenox which we will increase to 40 mg twice daily. On the 12/01/2020 patient seen in follow-up in intensive care unit. She is still on BiPAP support with pressures of 14/6, and FiO2 of 100%, and she is satting about 83-84%, she is very BiPAP dependent, she rapidly desaturate when removed off BiPAP support even for very brief amount of time. She is afebrile, her breathing is labored with any exertion with any conversation and at rest. She has been unable to come off the BiPAP support to sustain her oral lesions ration, and for that reason she was started on TPN. She was only able to take in some sips of water, her last chest x-ray from 11/29/2020 shows stable diffuse bilateral infiltrates with pleural effusion. Today's labs reviewed showing white blood cell count of 35.2, down trended, her hemoglobin is 13.8, electrolytes were unremarkable, B1 is 25 and creatinine 0.39. Patient has had no recent set of inflammatory markers. He has been on IV Decadron 4 mg every 6 hours, she has been on Lovenox 40 mg twice daily On 12/02/2020 patient seen in follow-up on medical surgical floor, we didn't like the patient and she is currently sleeping, she has remained BiPAP dependent for the most part, and she still on BiPAP and settings are 14/6, and FiO2 of 100%, she is pulse ox is 82-85%. Patient is afebrile, at times is tachycardic, and patient has been very short of breath and saturating quite rapidly even for short periods of time when the BiPAP was removed. Today's chest x-ray has been reviewed suggesting fluid overload, diffuse bilateral infiltrates and pleural effusions. Patient remains on high-dose IV steroids 60 mg daily 6 hours, she is on intermediate dose of Lovenox a milligram twice daily, and she is on TPN for nutritional support. On 12/03/2020 patient seen in follow-up on medical surgical floor, patient continues to be BiPAP dependent, with settings 14/60 and FiO2 of 100%. She is very dyspneic, she has not been able to tolerate being off BiPAP at all other than very brief periods of time to take a sip of water and meds. She has not been able to take in much by mouth, for that reason she remains on TPN for nutritional support. Yesterday we started the patient on diuretics on which she remains with Lasix 40 mg daily, she remains on high-dose steroids Solu-Medrol 60 mg daily, she remains on Lovenox at intermediate dosing 40 mg subcu twice a day. Today's chest x-ray shows mildly decreased diffuse bilateral infiltrates with tiny pleural effusions. Dr. Martínez spoke to the patient's daughter at length yesterday on the phone. Updated on patient's medical condition, and lack of improvement despite treatment. At this time patient remains a DO NOT RESUSCITATE per her own wishes. She has not made significant improvements despite the treatment. She is very short of breath, she relies on IV morphine pushes for dyspnea relief. Today's labs have been reviewed, her white blood cell count is 42.4, hemoglobin is 13.4, electrolytes are within normal limits, her d-dimer is down trending some, but still elevated at 6.65. B1 is 28, creatinine 0.35. Her LDH from yesterday was still significantly elevated at 4246, and CRP was 0.6. In the last 24 hours patient is in -2.39 fluid balance and today's chest x-ray shows mildly decreased diffuse bilateral infiltrates with tiny pleural effusions. Objective - Vital Signs Vital signs: Vital Signs Temp 98.4 F 12/03/20 10:00 Pulse 110 H 12/03/20 10:00 Resp 34 H 12/03/20 10:00 BP 155/74 12/03/20 10:00 Pulse Ox 80 L 12/03/20 10:00 Intake & Output 12/02/20 12/03/20 12/03/20 18:59 06:59 18:59 Intake Total 1192 Output Total 2700 800 Balance -2700 392 Weight 91.5 kg Intake: Intake, IV Titration 1042 Amount Sodium Chloride 4Meq/ml 1042 Vial 72 meq Potassium Chloride 16 meq Sodium Phosphate 15 mmol Mvi, Adult No.4 with Vit K 10 ml Trace (Conc-1Ml/Dose) 1 ml In Amino Acid 5%- D15w 1,000 ml @ 90 mls/hr IV .BY DURATION [facility] Rx#: [id number] Oral 150 Output: Urine 2700 800 Other: Voiding Method Indwelling Catheter Indwelling Catheter Indwelling Catheter - Exam GENERAL EXAM: Alert, short of breath 69-year-old white female, currently on BiPAP support with pressures of 14/6 and FiO2 of 100%, satting 84%, tachypneic, with a rate ranging from 17-30 times per minute HEAD: Normocephalic/atraumatic. EYES: Normal reaction of pupils, equal size. Conjunctiva pink, sclera white. NOSE: Clear with pink turbinates. THROAT: No erythema or exudates. NECK: No masses, no JVD, no thyroid enlargement, no adenopathy. CHEST: No chest wall deformity. Symmetrical expansion. LUNGS: Equal air entry with no crackles, wheeze, rhonchi or dullness. CVS: Regular rate and rhythm, normal S1 and S2, no gallops, no murmurs, no rubs ABDOMEN: Soft, nontender. No hepatosplenomegaly, normal bowel sounds, no guarding or rigidity. EXTREMITIES: No clubbing, no edema, no cyanosis, 2+ pulses and upper and lower extremities. MUSCULOSKELETAL: Muscle strength and tone normal. SPINE: No scoliosis or deformity SKIN: No rashes CENTRAL NERVOUS SYSTEM: Alert and oriented -3. No focal deficits, tone is normal in all 4 extremities. PSYCHIATRIC: Alert and oriented -3. Appropriate affect. Intact judgment and insight. - Labs CBC & Chem 7: 12/03/20 11:48 12/03/20 06:41 Labs: Abnormal Lab Results - Last 24 Hours (Table) 12/02/20 12/02/20 12/03/20 Range/Units 17:06 20:07 06:41 WBC (3.8-10.6) k/uL MCV (80.0-100.0) fL D-Dimer (<0.60) mg/L FEU Sodium 136 L (137-145) mmol/L BUN 28 H (7-17) mg/dL Creatinine 0.35 L (0.52-1.04) mg/dL Glucose 249 H (74-99) mg/dL POC Glucose (mg/dL) 270 H 280 H (75-99) mg/dL Calcium 8.2 L (8.4-10.2) mg/dL AST 59 H (14-36) U/L ALT 66 H (4-34) U/L Alkaline Phosphatase 148 H (38-126) U/L Total Protein 6.0 L (6.3-8.2) g/dL Triglycerides 261.0 H (0.0-149.0) mg/dL 12/03/20 12/03/20 12/03/20 Range/Units 06:41 07:07 11:03 WBC (3.8-10.6) k/uL MCV (80.0-100.0) fL D-Dimer 6.65 H (<0.60) mg/L FEU Sodium (137-145) mmol/L BUN (7-17) mg/dL Creatinine (0.52-1.04) mg/dL Glucose (74-99) mg/dL POC Glucose (mg/dL) 252 H 367 H (75-99) mg/dL Calcium (8.4-10.2) mg/dL AST (14-36) U/L ALT (4-34) U/L Alkaline Phosphatase (38-126) U/L Total Protein (6.3-8.2) g/dL Triglycerides (0.0-149.0) mg/dL 12/03/20 Range/Units 11:48 WBC 42.4 H (3.8-10.6) k/uL MCV 101.5 H (80.0-100.0) fL D-Dimer (<0.60) mg/L FEU Sodium (137-145) mmol/L BUN (7-17) mg/dL Creatinine (0.52-1.04) mg/dL Glucose (74-99) mg/dL POC Glucose (mg/dL) (75-99) mg/dL Calcium (8.4-10.2) mg/dL AST (14-36) U/L ALT (4-34) U/L Alkaline Phosphatase (38-126) U/L Total Protein (6.3-8.2) g/dL Triglycerides (0.0-149.0) mg/dL Assessment and Plan Plan: Assessment: #1. Acute hypoxic respiratory failure related to COVID-19 related pneumonia. The patient origin diagnosis was on 11/11/2020 and the patient was symptomatic approximately 9-10 days prior to that. Patient presented to the hospital because of worsening shortness of breath and hypoxemia. Initially she was on 2 L and currently she was brought up to 8 L and transitional 6 L while on Decadron. On 11/20/2020 patient's oxygen and has increased to 15 L high flow 100% nonrebreather. patient's hypoxia and dyspnea progressed and patient was transferred to the intensive care unit on 11/21/2020 and placed on BiPAP support currently 14/6 and FiO2 of 100%. She is status post Tocilizumab 800 mg on 11/20/2020 #2. Fluid overload, possibly acute exacerbation of CHF, and echocardiogram showed preserved LV function #3. Acute leukocytosis, we will obtain blood cultures, sputum culture and urine culture. We will obtain pro-calcitonin level #4. Elevated inflammatory markers related to acute COVID-19 pneumonia Plan: Today's white blood cell count remains elevated We'll send blood cultures (one from PICC line, one periph), sputum culture if able, and urinalysis with urine culture Consider possibility of a fungal infection We'll send a pro-calcitonin level Chest x-ray has improved in response to diuretics, we will increase the Lasix to twice daily Follow-up chest x-ray tomorrow Follow-up basic labs and daily d-dimer Continue current dose Solu-Medrol and Lovenox Continue BIPAP support We'll continue supportive treatment Continue to closely follow I performed a history & physical examination of the patient and discussed their management with my nurse practitioner, Amber Mayfield. I reviewed the nurse practitioner's note and agree with the documented findings and plan of care. Lung sounds are positive for diminished breath sounds. The findings and the impression was discussed with the patient. I attest to the documentation by the nurse practitioner. Time with Patient: Less than 30
[2020-12-03] MEDS ORDERED: VORICONAZOLE 200 MG in SODIUM CHLORIDE 0.9% 100 ML IVPB SCH (13:45)
[2020-12-03 14:52] LABS: Anisocytosis (M) Present; Band Neutrophils % 1 %; Lymphocytes # (M) 1.27 k/uL (1.0-4.8); Metamyelocytes # (M) 0.85 k/uL (0); Metamyelocytes % 2 %; Monocytes # (M) 2.97 k/uL (0-1.0); Myelocytes # (M) 0.42 k/uL (0); Myelocytes % 1 %; Neutrophils % (M) 88 %; Nucleated Red Blood Cells 0 /100 WBC (0-0); Polychromasia Present; Total Cells Counted 200
[2020-12-03 14:53] LABS: Poikilocytosis (M) Present
[2020-12-03 16:53] LABS: Glucose,Whole Blood 278 mg/dL (75-99)
[2020-12-03] MEDS: SODIUM CHLORIDE 0.9% IVPB SCH (17:06)
[2020-12-03] MEDS: VORICONAZOLE IVPB SCH (17:06)
[2020-12-03 18:26] LABS: Appearance,Urine Clear (Clear); Bilirubin,Urine Negative (Negative); Blood,Urine Negative (Negative); Color,Urine Yellow; Glucose,Urine (UA) 4+ (Negative); Hyaline Casts,Urine 1 /lpf (0-2); Ketones,Urine Negative (Negative); Leukocyte Esterase,Urine Trace (Negative); Mucus,Urine Rare /hpf; Nitrite,Urine Negative (Negative); Protein,Urine Trace (Negative); Specific Gravity,Urine 1.024 (1.001-1.035); Urobilinogen,Urine <2.0 mg/dL (<2.0); WBC,Urine 11 /hpf (0-5)
--- NOTE | 2020-12-03 18:45 | P.PN ---
Subjective Progress Note Date: 12/03/20 (delayed charting seen at 1045) Principal diagnosis: Shortness of breath Patient is a 69-year-old female with no significant past medical history who presented to the emergency department secondary to shortness of breath. She had been diagnosed with COVID-19 on 11/11. On arrival to the ER she was hypoxic at 86% on room air. Labs showed a mildly elevated d-dimer at 0.99, she subsequently underwent a CTA of the chest which showed no evidence of pulmonary embolism but did show extensive bilateral pulmonary infiltrates with reactive adenopathy. Her COVID-19 test was again positive. She was given a dose of Tylenol, Motrin, and Decadron area and she was admitted for further management. Her O2 requirements increased to 4 L by the morning of 11/17. She continued to have some abdominal pain which she described as spasms. On the morning of 11/18 she had continued shortness of breath. She had some improvement in her abdominal quivering. On the morning of 11/20 her oxygen requirement went up to 15 L nonrebreather she was given a dose of Toci. On the morning of 11/21 her breathing again worsened and she was transferred to the ICU and BiPAP was initiated. Patient seen and examined at bedside. States she is doing fine, is still feeling short of breath and tired. Having a dry mouth. Pain is much better than when I saw her last. General: Ill appearing, mild distress, appears at stated age Derm: warm, dry Head: atraumatic, normocephalic, symmetric Eyes: EOMI, no lid lag, anicteric sclera Mouth: no lip lesion, mucus membranes dry Cardiovascular: S1S2 reg, no murmur, positive posterior tibial pulse bilateral, Lungs: Coarse breath sounds bilateral, + conversational dyspnea, + accessory muscle use, on Bipap Abdominal: soft, nontender to palpation, no guarding, no appreciable organomegaly Ext: no gross muscle atrophy, no edema, no contractures Neuro: CN II-XI grossly intact, no focal neuro deficits Psych: Alert, oriented, appropriate affect COVID-19 pneumonitis acute hypoxic respiratory failure, transaminitis - Toci given 11/20 - out of the window for remdesivir -Pulmonary recommendations appreciated -Decadron D #12, and switched to IV Solu-Medrol day #5, switch back to Decadron day #1, and today switched back to IV Solu-Medrol managed by pulmonology -Started on empiric antibiotic treatment with IV Zosyn finished 7 days course -Vitamin C, vitamin D, zinc -Albuterol scheduled and as needed - Lovenox - pulm hygeine - morphine for shortness of breath Leukocytosis -Blood cultures, sputum culture if able, and urinalysis ordered by pulmonary -Await pro-calcitonin -Concern for possible fungal infection secondary to TPN. Uncontrolled blood pressure - Norvasc 2.5 mg daily -Blood pressure better controlled. We will continue to monitor closely. Overactive bladder - detrol Hyponatremia, resolved Costochonditiris, resolved Abdominal discomfort, improved DVT prophylaxis: Lovenox Discussed with: patient, nursing Anticipated discharge date: undetermined Anticipated discharge place: pending clinical course A total of 35 minutes was spent on the care of this complex patient more than 50% of the time was spent in counseling and care coordination. Objective - Vital Signs Vital signs: Vital Signs Temp 98.1 F 12/03/20 18:00 Pulse 121 H 12/03/20 18:00 Resp 21 12/03/20 18:00 BP 147/83 12/03/20 18:00 Pulse Ox 100 12/03/20 18:00 Intake & Output 12/02/20 12/03/20 12/03/20 18:59 06:59 18:59 Intake Total 1192 Output Total 2700 800 2000 Balance -2700 392 -2000 Weight 91.5 kg 91.5 kg Intake: Intake, IV Titration 1042 Amount Sodium Chloride 4Meq/ml 1042 Vial 72 meq Potassium Chloride 16 meq Sodium Phosphate 15 mmol Mvi, Adult No.4 with Vit K 10 ml Trace (Conc-1Ml/Dose) 1 ml In Amino Acid 5%- D15w 1,000 ml @ 90 mls/hr IV .BY DURATION [facility] Rx#: [id number] Oral 150 Output: Urine 2700 800 2000 Other: Voiding Method Indwelling Catheter Indwelling Catheter Indwelling Catheter - Labs CBC & Chem 7: 12/03/20 11:48 12/03/20 06:41 Labs: Abnormal Lab Results - Last 24 Hours (Table) 12/02/20 12/03/20 12/03/20 Range/Units 20:07 06:41 06:41 WBC (3.8-10.6) k/uL MCV (80.0-100.0) fL Neutrophils # (Manual) (1.3-7.7) k/uL Monocytes # (Manual) (0-1.0) k/uL Metamyelocytes # (Man) (0) k/uL Myelocytes # (Manual) (0) k/uL D-Dimer 6.65 H (<0.60) mg/L FEU Sodium 136 L (137-145) mmol/L BUN 28 H (7-17) mg/dL Creatinine 0.35 L (0.52-1.04) mg/dL Glucose 249 H (74-99) mg/dL POC Glucose (mg/dL) 280 H (75-99) mg/dL Calcium 8.2 L (8.4-10.2) mg/dL AST 59 H (14-36) U/L ALT 66 H (4-34) U/L Alkaline Phosphatase 148 H (38-126) U/L Total Protein 6.0 L (6.3-8.2) g/dL Triglycerides 261.0 H (0.0-149.0) mg/dL Urine Protein (Negative) Urine Glucose (UA) (Negative) Ur Leukocyte Esterase (Negative) Urine WBC (0-5) /hpf Urine Mucus (None) /hpf 12/03/20 12/03/20 12/03/20 Range/Units 07:07 11:03 11:48 WBC 42.4 H (3.8-10.6) k/uL MCV 101.5 H (80.0-100.0) fL Neutrophils # (Manual) 37.70 H (1.3-7.7) k/uL Monocytes # (Manual) 2.97 H (0-1.0) k/uL Metamyelocytes # (Man) 0.85 H (0) k/uL Myelocytes # (Manual) 0.42 H (0) k/uL D-Dimer (<0.60) mg/L FEU Sodium (137-145) mmol/L BUN (7-17) mg/dL Creatinine (0.52-1.04) mg/dL Glucose (74-99) mg/dL POC Glucose (mg/dL) 252 H 367 H (75-99) mg/dL Calcium (8.4-10.2) mg/dL AST (14-36) U/L ALT (4-34) U/L Alkaline Phosphatase (38-126) U/L Total Protein (6.3-8.2) g/dL Triglycerides (0.0-149.0) mg/dL Urine Protein (Negative) Urine Glucose (UA) (Negative) Ur Leukocyte Esterase (Negative) Urine WBC (0-5) /hpf Urine Mucus (None) /hpf 12/03/20 12/03/20 Range/Units 13:36 16:50 WBC (3.8-10.6) k/uL MCV (80.0-100.0) fL Neutrophils # (Manual) (1.3-7.7) k/uL Monocytes # (Manual) (0-1.0) k/uL Metamyelocytes # (Man) (0) k/uL Myelocytes # (Manual) (0) k/uL D-Dimer (<0.60) mg/L FEU Sodium (137-145) mmol/L BUN (7-17) mg/dL Creatinine (0.52-1.04) mg/dL Glucose (74-99) mg/dL POC Glucose (mg/dL) 278 H (75-99) mg/dL Calcium (8.4-10.2) mg/dL AST (14-36) U/L ALT (4-34) U/L Alkaline Phosphatase (38-126) U/L Total Protein (6.3-8.2) g/dL Triglycerides (0.0-149.0) mg/dL Urine Protein Trace H (Negative) Urine Glucose (UA) 4+ H (Negative) Ur Leukocyte Esterase Trace H (Negative) Urine WBC 11 H (0-5) /hpf Urine Mucus Rare H (None) /hpf
[2020-12-03] MEDS: FAT EMULSION 20% 250 ML in EMPTY BAG 1 BAG IV SCH (19:16)
[2020-12-03] MEDS: CITALOPRAM HYDROBROMIDE 10 MG TAB PO SCH (20:01)
[2020-12-03 20:52] LABS: Glucose,Whole Blood 262 mg/dL (75-99)
[2020-12-04] MEDS: SODIUM CHLORIDE 0.9% IVPB SCH ×2 (02:03→16:10)
[2020-12-04] MEDS: MORPHINE SULFATE 2 MG/ML SYRINGE IV PRN ×8 (02:03→21:41)
[2020-12-04] MEDS: VORICONAZOLE IVPB SCH ×2 (02:03→16:10)
[2020-12-04] MEDS: methylPREDNISolone SOD SUCCI 125 MG/2 ML VIAL IV SCH ×3 (05:37→17:48)
[2020-12-04 07:05] LABS: Glucose,Whole Blood 258 mg/dL (75-99)
[2020-12-04] MEDS: amLODIPine 2.5 MG TAB PO SCH (07:16)
[2020-12-04] MEDS: CHOLECALCIFEROL 25 MCG (1000 IU) TABLET PO SCH (07:16)
[2020-12-04] MEDS: ASCORBIC ACID 500 MG TAB PO SCH (07:17)
[2020-12-04] MEDS: ZINC SULFATE 220 MG CAP PO SCH (07:17)
[2020-12-04] MEDS: ENOXAPARIN 40 MG/0.4 ML SYRINGE SQ SCH ×2 (07:17→21:40)
[2020-12-04] MEDS: MORPHINE SULFATE ER 15 MG TABLET PO SCH (07:17)
[2020-12-04] MEDS: guaiFENesin 600 MG TABLET.ER PO SCH ×2 (07:17→21:41)
[2020-12-04] MEDS: PANTOPRAZOLE 40 MG/10 ML VIAL IVP SCH (07:17)
[2020-12-04] MEDS: FUROSEMIDE 10 MG/ML 4 ML VIAL IV SCH (07:17)
[2020-12-04 07:37] LABS: ALT 111 U/L (4-34); AST 53 U/L (14-36); African American GFR (CKD) >90 (>60 ml/min/1.73 sqM); Albumin 3.9 g/dL (3.5-5.0); Albumin/Globulin Ratio 1.5; Alkaline Phosphatase 151 U/L (38-126); Anion Gap 8 mmol/L; Blood Urea Nitrogen 28 mg/dL (7-17); Calcium 8.6 mg/dL (8.4-10.2); Carbon Dioxide 32 mmol/L (22-30); Chloride 97 mmol/L (98-107); Globulin 2.6 g/dL; Glucose 260 mg/dL (74-99); Magnesium 2.2 mg/dL (1.6-2.3); Non-African American GFR(CKD) >90 (>60 ml/min/1.73 sqM); Potassium 4.2 mmol/L (3.5-5.1); Sodium 137 mmol/L (137-145); Total Protein 6.5 g/dL (6.3-8.2)
[2020-12-04] MEDS: INSULIN ASPART (NovoLOG) 100 UNIT/ML VIAL SQ SCH ×4 (07:46→21:40)
--- NOTE | 2020-12-04 07:58 | XR ---
EXAMINATION TYPE: XR chest 1V portable DATE OF EXAM: 12/04/2020 COMPARISON: 12/03/2020 HISTORY: Covid TECHNIQUE: Single frontal view of the chest is obtained. FINDINGS: Left PICC line with its tip at the distal SVC. Heart size is mildly enlarged. Diffuse inte rstitial pattern with bibasilar airspace opacities has slightly increased. Small bilateral pleural ef fusions. No pneumothorax. IMPRESSION: Mild cardiomegaly. Diffuse bilateral interstitial airspace opacities with superimposed patchy bibasil ar airspace opacities. Small bilateral pleural effusions. These findings have slightly increased.
[2020-12-04 07:59] LABS: HCT 43.5 % (34.0-46.0); HGB 14.9 gm/dL (11.4-16.0); MCHC 34.3 g/dL (31.0-37.0); MCV 102.1 fL (80.0-100.0); Macrocytosis Slight; Mean Platelet Volume 8.9; Platelet Count 255 k/uL (150-450); RBC 4.26 m/uL (3.80-5.40); RDW 13.5 % (11.5-15.5); WBC 40.8 k/uL (3.8-10.6)
[2020-12-04] MEDS: [UNRECOGNIZED DRUG - MIXTURE] IV SCH ×14 (08:33→10:33)
[2020-12-04] MEDS: ALBUTEROL HFA INHALER INHALATION SCH ×3 (08:38→20:06)
[2020-12-04 10:31] LABS: Band Neutrophils % 3 %; Lymphocytes # (M) 1.22 k/uL (1.0-4.8); Metamyelocytes # (M) 0.41 k/uL (0); Metamyelocytes % 1 %; Monocytes # (M) 2.45 k/uL (0-1.0); Myelocytes # (M) 0.41 k/uL (0); Myelocytes % 1 %; Neutrophils % (M) 88 %; Nucleated Red Blood Cells 0 /100 WBC (0-0); Total Cells Counted 200
[2020-12-04 10:42] LABS: Polychromasia Present
[2020-12-04 11:52] LABS: Glucose,Whole Blood 299 mg/dL (75-99)
--- NOTE | 2020-12-04 12:43 | P.PN ---
Subjective Progress Note Date: 12/04/20 Principal diagnosis: Acute Covid related pneumonia There is a 69-year-old female patient with COVID-19 related pneumonia. The patient was already diagnosed having COVID-19 on 11/11/2018. The patient was symptomatic approximately 9 days prior to that. She came into the emergency department on 11/16/2020 and the patient was hospitalized with pneumonia. She was seen by the hospitalist group. She was started on steroids. She was not given Remdesivir as the patient was thought to be outside the window of treatment. Note that the patient was found to be hypoxic with a pulse of 76% on room air at time of admission. D-dimer was 0.99. CT angios gram showed acute breath and pulmonary infiltrates consistent with COVID-19 related pneumonia and her COVID-19 by PCR came back positive. She was initiated on 2 L of oxygen by nasal cannula. Subsequently, she decompensated and she is currently at 8 L per minute nasal cannula for that reason a pulmonary consultation was requested. She is reporting some increased work of breathing. She has a dry cough. No significant sputum production. No angina. No palpitation. No previous history of lung disease or disorder. No nausea. No vomiting. She is able to taste and smell. Her LDH level was 765 and is currently down to 411. The pro calcitonin level is down to 0.18. D-dimer is at 0.8. CBC showed some mild anemia with hemoglobin of 11.7. Otherwise white cell count was 11 and the platelet count was 293. 11/19/2020, seeing patient for a follow-up. The patient is doing well for now. She has no new complaints. She is currently on 6 L of oxygen by nasal cannula with pulse ox of 90%. She is currently on Decadron 6 mg on a daily basis and she's also on Lovenox 40 mg subcu for DVT prophylaxis. IV fluids are running at 75 mL an hour of normal saline. The patient has a d-dimer of 0.8. Her LDH level was a cold the heart was done and it showed preserved LV function and mild pulmonary hypertension. No other new complaints or issues for now. On 11/20/2020 patient seen in follow-up on medical surgical floor. Overnight her oxygen demand has increased, and patient was desaturating into the low 70s with ambulation, and would take a long time to recover, she was placed on 15 L high flow and 100% nonrebreather mask, her pulse ox right now is 90-95%, she seems to breathing comfortably, she is sitting in the recliner, she has been ambulating to the bathroom earlier, however now she is using the bedside commode, she is afebrile, blood pressures are stable, she had no fevers overnight. She continues on Decadron 6 mg daily, and she is on prophylactic dose of Lovenox. Was outside the window for Remdesivir. Today's chest x-ray shows worsening bilateral multifocal and confluent opacities consistent with COVID-19 progression On 11/21/2020 patient seen in intensive care unit, patient was transferred to the intensive care unit this morning with worsening hypoxia and dyspnea, she is currently on BiPAP support with pressures of 14/6 and FiO2 of 100% and her pulse ox is 84% on those settings. Chest x-ray is pending, overnight her oxygenation continued to get worse, but 15 L high flow nasal cannula and nonrebreather mask, and her pulse ox was going into the low 70's. Patient is awake and alert, she is oriented 3, she is anxious, but fairly compliant with the BiPAP support. She has received a dose of Xanax which will be switched to IV Ativan. Denies any chest discomfort, she is tachypneic, her respiratory rate ranging from 17 to mid 20s and sent time 30 times per minute. She is afebrile, hemodynamically she is stable, she is in sinus mechanism. His labs have been reviewed, CBC is within normal limits, d-dimer has increased significantly and is up at 13.18 on today's labs, electrolytes were within normal limits, B1 is 15 creatinine 0.48. Has been an increase in her LDH which is up at 1574, and CRP is currently at 14.9. He remains on Decadron 6 mg daily, she status post Tocilizumab infusion of 800 mg. She was on prophylactic dose of Lovenox which we will increase to 40 mg twice daily. On the 12/01/2020 patient seen in follow-up in intensive care unit. She is still on BiPAP support with pressures of 14/6, and FiO2 of 100%, and she is satting about 83-84%, she is very BiPAP dependent, she rapidly desaturate when removed off BiPAP support even for very brief amount of time. She is afebrile, her breathing is labored with any exertion with any conversation and at rest. She has been unable to come off the BiPAP support to sustain her oral lesions ration, and for that reason she was started on TPN. She was only able to take in some sips of water, her last chest x-ray from 11/29/2020 shows stable diffuse bilateral infiltrates with pleural effusion. Today's labs reviewed showing white blood cell count of 35.2, down trended, her hemoglobin is 13.8, electrolytes were unremarkable, B1 is 25 and creatinine 0.39. Patient has had no recent set of inflammatory markers. He has been on IV Decadron 4 mg every 6 hours, she has been on Lovenox 40 mg twice daily On 12/02/2020 patient seen in follow-up on medical surgical floor, we didn't like the patient and she is currently sleeping, she has remained BiPAP dependent for the most part, and she still on BiPAP and settings are 14/6, and FiO2 of 100%, she is pulse ox is 82-85%. Patient is afebrile, at times is tachycardic, and patient has been very short of breath and saturating quite rapidly even for short periods of time when the BiPAP was removed. Today's chest x-ray has been reviewed suggesting fluid overload, diffuse bilateral infiltrates and pleural effusions. Patient remains on high-dose IV steroids 60 mg daily 6 hours, she is on intermediate dose of Lovenox a milligram twice daily, and she is on TPN for nutritional support. On 12/03/2020 patient seen in follow-up on medical surgical floor, patient continues to be BiPAP dependent, with settings 14/60 and FiO2 of 100%. She is very dyspneic, she has not been able to tolerate being off BiPAP at all other than very brief periods of time to take a sip of water and meds. She has not been able to take in much by mouth, for that reason she remains on TPN for nutritional support. Yesterday we started the patient on diuretics on which she remains with Lasix 40 mg daily, she remains on high-dose steroids Solu-Medrol 60 mg daily, she remains on Lovenox at intermediate dosing 40 mg subcu twice a day. Today's chest x-ray shows mildly decreased diffuse bilateral infiltrates with tiny pleural effusions. Dr. Martínez spoke to the patient's daughter at length yesterday on the phone. Updated on patient's medical condition, and lack of improvement despite treatment. At this time patient remains a DO NOT RESUSCITATE per her own wishes. She has not made significant improvements despite the treatment. She is very short of breath, she relies on IV morphine pushes for dyspnea relief. Today's labs have been reviewed, her white blood cell count is 42.4, hemoglobin is 13.4, electrolytes are within normal limits, her d-dimer is down trending some, but still elevated at 6.65. B1 is 28, creatinine 0.35. Her LDH from yesterday was still significantly elevated at 4246, and CRP was 0.6. In the last 24 hours patient is in -2.39 fluid balance and today's chest x-ray shows mildly decreased diffuse bilateral infiltrates with tiny pleural effusions. On 12/04/2020 patient seen in follow-up on medical surgical floor. We increased her Lasix yesterday to twice daily, she is a -2.8 net fluid balance over the last 24 hours. Her chest x-ray today shows diffuse bilateral interstitial airspace opacities, with superimposed patchy bibasilar airspace opacities. Small bilateral pleural effusions. Patient continues on IV diuretics, still elle y short of breath still cannot tolerate Airvo trial. She is trying to take sips of water and take some food by mouth under her BiPAP mask, and her BiPAP masks has a significant leak due to the patient constantly lifting up the mass to take sips of water or bites of food. Was readjusted, and patient is achieving very good tidal volumes of up to 800 mL. Her BiPAP settings are 14/6 and FiO2 100%. She remains on TPN for nutritional support. Maintained on Solu-Medrol 60 mg every 6 hours, yesterday we added voriconazole for possibility of sepsis with a possibility of fungal infection, blood cultures have been sent and are pending at this time. Urinalysis showed 4+ glucose, trace leuks, no clear evidence of infection. Pro-calcitonin level came back negative at 0.08. Preliminary sputum Gram stain showed few PMNs, moderate gram-positive cocci, and rare yeast. Await final cultures. His labs have been reviewed and her white blood cell count still elevated at 40.8, hemoglobin is 14.9, renal profile is stable with BUN of 28 and creatinine 0.4 CO2 is 32, chloride is 97. For all patient seems to be breathing a bit more comfortably on today's exam, she still relies heavily on when necessary morphine for anxiety and breathlessness. Lung sounds are positive for equal air entry bilaterally, no wheezing, a few diffuse rhonchi. Objective - Vital Signs Vital signs: Vital Signs Temp 98.2 F 12/04/20 09:22 Pulse 75 12/04/20 09:22 Resp 18 12/04/20 09:22 BP 103/71 12/04/20 09:22 Pulse Ox 84 L 12/04/20 09:22 Intake & Output 12/03/20 12/04/20 12/04/20 18:59 06:59 18:59 Intake Total 1028 1042 1028 Output Total 1999 2900 Balance -972 -1858 1028 Weight 91.5 kg 93.5 kg Intake: Intake, IV Titration 1028 1042 1028 Amount Sodium Chloride 4Meq/ml 1042 Vial 72 meq Potassium Chloride 16 meq Sodium Phosphate 15 mmol Mvi, Adult No.4 with Vit K 10 ml Trace (Conc-1Ml/Dose) 1 ml In Amino Acid 5%- D15w 1,000 ml @ 90 mls/hr IV .BY DURATION [facility] Rx#: [id number] Sodium Chloride 4Meq/ml 1028 1028 Vial 72 meq Sodium Phosphate 15 mmol Potassium Acetate 10 meq In Amino Acid 5%-D15w 1, 000 ml @ 90 mls/hr IV .BY DURATION [facility] Rx#: [id number] Output: Urine 19990 Other: Voiding Method Indwelling Catheter Indwelling Catheter Indwelling Catheter - Exam GENERAL EXAM: Alert, short of breath 69-year-old white female, currently on BiPAP support with pressures of 14/6 and FiO2 of 100%, satting 84-93%, tachypneic, with a rate ranging from 17-30 times per minute HEAD: Normocephalic/atraumatic. EYES: Normal reaction of pupils, equal size. Conjunctiva pink, sclera white. NOSE: Clear with pink turbinates. THROAT: No erythema or exudates. NECK: No masses, no JVD, no thyroid enlargement, no adenopathy. CHEST: No chest wall deformity. Symmetrical expansion. LUNGS: Equal air entry with no crackles, wheeze, rhonchi or dullness. CVS: Regular rate and rhythm, normal S1 and S2, no gallops, no murmurs, no rubs ABDOMEN: Soft, nontender. No hepatosplenomegaly, normal bowel sounds, no gua rding or rigidity. EXTREMITIES: No clubbing, no edema, no cyanosis, 2+ pulses and upper and lower extremities. MUSCULOSKELETAL: Muscle strength and tone normal. SPINE: No scoliosis or deformity SKIN: No rashes CENTRAL NERVOUS SYSTEM: Alert and oriented -3. No focal deficits, tone is normal in all 4 extremities. PSYCHIATRIC: Alert and oriented -3. Appropriate affect. Intact judgment and insight. - Labs CBC & Chem 7: 12/04/20 06:30 12/04/20 06:30 Labs: Abnormal Lab Results - Last 24 Hours (Table) 12/03/20 12/03/20 12/03/20 Range/Units 11:48 13:36 16:50 WBC 42.4 H (3.8-10.6) k/uL MCV 101.5 H (80.0-100.0) fL Neutrophils # (Manual) 37.70 H (1.3-7.7) k/uL Monocytes # (Manual) 2.97 H (0-1.0) k/uL Metamyelocytes # (Man) 0.85 H (0) k/uL Myelocytes # (Manual) 0.42 H (0) k/uL Chloride (98-107) mmol/L Carbon Dioxide (22-30) mmol/L BUN (7-17) mg/dL Creatinine (0.52-1.04) mg/dL Glucose (74-99) mg/dL POC Glucose (mg/dL) 278 H (75-99) mg/dL AST (14-36) U/L ALT (4-34) U/L Alkaline Phosphatase (38-126) U/L Urine Protein Trace H (Negative) Urine Glucose (UA) 4+ H (Negative) Ur Leukocyte Esterase Trace H (Negative) Urine WBC 11 H (0-5) /hpf Urine Mucus Rare H (None) /hpf 12/03/20 12/04/20 12/04/20 Range/Units 20:49 06:30 06:30 WBC 40.8 H (3.8-10.6) k/uL MCV 102.1 H (80.0-100.0) fL Neutrophils # (Manual) 37.10 H (1.3-7.7) k/uL Monocytes # (Manual) 2.45 H (0-1.0) k/uL Metamyelocytes # (Man) 0.41 H (0) k/uL Myelocytes # (Manual) 0.41 H (0) k/uL Chloride 97 L (98-107) mmol/L Carbon Dioxide 32 H (22-30) mmol/L BUN 28 H (7-17) mg/dL Creatinine 0.44 L (0.52-1.04) mg/dL Glucose 260 H (74-99) mg/dL POC Glucose (mg/dL) 262 H (75-99) mg/dL AST 53 H (14-36) U/L ALT 111 H (4-34) U/L Alkaline Phosphatase 151 H (38-126) U/L Urine Protein (Negative) Urine Glucose (UA) (Negative) Ur Leukocyte Esterase (Negative) Urine WBC (0-5) /hpf Urine Mucus (None) /hpf 12/04/20 12/04/20 Range/Units 07:02 11:48 WBC (3.8-10.6) k/uL MCV (80.0-100.0) fL Neutrophils # (Manual) (1.3-7.7) k/uL Monocytes # (Manual) (0-1.0) k/uL Metamyelocytes # (Man) (0) k/uL Myelocytes # (Manual) (0) k/uL Chloride (98-107) mmol/L Carbon Dioxide (22-30) mmol/L BUN (7-17) mg/dL Creatinine (0.52-1.04) mg/dL Glucose (74-99) mg/dL POC Glucose (mg/dL) 258 H 299 H (75-99) mg/dL AST (14-36) U/L ALT (4-34) U/L Alkaline Phosphatase (38-126) U/L Urine Protein (Negative) Urine Glucose (UA) (Negative) Ur Leukocyte Esterase (Negative) Urine WBC (0-5) /hpf Urine Mucus (None) /hpf Microbiology - Last 24 Hours (Table) 12/03/20 20:50 Gram Stain - Preliminary Sputum Sputum Culture - Preliminary 12/03/20 13:36 Urine Culture - Preliminary Urine,Voided Assessment and Plan Plan: Assessment: #1. Acute hypoxic respiratory failure related to COVID-19 related pneumonia. The patient origin diagnosis was on 11/11/2020 and the patient was symptomatic approximately 9-10 days prior to that. Patient presented to the hospital because of worsening shortness of breath and hypoxemia. Initially she was on 2 L and currently she was brought up to 8 L and transitional 6 L while on Decadron. On 11/20/2020 patient's oxygen and has increased to 15 L high flow 100% nonrebreather. patient's hypoxia and dyspnea progressed and patient was transferred to the intensive care unit on 11/21/2020 and placed on BiPAP support currently 14/6 and FiO2 of 100%. She is status post Tocilizumab 800 mg on 11/20/2020 #2. Fluid overload, possibly acute exacerbation of CHF, and echocardiogram showed preserved LV function #3. Acute leukocytosis, we will obtain blood cultures, sputum culture and urine culture. We will obtain pro-calcitonin level #4. Elevated inflammatory markers related to acute COVID-19 pneumonia Plan: Continue BiPAP support Continue Current dose steroids, V-Fend Continue current dose Lovenox Cut back Lasix to once daily Basic labs in another 24 hours Continue TPN for nutritional support Follow-up d-dimer Await final cultures Prognosis is guarded I performed a history & physical examination of the patient and discussed their management with my nurse practitioner, Amber Mayfield. I reviewed the nurse practitioner's note and agree with the documented findings and plan of care. Lung sounds are positive for diminished breath sounds. The findings and the impression was discussed with the patient. I attest to the documentation by the nurse practitioner. Time with Patient: Less than 30
--- NOTE | 2020-12-04 15:29 | P.PN ---
Subjective Progress Note Date: 12/04/20 (delayed charting seen at 1045) Principal diagnosis: Shortness of breath Patient is a 69-year-old female with no significant past medical history who presented to the emergency department secondary to shortness of breath. She had been diagnosed with COVID-19 on 11/11. On arrival to the ER she was hypoxic at 86% on room air. Labs showed a mildly elevated d-dimer at 0.99, she subsequently underwent a CTA of the chest which showed no evidence of pulmonary embolism but did show extensive bilateral pulmonary infiltrates with reactive adenopathy. Her COVID-19 test was again positive. She was given a dose of Tylenol, Motrin, and Decadron area and she was admitted for further management. Her O2 requirements increased to 4 L by the morning of 11/17. She continued to have some abdominal pain which she described as spasms. On the morning of 11/18 she had continued shortness of breath. She had some improvement in her abdominal quivering. On the morning of 11/20 her oxygen requirement went up to 15 L nonrebreather she was given a dose of Toci. On the morning of 11/21 her breathing again worsened and she was transferred to the ICU and BiPAP was initiated. Patient seen and examined at bedside. Take with or taking such good care of her, states her breathing is the same as yesterday, she is feeling hungry today, no other complaints currently. General: Ill appearing, mild distress, appears at stated age Derm: warm, dry Head: atraumatic, normocephalic, symmetric Eyes: EOMI, no lid lag, anicteric sclera Mouth: Lips with cracking, mucus membranes dry Cardiovascular: S1S2 reg, no murmur, positive posterior tibial pulse bilateral, Lungs: Coarse breath sounds bilateral, + conversational dyspnea, + accessory muscle use, on Bipap Abdominal: soft, nontender to palpation, no guarding, no appreciable organomegaly Ext: no gross muscle atrophy, no edema, no contractures Neuro: CN II-XI grossly intact, no focal neuro deficits Psych: Alert, oriented, appropriate affect COVID-19 pneumonitis acute hypoxic respiratory failure, transaminitis - Toci given 11/20 - out of the window for remdesivir -Pulmonary recommendations appreciated -Decadron D #12, and switched to IV Solu-Medrol day #5, switch back to Decadron day #1, and 12/02 switched back to IV Solu-Medrol managed by pulmonology -Started on empiric antibiotic treatment with IV Zosyn finished 7 days course -Vitamin C, vitamin D, zinc -Albuterol scheduled and as needed - Lovenox - pulm hygeine - morphine for shortness of breath Leukocytosis -Blood cultures, sputum culture if able, and urinalysis ordered by pulmonary -so possible fungal but bacterial component ruled out -Concern for possible fungal infection secondary to TPN. Uncontrolled blood pressure - Norvasc 2.5 mg daily -Blood pressure better controlled. We will continue to monitor closely. Overactive bladder - detrol Hyponatremia, resolved Costochonditiris, resolved Abdominal discomfort, improved DVT prophylaxis: Lovenox Discussed with: patient, nursing Anticipated discharge date: undetermined Anticipated discharge place: pending clinical course A total of 35 minutes was spent on the care of this complex patient more than 50% of the time was spent in counseling and care coordination. Objective - Vital Signs Vital signs: Vital Signs Temp 98.2 F 12/04/20 09:22 Pulse 75 12/04/20 09:22 Resp 18 12/04/20 09:22 BP 103/71 12/04/20 09:22 Pulse Ox 84 L 12/04/20 09:22 Intake & Output 12/03/20 12/04/20 12/04/20 18:59 06:59 18:59 Intake Total 1028 1042 1028 Output Total 1999 2899 Balance -972 -1858 1028 Weight 91.5 kg 93.5 kg Intake: Intake, IV Titration 1028 1042 1028 Amount Sodium Chloride 4Meq/ml 1042 Vial 72 meq Potassium Chloride 16 meq Sodium Phosphate 15 mmol Mvi, Adult No.4 with Vit K 10 ml Trace (Conc-1Ml/Dose) 1 ml In Amino Acid 5%- D15w 1,000 ml @ 90 mls/hr IV .BY D[facility]ATION [facility] Rx#: [id number] Sodium Chloride 4Meq/ml 1028 1028 Vial 72 meq Sodium Phosphate 15 mmol Potassium Acetate 10 meq In Amino Acid 5%-D15w 1, 000 ml @ 90 mls/hr IV .BY DURATION [facility] Rx#: [id number] Output: Urine 19990 Other: Voiding Method Indwelling Catheter Indwelling Catheter Indwelling Catheter - Labs CBC & Chem 7: 12/04/20 06:30 12/04/20 06:30 Labs: Abnormal Lab Results - Last 24 Hours (Table) 12/03/20 12/03/20 12/03/20 Range/Units 13:36 16:50 20:49 WBC (3.8-10.6) k/uL MCV (80.0-100.0) fL Neutrophils # (Manual) (1.3-7.7) k/uL Monocytes # (Manual) (0-1.0) k/uL Metamyelocytes # (Man) (0) k/uL Myelocytes # (Manual) (0) k/uL Chloride (98-107) mmol/L Carbon Dioxide (22-30) mmol/L BUN (7-17) mg/dL Creatinine (0.52-1.04) mg/dL Glucose (74-99) mg/dL POC Glucose (mg/dL) 278 H 262 H (75-99) mg/dL AST (14-36) U/L ALT (4-34) U/L Alkaline Phosphatase (38-126) U/L Urine Protein Trace H (Negative) Urine Glucose (UA) 4+ H (Negative) Ur Leukocyte Esterase Trace H (Negative) Urine WBC 11 H (0-5) /hpf Urine Mucus Rare H (None) /hpf 12/04/20 12/04/20 12/04/20 Range/Units 06:30 06:30 07:02 WBC 40.8 H (3.8-10.6) k/uL MCV 102.1 H (80.0-100.0) fL Neutrophils # (Manual) 37.10 H (1.3-7.7) k/uL Monocytes # (Manual) 2.45 H (0-1.0) k/uL Metamyelocytes # (Man) 0.41 H (0) k/uL Myelocytes # (Manual) 0.41 H (0) k/uL Chloride 97 L (98-107) mmol/L Carbon Dioxide 32 H (22-30) mmol/L BUN 28 H (7-17) mg/dL Creatinine 0.44 L (0.52-1.04) mg/dL Glucose 260 H (74-99) mg/dL POC Glucose (mg/dL) 258 H (75-99) mg/dL AST 53 H (14-36) U/L ALT 111 H (4-34) U/L Alkaline Phosphatase 151 H (38-126) U/L Urine Protein (Negative) Urine Glucose (UA) (Negative) Ur Leukocyte Esterase (Negative) Urine WBC (0-5) /hpf Urine Mucus (None) /hpf 12/04/20 Range/Units 11:48 WBC (3.8-10.6) k/uL MCV (80.0-100.0) fL Neutrophils # (Manual) (1.3-7.7) k/uL Monocytes # (Manual) (0-1.0) k/uL Metamyelocytes # (Man) (0) k/uL Myelocytes # (Manual) (0) k/uL Chloride (98-107) mmol/L Carbon Dioxide (22-30) mmol/L BUN (7-17) mg/dL Creatinine (0.52-1.04) mg/dL Glucose (74-99) mg/dL POC Glucose (mg/dL) 299 H (75-99) mg/dL AST (14-36) U/L ALT (4-34) U/L Alkaline Phosphatase (38-126) U/L Urine Protein (Negative) Urine Glucose (UA) (Negative) Ur Leukocyte Esterase (Negative) Urine WBC (0-5) /hpf Urine Mucus (None) /hpf Microbiology - Last 24 Hours (Table) 12/03/20 20:50 Gram Stain - Preliminary Sputum Sputum Culture - Preliminary 12/03/20 13:36 Urine Culture - Preliminary Urine,Voided
[2020-12-04 16:54] LABS: Glucose,Whole Blood 278 mg/dL (75-99)
[2020-12-04 20:39] LABS: Glucose,Whole Blood 281 mg/dL (75-99)
[2020-12-04] MEDS: CITALOPRAM HYDROBROMIDE 10 MG TAB PO SCH (23:00)
[2020-12-05] MEDS: methylPREDNISolone SOD SUCCI 125 MG/2 ML VIAL IV SCH ×4 (00:31→17:51)
[2020-12-05] MEDS: MORPHINE SULFATE 2 MG/ML SYRINGE IV PRN ×9 (00:31→22:12)
[2020-12-05] MEDS: SODIUM CHLORIDE 0.9% IVPB SCH (02:41)
[2020-12-05] MEDS: VORICONAZOLE IVPB SCH (02:41)
[2020-12-05] MEDS: [UNRECOGNIZED DRUG - MIXTURE] IV SCH ×14 (05:23→11:49)
[2020-12-05 07:03] LABS: Glucose,Whole Blood 247 mg/dL (75-99)
[2020-12-05] MEDS: CHOLECALCIFEROL 25 MCG (1000 IU) TABLET PO SCH (07:42)
[2020-12-05] MEDS: MORPHINE SULFATE ER 15 MG TABLET PO SCH (07:42)
[2020-12-05] MEDS: amLODIPine 2.5 MG TAB PO SCH (07:42)
[2020-12-05] MEDS: guaiFENesin 600 MG TABLET.ER PO SCH ×2 (07:42→21:18)
[2020-12-05] MEDS: ASCORBIC ACID 500 MG TAB PO SCH (07:42)
[2020-12-05] MEDS: ZINC SULFATE 220 MG CAP PO SCH (07:43)
[2020-12-05] MEDS: ENOXAPARIN 40 MG/0.4 ML SYRINGE SQ SCH ×2 (07:43→21:18)
[2020-12-05] MEDS: PANTOPRAZOLE 40 MG/10 ML VIAL IVP SCH (07:44)
[2020-12-05] MEDS: FUROSEMIDE 10 MG/ML 4 ML VIAL IV SCH (07:44)
[2020-12-05] MEDS: INSULIN ASPART (NovoLOG) 100 UNIT/ML VIAL SQ SCH ×4 (07:50→22:11)
[2020-12-05] MEDS: ALBUTEROL HFA INHALER INHALATION SCH ×3 (08:52→15:57)
[2020-12-05 09:09] LABS: AST 54 U/L (14-36); African American GFR (CKD) >90 (>60 ml/min/1.73 sqM); Albumin 3.6 g/dL (3.5-5.0); Albumin/Globulin Ratio 1.6; Alkaline Phosphatase 123 U/L (38-126); Anion Gap 6 mmol/L; Blood Urea Nitrogen 33 mg/dL (7-17); Carbon Dioxide 32 mmol/L (22-30); Chloride 95 mmol/L (98-107); Globulin 2.3 g/dL; Glucose 339 mg/dL (74-99); Magnesium 2.1 mg/dL (1.6-2.3); Non-African American GFR(CKD) >90 (>60 ml/min/1.73 sqM); Phosphorus 3.6 mg/dL (2.5-4.5); Sodium 133 mmol/L (137-145); Total Protein 5.9 g/dL (6.3-8.2)
[2020-12-05 09:18] LABS: LDH 3845 U/L (313-618)
[2020-12-05 09:25] LABS: HCT 40.8 % (34.0-46.0); HGB 13.3 gm/dL (11.4-16.0); MCH 32.7 pg (25.0-35.0); MCHC 32.6 g/dL (31.0-37.0); MCV 100.3 fL (80.0-100.0); Macrocytosis Slight; Mean Platelet Volume 9.8; Platelet Count 290 k/uL (150-450); RBC 4.07 m/uL (3.80-5.40); RDW 14.7 % (11.5-15.5); WBC 37.8 k/uL (3.8-10.6)
--- NOTE | 2020-12-05 09:53 | XR ---
EXAMINATION TYPE: XR chest 1V portable DATE OF EXAM: 12/05/2020 COMPARISON: 12/04/2020 HISTORY: Covid TECHNIQUE: Single frontal view of the chest is obtained. FINDINGS: Left PICC line with its tip at the distal SVC. Heart size is mildly enlarged. Diffuse inte rstitial pattern with bibasilar airspace opacities are stable.. Tiny bilateral pleural effusions. No pneumothorax. IMPRESSION: Mild cardiomegaly. Diffuse bilateral interstitial airspace opacities with superimposed patchy bibasil ar airspace opacities. Tiny bilateral pleural effusions.
--- NOTE | 2020-12-05 11:09 | P.PN ---
Subjective Progress Note Date: 12/05/20 Objective - Vital Signs Vital signs: Vital Signs Temp 97.9 F 12/05/20 10:02 Pulse 104 H 12/05/20 10:02 Resp 28 H 12/05/20 10:02 BP 130/70 12/05/20 10:02 Pulse Ox 100 12/05/20 10:02 Intake & Output 12/04/20 12/05/20 12/05/20 18:59 06:59 18:59 Intake Total 1028 1042 Output Total 750 1200 Balance 278 -158 Weight 94 kg Intake: Intake, IV Titration 1028 1042 Amount Sodium Chloride 4Meq/ml 1042 Vial 72 meq Potassium Chloride 16 meq Sodium Phosphate 15 mmol Mvi, Adult No.4 with Vit K 10 ml Trace (Conc-1Ml/Dose) 1 ml In Amino Acid 5%- D15w 1,000 ml @ 90 mls/hr IV .BY DURATION [facility] Rx#: [id number] Sodium Chloride 4Meq/ml 1028 Vial 72 meq Sodium Phosphate 15 mmol Potassium Acetate 10 meq In Amino Acid 5%-D15w 1, 000 ml @ 90 mls/hr IV .BY DURATION [facility] Rx#: [id number] Output: Urine 750 1200 Other: Voiding Method Indwelling Catheter Indwelling Catheter - Exam Gen: awake, alert HEENT: normocephalic, atraumatic, good hearing acuity, dry mucous membranes Resp: good air exchange, breathing comfortably with no accessory muscle use, coarse breath sounds throughout, BiPAP dependent 14/6, 100% FiO2 CVS: good distal perfusion x 4, tachycardic, regular rhythm GI: soft, NTTP, ND : no SPT, no CVAT, singh catheter is present MSK: no pitting edema, no clubbing Neuro: non-focal, moving all extremities Psych: cooperative, euthymic mood - Labs CBC & Chem 7: 12/05/20 08:45 12/05/20 08:45 Labs: Abnormal Lab Results - Last 24 Hours (Table) 12/04/20 12/04/20 12/04/20 Range/Units 11:48 16:51 20:36 WBC (3.8-10.6) k/uL MCV (80.0-100.0) fL D-Dimer (<0.60) mg/L FEU Sodium (137-145) mmol/L Chloride (98-107) mmol/L Carbon Dioxide (22-30) mmol/L BUN (7-17) mg/dL Creatinine (0.52-1.04) mg/dL Glucose (74-99) mg/dL POC Glucose (mg/dL) 299 H 278 H 281 H (75-99) mg/dL Calcium (8.4-10.2) mg/dL AST (14-36) U/L Lactate Dehydrogenase (313-618) U/L Total Protein (6.3-8.2) g/dL 12/05/20 12/05/20 12/05/20 Range/Units 07:02 08:02 08:45 WBC (3.8-10.6) k/uL MCV (80.0-100.0) fL D-Dimer 3.54 H (<0.60) mg/L FEU Sodium 133 L (137-145) mmol/L Chloride 95 L (98-107) mmol/L Carbon Dioxide 32 H (22-30) mmol/L BUN 33 H (7-17) mg/dL Creatinine 0.43 L (0.52-1.04) mg/dL Glucose 339 H (74-99) mg/dL POC Glucose (mg/dL) 247 H (75-99) mg/dL Calcium 8.0 L (8.4-10.2) mg/dL AST 54 H (14-36) U/L Lactate Dehydrogenase 3845 H (313-618) U/L Total Protein 5.9 L (6.3-8.2) g/dL 12/05/20 Range/Units 08:45 WBC 37.8 H (3.8-10.6) k/uL MCV 100.3 H (80.0-100.0) fL D-Dimer (<0.60) mg/L FEU Sodium (137-145) mmol/L Chloride (98-107) mmol/L Carbon Dioxide (22-30) mmol/L BUN (7-17) mg/dL Creatinine (0.52-1.04) mg/dL Glucose (74-99) mg/dL POC Glucose (mg/dL) (75-99) mg/dL Calcium (8.4-10.2) mg/dL AST (14-36) U/L Lactate Dehydrogenase (313-618) U/L Total Protein (6.3-8.2) g/dL Microbiology - Last 24 Hours (Table) 12/03/20 13:36 Urine Culture - Final Urine,Voided 12/03/20 14:23 Blood Culture - Preliminary Blood No Growth after 24 hours 12/03/20 14:12 Blood Culture - Preliminary Blood No Growth after 24 hours 12/03/20 20:50 Gram Stain - Preliminary Sputum Sputum Culture - Preliminary Assessment and Plan Assessment: COVID-19 pneumonitis acute hypoxic respiratory failure, transaminitis - Toci given 11/20 - out of the window for remdesivir -Pulmonary recommendations appreciated -Decadron D #12, and switched to IV Solu-Medrol day #5, switch back to Decadron day #1, and 12/02 switched back to IV Solu-Medrol managed by pulmonology -Started on empiric antibiotic treatment with IV Zosyn finished 7 days course -Repeat procalcitonin on 12/05 given increasing sputum production -Vitamin C, vitamin D, zinc -Albuterol scheduled and as needed - Lovenox - pulm hygeine - morphine for shortness of breath Leukocytosis -Blood cultures, sputum culture if able, and urinalysis ordered by pulmonary -so possible fungal but bacterial component ruled out -Concern for possible fungal infection secondary to TPN. -1,3 - [id number] pending draw Uncontrolled blood pressure - Norvasc 2.5 mg daily -Blood pressure better controlled. We will continue to monitor closely. Overactive bladder - detrol Hyponatremia, resolved Costochonditiris, resolved Abdominal discomfort, improved DVT prophylaxis: Lovenox Anticipated discharge date: undetermined Anticipated discharge place: pending clinical course
[2020-12-05 11:13] LABS: Lymphocytes # (M) 0.38 k/uL (1.0-4.8); Monocytes # (M) 1.13 k/uL (0-1.0); Neutrophils # (M) 36.29 k/uL (1.3-7.7); Neutrophils % (M) 96 %; Nucleated Red Blood Cells 0 /100 WBC (0-0); Total Cells Counted 200
[2020-12-05 11:15] LABS: Anisocytosis (M) Present; Basophilic Stippling Present
[2020-12-05 11:50] LABS: Glucose,Whole Blood 253 mg/dL (75-99)
[2020-12-05] MEDS ORDERED: VANCOMYCIN 1,500 MG in SODIUM CHLORIDE 0.9% 250 ML IVPB STA (14:30)
--- NOTE | 2020-12-05 14:34 | P.PN ---
Subjective Progress Note Date: 12/05/20 Principal diagnosis: There is a 69-year-old female patient with COVID-19 related pneumonia. The patient was already diagnosed having COVID-19 on 11/11/2018. The patient was symptomatic approximately 9 days prior to that. She came into the emergency department on 11/16/2020 and the patient was hospitalized with pneumonia. She was seen by the hospitalist group. She was started on steroids. She was not given Remdesivir as the patient was thought to be outside the window of treatment. Note that the patient was found to be hypoxic with a pulse of 76% on room air at time of admission. D-dimer was 0.99. CT angios gram showed acute breath and pulmonary infiltrates consistent with COVID-19 related pneumonia and her COVID-19 by PCR came back positive. She was initiated on 2 L of oxygen by nasal cannula. Subsequently, she decompensated and she is currently at 8 L per minute nasal cannula for that reason a pulmonary consultation was requested. She is reporting some increased work of breathing. She has a dry cough. No significant sputum production. No angina. No palpitation. No previous history of lung disease or disorder. No nausea. No vomiting. She is able to taste and smell. Her LDH level was 765 and is currently down to 411. The pro calcitonin level is down to 0.18. D-dimer is at 0.8. CBC showed some mild anemia with hemoglobin of 11.7. Otherwise white cell count was 11 and the platelet count was 293. 11/19/2020, seeing patient for a follow-up. The patient is doing well for now. She has no new complaints. She is currently on 6 L of oxygen by nasal cannula with pulse ox of 90%. She is currently on Decadron 6 mg on a daily basis and she's also on Lovenox 40 mg subcu for DVT prophylaxis. IV fluids are running at 75 mL an hour of normal saline. The patient has a d-dimer of 0.8. Her LDH level was a cold the heart was done and it showed preserved LV function and mild pulmonary hypertension. No other new complaints or issues for now. On 11/20/2020 patient seen in follow-up on medical surgical floor. Overnight her oxygen demand has increased, and patient was desaturating into the low 70s with ambulation, and would take a long time to recover, she was placed on 15 L high flow and 100% nonrebreather mask, her pulse ox right now is 90-95%, she seems to breathing comfortably, she is sitting in the recliner, she has been amb ulating to the bathroom earlier, however now she is using the bedside commode, she is afebrile, blood pressures are stable, she had no fevers overnight. She continues on Decadron 6 mg daily, and she is on prophylactic dose of Lovenox. Was outside the window for Remdesivir. Today's chest x-ray shows worsening bilateral multifocal and confluent opacities consistent with COVID-19 progression On 11/21/2020 patient seen in intensive care unit, patient was transferred to the intensive care unit this morning with worsening hypoxia and dyspnea, she is currently on BiPAP support with pressures of 14/6 and FiO2 of 100% and her pulse ox is 84% on those settings. Chest x-ray is pending, overnight her oxygenation continued to get worse, but 15 L high flow nasal cannula and nonrebreather mask, and her pulse ox was going into the low 70's. Patient is awake and alert, she is oriented 3, she is anxious, but fairly compliant with the BiPAP support. She has received a dose of Xanax which will be switched to IV Ativan. Denies any chest discomfort, she is tachypneic, her respiratory rate ranging from 17 to mid 20s and sent time 30 times per minute. She is afebrile, hemodynamically she is stable, she is in sinus mechanism. His labs have been reviewed, CBC is within normal limits, d-dimer has increased significantly and is up at 13.18 on today's labs, electrolytes were within normal limits, B1 is 15 creatinine 0.48. Has been an increase in her LDH which is up at 1574, and CRP is currently at 14.9. He remains on Decadron 6 mg daily, she status post Tocilizumab infusion of 800 mg. She was on prophylactic dose of Lovenox which we will increase to 40 mg twice daily. 11/22/2020, the patient remains in the intensive care unit. Overnight, she stayed on the BiPAP at a pressure of 14/6 cm of water with an FiO2 of 100%. Her pulse ox throughout the night was 80 is in the low 80s sometimes. Earlier this morning, the patient wanted to eat. We switched her to a high flow with oxygen at 60 L and 100% on a beta facemasks. Her current pulse ox is around 70%. She is conscious and awake and she is still communicating. She is a bit anxious and she is aching Ativan for anxiety. Meanwhile, she remains on Decadron dose was increased up to 6 mg IV twice a day. She remains on Lovenox 40 mg subcu twice a day for DVT prophylaxis. In terms of her chest x-ray, the patient has bilateral pulmonary infiltrates and as stated earlier, her condition is progressive and she has developed worsening in pulmonary infiltrates in lung bases bilaterally more so in the lung peripheries. Her inflammatory markers today includes a d- dimer of 25.3, LDH level of 2072, CRP level of 6.4 and the rest of the blood work and electrolytes are all within normal limits. The white cell count is 11.6 with a hemoglobin of 12.7. the patient length. The patient told me that in terms of her advanced directives, she is agreeable to intubation. Nevertheless, she doesn't want any CPR or defibrillation or any other form of resuscitation should she develop any form of cardiac pulmonary arrest. 11/23/2020, the patient remains in the intensive care unit, BiPAP dependent and unable to wean. Note that we tried her on high flow oxygen yesterday and she was on 60 L with an FiO2 of 90% with 100% nonrebreather. Within a few minutes, she decompensated she became more short of breath and hypoxic and as such the child was aborted and the patient was placed back on BiPAP and currently she is on a BiPAP pressure of 14/6 cm of water with an FiO2 of 100%. Pulse ox pulse ox is around 91-92%. She seems to be quite comfortable on a BiPAP. Current rate is around 28. She is able to generate adequate tidal volumes. Main complaint remains some irritation on her nose from the BiPAP Chest x-ray from today, diffuse pulmonary infiltrates probably slightly worse on the right. The infectious inflammatory markers show a d-dimer of 24.3 and the patient has an LDH level of 2128 and a CRP level of 3.4. The patient remains on Decadron 6 mg IV every 12 hours. The patient is also on Lovenox 40 mg subcutaneous every 12 hours. Doppler of the lower extremities was conducted and they were negative. She is awake, she is communicating. She can eat and drink limited amounts while being given brief periods off the BiPAP. The blood work from today shows a white cell count of 12 with a hemoglobin of 15.1. She continues to have lymphopenia. Sodium is 135. BUN is at 17 with a creatinine of 0.5. Fluid balance over the past 24 hours has been in the order of -750 mL. As mentioned earlier, she is agreeing for intubation. She does not want any CPR or defibrillation in the event if her condition decompensated so she wasn't a cardiopulmonary arrest. Otherwise, the family has been updated. I contacted the daughter and I gave her a detailed explanation of what is happening with her and had a high risk of progression requiring intubation mechanical ventilation and the daughter clearly understands Reevaluated today on 11/24/2020, patient remains in the ICU, remains on BiPAP, she is on IPAP of 14 and EPAP of 6,100% FiO2. O2 saturations are marginal. Had a chance to discuss the issue of ventilatory support and mechanical ventilation with the patient, and she clearly stated to me that she would not want to be on life support, patient clearly told me that she would like to be made comfort c are condition requires intubation and mechanical ventilation. Hence her CODE STATUS was changed to DO NOT RESUSCITATE CODE STATUS, and I recommended that we continue BiPAP for now, and give patient airvo trials with high flow oxygen when she is eating. Patient has been here now for almost 8 days, and she is not making any major signs of recovery. Chest x-ray continues to show bilateral patchy infiltrates. CBC today is relatively normal except for WBC count of 14.1. Electrolytes are relatively normal except for slightly elevated potassium of 5.4 d-dimer is on the rise it is 23.2. Renal functioning is normal. C- reactive protein is 2 and her LDH is on the rise presently 2437 patient remains on Lovenox at 40 mg subcu twice a day, Decadron 6 mg IV push twice a day. She is also on the multivitamins. IV fluid is at 50 mL per hour in the form of 0.9 normal saline Reevaluated today on 11/25/2020, remains in the ICU, he is presently on high flow airvo FiO2 90% and 60 L flow. She is also on a nonrebreather mask 100%, and her O2 saturation is in the 80s. Patient states that she is feeling better today compared to yesterday, breathing easier, but she is marginal at best. Patient clearly stated to me again that she would never want to be on life support and no mechanical ventilation. If she requires to be on life support, the patient prefers to go to comfort care measures. She remains on TPN and her IV fluids at 50 mL per hour. Chest x-ray no significant change continues to show bilateral infiltrates consistent with COVID-19 pneumonia. Last night the patient was placed on BiPAP 29/12. And she slept well with it WBC count today is 17.1 hemoglobin is 13.3 Electrolytesenc normal renal profile is normal LDH remains high at 2588 and C-reactive protein is 1.4, in other words the patient is showing worsening numbers and worsening chest x-ray, but surprisingly clinically the patient tells me that she is feeling better. Patient was reevaluated today on 11/26/2020, remains in the ICU, remains on Airvo at 60 L flow and 90% FiO2 as well as on 100 percent nonrebreather mask O2 saturations are in the high 80s and low 90s. Patient tells me that she is feeling better although clinically she is about the same. I don't see much of a change clinically. Chest x-ray continues to show bilateral infiltrates. Patient remains on IV fluid at 50 mL per hour, she is also on TPN, and today I have switched her to Solu-Medrol. And I added Zosyn empirically although her pro Alfredo level was not elevated. However considering the findings on the chest x-ray, I'm empirically covering the patient for presumptive underlying bacterial pneumonia. Patient did have leukocytosis and that is more reason to start antibiotics empirically. WBC count is up to 23.6 hemoglobin is 13.8 Electrolytesenc normal renal profile is normal Patient was reevaluated today on 11/27/2020, remains in the ICU, not much of the changed since yesterday. Remains on BiPAP and intermittently on high flow oxygen using AIRVO and high FiO2. O2 saturations remained marginal in the high 80s clinically the patient tells me that she is feeling about the same and may be a bit better. Concerned that today she has significant leukocytosis, could be related to her Solu-Medrol, however considering the patient is marginal I recommended empiric antibiotics in the form of Zosyn. Patient is still receiving TPN, minimal oral intake noted. CODE STATUS remains DO NOT RESUSCITATE. All labs today were reviewed. CBC count is 31.7 hemoglobin is 13.7 her electrolytes are normal renal profile is normal, LDH is rising up to 3343 and C-reactive protein is 1. Patient was reevaluated today on 11/28/2020, remains in the ICU, remains on high FiO2 of 100%, she is on BiPAP 14/6. O2 saturation is marginal in the high 80s and at times low 90s. Clinically the patient is about the same, I don't believe the patient is making much of a clinical improvement and at least she is not worsening. Remains on TPN at 90 mL per hour. Remains on IV fluid to KVO. Remains on the COVID-19. Continues to have leukocytosis with WBC of 33.8. Electrolytesenc are normal renal profile is normal, remains on Zosyn empirically , no specific blood cultures to address. Patient was reevaluated today on 11/29/2020, remains in the ICU, remains on BiPAP with IPAP of 14 and EPAP of 600% FiO2. Overall the patient is about the same, no major changes over the last 24 hours. Remains on IV Solu-Medrol, Lovenox 40 mg twice a day remains on Zosyn empirically. Remains on TPN and IV fluid at 50 ML per hour. Patient tells me that she feeling slightly better, but overall she is about the same. He desaturates with any activity. Chest x-ray continues to show bilateral interstitial infiltrates, slightly improved/minimal improvement if any. WBC count remains high at 53.8. Lites are normal renal profile is normal d-dimer is coming down to 19.8, it was in the mid 20s in the last few days. The patient is seen today 11/30/2020 in follow-up on the regular medical floor. She is currently sitting up in bed. Remains awake and alert. She has been slow to progress. She is still on BiPAP 14/6 in the 100% FiO2 to maintain O2 sat uration is currently at 80%. She is afebrile. Mainly BiPAP dependent. Being nourished with TPN. White count 49.3. Hemoglobin 14.8. Sodium 1:30. Potassium 4.3. Creatinine 0.48. She remains on echo dilators, Decadron, Lovenox 40 mg twice a day, vitamin supplements. Antibiotics in the form of Zosyn. The patient is seen today 12/05/2020 in follow-up on the regular medical floor. She is currently awake. She does remain pretty much BiPAP dependent. 29/12 at 100% FiO2. She is off for sips of water only. Chest x-ray continues to revealed diffuse bilateral interstitial opacities with superimposed patchy basilar airspace opacities. Tiny bilateral effusions. Sputum culture now revealing presumptive staph aureus. White count 37.8. Hemoglobin 13.3. D-dimer 3.54. Sodium 133. Potassium 4.0. Creatinine 0.43. LDH 3845. Glucose 253. She remains on bronchodilators, vitamin supplements, Lovenox 40 mg subcu twice a day, IV Solu-Medrol, IV Lasix. TPN and lipids for nutritional support. Remains on voriconazole. Objective - Vital Signs Vital signs: Vital Signs Temp 97.9 F 12/05/20 10:02 Pulse 104 H 12/05/20 10:02 Resp 28 H 12/05/20 10:02 BP 130/70 12/05/20 10:02 Pulse Ox 100 12/05/20 10:02 Intake & Output 12/04/20 12/05/20 12/05/20 18:59 06:59 18:59 Intake Total 1028 1042 579 Output Total 750 1200 Balance 278 -158 579 Weight 94 kg Intake: Intake, IV Titration 1028 1042 579 Amount Sodium Chloride 4Meq/ml 1042 579 Vial 72 meq Potassium Chloride 16 meq Sodium Phosphate 15 mmol Mvi, Adult No.4 with Vit K 10 ml Trace (Conc-1Ml/Dose) 1 ml In Amino Acid 5%- D15w 1,000 ml @ 90 mls/hr IV .[facility] Rx#: [id number] Sodium Chloride 4Meq/ml 1028 Vial 72 meq Sodium Phosphate 15 mmol Potassium Acetate 10 meq In Amino Acid 5%-D15w 1, 000 ml @ 90 mls/hr IV .[facility] Rx#: [id number] Output: Urine 750 1200 Other: Voiding Method Indwelling Catheter Indwelling Catheter - Exam General: Revealed a very pleasant 69-year-old female, on BiPAP, 14/6 and FiO2 of 100% with O2 saturation at 90%. skin: No evidence of rashes. Head: Atraumatic, normocephalic. EENT: PERRLA, EOMI, nonicteric, no neck masses, dry mucous membranes. Neck: supple no neck masses no JVD no stridor.. Mouth: mucus membranes are moist. No rashes no thrush. Cardiovascular: Normal S1 and S2, no S3 gallop, no murmur Lungs: Coarse crackles and rhonchi noted bilaterally.Symmetrical chest expansion bilaterally. Ext: No clubbing edema or cyanosis Neuro: Alert and oriented 3 no gross focal deficit. Psych: Normal mood, affect and normal mental status examination. Musculoskeletal: No deformities no limitations in range of motion. - Labs CBC & Chem 7: 12/05/20 08:45 12/05/20 08:45 Labs: Abnormal Lab Results - Last 24 Hours (Table) 12/04/20 12/04/20 12/05/20 Range/Units 16:51 20:36 07:02 WBC (3.8-10.6) k/uL MCV (80.0-100.0) fL Neutrophils # (Manual) (1.3-7.7) k/uL Lymphocytes # (Manual) (1.0-4.8) k/uL Monocytes # (Manual) (0-1.0) k/uL D-Dimer (<0.60) mg/L FEU Sodium (137-145) mmol/L Chloride (98-107) mmol/L Carbon Dioxide (22-30) mmol/L BUN (7-17) mg/dL Creatinine (0.52-1.04) mg/dL Glucose (74-99) mg/dL POC Glucose (mg/dL) 278 H 281 H 247 H (75-99) mg/dL Calcium (8.4-10.2) mg/dL AST (14-36) U/L Lactate Dehydrogenase (313-618) U/L Total Protein (6.3-8.2) g/dL 12/05/20 12/05/20 12/05/20 Range/Units 08:02 08:45 08:45 WBC 37.8 H (3.8-10.6) k/uL MCV 100.3 H (80.0-100.0) fL Neutrophils # (Manual) 36.29 H (1.3-7.7) k/uL Lymphocytes # (Manual) 0.38 L (1.0-4.8) k/uL Monocytes # (Manual) 1.13 H (0-1.0) k/uL D-Dimer 3.54 H (<0.60) mg/L FEU Sodium 133 L (137-145) mmol/L Chloride 95 L (98-107) mmol/L Carbon Dioxide 32 H (22-30) mmol/L BUN 33 H (7-17) mg/dL Creatinine 0.43 L (0.52-1.04) mg/dL Glucose 339 H (74-99) mg/dL POC Glucose (mg/dL) (75-99) mg/dL Calcium 8.0 L (8.4-10.2) mg/dL AST 54 H (14-36) U/L Lactate Dehydrogenase 3845 H (313-618) U/L Total Protein 5.9 L (6.3-8.2) g/dL 12/05/20 Range/Units 11:49 WBC (3.8-10.6) k/uL MCV (80.0-100.0) fL Neutrophils # (Manual) (1.3-7.7) k/uL Lymphocytes # (Manual) (1.0-4.8) k/uL Monocytes # (Manual) (0-1.0) k/uL D-Dimer (<0.60) mg/L FEU Sodium (137-145) mmol/L Chloride (98-107) mmol/L Carbon Dioxide (22-30) mmol/L BUN (7-17) mg/dL Creatinine (0.52-1.04) mg/dL Glucose (74-99) mg/dL POC Glucose (mg/dL) 253 H (75-99) mg/dL Calcium (8.4-10.2) mg/dL AST (14-36) U/L Lactate Dehydrogenase (313-618) U/L Total Protein (6.3-8.2) g/dL Microbiology - Last 24 Hours (Table) 12/03/20 20:50 Gram Stain - Preliminary Sputum Sputum Culture - Preliminary Presumptive Staph aureus 12/03/20 13:36 Urine Culture - Final Urine,Voided 12/03/20 14:23 Blood Culture - Preliminary Blood No Growth after 24 hours 12/03/20 14:12 Blood Culture - Preliminary Blood No Growth after 24 hours Assessment and Plan Assessment: 1 Acute hypoxic respiratory failure secondary to acute COVID-19 pneumonia, originally diagnosed on 11/11, there is no clinical worsening and no clinical improvement noted. Remains BiPAP dependent 14/600% FiO2 2 Fluid overload suspect secondary to congestive heart failure, remains on diuretics 3 Elevated inflammatory markers secondary to COVID-19 pneumonia 4 Reactive leukocytosis, most likely secondary to steroids/Solu-Medrol. 5 Sputum revealing presumptive staph aureus Plan: The patient was seen and evaluated by Dr. Martínez Chest x-ray and labs reviewed Sputum culture with presumptive staph aureus We'll give vancomycin 1 Await culture results Discontinue voriconazole Remains BiPAP dependent Titrate the FiO2 as tolerated Continue TPN for nutritional support Prognosis is poor DO NOT RESUSCITATE/DO NOT INTUBATE CODE STATUS We will continue to follow I, the cosigning physician, performed a history & physical examination of the patient. Lungs sounds bilateral scattered rhonchi, coarse crackles in the bases. Maintaining O2 saturations 90% on 100% FiO2 via the BiPAP 29/12.. I discussed the assessment and plan of care with my nurse practitioner, Mary Carmen Carr. I attest to the above note as dictated by her.
[2020-12-05 14:41] VITALS: BMI 32.4
[2020-12-05] MEDS: FAT EMULSION 20% 250 ML in EMPTY BAG 1 BAG IV SCH (17:32)
[2020-12-05 17:36] LABS: Glucose,Whole Blood 287 mg/dL (75-99)
[2020-12-05] MEDS: ALPRAZolam 0.5 MG TAB PO PRN (19:11)
[2020-12-05 20:42] LABS: Glucose,Whole Blood 350 mg/dL (75-99)
[2020-12-05] MEDS: CITALOPRAM HYDROBROMIDE 10 MG TAB PO SCH (21:18)
[2020-12-05] MEDS ORDERED: LORazepam 1 MG TAB PO STA (21:44)
[2020-12-06] MEDS: MORPHINE SULFATE 2 MG/ML SYRINGE IV PRN ×3 (00:17→05:26)
[2020-12-06] MEDS: methylPREDNISolone SOD SUCCI 125 MG/2 ML VIAL IV SCH ×3 (00:18→12:34)
[2020-12-06 06:50] VITALS: BP 103/68
[2020-12-06] MEDS: [UNRECOGNIZED DRUG - MIXTURE] IV SCH ×7 (07:01)
[2020-12-06 07:15] LABS: Glucose,Whole Blood 251 mg/dL (75-99)
[2020-12-06 07:48] LABS: African American GFR (CKD) >90 (>60 ml/min/1.73 sqM); Albumin 2.8 g/dL (3.5-5.0); Albumin/Globulin Ratio 1.4; Anion Gap 9 mmol/L; Blood Urea Nitrogen 52 mg/dL (7-17); Carbon Dioxide 27 mmol/L (22-30); Chloride 99 mmol/L (98-107); Glucose 257 mg/dL (74-99); Non-African American GFR(CKD) 79 (>60 ml/min/1.73 sqM); Phosphorus 5.6 mg/dL (2.5-4.5); Sodium 135 mmol/L (137-145); Total Protein 4.8 g/dL (6.3-8.2)
[2020-12-06] MEDS: ALBUTEROL HFA INHALER INHALATION SCH ×2 (07:58→11:49)
[2020-12-06 08:05] LABS: Magnesium 2.1 mg/dL (1.6-2.3); Potassium 4.3 mmol/L (3.5-5.1)
[2020-12-06 08:06] LABS: Alkaline Phosphatase 95 U/L (38-126)
[2020-12-06] MEDS: FUROSEMIDE 10 MG/ML 4 ML VIAL IV SCH (09:14)
[2020-12-06] MEDS: CHOLECALCIFEROL 25 MCG (1000 IU) TABLET PO SCH (09:15)
[2020-12-06] MEDS: guaiFENesin 600 MG TABLET.ER PO SCH (09:15)
[2020-12-06] MEDS: PANTOPRAZOLE 40 MG/10 ML VIAL IVP SCH (09:15)
[2020-12-06] MEDS: ASCORBIC ACID 500 MG TAB PO SCH (09:15)
[2020-12-06] MEDS: ZINC SULFATE 220 MG CAP PO SCH (09:15)
[2020-12-06] MEDS: MORPHINE SULFATE ER 15 MG TABLET PO SCH (09:15)
[2020-12-06] MEDS: amLODIPine 2.5 MG TAB PO SCH (09:15)
[2020-12-06] MEDS: ENOXAPARIN 40 MG/0.4 ML SYRINGE SQ SCH (09:16)
[2020-12-06] MEDS: INSULIN ASPART (NovoLOG) 100 UNIT/ML VIAL SQ SCH (09:16)
[2020-12-06] MEDS ORDERED: MORPHINE SULFATE (100 MG/2 ML) 100 MG in SODIUM CHLORIDE 0.9% 100 ML IV SCH (10:45)
--- NOTE | 2020-12-06 10:48 | P.PN ---
Subjective Progress Note Date: 12/06/20 No new complaints today. Pt is not as energetic as yesterday. Continues to have low O2 saturations and brownish sputum production. SCx returned + for presumable staph aureus and patient was started on vancomycin last night by pulmonary team. Pt continues on BIPAP. Objective - Vital Signs Vital signs: Vital Signs Temp 98.6 F 12/06/20 05:43 Pulse 110 H 12/06/20 05:43 Resp 31 H 12/05/20 20:00 BP 103/68 12/06/20 05:43 Pulse Ox 59 L 12/06/20 05:43 Intake & Output 12/05/20 12/06/20 12/06/20 18:59 06:59 18:59 Intake Total 579 Output Total 2200 350 Balance -1621 -350 Weight 94 kg 95.5 kg Intake: Intake, IV Titration 579 Amount Sodium Chloride 4Meq/ml 579 Vial 72 meq Potassium Chloride 16 meq Sodium Phosphate 15 mmol Mvi, Adult No.4 with Vit K 10 ml Trace (Conc-1Ml/Dose) 1 ml In Amino Acid 5%- D15w 1,000 ml @ 90 mls/hr IV [facility] Rx#: [id number] Output: Urine 2200 350 Other: Voiding Method Indwelling Catheter Indwelling Catheter - Exam Gen: awake, alert HEENT: normocephalic, atraumatic, good hearing acuity, dry mucous membranes Resp: good air exchange, breathing comfortably with no accessory muscle use, coarse breath sounds throughout, BiPAP dependent 14/6, 100% FiO2 CVS: good distal perfusion x 4, tachycardic, regular rhythm GI: soft, NTTP, ND : no SPT, no CVAT, singh catheter is present MSK: no pitting edema, no clubbing Neuro: non-focal, moving all extremities Psych: cooperative, euthymic mood - Labs CBC & Chem 7: 12/05/20 08:45 12/06/20 06:45 Labs: Abnormal Lab Results - Last 24 Hours (Table) 12/05/20 12/05/20 12/05/20 Range/Units 08:45 11:49 17:35 Neutrophils # (Manual) 36.29 H (1.3-7.7) k/uL Lymphocytes # (Manual) 0.38 L (1.0-4.8) k/uL Monocytes # (Manual) 1.13 H (0-1.0) k/uL Sodium (137-145) mmol/L BUN (7-17) mg/dL Glucose (74-99) mg/dL POC Glucose (mg/dL) 253 H 287 H (75-99) mg/dL Calcium (8.4-10.2) mg/dL Phosphorus (2.5-4.5) mg/dL Total Protein (6.3-8.2) g/dL Albumin (3.5-5.0) g/dL 12/05/20 12/06/20 12/06/20 Range/Units 20:41 06:45 06:53 Neutrophils # (Manual) (1.3-7.7) k/uL Lymphocytes # (Manual) (1.0-4.8) k/uL Monocytes # (Manual) (0-1.0) k/uL Sodium 135 L (137-145) mmol/L BUN 52 H (7-17) mg/dL Glucose 257 H (74-99) mg/dL POC Glucose (mg/dL) 350 H 251 H (75-99) mg/dL Calcium 8.0 L (8.4-10.2) mg/dL Phosphorus 5.6 H (2.5-4.5) mg/dL Total Protein 4.8 L (6.3-8.2) g/dL Albumin 2.8 L (3.5-5.0) g/dL Microbiology - Last 24 Hours (Table) 12/03/20 13:36 Urine Culture - Final Urine,Voided Luz Maria albicans 12/03/20 14:23 Blood Culture - Preliminary Blood No Growth after 48 hours 12/03/20 14:12 Blood Culture - Preliminary Blood No Growth after 48 hours 12/03/20 20:50 Gram Stain - Preliminary Sputum Sputum Culture - Preliminary Presumptive Staph aureus Assessment and Plan Assessment: COVID-19 pneumonitis acute hypoxic respiratory failure, transaminitis Healthcare Associated Pneumonia - Toci given 11/20 - out of the window for remdesivir -Pulmonary recommendations appreciated -Decadron D #12, and switched to IV Solu-Medrol day #5, switch back to Decadron day #1, and 12/02 switched back to IV Solu-Medrol managed by pulmonology -Started on empiric antibiotic treatment with IV Zosyn finished 7 days course -Repeat procalcitonin on 12/05 given increasing sputum production -Vitamin C, vitamin D, zinc -Albuterol scheduled and as needed - Lovenox - pulm hygeine - morphine for shortness of breath - vancomycin, started 12/05 - f/u Sputum Cx to speciation and sensitivities Leukocytosis -Blood cultures, sputum culture if able, and urinalysis ordered by pulmonary -so possible fungal but bacterial component ruled out -Concern for possible fungal infection secondary to TPN. -1,3 - [id number] pending draw Uncontrolled blood pressure - Norvasc 2.5 mg daily -Blood pressure better controlled. We will continue to monitor closely. Overactive bladder - detrol Hyponatremia, resolved Costochonditiris, resolved Abdominal discomfort, improved DVT prophylaxis: Lovenox Anticipated discharge date: undetermined Anticipated discharge place: pending clinical course
[2020-12-06 11:11] VITALS: PULSE 112; RESP 24; TEMP 98.3
[2020-12-06 11:44] LABS: Glucose,Whole Blood 265 mg/dL (75-99)
--- NOTE | 2020-12-06 12:44 | P.PN ---
Subjective Progress Note Date: 12/06/20 Principal diagnosis: There is a 69-year-old female patient with COVID-19 related pneumonia. The patient was already diagnosed having COVID-19 on 11/11/2018. The patient was symptomatic approximately 9 days prior to that. She came into the emergency department on 11/16/2020 and the patient was hospitalized with pneumonia. She was seen by the hospitalist group. She was started on steroids. She was not given Remdesivir as the patient was thought to be outside the window of treatment. Note that the patient was found to be hypoxic with a pulse of 76% on room air at time of admission. D-dimer was 0.99. CT angios gram showed acute breath and pulmonary infiltrates consistent with COVID-19 related pneumonia and her COVID-19 by PCR came back positive. She was initiated on 2 L of oxygen by nasal cannula. Subsequently, she decompensated and she is currently at 8 L per minute nasal cannula for that reason a pulmonary consultation was requested. She is reporting some increased work of breathing. She has a dry cough. No significant sputum production. No angina. No palpitation. No previous history of lung disease or disorder. No nausea. No vomiting. She is able to taste and smell. Her LDH level was 765 and is currently down to 411. The pro calcitonin level is down to 0.18. D-dimer is at 0.8. CBC showed some mild anemia with hemoglobin of 11.7. Otherwise white cell count was 11 and the platelet count was 293. 11/19/2020, seeing patient for a follow-up. The patient is doing well for now. She has no new complaints. She is currently on 6 L of oxygen by nasal cannula with pulse ox of 90%. She is currently on Decadron 6 mg on a daily basis and she's also on Lovenox 40 mg subcu for DVT prophylaxis. IV fluids are running at 75 mL an hour of normal saline. The patient has a d-dimer of 0.8. Her LDH level was a cold the heart was done and it showed preserved LV function and mild pulmonary hypertension. No other new complaints or issues for now. On 11/20/2020 patient seen in follow-up on medical surgical floor. Overnight her oxygen demand has increased, and patient was desaturating into the low 70s with ambulation, and would take a long time to recover, she was placed on 15 L high flow and 100% nonrebreather mask, her pulse ox right now is 90-95%, she seems to breathing comfortably, she is sitting in the recliner, she has been amb ulating to the bathroom earlier, however now she is using the bedside commode, she is afebrile, blood pressures are stable, she had no fevers overnight. She continues on Decadron 6 mg daily, and she is on prophylactic dose of Lovenox. Was outside the window for Remdesivir. Today's chest x-ray shows worsening bilateral multifocal and confluent opacities consistent with COVID-19 progression On 11/21/2020 patient seen in intensive care unit, patient was transferred to the intensive care unit this morning with worsening hypoxia and dyspnea, she is currently on BiPAP support with pressures of 14/6 and FiO2 of 100% and her pulse ox is 84% on those settings. Chest x-ray is pending, overnight her oxygenation continued to get worse, but 15 L high flow nasal cannula and nonrebreather mask, and her pulse ox was going into the low 70's. Patient is awake and alert, she is oriented 3, she is anxious, but fairly compliant with the BiPAP support. She has received a dose of Xanax which will be switched to IV Ativan. Denies any chest discomfort, she is tachypneic, her respiratory rate ranging from 17 to mid 20s and sent time 30 times per minute. She is afebrile, hemodynamically she is stable, she is in sinus mechanism. His labs have been reviewed, CBC is within normal limits, d-dimer has increased significantly and is up at 13.18 on today's labs, electrolytes were within normal limits, B1 is 15 creatinine 0.48. Has been an increase in her LDH which is up at 1574, and CRP is currently at 14.9. He remains on Decadron 6 mg daily, she status post Tocilizumab infusion of 800 mg. She was on prophylactic dose of Lovenox which we will increase to 40 mg twice daily. 11/22/2020, the patient remains in the intensive care unit. Overnight, she stayed on the BiPAP at a pressure of 14/6 cm of water with an FiO2 of 100%. Her pulse ox throughout the night was 80 is in the low 80s sometimes. Earlier this morning, the patient wanted to eat. We switched her to a high flow with oxygen at 60 L and 100% on a beta facemasks. Her current pulse ox is around 70%. She is conscious and awake and she is still communicating. She is a bit anxious and she is aching Ativan for anxiety. Meanwhile, she remains on Decadron dose was increased up to 6 mg IV twice a day. She remains on Lovenox 40 mg subcu twice a day for DVT prophylaxis. In terms of her chest x-ray, the patient has bilateral pulmonary infiltrates and as stated earlier, her condition is progressive and she has developed worsening in pulmonary infiltrates in lung bases bilaterally more so in the lung peripheries. Her inflammatory markers today includes a d- dimer of 25.3, LDH level of 2072, CRP level of 6.4 and the rest of the blood work and electrolytes are all within normal limits. The white cell count is 11.6 with a hemoglobin of 12.7. the patient length. The patient told me that in terms of her advanced directives, she is agreeable to intubation. Nevertheless, she doesn't want any CPR or defibrillation or any other form of resuscitation should she develop any form of cardiac pulmonary arrest. 11/23/2020, the patient remains in the intensive care unit, BiPAP dependent and unable to wean. Note that we tried her on high flow oxygen yesterday and she was on 60 L with an FiO2 of 90% with 100% nonrebreather. Within a few minutes, she decompensated she became more short of breath and hypoxic and as such the child was aborted and the patient was placed back on BiPAP and currently she is on a BiPAP pressure of 14/6 cm of water with an FiO2 of 100%. Pulse ox pulse ox is around 91-92%. She seems to be quite comfortable on a BiPAP. Current rate is around 28. She is able to generate adequate tidal volumes. Main complaint remains some irritation on her nose from the BiPAP Chest x-ray from today, diffuse pulmonary infiltrates probably slightly worse on the right. The infectious inflammatory markers show a d-dimer of 24.3 and the patient has an LDH level of 2128 and a CRP level of 3.4. The patient remains on Decadron 6 mg IV every 12 hours. The patient is also on Lovenox 40 mg subcutaneous every 12 hours. Doppler of the lower extremities was conducted and they were negative. She is awake, she is communicating. She can eat and drink limited amounts while being given brief periods off the BiPAP. The blood work from today shows a white cell count of 12 with a hemoglobin of 15.1. She continues to have lymphopenia. Sodium is 135. BUN is at 17 with a creatinine of 0.5. Fluid balance over the past 24 hours has been in the order of -750 mL. As mentioned earlier, she is agreeing for intubation. She does not want any CPR or defibrillation in the event if her condition decompensated so she wasn't a cardiopulmonary arrest. Otherwise, the family has been updated. I contacted the daughter and I gave her a detailed explanation of what is happening with her and had a high risk of progression requiring intubation mechanical ventilation and the daughter clearly understands Reevaluated today on 11/24/2020, patient remains in the ICU, remains on BiPAP, she is on IPAP of 14 and EPAP of 6,100% FiO2. O2 saturations are marginal. Had a chance to discuss the issue of ventilatory support and mechanical ventilation with the patient, and she clearly stated to me that she would not want to be on life support, patient clearly told me that she would like to be made comfort c are condition requires intubation and mechanical ventilation. Hence her CODE STATUS was changed to DO NOT RESUSCITATE CODE STATUS, and I recommended that we continue BiPAP for now, and give patient airvo trials with high flow oxygen when she is eating. Patient has been here now for almost 8 days, and she is not making any major signs of recovery. Chest x-ray continues to show bilateral patchy infiltrates. CBC today is relatively normal except for WBC count of 14.1. Electrolytes are relatively normal except for slightly elevated potassium of 5.4 d-dimer is on the rise it is 23.2. Renal functioning is normal. C- reactive protein is 2 and her LDH is on the rise presently 2437 patient remains on Lovenox at 40 mg subcu twice a day, Decadron 6 mg IV push twice a day. She is also on the multivitamins. IV fluid is at 50 mL per hour in the form of 0.9 normal saline Reevaluated today on 11/25/2020, remains in the ICU, he is presently on high flow airvo FiO2 90% and 60 L flow. She is also on a nonrebreather mask 100%, and her O2 saturation is in the 80s. Patient states that she is feeling better today compared to yesterday, breathing easier, but she is marginal at best. Patient clearly stated to me again that she would never want to be on life support and no mechanical ventilation. If she requires to be on life support, the patient prefers to go to comfort care measures. She remains on TPN and her IV fluids at 50 mL per hour. Chest x-ray no significant change continues to show bilateral infiltrates consistent with COVID-19 pneumonia. Last night the patient was placed on BiPAP 29/12. And she slept well with it WBC count today is 17.1 hemoglobin is 13.3 Electrolytesenc normal renal profile is normal LDH remains high at 2588 and C-reactive protein is 1.4, in other words the patient is showing worsening numbers and worsening chest x-ray, but surprisingly clinically the patient tells me that she is feeling better. Patient was reevaluated today on 11/26/2020, remains in the ICU, remains on Airvo at 60 L flow and 90% FiO2 as well as on 100 percent nonrebreather mask O2 saturations are in the high 80s and low 90s. Patient tells me that she is feeling better although clinically she is about the same. I don't see much of a change clinically. Chest x-ray continues to show bilateral infiltrates. Patient remains on IV fluid at 50 mL per hour, she is also on TPN, and today I have switched her to Solu-Medrol. And I added Zosyn empirically although her pro Alfredo level was not elevated. However considering the findings on the chest x-ray, I'm empirically covering the patient for presumptive underlying bacterial pneumonia. Patient did have leukocytosis and that is more reason to start antibiotics empirically. WBC count is up to 23.6 hemoglobin is 13.8 Electrolytesenc normal renal profile is normal Patient was reevaluated today on 11/27/2020, remains in the ICU, not much of the changed since yesterday. Remains on BiPAP and intermittently on high flow oxygen using AIRVO and high FiO2. O2 saturations remained marginal in the high 80s clinically the patient tells me that she is feeling about the same and may be a bit better. Concerned that today she has significant leukocytosis, could be related to her Solu-Medrol, however considering the patient is marginal I recommended empiric antibiotics in the form of Zosyn. Patient is still receiving TPN, minimal oral intake noted. CODE STATUS remains DO NOT RESUSCITATE. All labs today were reviewed. CBC count is 31.7 hemoglobin is 13.7 her electrolytes are normal renal profile is normal, LDH is rising up to 3343 and C-reactive protein is 1. Patient was reevaluated today on 11/28/2020, remains in the ICU, remains on high FiO2 of 100%, she is on BiPAP 14/6. O2 saturation is marginal in the high 80s and at times low 90s. Clinically the patient is about the same, I don't believe the patient is making much of a clinical improvement and at least she is not worsening. Remains on TPN at 90 mL per hour. Remains on IV fluid to KVO. Remains on the COVID-19. Continues to have leukocytosis with WBC of 33.8. Electrolytesenc are normal renal profile is normal, remains on Zosyn empirically , no specific blood cultures to address. Patient was reevaluated today on 11/29/2020, remains in the ICU, remains on BiPAP with IPAP of 14 and EPAP of 600% FiO2. Overall the patient is about the same, no major changes over the last 24 hours. Remains on IV Solu-Medrol, Lovenox 40 mg twice a day remains on Zosyn empirically. Remains on TPN and IV fluid at 50 ML per hour. Patient tells me that she feeling slightly better, but overall she is about the same. He desaturates with any activity. Chest x-ray continues to show bilateral interstitial infiltrates, slightly improved/minimal improvement if any. WBC count remains high at 53.8. Lites are normal renal profile is normal d-dimer is coming down to 19.8, it was in the mid 20s in the last few days. The patient is seen today 11/30/2020 in follow-up on the regular medical floor. She is currently sitting up in bed. Remains awake and alert. She has been slow to progress. She is still on BiPAP 14/6 in the 100% FiO2 to maintain O2 sat uration is currently at 80%. She is afebrile. Mainly BiPAP dependent. Being nourished with TPN. White count 49.3. Hemoglobin 14.8. Sodium 1:30. Potassium 4.3. Creatinine 0.48. She remains on echo dilators, Decadron, Lovenox 40 mg twice a day, vitamin supplements. Antibiotics in the form of Zosyn. The patient is seen today 12/05/2020 in follow-up on the regular medical floor. She is currently awake. She does remain pretty much BiPAP dependent. 14/6 at 100% FiO2. She is off for sips of water only. Chest x-ray continues to revealed diffuse bilateral interstitial opacities with superimposed patchy basilar airspace opacities. Tiny bilateral effusions. Sputum culture now revealing presumptive staph aureus. White count 37.8. Hemoglobin 13.3. D-dimer 3.54. Sodium 133. Potassium 4.0. Creatinine 0.43. LDH 3845. Glucose 253. She remains on bronchodilators, vitamin supplements, Lovenox 40 mg subcu twice a day, IV Solu-Medrol, IV Lasix. TPN and lipids for nutritional support. Remains on voriconazole. The patient is seen today 12/06/2020 in follow-up on the regular medical floor. She is more obtunded today. Arousable. Able to speak just a couple of words. She remains BiPAP dependent 14/600% and O2 saturations are now O2 saturations in the low 80s. If she comes off BiPAP even briefly her saturations are in the 60s. Sputum culture was positive for MRSA. She was initiated on vancomycin yesterday. Sodium 135. Potassium 4.3. Creatinine 0.77. Glucose 251. She is being nourished via TPN. She remains on bronchodilators, vitamin supplements, Lovenox 40 mg subcu twice a day, IV Solu-Medrol, IV Lasix. Objective - Vital Signs Vital signs: Vital Signs Temp 98.3 F 12/06/20 10:00 Pulse 112 H 12/06/20 10:00 Resp 24 12/06/20 10:00 BP 103/68 12/06/20 05:43 Pulse Ox 81 L 12/06/20 10:00 Intake & Output 12/05/20 12/06/20 12/06/20 18:59 06:59 18:59 Intake Total 579 1042 Output Total 2200 350 Balance -1621 -350 1042 Weight 94 kg 95.5 kg Intake: Intake, IV Titration 579 1042 Amount Sodium Chloride 4Meq/ml 579 1042 Vial 72 meq Potassium Chloride 16 meq Sodium Phosphate 15 mmol Mvi, Adult No.4 with Vit K 10 ml Trace (Conc-1Ml/Dose) 1 ml In Amino Acid 5%- D15w 1,000 ml @ 90 mls/hr IV .BY DURATION [facility] Rx#: [id number] Output: Urine 2200 350 Other: Voiding Method Indwelling Catheter Indwelling Catheter - Exam General: Obtunded, arousable 69-year-old female, on BiPAP, 14/6 and FiO2 of 100% with O2 saturation at 81%. skin: No evidence of rashes. Head: Atraumatic, normocephalic. EENT: PERRLA, EOMI, nonicteric, no neck masses, dry mucous membranes. Neck: supple no neck masses no JVD no stridor.. Mouth: mucus membranes are moist. No rashes no thrush. Cardiovascular: Normal S1 and S2, no S3 gallop, no murmur Lungs: Coarse crackles and rhonchi noted bilaterally.Symmetrical chest expansion bilaterally. Ext: No clubbing edema or cyanosis Neuro: Less alert today. Arousable. no gross focal deficit. Psych: Normal mood, affect and normal mental status examination. Musculoskeletal: No deformities no limitations in range of motion. - Labs CBC & Chem 7: 12/05/20 08:45 12/06/20 06:45 Labs: Abnormal Lab Results - Last 24 Hours (Table) 12/05/20 12/05/20 12/06/20 Range/Units 17:35 20:41 06:45 Sodium 135 L (137-145) mmol/L BUN 52 H (7-17) mg/dL Glucose 257 H (74-99) mg/dL POC Glucose (mg/dL) 287 H 350 H (75-99) mg/dL Calcium 8.0 L (8.4-10.2) mg/dL Phosphorus 5.6 H (2.5-4.5) mg/dL Total Protein 4.8 L (6.3-8.2) g/dL Albumin 2.8 L (3.5-5.0) g/dL 12/06/20 12/06/20 Range/Units 06:53 11:42 Sodium (137-145) mmol/L BUN (7-17) mg/dL Glucose (74-99) mg/dL POC Glucose (mg/dL) 251 H 265 H (75-99) mg/dL Calcium (8.4-10.2) mg/dL Phosphorus (2.5-4.5) mg/dL Total Protein (6.3-8.2) g/dL Albumin (3.5-5.0) g/dL Microbiology - Last 24 Hours (Table) 12/03/20 20:50 Gram Stain - Final Sputum Sputum Culture - Final Methicillin resist S. aureus 12/03/20 13:36 Urine Culture - Final Urine,Voided Luz Maria albicans 12/03/20 14:23 Blood Culture - Preliminary Blood No Growth after 48 hours 12/03/20 14:12 Blood Culture - Preliminary Blood No Growth after 48 hours Assessment and Plan Assessment: 1 Acute hypoxic respiratory failure secondary to acute COVID-19 pneumonia, originally diagnosed on 11/11, Remains BiPAP dependent 29/12 and 100% FiO2 2 Fluid overload suspect secondary to congestive heart failure, remains on diuretics 3 Elevated inflammatory markers secondary to COVID-19 pneumonia 4 Reactive leukocytosis, most likely secondary to steroids/Solu-Medrol. 5 Sputum revealing presumptive staph aureus Plan: The patient was seen and evaluated by Dr. Martínez The patient has deteriorated quite a bit in the past 24 hours Remains BiPAP dependent on 100% FiO2 with O2 saturation 81% She desaturates quickly within a minute into the 60s was trialed off BiPAP DO NOT RESUSCITATE/DO NOT INTUBATE CODE STATUS We would recommend a morphine drip for her ongoing air hunger Would recommend hospice/comfort care at this point Family will be contacted I, the cosigning physician, performed a history & physical examination of the patient. Lungs sounds bilateral scattered rhonchi, coarse crackles in the bases. Maintaining O2 saturations 80% on 100% FiO2 via the BiPAP 29/12.. I discussed the assessment and plan of care with my nurse practitioner, Mary Carmen Carr. I attest to the above note as dictated by her.
[2020-12-07] MEDS ORDERED: LORazepam 2 MG/ML INJ IV PRN ×2 (01:07→01:08)
--- NOTE | 2020-12-07 09:21 | P.DS ---
Providers Date of admission: 11/16/20 16:02 Expected date of discharge: 12/07/20 Attending physician: Josie Weaver DO Consults: 11/18/20 08:10 Consult Physician Routine Consulting Provider: Celso Sorto Consult Reason/Comments: COVID Do you want consulting provider notified?: Yes Primary care physician: Shalom Hernandez MD Hospital Course: HPI: Patient is a 69-year-old female with no significant past medical history who presented to the emergency department secondary to shortness of breath. She had been diagnosed with COVID-19 on 11/11. On arrival to the ER she was hypoxic at 86% on room air. Labs showed a mildly elevated d-dimer at 0.99, she subsequently underwent a CTA of the chest which showed no evidence of pulmonary embolism but did show extensive bilateral pulmonary infiltrates with reactive adenopathy. Her COVID-19 test was again positive. She was given a dose of Tylenol, Motrin, and Decadron area and she was admitted for further management. Patient seen and examined at bedside in the ER. She states that on Tuesday 11/07 she started having post nassal gtt, started coughing on 11/08. She went to see Dr. Hernandez on 11/10 and started on levaquin and medrol for bronchitis and her + COVID test came back 11/11. She started to have some difficulty getting in a deep breath over the last 4 days, she also reports rib pain when trying to breath, and shortness of breath. Poor appetitie. She is able to taste and smell. Stool has been watery but not frequent. No known COVID contacts, no hx of vaccine. Pertinent positives and negatives as discussed in HPI, a complete review of systems was performed and all other systems are negative. Hospital Course: COVID-19 pneumonitis acute hypoxic respiratory failure, transaminitis Healthcare Associated Pneumonia Patient initially presented with acute hypoxemic respiratory failure secondary Covid 19 pneumonitis, and was started on Decadron as well as empiric course of IV Zosyn. She also received vitamin supplementation with vitamin C, D, zinc. Her respiratory status worsened despite these measures, and received toast was not on 11/20. Patient never received remdesivir because she was outside the window benefit. Patient's d-dimer was noted to be quite elevated, and therefore she was started on therapeutic Lovenox. Unfortunately, patient's respiratory status continues to worsen to the point where she required BiPAP at 100% FiO2. Due to nutritionally poor status, she was started on TPN, and later started on voriconazole due to possibility/prophylaxis of fungal superinfection. In addition, she was noted to have increasing sputum production which was dark brown, and culture of this demonstrated gram-positive croci presumably staph. Patient was started on vancomycin. Despite all of our interventions, patient continued to decline. Given her change in clinical status, goals of care conversation was had with patient, patient's daughter, patient's , and patient opted to transition her goals to comfort. She was provided morphine for air hunger, and on 12/07 at 1:25 AM. Plan - Discharge Summary Discharge Rx Participant: No New Discharge Prescriptions: No Action Citalopram Hydrobromide [CeleXA] 10 mg PO HS Levofloxacin [Levaquin] 500 mg PO DAILY Tolterodine [Detrol] 2 mg PO HS Albuterol Inhaler [Ventolin Hfa Inhaler] 2 puff INHALATION RT-QID PRN PRN Reason: Shortness Of Breath Discharge Medication List Albuterol Inhaler [Ventolin Hfa Inhaler] 2 puff INHALATION RT-QID PRN 11/16/20 [History] Citalopram Hydrobromide [CeleXA] 10 mg PO HS 11/16/20 [History] Levofloxacin [Levaquin] 500 mg PO DAILY 11/16/20 [History] Tolterodine [Detrol] 2 mg PO HS 11/16/20 [History] Follow up Appointment(s)/Referral(s): Shalom Hernandez MD [Primary Care Provider] - 1-2 days Discharge Disposition: - Preliminary Cause of Preliminary Cause of : Covid 19
== END 2020-12-07 02:55 | disposition expired | DRG 177 ==
LOC: EC 12:50 → 4SSUR 16:02 → 2SICU 11-21 11:05 → 4SSUR 11-29 12:36 → UNDODISIN 11-29 19:05
PROVIDERS: ADMIT Internal Medicine; ATTEND Internal Medicine
PROC: 3E0336Z Introduction of Nutritional Substance into Peripheral Vein, Percutaneous Approach (ICD-10-PCS; 2020-11-16)
PROC: 5A0935A Assistance with Respiratory Ventilation, Less than 24 Consecutive Hours, High Flow/Velocity Cannula (ICD-10-PCS; 2020-11-19)
PROC: XW033H5 Introduction of Tocilizumab into Peripheral Vein, Percutaneous Approach, New Technology Group 5 (ICD-10-PCS; 2020-11-20)
PROC: 02HV33Z Insertion of Infusion Device into Superior Vena Cava, Percutaneous Approach (ICD-10-PCS; 2020-11-24)
PROC: 5A09457 Assistance with Respiratory Ventilation, 24-96 Consecutive Hours, Continuous Positive Airway Pressure (ICD-10-PCS; principal; 2020-11-26)
DX: U07.1 COVID-19 (principal); J12.82 Pneumonia due to coronavirus disease 2019; J15.9 Unspecified bacterial pneumonia; J96.01 Acute respiratory failure with hypoxia; I50.33 Acute on chronic diastolic (congestive) heart failure; E87.1 Hypo-osmolality and hyponatremia; J90 Pleural effusion, not elsewhere classified; Z66 Do not resuscitate; D64.9 Anemia, unspecified; D72.810 Lymphocytopenia; D72.828 Other elevated white blood cell count; T38.0X5A Adverse effect of glucocorticoids and synthetic analogues, initial encounter; F41.9 Anxiety disorder, unspecified; I27.20 Pulmonary hypertension, unspecified; R59.0 Localized enlarged lymph nodes; N32.81 Overactive bladder; Y95 Nosocomial condition; Z51.5 Encounter for palliative care; M94.0 Chondrocostal junction syndrome [Tietze]; F32.9 Major depressive disorder, single episode, unspecified; Z87.891 Personal history of nicotine dependence; Z90.710 Acquired absence of both cervix and uterus; Z82.49 Family history of ischemic heart disease and other diseases of the circulatory system; Z90.49 Acquired absence of other specified parts of digestive tract; Z79.899 Other long term (current) drug therapy
CPT/HCPCS: 36415; 36573; 71045; 71275; 80048; 80053; 81001; 82040; 82330; 82550; 82728; 83605; 83615; 83735; 83880; 84100; 84145; 84478; 85025; 85027; 85379; 85384; 85610; 85730; 86140; 87040; 87070; 87077; 87086; 87186; 87205; 87636; 93005; 93306; 93970; 94640; 94660; 94760; 99285